=== PATIENT | male | born 1955 | race Caucasian/White ===

== ENCOUNTER → 2021-09-20 11:12 | Outpatient (BNVA) | payer OTHER, SELFPAY | PROVIDERS: PCP Nurse Practitioner; Visit Provider Physical Therapy Assistant | DX: L89.153 Pressure ulcer of sacral region, stage 3 (principal); Z51.89 Encounter for other specified aftercare | CPT/HCPCS: 99205 ==

== ENCOUNTER 2021-09-23 08:29 | Emergency (ER) | payer OTHER, SELFPAY ==
[2021-09-23] VITALS (16 sets, daily range): BP systolic 127–173; BP diastolic 70–99; PULSE 82–107; RESP 15–28; TEMP 36.6–36.8; O2SAT 93–98
--- OUTSIDE RECORDS SUMMARY | 2021-09-23 08:55 | XMS_ITS | Encounter Summary ---
:1955 Author Organization [facility] [place] [address] Care Team Providers Name Role Phone Willard Gastelum MD Primary Care Provider Encounter Details Date Type Department Care Team Description 02/28/2017 Orders Only Hematology and Oncology at [facility] APRN [facility] Danis ramos [place] [address] DEPT. [phone] [place], [place] [address] (Wo rk) Social History Tobacco Use Types Packs/Day Years Used Date Never Assessed Sex Assigned at Date Recorded Not on file documented as of this encounter Plan of Treatment Not on filedocumented as of this encounter Visit Diagnoses Not on filedocumented in this encounter Care Teams Offset Assistant Press Operator Relationship Specialty Start Date End Date Willard Gastelum MD PCP - General 02/02/10 [address] [place] [address] documented as of this encounter
--- OUTSIDE RECORDS SUMMARY | 2021-09-23 08:55 | XMS_ITS | Clinical Summary ---
:1955 Author Organization [facility] [place] [address] Care Team Providers Name Role Phone Willard Gastelum MD Primary Care Provider Allergies No known active allergies Medications Medication Sig Dispensed Refills Start Date End Date Status CIS Free Text Med - 0 12/27/2007 Active Multiple Vitamin CIS Free Text Med - 0 12/27/2007 Active Twinrix lisinopril 20MG, PO, Once 0 12/27/2007 Act daxa (PRINIVIL;ZESTRIL) 20 mg daily tablet rrjkdzv-sbgyudtazugyh-qt 0 12/27/2007 Active ffeine (EXCEDRIN EXTRA STRENGTH) 250-250-65 mg per tablet Peginterferon jerald-2b 150 MCG/0.5 ML 0 12/27/2007 Active (PEGINTRON) 150 mcg/0.5 SQ QWEEK mL injection loratadine (CLARITIN) 10 0 12/27/2007 Active mg tablet ribavirin (REBETOL) 200 1400 MG = 7 0 12/27/2007 Active mg capsule Capsule(s) PO 4 in AM; 3 in PM daily Immunizations Name Administration Dates Next Due Hep A/Hep B 12/01/2006, 10/31/2006 Influenza Vaccine, Whole 02/24/2006 Td, adult 03/13/1998 Social History Tobacco Use Types Packs/Day Years Used Date Never Assessed Sex Assigned at Date Recorded Not on file Plan of Treatment Health Maintenance Due Date Last Done Comments Covid-19 Vaccine (#1) 1958 Hepatitis C Screening 1971 Lipid Screening 1971 Tdap adult 02/13/1972 Colonoscopy 1998 Zoster vaccine (1 of 2) 2003 Advance Directive 02/13/2008 Tetanus vaccine 03/13/2008 03/13/1998 Pneumoccocal Vaccine: 65+ (1 - PCV) 2018 Influenza (Flu) vaccine (1 of 1 - Influenza standard 11/11/2021 02/24/2006 series) Care Teams Institutional Custodian Relationship Specialty Start Date End Date Willard Gastelum MD PCP - General 02/02/[address] [place] [address]
--- OUTSIDE RECORDS SUMMARY | 2021-09-23 08:55 | XMS_ITS | Clinical Summary ---
:[address] [facility] Address [address] [place] [address] Care Team Providers Name Role Phone Willard Gastelum MD Primary Care Provider Unavailable Social History Tobacco Use Types Packs/Day Years Used Date Never Assessed Sex Assigned at Date Recorded Not on file Plan of Treatment Health Maintenance Due Date Last Done Comments Fall Risk Screening 2018 Care Teams Admin Secretary Relationship Specialty Start Date End Date Willard Gastelum MD PCP - General 01/20/15
--- OUTSIDE RECORDS SUMMARY | 2021-09-23 08:55 | XMS_ITS | Encounter Summary ---
:1955 Author Organization [facility] Address [address] [place] [address] Care Team Providers Name Role Phone Unavailable Primary Care Provider Unavailable Encounter Details Date Type Department Care Team Description 03/31/2002 - Hospital Encounter [facility] Chai Alfred MD 04/03/2002 General Surgery Unit [id number] [place] [address] [facility] Level 5 [place] [address] (Wo rk) Social History Tobacco Use Types Packs/Day Years Used Date Never Assessed Sex Assigned at Date Recorded Not on file documented as of this encounter Discharge Disposition Disposition Code Departure Means Destination Home or Self Care documented in this encounter Plan of Treatment Not on filedocumented as of this encounter Procedures Procedure Name Priority Date/Time Associated Comments Diagnosis HEMAGRAM & DIFF Routine 04/03/2002 11:00 Results for this EST procedure are i n the results section. CREATININE Routine 04/02/2002 7:10 Results for this EST procedure are i n the results section. HEMAGRAM & DIFF Routine 04/02/2002 7:10 Results f or this EST procedure are i n the results section. BUN Routine 04/02/2002 7:10 Results for this EST procedure are i n the results section. LIPASE Routine 04/02/2002 7:10 Results for this EST procedure are i n the results section. HEPATIC FUNCTION Routine 04/02/2002 7:10 Results for this PANEL (ALB,ALK EST procedure are in PHOS,ALT,AST,DBIL,TOT the re sults JANI,TOT PROT) section. ELECTROLYTES Routine 04/02/2002 7:10 Results for this EST procedure are i n the results section. AFB CULTURE/SMEAR, Routine 04/01/2002 12:21 Resul ts for this OTHER EST procedure are i n the results section. ANAEROBE Routine 04/01/2002 12:21 Results for this CULTURE/SMEAR(INC. EST procedure are in AEROBES), FLUID the results section. CT GUIDE DRAINAGE Routine 04/01/2002 11:47 Result s for this EST procedure are i n the results section. CREATININE Routine 04/01/2002 7:20 Results for this EST procedure are i n the results section. HEMAGRAM & DIFF Routine 04/01/2002 7:20 Results f or this EST procedure are i n the results section. PTT Routine 04/01/2002 7:20 Results for this EST procedure are i n the results section. PROTIME Routine 04/01/2002 7:20 Results for this EST procedure are i n the results section. BUN Routine 04/01/2002 7:20 Results for this EST procedure are i n the results section. LIPASE Routine 04/01/2002 7:20 Results for this EST procedure are i n the results section. HEPATIC FUNCTION Routine 04/01/2002 7:20 Results for this PANEL (ALB,ALK EST procedure are in PHOS,ALT,AST,DBIL,TOT the re sults JANI,TOT PROT) section. ELECTROLYTES Routine 04/01/2002 7:20 Results for this EST procedure are i n the results section. PTT Routine 04/01/2002 6:40 Results for this EST procedure are i n the results section. PROTIME Routine 04/01/2002 6:40 Results for this EST procedure are i n the results section. URINALYSIS WITH Routine 03/31/2002 23:15 Results for this MICROSCOPIC IF EST procedure are in POSITIVE the results section. UA REFLEX Routine 03/31/2002 23:15 Results for this EST procedure are i n the results section. C. DIFFICILE TOXIN Routine 03/31/2002 23:15 Resul ts for this EST procedure are i n the results section. CT ABDOMEN, PELVIS W Routine 03/31/2002 23:02 Res ults for this CONTRAST EST procedure are i n the results section. CREATININE Routine 03/31/2002 18:51 Results for this EST procedure are i n the results section. HEMAGRAM & DIFF Routine 03/31/2002 18:51 Results for this EST procedure are i n the results section. BUN Routine 03/31/2002 18:51 Results for this EST procedure are i n the results section. HEPATIC FUNCTION Routine 03/31/2002 18:51 Results for this PANEL (ALB,ALK EST procedure are in PHOS,ALT,AST,DBIL,TOT the re sults JANI,TOT PROT) section. LIPID PROFILE Routine 03/31/2002 18:51 Results fo r this (INCLUDES EST procedure are i n CHOLESTEROL, the results TRIGLYCERIDES, HDL, section. LDL) ELECTROLYTES Routine 03/31/2002 18:51 Results for this EST procedure are i n the results section. documented in this encounter Results (ABNORMAL) HEMAGRAM & DIFF (04/03/2002 11:00 EST) WBC 11.00 (H) 4.0 - 10.4 [facility] K/cmm RBC 4.13 (L) 4.36 - 5.78 [facility] M/cmm Hemoglobin 12.0 (L) 13.8 - 17.3 [facility] gm/dl HCT 35.2 (L) 39.5 - 50.2 % [facility] MCV 85 81 - 95 fl [facility] MCH 29.2 27.6 - 33.0 pg [facility] MCHC 34.2 32.8 - 36.4 [facility] gm/dl PLT 806 (H) 141 - 320 [facility] K/cmm RDW-CV 12.4 11.8 - 14.1 % [facility] Neutrophils 77 45.5 - 79.7 % [facility] Lymphocytes 14 (L) 15.0 - 46.8 % [facility] Monocytes 8 1.8 - 12.0 % [facility] Eosinophils 1 0.6 - 6.9 % [facility] ABS Neutrophils 8.47 2.20 - 8.85 [facility] K/cmm ABS Lymphs 1.54 1.09 - 3.30 [facility] K/cmm ABS Monocytes 0.88 (H) 0.1 - 0.8 [facility] K/cmm ABS Eosinophils 0.11 0.03 - 0.61 [facility] K/cmm RBC Morphology 1+ Anisocytosis [facility] 1+ Macrocytes 1+ Polychromasia Type of Diff: Manual [facility] Specimen Performing Organization Address City/[facility]/ZIP Code Phon e Number [facility] [address] [place] [address] SERVICES [facility] [address] [place] [address] ELECTROLYTES (04/02/2002 7:10 EST) Pathologist Sig nature Sodium 136 136 - 145 mEq/L [facility] Potassium 4.5 3.5 - 5.0 mEq/L [facility] Chloride 104 96 - 110 mEq/L [facility] CO2 26 24 - 30 mEq/L [facility] Specimen Performing Organization Address [facility]/ZIP [facility] Phon e Number [facility] [address] [place] [address] SERVICES [facility] [address] [place] [address] (ABNORMAL) LIVER FUNCTION TESTS (04/02/2002 7:10 EST) Albumin 2.4 (L) 3.0 - 5.5 g/dl [facility] Total Protein 5.6 (L) 6.0 - 8.5 g/dl [facility] Total Alkaline 75 38 - 126 U/L [facility] Phosphatase ALT 29 15 - 75 U/L [facility] AST 15 8 - 50 U/L [facility] Unconjugated Bilirubin 0.1 0.1 - 1.1 mg/dl [facility] Conjugated Bilirubin 0.0 0.0 - 0.3 mg/dl [facility] Bilirubin, Total <0.1 (L) 0.2 - 1.3 mg/dl [facility] Specimen Performing Organization Address City/[facility]/ZIP Code Phon e Number [facility] [address] [place] [address] SERVICES [facility] [address] [place] [address] LIPASE (04/02/2002 7:10 EST) Pathologist Sig nature Lipase 73 0 - 210 U/L [facility] Specimen Performing Organization Address City/[facility]/ZIP Code Phon e Number [facility] [address] [place] [address] SERVICES [facility] [address] [place] [address] CREATININE (04/02/2002 7:10 EST) Pathologist Sig nature Creatinine 0.8 0.7 - 1.5 mg/dl [facility] Specimen Performing Organization Address City/[facility]/ZIP Code Phon e Number [facility] [address] [place] [address] SERVICES [facility] [address] [place] [address] (ABNORMAL) HEMAGRAM & DIFF (04/02/2002 7:10 EST) WBC 9.13 4.0 - 10.4 [facility] K/cmm RBC 3.68 (L) 4.36 - 5.78 [facility] M/cmm Hemoglobin 10.7 (L) 13.8 - 17.3 [facility] gm/dl HCT 31.5 (L) 39.5 - 50.2 % [facility] MCV 86 81 - 95 fl [facility] MCH 29.2 27.6 - 33.0 pg [facility] MCHC 34.1 32.8 - 36.4 [facility] gm/dl PLT 642 (H) 141 - 320 K/cmm [facility] RDW-CV 12.2 11.8 - 14.1 % [facility] Neutrophils 73 45.5 - 79.7 % [facility] Lymphocytes 17 15.0 - 46.8 % [facility] Monocytes 8 1.8 - 12.0 % [facility] Eosinophils 1 0.6 - 6.9 % [facility] Basophils 1 0.2 - 1.4 % [facility] ABS Neutrophils 6.67 2.20 - 8.85 [facility] K/cmm ABS Lymphs 1.55 1.09 - 3.30 [facility] K/cmm ABS Monocytes 0.73 0.1 - 0.8 K/cmm [facility] ABS Eosinophils 0.09 0.03 - 0.61 [facility] K/cmm ABS Basophils 0.09 0.01 - 0.11 [facility] K/cmm RBC Morphology 1+ Anisocytosis [facility] 1+ Target cells Type of Diff: Manual [facility] Specimen Performing Organization Address City/State/ZIP Code Phon e Number [facility] [address] [place] [address] SERVICES [facility] [address] [place] [address] (ABNORMAL) BUN (04/02/2002 7:10 EST) Pathologist Sig nature BUN 3 (L) 10 - 26 mg/dl [facility] Specimen Performing Organization Address City/[facility] Code Phon e Number [facility] [address] [place] [address] SERVICES [facility] [address] [place] [address] AFB CULTURE/SMEAR, OTHER (04/01/2002 12:21 EST) Specimen Description Drainage [facility] Abdomen Abscess Acid Fast No acid-fast [facility] bacilli seen Result No acid-fast [facility] bacilli isolated Report Status Final [facility] [id number] Specimen Performing Organization Address [facility] Phon e Number [facility] [address] [place] [address] SERVICES [facility] [address] [place] [address] ANAEROBE CULTURE/SMEAR(INC. AEROBES), FLUID (04/01/2002 12:21 EST) Specimen Description Drainage [facility] Abscess Gram Smear Result Many [facility] Few Gram negative bacilli Rare Yeast Result Few [facility] ESCHERICHIA COLI [facility] Few SUSAN ALBICANS Report Status Final [facility] [id number] [facility] Specimen Organism Antibiotic Method Susceptibility Fewescherichia coli Ampicillin SUSCEPTIBILITY (SANDIP) >=32 Resistant Resistant Fewescherichia coli Cefazolin SUSCEPTIBILITY (SANDIP) <=8 Susceptible Susceptible Fewescherichia coli Gentamicin SUSCEPTIBILITY (SANDIP) <=0.5 Susceptible Susceptible Fewescherichia coli Tobramycin SUSCEPTIBILITY (SANDIP) 1 Susceptible Susceptible Fewescherichia coli Imipenem SUSCEPTIBILITY (SANDIP) <=4 Susceptible Susceptible Fewescherichia coli Cefotetan SUSCEPTIBILITY (SANDIP) <=16 Susceptible Susceptible Fewescherichia coli Piperacillin SUSCEPTIBILITY (SANDIP) 64 Intermediate Intermediate Fewescherichia coli Ceftriaxone SUSCEPTIBILITY (SANDIP) <=8 Susceptible Susceptible Fewescherichia coli Trimethoprim-Sulfameth SUSCEPTIBILITY (SANDIP) <=.5/9.5 oxazole Susceptible Susceptible Fewescherichia coli Ciprofloxacin SUSCEPTIBILITY (SANDIP) <=0.5 Susceptible Susceptible Fewescherichia coli Ceftazidime SUSCEPTIBILITY (SANDIP) <=8 Susceptible Susceptible Performing Organization Address City/State/ZIP Code Phon e Number [facility] [address] [place] [address] SERVICES [facility] [address] [place] [address] CT GUIDE DRAINAGE (04/01/2002 11:47 EST) Anatomical Region Laterality Modality Other Specimen Impressions [facility] - 12/08/2008 3: 47 EDT IMPRESSION: Unsuccessful attempt at placing pigtail drainage catheter into the small collection of fluid adjacent to shawn wel and peritoneum in the left abdomen. Needle aspiration of this colle ction yielded a mere 2 cc of pus-tinged fluid. This was sent to the L aboratory for analysis, cultures and sensitivities. The attending radiologist was present th roughout the entire procedure. /[facility] Narrative [facility] - 12/08/2008 3: 47 EDT TEMP, INCREASED WBC LT SIDE PAIN ??R/O ABSCESS CT-GUIDED DRAINAGE, 04/01/02, 1030 HISTORY: Increased white count, left-sided pain, elevated temperature, rule out abscess for drainage. PROCEDURE: After a thorough explanation of the risk s and benefits of the procedure, informed verbal and written c onsent was obtaind. The patient was placed in a supine posit ion and localizing images were obtained. Conscious sedation was adminis tered and the patient's blood pressure, heart rate, and oxygen saturat ion were monitored throughout the procedure. After localizing the collection in the l eft abdomen, the patient's skin was prepped and draped in normal st erile fashion. Local anesthetic was provided with lidocaine. Using a TLA needle, access to the collec tion was performed. One and one-half cubic centimeters of pus was re moved. This was followed by the advancement of a guide wire under CT guidance. Imaging of the abdomen postguide wire pl acement demonstrated the guide wire to course in a path which appeared adjacent to small bowel. A 10-gauge multipurpose pigtail drainage t ube was then advanced over the wire. The guide wire was removed and asp iration was attempted from the pigtail catheter. Only a small amoun t of fluid was able to be removed with predominantly air being asp irated. Localizing images were then obtained aga in after the tube was injected with a 1% contrast solution. This demons trated opacification of the adjacent small bowel loop. The pigtail catheter was then slowly wit hdrawn incrementally, aspirating continuously). A small amount of pus was able to be aspirated and at this time a guide wire was then placed through the pigtail catheter. The guide wire, howeve r, could not be advanced. The pigtail catheter was removed. A dila ting catheter was placed over the wire to the edge of the collection. The guide wire still could not be adequately advanced into the anders ection. Multiple attempts were made and the guide wire and cathete r were removed. A new location was then attempted three centimeters lateral to the original site. A 19-gauge coaxial needle was advanced into the area of the collection. Aspiration did not, h owever, yield any fluid or pus. This was redirected several times, again no pus or fluid was able to be aspirated. A guide wire was a dvanced slowly with CT fluoroscopic guidance, however, the guid e wire coiled at the tip of the needle. At this point, it was determined that th e collection was not large enough to place a drain into and the nee dles and wires were removed. Bandages were applied to the skin access points and the patient was returned to the Floor in satisfactory co ndition. Procedure Note Nelson Brenner MD / Cj Medina MD - 12/08/2008 TEMP, INCREASED WBC LT SIDE PAIN R/O ABS CESS CT-GUIDED DRAINAGE, 04/01/02, 1030 HISTORY: Increased white count, left-sided pain, elevated temperature, rule out abscess for drainage. PROCEDURE: After a thorough explanation of the risk s and benefits of the procedure, informed verbal and written c onsent was obtaind. The patient was placed in a supine posit ion and localizing images were obtained. Conscious sedation was adminis tered and the patient's blood pressure, heart rate, and oxygen saturat ion were monitored throughout the procedure. After localizing the collection in the l eft abdomen, the patient's skin was prepped and draped in normal st erile fashion. Local anesthetic was provided with lidocaine. Using a TLA needle, access to the collec tion was performed. One and one-half cubic centimeters of pus was re moved. This was followed by the advancement of a guide wire under CT guidance. Imaging of the abdomen postguide wire pl acement demonstrated the guide wire to course in a path which appeared adjacent to small bowel. A 10-gauge multipurpose pigtail drainage t ube was then advanced over the wire. The guide wire was removed and asp iration was attempted from the pigtail catheter. Only a small amoun t of fluid was able to be removed with predominantly air being asp irated. Localizing images were then obtained aga in after the tube was injected with a 1% contrast solution. This demons trated opacification of the adjacent small bowel loop. The pigtail catheter was then slowly wit hdrawn incrementally, aspirating continuously). A small amount of pus was able to be aspirated and at this time a guide wire was then placed through the pigtail catheter. The guide wire, howeve r, could not be advanced. The pigtail catheter was removed. A dila ting catheter was placed over the wire to the edge of the collection. The guide wire still could not be adequately advanced into the anders ection. Multiple attempts were made and the guide wire and cathete r were removed. A new location was then attempted three centimeters lateral to the original site. A 19-gauge coaxial needle was advanced into the area of the collection. Aspiration did not, h owever, yield any fluid or pus. This was redirected several times, again no pus or fluid was able to be aspirated. A guide wire was a dvanced slowly with CT fluoroscopic guidance, however, the guid e wire coiled at the tip of the needle. At this point, it was determined that th e collection was not large enough to place a drain into and the nee dles and wires were removed. Bandages were applied to the skin access points and the patient was returned to the Floor in satisfactory co ndition. IMPRESSION IMPRESSION: Unsuccessful attempt at placing pigtail drainage catheter into the small collection of fluid adjacent to shawn wel and peritoneum in the left abdomen. Needle aspiration of this colle ction yielded a mere 2 cc of pus-tinged fluid. This was sent to the aboratory for analysis, cultures and sensitivities. The attending radiologist was present th roughout the entire procedure. /[facility] Performing Organization Address City/State/ZIP Code Phon e Number [facility] [address] [place], [place] [address] [address] [facility] [address] [place], [place] [address] PTT (04/01/2002 7:20 EST) Pathologist Sig nature PTT 26Comment: Therapeutic 23 - 33 secs [facility] Heparin range: 58-100 seconds Specimen Performing Organization Address City/[facility]/ZIP [facility] Phon e Number [facility] [address] [place] [address] SERVICES [facility] [address] [place] [address] (ABNORMAL) PROTIME (04/01/2002 7:20 EST) Pro Time 13.6 (H) 11.7 - 13.1 [facility] Comment: secs NEW REAGENT IN USE Increase in protime results in seconds e xpected ? due to change to more sensitive reagent. INR values remain unchanged I.N.R. 1.1 0.8 - 1.2 [facility] Comment: Ratio Moderate Intensity Coumadin INR = 2.0-3.0 Adjustments in anticoagulant therapy dose should be based upon the INR and NOT the Pro Time. Specimen Performing Organization Address [facility] Phon e Number [facility] [address] [place] [address] SERVICES [facility] [address] [place] [address] (ABNORMAL) ELECTROLYTES (04/01/2002 7:20 EST) Pathologist Sig nature Sodium 135 (L) 136 - 145 mEq/L [facility] Potassium 4.4 3.5 - 5.0 mEq/L [facility] Chloride 103 96 - 110 mEq/L [facility] CO2 25 24 - 30 mEq/L [facility] Specimen Performing Organization Address City/[facility]/ZIP [facility] Phon e Number [facility] [address] [place] [address] SERVICES [facility] [address] [place] [address] (ABNORMAL) LIVER FUNCTION TESTS (04/01/2002 7:20 EST) Albumin 2.3 (L) 3.0 - 5.5 g/dl [facility] Total Protein 5.4 (L) 6.0 - 8.5 g/dl [facility] Total Alkaline 81 38 - 126 U/L [facility] Phosphatase ALT 27 15 - 75 U/L [facility] AST 15 8 - 50 U/L [facility] Unconjugated Bilirubin 0.1 0.1 - 1.1 mg/dl [facility] Conjugated Bilirubin 0.0 0.0 - 0.3 mg/dl [facility] Bilirubin, Total <0.1 (L) 0.2 - 1.3 mg/dl [facility] Specimen Performing Organization Address City/[facility]/ZIP Code Phon e Number [facility] [address] [place] [address] SERVICES [facility] [address] [place] [address] LIPASE (04/01/2002 7:20 EST) Pathologist Sig nature Lipase 78 0 - 210 U/L [facility] Specimen Performing Organization Address [facility] Phon e Number [facility] [address] [place] [address] SERVICES [facility] [address] [place] [address] CREATININE (04/01/2002 7:20 EST) Pathologist Sig nature Creatinine 0.8 0.7 - 1.5 mg/dl [facility] Specimen Performing Organization Address [facility] Phon e Number [facility] [address] [place] [address] SERVICES [facility] [address] [place] [address] (ABNORMAL) HEMAGRAM & DIFF (04/01/2002 7:20 EST) Pathologist Sig nature WBC 12.96 (H) 4.0 - 10.4 K/cmm [facility] RBC 3.70 (L) 4.36 - 5.78 M/cmm [facility] Hemoglobin 10.7 (L) 13.8 - 17.3 gm/dl [facility] HCT 32.0 (L) 39.5 - 50.2 % [facility] MCV 86 81 - 95 fl [facility] MCH 29.0 27.6 - 33.0 pg [facility] MCHC 33.6 32.8 - 36.4 gm/dl [facility] PLT 628 (H) 141 - 320 K/cmm [facility] RDW-CV 12.5 11.8 - 14.1 % [facility] Neutrophils 76.6 45.5 - 79.7 % [facility] Lymphocytes 10.8 (L) 15.0 - 46.8 % [facility] Monocytes 9.8 1.8 - 12.0 % [facility] Eosinophils 1.8 0.6 - 6.9 % [facility] Basophils 1.0 0.2 - 1.4 % [facility] ABS Neutrophils 9.93 (H) 2.20 - 8.85 K/cmm [facility] ABS Lymphs 1.40 1.09 - 3.30 K/cmm [facility] ABS Monocytes 1.27 (H) 0.1 - 0.8 K/cmm [facility] ABS Eosinophils 0.23 0.03 - 0.61 K/cmm [facility] ABS Basophils 0.13 (H) 0.01 - 0.11 K/cmm [facility] Type of Diff: Automated [facility] Specimen Performing Organization Address City/[facility]/ZIP Code Phon e Number [facility] [address] [place] [address] SERVICES [facility] [address] [place] [address] (ABNORMAL) BUN (04/01/2002 7:20 EST) Pathologist Sig nature BUN 5 (L) 10 - 26 mg/dl [facility] Specimen Performing Organization Address City/[facility]/ZIP [facility] Phon e Number [facility] [address] [place] [address] SERVICES [facility] [address] [place] [address] PTT (04/01/2002 6:40 EST) Pathologist Sig nature PTT 26Comment: Therapeutic 23 - 33 secs [facility] Heparin range: 58-100 seconds Specimen Performing Organization Address [facility]/ZIP [facility] Phon e Number [facility] [address] [place] [address] SERVICES [facility] [address] [place] [address] (ABNORMAL) PROTIME (04/01/2002 6:40 EST) Pro Time 13.5 (H) 11.7 - 13.1 [facility] Comment: secs NEW REAGENT IN USE Increase in protime results in seconds e xpected ? due to change to more sensitive reagent. INR values remain unchanged I.N.R. 1.1 0.8 - 1.2 [facility] Comment: Ratio Moderate Intensity Coumadin INR = 2.0-3.0 Adjustments in anticoagulant therapy dose should be based upon the INR and NOT the Pro Time. Specimen Performing Organization Address City/[facility]/ZIP Code Phon e Number [facility] [address] [place] [address] SERVICES [facility] [address] [place] [address] C. DIFFICILE TOXIN (03/31/2002 23:15 EST) Specimen Description Feces [facility] Result No C.difficile [facility] toxin A or toxin B detected. Report Status Final [facility] [id number] Specimen Performing Organization Address [facility] Phon e Number [facility] [address] [place] [address] SERVICES [facility] [address] [place] [address] UA REFLEX (03/31/2002 23:15 EST) Pathologist Sig nature UA Billing Microscopic not [facility] indicated. Specimen Performing Organization Address [facility] Phon e Number [facility] [address] [place] [address] SERVICES [facility] [address] [place] [id number] (ABNORMAL) URINALYSIS (03/31/2002 23:15 EST) Pathologist Sig nature Color, UA Yellow [facility] Clarity, UA Clear [facility] Glucose, UA Norm NORM [facility] Bilirubin, UA Small (A) NEG [facility] Ketones, UA Trace (A) NEG [facility] Specific [place], 1.015 1.005 - 1.02 [facility] Urine Blood, UA Neg NEG [facility] pH, UA 7.5 5.0 - 9.0 [facility] Protein, UA Trace (A) NEG [facility] Urobilinogen, UA Norm NORM mg/dL [facility] Nitrite, UA Neg NEG [facility] Leuk Esterase Neg NEG [facility] Specimen Performing Organization Address City/State/ZIP Code Phon e Number [facility] [address] [place] [address] SERVICES [facility] [address] [place] [address] CT ABDOMEN, PELVIS W CONTRAST (03/31/2002 23:02 EST) Anatomical Region Laterality Modality Other Specimen Impressions [facility] - 12/08/2008 3: 47 EDT IMPRESSION: 1. S/p colectomy with ileoanal anastomos is. 2. Left midabdomen abscess with adjacent peritoneal wall thickening and bowel wall thickening in loops of sm all bowel adjacent to this fluid collection, and other signs of per itonitis with fat stranding throughout the mesenteric fat. 3. Ventral midline wound dehiscence with infiltrative fat changes to the subcutaneous tissues, consistent wit h infection. 4. Dilated loops of small bowel without focal transition point. 5. Spondylolysis at L5. No evidence of s pondylolisthesis. 6. Left nephrolithiasis. 7. 1.5 x 1.6cm right adrenal mass, which , on the unenhanced images done at the time of the abscess drainage later in the day on 04/01, demonstrates -14 Hounsfield units, consi stent with a benign adenoma. /[facility] - 12/08/2008 3: 47 EDT H/O OBESITY AND BOWEL ANASTAMOSIS, POD #10 FOR SBO, NOW W/ FEVER AND L LQ PAINR/O INTRA-ABDOMINAL ABSCESS CT OF THE ABDOMEN & PELVIS: 03/31/02, HISTORY: colectomy and ileoanal anas tomosis, post-op day 10 for SBO, adhesion, resection, now with fever and left lower quadrant pain. Rule out intra-abdominal abscess. Abdomen and pelvis without rectal contra st TECHNIQUE ABDOMEN: Prior to the examination, the patient wa s given oral contrast. During the intravenous administration of 150 cc of 300 mg% nonionic contrast at a rate of 2 cc/second, helical images were obtained from the domes of the diaphragms to the iliac crests. TECHNIQUE PELVIS: Immediately after the above preparation, axial images were obtained from the iliac crests to the ischial tub erosities. FINDINGS: There is bibasilar atelectasis, right mo re than left. The inferior heart and pericardium are unremarkable. Evaluation of the abdomen demonstrates s tones in the gallbladder. A hypodense, right adrenal lesion is darío ntified, measuring -17 Hounsfield units on unenhanced image, co nsistent with an adenoma. The liver, spleen, and pancreas are unre markable. There are a few hypodense cysts within b oth the right and left kidneys. There is a tiny, 2mm calculus i n the mid, left kidney, and a 3mm calculus within the lower pole of th e left kidney. The patient is s/p colectomy with ileoan al anastomosis. There is distension of multiple loops of small bowel, without identified of a focal transition point t o normal caliber bowel. Note is made of a small bowel diverticulum pr oximally, which is either off of the duodenum or an adjacent loop of j ejunum. There is a small fluid collection along the left midabdomen, with adjacent peritoneal thickening and small bowel wall thickening of adjacent bowel loops, adjacent to the co llection. The midline ventral incision demonstrate s skin dehiscence at several locations. There is fat stranding of the subcutaneous tissues along the wound. There is fat stranding scatte red throughout the mesentery. No other fluid collections are identifie d. Note is made of a pars defect, bilateral ly, at L5, without spondylolisthesis. Procedure Note Nelson Brenner MD / Hailey Joseph MD - 12/08/2008 H/O OBESITY AND BOWEL ANASTAMOSIS, POD # 10 FOR SBO, NOW W/ FEVER AND L LQ PAINR/O INTRA-ABDOMINAL ABSCESS CT OF THE ABDOMEN & PELVIS: 03/31/02, HISTORY: colectomy and ileoanal anas tomosis, post-op day 10 for SBO, adhesion, resection, now with fever and left lower quadrant pain. Rule out intra-abdominal abscess. Abdomen and pelvis without rectal contra st TECHNIQUE ABDOMEN: Prior to the examination, the patient wa s given oral contrast. During the intravenous administration of 150 cc of 300 mg% nonionic contrast at a rate of 2 cc/second, helical images were obtained from the domes of the diaphragms to the iliac crests. TECHNIQUE PELVIS: Immediately after the above preparation, axial images were obtained from the iliac crests to the ischial tub erosities. FINDINGS: There is bibasilar atelectasis, right mo re than left. The inferior heart and pericardium are unremarkable. Evaluation of the abdomen demonstrates s tones in the gallbladder. A hypodense, right adrenal lesion is darío ntified, measuring -17 Hounsfield units on unenhanced image, co nsistent with an adenoma. The liver, spleen, and pancreas are unre markable. There are a few hypodense cysts within b oth the right and left kidneys. There is a tiny, 2mm calculus i n the mid, left kidney, and a 3mm calculus within the lower pole of th e left kidney. The patient is s/p colectomy with ileoan al anastomosis. There is distension of multiple loops of small bowel, without identified of a focal transition point t o normal caliber bowel. Note is made of a small bowel diverticulum pr oximally, which is either off of the duodenum or an adjacent loop of j ejunum. There is a small fluid collection along the left midabdomen, with adjacent peritoneal thickening and small bowel wall thickening of adjacent bowel loops, adjacent to the co llection. The midline ventral incision demonstrate s skin dehiscence at several locations. There is fat stranding of the subcutaneous tissues along the wound. There is fat stranding scatte red throughout the mesentery. No other fluid collections are identifie d. Note is made of a pars defect, bilateral ly, at L5, without spondylolisthesis. IMPRESSION IMPRESSION: 1. S/p colectomy with ileoanal anastomos is. 2. Left midabdomen abscess with adjacent peritoneal wall thickening and bowel wall thickening in loops of sm all bowel adjacent to this fluid collection, and other signs of per itonitis with fat stranding throughout the mesenteric fat. 3. Ventral midline wound dehiscence with infiltrative fat changes to the subcutaneous tissues, consistent wit h infection. 4. Dilated loops of small bowel without focal transition point. 5. Spondylolysis at L5. No evidence of s pondylolisthesis. 6. Left nephrolithiasis. 7. 1.5 x 1.6cm right adrenal mass, which , on the unenhanced images done at the time of the abscess drainage later in the day on 04/01, demonstrates -14 Hounsfield units, consi stent with a benign adenoma. /derrick Performing Organization Address [facility] Code Phon e Number [facility] [address] [facility] [address] [facility] [address] [place], [place] [address] (ABNORMAL) ELECTROLYTES (03/31/2002 18:51 EST) Pathologist Sig nature Sodium 133 (L)Comment: 136 - 145 mEq/L [facility] Slight hemolysis Potassium 4.6 3.5 - 5.0 mEq/L [facility] Comment: Hemolysis may elevate potassium result. Slight hemolysis Chloride 101Comment: Slight 96 - 110 mEq/L [facility] hemolysis CO2 26Comment: Slight 24 - 30 mEq/L [facility] hemolysis Specimen Performing Organization Address [facility] Phon e Number [facility] [address] [place] [address] SERVICES [facility] [address] [place] [address] LIPID PROFILE (INCLUDES CHOLESTEROL, TRIGLYCERIDES, HDL, LDL) (03/31/2002 18:51 EST) Cholesterol 100 mg/dl [facility] Comment: Desirable:<200 Borderline:200-239 High Risk:>dm=[id number] Slight hemolysis Triglycerides 68Comment: Slight 35 - 160 mg/dl [facility] hemolysis HDL 25 mg/dl [facility] Comment: Highly Desirable:>60 Desirable:35-60 High Risk:<35 LDL, Calculated 61 mg/dl [facility] Comment: Desirable:<130 Borderline:130-159 High Risk:>zf=726 Chol/HDL Ratio 4.0 [facility] Specimen Performing Organization Address [facility]/ZIP [facility] Phon e Number [facility] [address] [place] [address] SERVICES [facility] [address] [place] [address] (ABNORMAL) LIVER FUNCTION TESTS (03/31/2002 18:51 EST) Albumin 2.4 (L)Comment: 3.0 - 5.5 [facility] hemolysis g/dl LAB Total Protein 5.8 (L)Comment: 6.0 - 8.5 [facility] Slight hemolysis g/dl LAB Total Alkaline 86Comment: Slight 38 - 126 U/L [facility] Phosphatase hemolysis LAB ALT 30Comment: Slight 15 - 75 U/L [facility] LAB AST 19Comment: Slight 8 - 50 U/L [facility] hemolysis LAB Unconjugated 0.3Comment: 0.1 - 1.1 [facility] Bilirubin Slight hemolysis mg/dl LAB Conjugated Bilirubin 0.0Comment: 0.0 - 0.3 [facility] Slight hemolysis mg/dl LAB Bilirubin, Total 0.3Comment: 0.2 - 1.3 [facility] Slight hemolysis mg/dl LAB Specimen Performing Organization Address City/[facility]/ZIP [facility] Phon e Number [facility] [address] [place] [address] SERVICES [facility] [address] [place] [phone] CREATININE (03/31/2002 18:51 EST) Pathologist Sig nature Creatinine 0.7Comment: Slight 0.7 - 1.5 mg/dl [facility] hemolysis Specimen Performing Organization Address City/[facility] Code Phon e Number [facility] [address] [place] [address] SERVICES [facility] [address] [place] [address] (ABNORMAL) HEMAGRAM & DIFF (03/31/2002 18:51 EST) WBC 18.16 (H) 4.0 - 10.4 [facility] K/cmm RBC 3.70 (L) 4.36 - 5.78 [facility] M/cmm Hemoglobin 10.8 (L) 13.8 - 17.3 [facility] gm/dl HCT 31.9 (L) 39.5 - 50.2 % [facility] MCV 86 81 - 95 fl [facility] MCH 29.2 27.6 - 33.0 pg [facility] MCHC 33.8 32.8 - 36.4 [facility] gm/dl PLT 685 (H) 141 - 320 [facility] K/cmm RDW-CV 12.4 11.8 - 14.1 % [facility] Neutrophils 92 (H) 45.5 - 79.7 % [facility] Lymphocytes 4 (L) 15.0 - 46.8 % [facility] Monocytes 3 1.8 - 12.0 % [facility] Eosinophils 1 0.6 - 6.9 % [facility] ABS Neutrophils 16.71 (H) 2.20 - 8.85 [facility] K/cmm ABS Lymphs 0.73 (L) 1.09 - 3.30 [facility] K/cmm ABS Monocytes 0.54 0.1 - 0.8 [facility] K/cmm ABS Eosinophils 0.18 0.03 - 0.61 [facility] K/cmm RBC Morphology 1+ Polychromasia [facility] Type of Diff: Manual [facility] Specimen Performing Organization Address City/State/ZIP Code Phon e Number [facility] [address] [place] [address] SERVICES [facility] [address] [place] [address] (ABNORMAL) BUN (03/31/2002 18:51 EST) Pathologist Sig nature BUN 7 (L)Comment: Slight 10 - 26 mg/dl [facility] hemolysis Specimen Performing Organization Address City/State/ZIP Code Phon e Number [facility] [address] [place] [address] SERVICES [facility] [address] [place] [address] documented in this encounter Visit Diagnoses Not on filedocumented in this encounter
--- OUTSIDE RECORDS SUMMARY | 2021-09-23 08:55 | XMS_ITS | Encounter Summary ---
:1955 Author Organization [facility] [place] [address] Care Team Providers Name Role Phone Willard Gastelum MD Primary Care Provider Encounter Details Date Type Department Care Team Description 06/09/2017 Orders Only Hematology and Oncology at [facility] Morris APRN [facility] Danis ramos [place] [address] DEPT. [phone] [place], [place] [address] (Wo rk) Social History Tobacco Use Types Packs/Day Years Used Date Never Assessed Sex Assigned at Date Recorded Not on file documented as of this encounter Plan of Treatment Not on filedocumented as of this encounter Visit Diagnoses Not on filedocumented in this encounter Care Teams Lifter/Driver Relationship Specialty Start Date End Date Willard Gastelum MD PCP - General 02/02/10 [address] [place] [address] documented as of this encounter
--- NOTE | 2021-09-23 09:00 | RT.EKG_ITS ---
APPROVED REPORT Exam: Resting ECG Reason for Exam: weakness Patient Location: E HR:82 bpm ECG Measurements Heart Rate 82 AXIS ID 144 P 40 QRSd 87 QRS 57 QT 379 T 43 QTc 444 Conclusion Sinus rhythm...normal P axis, V-rate 60- 99. Sinus. Normal axis. No STEMI. I have reviewed and interpreted ECG and agree with software generated interpretation.
--- NOTE | 2021-09-23 09:00 | DI.CT_ITS ---
Exam(s) CT HEAD CERVICAL SPINE WO EXAM: CT HEAD CERVICAL SPINE WO CLINICAL HISTORY: fall, [place], dementia, neck pain. TECHNIQUE: Imaging Protocol: Axial computed tomography images with coronal and sagittal reformatted images were created and reviewed COMPARISON: No exams were available for comparison FINDINGS: CT Head: Ventricles and Extra axial spaces: Normal in size and morphology for the patient's age. Hemorrhage: None. Cerebral parenchyma: Normal. Midline shift: None. Brainstem/Cerebellum: Normal. Calvarium: Normal. Visualized Paranasal sinuses/Mastoids: Clear. Soft Tissues: Unremarkable. CT Cervical Spine: Bones: No acute fracture or subluxation. There are degenerative changes seen in the cervical spine. Soft Tissues: Unremarkable. Lung Apices: Clear. IMPRESSION: 1. No acute intracranial process. 2. No acute fracture or subluxation in the cervical spine. 3. Results of this exam have been verbally communicated with provider. RADIATION DOSE DELIVERED: 1,134.56mGy.cm Total DLP DATA REPOSITORY: All CT scans at this facility are submitted to the National Radiology Data Registry (NRDR) Dose Index Registry (DIR) with the [employer] (ACR). RADIATION OPTIMIZATION: All CT scans at this facility use at least one of these dose optimization te chniques: automated exposure control; mA and/or kV adjustment per patient size (includes targeted exa ms where dose is matched to clinical indication); or iterative reconstruction.
--- NOTE | 2021-09-23 09:05 | DI.RAD_ITS ---
Exam(s) XR CHEST 1V IN DI DEPT EXAM: XR CHEST 1V IN DI DEPT CLINICAL HISTORY: frequent falls, weakness TECHNIQUE: 2D digital imaging was performed of the chest. One image was obtained. An AP view was ob tained. COMPARISON: No exams were available for comparison FINDINGS: MEDIASTINUM: Normal. HEART: Normal. PULMONARY VASCULATURE: Normal. LUNGS: Clear. PLEURAL SPACE: No pleural effusion or pneumothorax. BONE:Within normal limits for the patient's age. OTHER FINDINGS:Normal. IMPRESSION: No acute pulmonary findings. DATA REPOSITORY: RADIATION DOSE DELIVERED:
[2021-09-23 09:35] LABS: Abs Immature Grans 0.03 10^3/uL (0.0-0.06); Absolute Basophil Count 0.01 10^3/uL (0.0-0.2); Absolute Eosinophil Count 0.14 10^3/uL (0.0-0.7); Absolute Lymphocyte Count 0.69 10^3/uL (1.2-3.4); Absolute Monocyte Count 0.94 10^3/uL (0.1-0.8); Basophils % 0.1; Eosinophils % 1.6; HCT 31.4 % (40.0-50.0); HGB 9.8 g/dL (13.5-17.5); Immature Grans % 0.3; Lymphocytes % 7.7; MCH 26.4 pg (27.0-33.0); MCHC 31.2 % (32.0-36.0); MCV 85 fL (80-95); Monocytes % 10.4; Neutrophils % 79.9; Platelet Count 334 10^3/uL (130-400); RBC 3.71 10^6/uL (4.36-5.78); RDW 14.6 % (11.8-14.1); RDW-SD 44.8 fL; WBC 9.01 10^3/uL (4.4-10.8)
--- NOTE | 2021-09-23 09:45 | DI.CT_ITS ---
Exam(s) CT ABDOMEN PELVIS W EXAM: CT ABDOMEN PELVIS W CLINICAL HISTORY: right hip pain, pelvic pain post fall TECHNIQUE: Imaging Protocol: Axial computed tomography images with coronal and sagittal reformatted images were created and reviewed CONTRAST MATERIAL: Intravenous: Omnipaque 350 Contrast volume:100 mL Oral: No COMPARISON: No exams were available for comparison FINDINGS: The examination is limited due to patient motion artifact. ABDOMEN: Lung Bases: Normal where visualized. Liver: Normal density. No measurable mass. Portal, Superior Mesenteric, and Splenic Veins: Unremarkable. Gallbladder and Biliary Tract: Cholelithiasis. No biliary ductal dilatation. Pancreas: Normal density, no abnormal calcifications or inflammatory process. Spleen: Normal. Adrenals: There is a 1.6 cm hypodense right adrenal nodule. The left adrenal gland is unremarkable. Kidneys: Normal size, contour and axis. Nonobstructing left upper pole renal calculi are present. Th ere is a simple cyst in the upper pole of the right kidney. Abdominal Aorta: Abdominal portion non-dilated. Atherosclerosis is present. Bowel: No bowel wall thickening is seen. No evidence of appendicitis. Postsurgical changes are seen in the bowel in the pelvis. There is an anastomosis seen in the right abdomen (series 5, image 585) . The anastomosis appears mildly narrowed. There is dilatation proximally and distally to the anast omosis. Peritoneal Cavity: No ascites, collection or mesenteric inflammatory response. No free air. Lymph Nodes: Within normal limits. Bones: Within normal limits for the patient's age. There is a compression deformity of the L4 verteb ral body. There is also however a lucency through the anterior and right aspect of the L4 vertebral body consistent with an acute fracture. No definite acute fracture or subluxation is identified. Soft Tissues: Unremarkable. PELVIS: Bladder: Symmetric distention, no gross wall thickening. Reproductive Organs: Unremarkable as visualized. Lymph Nodes: Within normal limits. Bones: Within normal limits for the patient's age. There is L5 spondylolysis and grade 1 spondylolis thesis of L5 on S1. IMPRESSION: 1. Acute fracture of the anterior and right aspect of the L5-L4 vertebral body. 2. History of colonic resection with narrowing at the anastomotic site. There is mild dilatation of the colon proximally and distally at the anastomosis. Stricture cannot be excluded. There is also n arrowing at the rectum. 3. Small fluid collection seen in the base of the midline anterior abdominal wall scar. Abscess, hem atoma or postoperative seroma be exclude should be considered. 4. Cholelithiasis. No biliary ductal dilatation. 5. Left nephrolithiasis. No hydronephrosis. 6. No displaced right hip fracture. If there is continued concern, MRI or nuclear medicine examinati on may be obtained. 7. Results of this exam have been verbally communicated with provider. RADIATION DOSE DELIVERED: 1,006.93mGy.cm Total DLP DATA REPOSITORY: All CT scans at this facility are submitted to the National Radiology Data Registry (NRDR) Dose Index Registry (DIR) with the [employer] (ACR). RADIATION OPTIMIZATION: All CT scans at this facility use at least one of these dose optimization te chniques: automated exposure control; mA and/or kV adjustment per patient size (includes targeted exa ms where dose is matched to clinical indication); or iterative reconstruction.
[2021-09-23 09:52] LABS: ALT 24 U/L (16-63); AST 21 U/L (15-37); Albumin 2.7 g/dL (3.4-5.0); Alkaline Phosphatase 78 U/L (46-116); Anion Gap 10.5 mmol/L (3-11); BUN 19 mg/dL (7-18); Bilirubin, Total 0.8 mg/dL (0.2-1.0); CO2 23.5 mmol/L (21.0-32.0); Calcium 8.9 mg/dL (8.5-10.1); Chloride 106 mmol/L (98-107); Glucose 87 mg/dL (74-106); Lipase 65 U/L (73-393); Magnesium 1.6 mg/dL (1.8-2.4); Potassium 4.1 mmol/L (3.5-5.1); Sodium 140 mmol/L (136-145); Total Protein 6.3 g/dL (6.4-8.2)
[2021-09-23 10:11] LABS: Bilirubin Negative (Negative); Blood Trace-intact (Negative); Clarity Clear (Clear); Glucose Negative (Negative); Ketones Trace mg/dL (Negative); Leukocyte Esterase Negative (Negative); Nitrite Negative (Negative); Specific Gravity 1.025 (1.005-1.025); Urobilinogen 0.2 EU/dL (Up TO 0.2); pH 5.5 (5-8)
[2021-09-23 10:17] LABS: Bacteria Negative HPF (Negative); C & S Indicated? No; Casts Negative LPF (Negative); Crystals Negative HPF (Negative); Epithelial Cells Rare HPF (Negative); Mucus Negative (Negative); RBC 0-2 HPF (0-2); WBC Negative HPF (0-5)
[2021-09-23] MEDS: Omnipaque 350 MG/ML 100 ML BTL IV (11:09)
--- NOTE | 2021-09-23 12:06 | NUR.NOTE ---
pt eating lunch then will attempt ambulation with walker Nursing Note:
[2021-09-23] MEDS: Acetaminophen 325 MG TAB 650 MG PO (12:10)
--- NOTE | 2021-09-23 13:07 | ED.GENADUL_ITS ---
Discharge Plan Disposition Patient Disposition: HOME Condition: Stable Discharge Details Clinical Impression: L4 vertebral fracture, Abdominal wound dehiscence, Frequent falls Primary Care Provider: Emilia Ocampo ED Provider: Jessica Castillo Home Meds and New Rx's Prescriptions: Continued metoprolol tartrate 25 mg tablet 25 mg PO BID Qty: 1 0RF pantoprazole 40 mg tablet,delayed release (DR/EC) 40 mg PO DAILY Qty: 1 0RF vancomycin [Vancocin] 125 mg capsule See Rx Instructions PO DIRECTED Qty: 7 0RF Rx Instructions: one tab every other day triamcinolone acetonide 0.1 % cream 1 applic topical BID povidone-iodine 10 % ointment 1 applic topical BID-QID PRN Santyl 250 unit/gram ointment 1 applic topical DAILY trazodone 50 mg tablet See Rx Instructions PO DAILY Qty: 30 5RF Rx Instructions: 1/2 to one tab qhs orally daily; Discharge Instructions Additional Instructions: Please follow-up with primary care doctor tomorrow Tylenol 650 mg every 4-6 hours as needed for discomfort Walker with ambulation at all times Return earlier with new or worsening complaints Referrals: Emilia Ocampo, LOG YARD DERRICK OPERATOR [Primary Care Provider] - Discharge Data Discharge Date/Time-TO BE ENTERED AT DEPARTURE: 09/23/21 13:47 Medical Decision Making Fracture was high patient with L4 to vertebral fracture on CT scan, discussed the case with Dr. Lechuga who states that patient does not need emergent intervention, patient is ambulatory with slow steady gait with walker Sister feels comfortable with patient being discharged home Secondary to lack of resources at home, care management was called and patient will need home health assessment and physical therapy Sister who is patient's DPOA declined any opiate analgesia secondary to the issues at home They will give Tylenol regularly Patient is at her cognitive baseline per his sister CT scan does not show evidence of additional acute abnormality No evidence of hip fracture per radiology interpretation my review All radiological interpretations by Dr. Rider were reviewed and discussed with the radiologist Patient discharged home in stable condition with stable vital with walker health care administrator involved for outpatient follow-up with OT/PT services secondary to L4 fracture and need for assistance at home Medical Records Medical records reviewed: Yes I reviewed the patient's medical records. Lab Data Lab results reviewed: Yes I reviewed the patient's lab results. HPI General Date/Time Provider Initiated Documentation: 09/23/21 08:37 . Limitations to Documentation: altered mental status . Information obtained by: patient and family . HPI Narrative: This 66-year-old male with history of TBI and recent exploratory lap with chronically unsteady gait presents with report of fall today. Slipped on linoleum witnessed fall without loss of conscious. Complains of some right hip and back pain. Denies any headache or neck pain. At his cognitive baseline per sister. Denies any history of anticoagulation. Denies any nausea or vomiting. Pain exacerbated with movement. Denies radiation. Related Data Home Medications Medication Instructions Recorded Confirmed metoprolol tartrate 25 mg tablet 25 mg PO BID #1 tab 09/17/21 09/23/21 pantoprazole 40 mg tablet,delayed 40 mg PO DAILY #1 tab 09/17/21 09/23/21 release vancomycin 125 mg capsule See Rx Instructions PO DIRECTED 09/17/21 09/23/21 (Vancocin) #7 caps collagenase clostridium histo. 250 1 applic topical DAILY 09/20/21 09/21/21 unit/gram topical ointment (Santyl) povidone-iodine 10 % topical 1 applic topical BID-QID PRN 09/20/21 09/21/21 ointment triamcinolone acetonide 0.1 % 1 applic topical BID 09/20/21 09/21/21 topical cream trazodone 50 mg tablet See Rx Instructions PO DAILY #30 09/21/21 tabs Previous Rx's Medication Instructions Recorded metoprolol tartrate 25 mg tablet 25 mg PO BID #1 tab 09/17/21 pantoprazole 40 mg tablet,delayed 40 mg PO DAILY #1 tab 09/17/21 release vancomycin 125 mg capsule See Rx Instructions PO DIRECTED 09/17/21 (Vancocin) #7 caps trazodone 50 mg tablet See Rx Instructions PO DAILY #30 09/21/21 tabs Allergies Allergy/AdvReac Type Severity Reaction Status Date / Time No Known Allergies Allergy Verified 09/23/21 08:41 General Stated Complaint: Orthopedic DELL: 3 Review of Systems Narrative: Limited secondary to baseline mentation/dementia history PFSH All Active Problems (Updated 09/23/21 @ 13:35 by JOSE Nash) L4 vertebral fracture (Acute) Frequent falls (Acute) Foreign body (FB) in soft tissue (Acute) Essential hypertension (Acute) Abdominal wound dehiscence (Acute) 09/2021-status post surgery-laparotomy at hospital and [place] Sacral decubitus ulcer, stage III (Acute) 09/2021-sacral ulcer above the gluteal cleft extends into subcutaneous tissue likely associate with immobility following traumatic brain injury and immobility and prolonged hospitalization pencil Clostridium difficile colitis (Acute) 09/2021 occurred during hospitalization on long vancomycin taper as of 09/2021 with improving symptoms Cognitive and behavioral changes (Acute) Probable underlying dementia emerging and more overtly obvious after TBI TBI (traumatic brain injury) (Acute) 08/2021-modest trauma but significant residual symptoms. Followed at and treated at hospital in [place] August-early September 2021-prolonged hospitalization Social History Smoking/Tobacco Use Status: Unknown Smoking risk assessment performed?: Yes Substance use type: unknown Do you feel safe at home: Yes Do you feel safe in your relationship?: Yes Exam Const General: cooperative, comfortable and no acute distress HENMT Head: normal to inspection Face and sinus: normal facial exam Mouth: oral mucosae normal Eyes Pupils: PERRL Neck Other: no midline tenderness Resp Effort & Inspection: normal respiratory effort Auscultation: clear to auscultation bilaterally Cardio Rate: regular rate Rhythm: regular rhythm GI Inspection: normal to inspection Other: No visible sign of trauma, no abdominal or flank tenderness or bruising Back/Spine/Pelvis Back: no CVA tenderness Skin General skin exam: no rashes or lesions noted Full body images: 1. dehisced wound with packing noted no evidence of secondary infection 2. tenderness with palpation Neuro General: patient alert Other: GCS 15 oriented x2 Extrem Upper/lower leg/hip images: 1. tenderness with palpation Other: distal pulses intact no knee tenderness bilaterally Course Vital Signs Vital signs: Vital Signs Temperature 36.8 C 09/23/21 08:37 Pulse 82 09/23/21 08:37 Respiratory Rate 16 09/23/21 08:37 Blood Pressure 136/70 09/23/21 08:37 Pulse Oximetry 98 09/23/21 08:37 Temperature 36.6 C 09/23/21 09:33 Pulse 93 H 09/23/21 09:33 Respiratory Rate 15 09/23/21 09:33 Respiratory Effort 09/23/21 08:43 Blood Pressure 137/75 09/23/21 09:33 Pulse Oximetry 98 07/14/22 09:33 Oxygen Delivery Method Room Air 07/14/22 09:33 Oxygen Flow Rate 0 09/23/21 09:33 Pain Level 9 09/23/21 12:10 Comment 09/23/21 09:33 Lab/Test Results Lab/Test Results: Laboratory Tests Range/Units 09/23/21 09/23/21 09/23/21 09:25 09:25 09:25 WBC (4.4-10.8) 10^3/uL 9.01 RBC (4.36-5.78) 10^6/uL 3.71 L Hgb (13.5-17.5) g/dL 9.8 L Hct (40.0-50.0) % 31.4 L MCV (80-95) fL 85 MCH (27.0-33.0) pg 26.4 L MCHC (32.0-36.0) % 31.2 L RDW (11.8-14.1) % 14.6 H Plt Count (130-400) 10^3/uL 334 MPV (8.0-11.0) fL 9.0 Immature Gran % 0.3 Neutrophils % 79.9 Lymphocytes % 7.7 Monocytes % 10.4 Eosinophils % 1.6 Basophils % 0.1 Nucleated RBC % (0.0-0.3) % 0.0 Absolute Neutrophils (1.2-6.7) 10^3/uL 7.20 H Absolute Lymphocytes (1.2-3.4) 10^3/uL 0.69 L Absolute Monocytes (0.1-0.8) 10^3/uL 0.94 H Absolute Eosinophils (0.0-0.7) 10^3/uL 0.14 Absolute Basophils (0.0-0.2) 10^3/uL 0.01 Sodium (136-145) mmol/L 140 Potassium (3.5-5.1) mmol/L 4.1 Chloride (98-107) mmol/L 106 Carbon Dioxide (21.0-32.0) mmol/L 23.5 Anion Gap (3-11) mmol/L 10.5 BUN (7-18) mg/dL 19 H Creatinine (0.70-1.30) mg/dL 1.0 Estimated GFR/1.73 m2 (mL/min/1.73m2) >= 60.00 Glucose (74-106) mg/dL 87 Calcium (8.5-10.1) mg/dL 8.9 Magnesium (1.8-2.4) mg/dL 1.6 L Cancelled Total Bilirubin (0.2-1.0) mg/dL 0.8 AST (15-37) U/L 21 ALT (16-63) U/L 24 Alkaline Phosphatase (46-116) U/L 78 Total Protein (6.4-8.2) g/dL 6.3 L Albumin (3.4-5.0) g/dL 2.7 L Lipase (73-393) U/L 65 Urine Color (Yellow) Urine Clarity (Clear) Urine pH (5-8) Ur Specific [place] (1.005-1.025) Urine Protein (Negative) mg/dL Urine Ketones (Negative) mg/dL Urine Blood (Negative) Urine Nitrite (Negative) Urine Bilirubin (Negative) Urine Urobilinogen (Up TO 0.2) EU/dL Ur Leukocyte Esterase (Negative) Urine RBC (0-2) HPF Urine WBC (0-5) HPF Ur Epithelial Cells (Negative) HPF Urine Crystals (Negative) HPF Urine Bacteria (Negative) HPF Urine Casts (Negative) LPF Urine Mucus (Negative) Ur Culture Indicated? Urine Glucose (Negative) mg/dL Range/Units 09/23/21 09:55 WBC (4.4-10.8) 10^3/uL RBC (4.36-5.78) 10^6/uL Hgb (13.5-17.5) g/dL Hct (40.0-50.0) % MCV (80-95) fL MCH (27.0-33.0) pg MCHC (32.0-36.0) % RDW (11.8-14.1) % Plt Count (130-400) 10^3/uL MPV (8.0-11.0) fL Immature Gran % Neutrophils % Lymphocytes % Monocytes % Eosinophils % Basophils % Nucleated RBC % (0.0-0.3) % Absolute Neutrophils (1.2-6.7) 10^3/uL Absolute Lymphocytes (1.2-3.4) 10^3/uL Absolute Monocytes (0.1-0.8) 10^3/uL Absolute Eosinophils (0.0-0.7) 10^3/uL Absolute Basophils (0.0-0.2) 10^3/uL Sodium (136-145) mmol/L Potassium (3.5-5.1) mmol/L Chloride (98-107) mmol/L Carbon Dioxide (21.0-32.0) mmol/L Anion Gap (3-11) mmol/L BUN (7-18) mg/dL Creatinine (0.70-1.30) mg/dL Estimated GFR/1.73 m2 (mL/min/1.73m2) Glucose (74-106) mg/dL Calcium (8.5-10.1) mg/dL Magnesium (1.8-2.4) mg/dL Total Bilirubin (0.2-1.0) mg/dL AST (15-37) U/L ALT (16-63) U/L Alkaline Phosphatase (46-116) U/L Total Protein (6.4-8.2) g/dL Albumin (3.4-5.0) g/dL Lipase (73-393) U/L Urine Color (Yellow) Yellow Urine Clarity (Clear) Clear Urine pH (5-8) 5.5 Ur Specific [place] (1.005-1.025) 1.025 Urine Protein (Negative) mg/dL Negative Urine Ketones (Negative) mg/dL Trace H Urine Blood (Negative) Trace-intact H Urine Nitrite (Negative) Negative Urine Bilirubin (Negative) Negative Urine Urobilinogen (Up TO 0.2) EU/dL 0.2 Ur Leukocyte Esterase (Negative) Negative Urine RBC (0-2) HPF 0-2 Urine WBC (0-5) HPF Negative Ur Epithelial Cells (Negative) HPF Rare Urine Crystals (Negative) HPF Negative Urine Bacteria (Negative) HPF Negative Urine Casts (Negative) LPF Negative Urine Mucus (Negative) Negative Ur Culture Indicated? No Urine Glucose (Negative) mg/dL Negative
--- NOTE | 2021-09-23 13:18 | NUR.NOTE ---
pt ambulatd with 2 nurse assist and walker well. need some assistance getting up and back down, doesnt follow commands well due to dementia. LUIS
--- NOTE | 2021-09-23 13:41 | PT.INNT ---
PT Notes Visit Reasons: Jeyson Order was placed for ER PT evaluation to determine safety for return home. I presented to ER for assessment, staff communicated safety evaluation was done by other means to avoid patient waiting for available PT.
--- NOTE | 2021-09-28 08:57 | CMACTNOTE_ITS ---
- If Service Date Differs Date of service: 09/23/21 Time of Service: 14:00 Care Management Activity Note Marcial presents in the ED for an L4 vertebral fracute, abdominal wound dehiscence, and frequent falls. At the request of ED provider, CM coordinates a referral to Home Health for PT and THERMIT WELDING MACHINE OPERATOR services.
== END 2021-09-23 13:47 | disposition home or self-care (01) ==
PROVIDERS: Emergency Provider Physician Assistant; PCP Nurse Practitioner
DX: S32.049A Unspecified fracture of fourth lumbar vertebra, initial encounter for closed fracture (principal); T81.30XA Disruption of wound, unspecified, initial encounter; R29.6 Repeated falls; W01.0XXA Fall on same level from slipping, tripping and stumbling without subsequent striking against object, initial encounter
CPT/HCPCS: 80053; 83690; 93005; 99285; 70450; 71045; 72125; 74177; 81003; 81015; 83735; 85025; 93010; 99284; J3490

== ENCOUNTER → 2021-09-27 09:55 | Outpatient (BNVA) | payer OTHER, SELFPAY | PROVIDERS: PCP Nurse Practitioner; Referring Provider Nurse Practitioner; Visit Provider Physical Therapy Assistant | DX: R29.6 Repeated falls (principal); Z51.89 Encounter for other specified aftercare; T81.30XA Disruption of wound, unspecified, initial encounter; L89.153 Pressure ulcer of sacral region, stage 3 | CPT/HCPCS: 99214 ==

== ENCOUNTER 2021-09-30 19:27 | Emergency (ER) | payer OTHER, SELFPAY ==
[2021-09-30 19:31] VITALS: BP 122/69; PULSE 81; RESP 18; TEMP 37.1; O2SAT 98
[2021-09-30 20:19] VITALS: RESP 18
--- NOTE | 2021-09-30 20:20 | ED.GENADUL_ITS ---
Discharge Plan Disposition Patient Disposition: HOME Condition: Stable Discharge Details Clinical Impression: Wound drainage, Abdominal wound dehiscence Primary Care Provider: Gurpreet Day ED Provider: Jessica Castillo Home Meds and New Rx's Prescriptions: Continued metoprolol tartrate 25 mg tablet 25 mg PO BID Qty: 1 0RF pantoprazole 40 mg tablet,delayed release (DR/EC) 40 mg PO DAILY Qty: 1 0RF vancomycin [Vancocin] 125 mg capsule See Rx Instructions PO DIRECTED Qty: 7 0RF Rx Instructions: one tab every other day triamcinolone acetonide 0.1 % cream 1 applic topical BID povidone-iodine 10 % ointment 1 applic topical BID-QID PRN Santyl 250 unit/gram ointment 1 applic topical DAILY trazodone 50 mg tablet See Rx Instructions PO DAILY Qty: 30 5RF Rx Instructions: 1/2 to one tab qhs orally daily; Discharge Instructions Additional Instructions: You have a draining wound on your abdomen, I did consider placing you on antibiotics, however you currently have an infection in your stool and this places you at increased risk for developing early infection I recommend going to your appointment tomorrow with your primary care physician having this reassessed I also recommend keeping your surgical consultation on Monday Should you develop fever, worsening pain, or with any new or changing symptoms, you must return to the emergency room Referrals: Gurpreet Day MD [Primary Care Provider] - 1 day Medical Decision Making Patient appears at his baseline He does have a moderate amount of drainage coming from his surgical site He did order CT scan, wound culture and labs because of this finding Patient reportedly has 2.2 cm collection which is unchanged from prior study which was ordered prior to the drainage approximately a week and a half ago His wound culture looks like it is positive for gram-positive cocci, I am very hesitant to start the patient on antibiotics at this time given his recent C. difficile infection and considering that he has appointment with PCP tomorrow and surgical follow-up on Monday Very given very low threshold to return with new or worsening complaints Patient is discharged home in stable condition with stable vitals Medical Records Medical records reviewed: Yes I reviewed the patient's medical records. Lab Data Lab results reviewed: Yes I reviewed the patient's lab results. HPI General Date/Time Provider Initiated Documentation: 09/30/21 19:29 . Related Data Home Medications Medication Instructions Recorded Confirmed metoprolol tartrate 25 mg tablet 25 mg PO BID #1 tab 09/17/21 09/30/21 pantoprazole 40 mg tablet,delayed 40 mg PO DAILY #1 tab 09/17/21 09/30/21 release vancomycin 125 mg capsule See Rx Instructions PO DIRECTED 09/17/21 09/30/21 (Vancocin) #7 caps collagenase clostridium histo. 250 1 applic topical DAILY 09/20/21 09/30/21 unit/gram topical ointment (Santyl) povidone-iodine 10 % topical 1 applic topical BID-QID PRN 09/20/21 09/30/21 ointment triamcinolone acetonide 0.1 % 1 applic topical BID 09/20/21 09/30/21 topical cream trazodone 50 mg tablet See Rx Instructions PO DAILY #30 09/21/21 09/30/21 tabs Previous Rx's Medication Instructions Recorded metoprolol tartrate 25 mg tablet 25 mg PO BID #1 tab 09/17/21 pantoprazole 40 mg tablet,delayed 40 mg PO DAILY #1 tab 09/17/21 release vancomycin 125 mg capsule See Rx Instructions PO DIRECTED 09/17/21 (Vancocin) #7 caps trazodone 50 mg tablet See Rx Instructions PO DAILY #30 09/21/21 tabs Allergies Allergy/AdvReac Type Severity Reaction Status Date / Time No Known Allergies Allergy Verified 09/30/21 19:41 General Stated Complaint: GenMedical DELL: 4 Review of Systems All systems reviewed & are unremarkable except as noted in HPI and below PFSH All Active Problems (Updated 09/30/21 @ 22:41 by JOSE Nash) Wound drainage (Acute) Abnormal CT of the abdomen (Acute) L4 vertebral fracture (Acute) Frequent falls (Acute) Foreign body (FB) in soft tissue (Acute) Essential hypertension (Acute) Abdominal wound dehiscence (Acute) 09/2021-status post surgery-laparotomy at [facility] in [place] Sacral decubitus ulcer, stage III (Acute) 09/2021-sacral ulcer above the gluteal cleft extends into subcutaneous tissue likely associate with immobility following traumatic brain injury and immobility and prolonged hospitalization pencil Clostridium difficile colitis (Acute) 09/2021 occurred during hospitalization on long vancomycin taper as of 09/2021 with improving symptoms Cognitive and behavioral changes (Acute) Probable underlying dementia emerging and more overtly obvious after TBI TBI (traumatic brain injury) (Acute) 08/2021-modest trauma but significant residual symptoms. Followed at and treated at hospital in [place] August-early September 2021-prolonged hospitalization Surgical History (Updated 09/27/21 @ 13:21 by Asha Bundy) Hx of exploratory laparotomy (~07/2021) [facility]-extensive intra-abdominal adhesions with frozen abdomen, ileus Social History Smoking/Tobacco Use Status: Unknown Smoking risk assessment performed?: Yes Substance use type: unknown Do you feel safe at home: Yes Do you feel safe in your relationship?: Yes Exam Const General: cooperative, comfortable and no acute distress HENMT Head: normal to inspection Eyes Pupils: PERRL Skin Other: see abdominal note Neuro General: patient alert and patient oriented x3 Extrem Other: 1+ edema to bilateral lower extremities Course Vital Signs Vital signs: Vital Signs Temperature 37.1 C 09/30/21 19:31 Pulse 81 09/30/21 19:31 Respiratory Rate 18 09/30/21 19:31 Blood Pressure 122/69 09/30/21 19:31 Pulse Oximetry 98 09/30/21 19:31 Temperature 37.1 C 09/30/21 19:31 Pulse 81 09/30/21 19:31 Respiratory Rate 18 09/30/21 19:31 Blood Pressure 122/69 09/30/21 19:31 Blood Pressure Position Supine 09/30/21 19:31 Pulse Oximetry 98 09/30/21 19:31 Oxygen Delivery Method Room Air 09/30/21 19:31 Oxygen Flow Rate 0 09/30/21 19:31 Lab/Test Results Lab/Test Results: 09/30/21 20:18 Abdomen Wound Culture - Pending 09/30/21 20:18 Abdomen Gram Stain - Pending
--- NOTE | 2021-09-30 20:30 | DI.CT_ITS ---
Exam(s) CT ABDOMEN PELVIS W EXAM: CT ABDOMEN PELVIS W CLINICAL HISTORY: abdominal surgery 2 mo ago, drainage and pain. TECHNIQUE: Imaging Protocol: Axial computed tomography images with coronal and sagittal reformatted images were created and reviewed CONTRAST MATERIAL: Intravenous: Omnipaque 350 Contrast volume:100 ml Oral: / no COMPARISON: CT CT ABDOMEN PELVIS W from 09/23/2021 FINDINGS: ABDOMEN: Lung Bases: Normal where visualized. Liver: Normal density. No measurable mass. Gallbladder and biliary tract: Cholelithiasis. Pancreas: Normal density, no abnormal calcifications or inflammatory process. Spleen: Normal. Kidneys: Normal size, contour and axis. Stone upper pole left kidney 1.5 cm.. Cyst upper pole right kidney. No masses seen. Adrenal glands: No masses seen. Abdominal Aorta: Abdominal portion non-dilated. Mild atherosclerotic changes. Soft tissues: Prior abdominal surgery with midline incision with a small fluid collection versus absc ess which appears open to the skin. PELVIS: Bladder: No gross wall thickening. No calculi.No focal mass. Bowel: Prior colonic resection. Large quantity of stool in the ileal pouch. Some gaseous distension of the upstream small bowel. Distension is less evident on the previous. No fluid levels. No obst ruction or bowel wall thickening. Peritoneal cavity: No ascites, collection or mesenteric inflammatory response. Bones: No change L4 compression fracture. Minimal compression fracture of L5, unchanged. L5 spondyl olysis and slight L5-S1 spondylolisthesis, stable. Bulging of the L3-4 through L5-S1 discs are noted . Reproductive organs: Prostate calcifications. Lymph nodes: Unremarkable. Impression: Postsurgical midline incision containing fluid versus abscess. Large quantity of stool in the ileal pouch. No evidence of obstruction. RADIATION DOSE DELIVERED: 864.2mGy.cm Total DLP DATA REPOSITORY: All CT scans at this facility are submitted to the National Radiology Data Registry (NRDR) Dose Index Registry (DIR) with the [employer] (ACR). RADIATION OPTIMIZATION: All CT scans at this facility use at least one of these dose optimization te chniques: automated exposure control; mA and/or kV adjustment per patient size (includes targeted exa ms where dose is matched to clinical indication); or iterative reconstruction.
[2021-09-30 21:01] LABS: Abs Immature Grans 0.04 10^3/uL (0.0-0.06); Absolute Basophil Count 0.03 10^3/uL (0.0-0.2); Absolute Eosinophil Count 0.36 10^3/uL (0.0-0.7); Absolute Lymphocyte Count 1.33 10^3/uL (1.2-3.4); Absolute Monocyte Count 0.89 10^3/uL (0.1-0.8); Absolute Neutrophil Count 5.47 10^3/uL (1.2-6.7); Basophils % 0.4; Eosinophils % 4.4; HCT 33.2 % (40.0-50.0); HGB 10.4 g/dL (13.5-17.5); Immature Grans % 0.5; Lymphocytes % 16.4; MCH 26.8 pg (27.0-33.0); MCHC 31.3 % (32.0-36.0); MCV 86 fL (80-95); Neutrophils % 67.3; Platelet Count 338 10^3/uL (130-400); RBC 3.88 10^6/uL (4.36-5.78); RDW 14.9 % (11.8-14.1); RDW-SD 46.9 fL; WBC 8.12 10^3/uL (4.4-10.8)
[2021-09-30] MEDS: Omnipaque 350 MG/ML 100 ML BTL IJ (21:11)
[2021-09-30 21:15] LABS: ALT 19 U/L (16-63); AST 26 U/L (15-37); Albumin 3.2 g/dL (3.4-5.0); Alkaline Phosphatase 107 U/L (46-116); Anion Gap 5.8 mmol/L (3-11); BUN 19 mg/dL (7-18); Bilirubin, Total 0.3 mg/dL (0.2-1.0); CO2 28.2 mmol/L (21.0-32.0); CREATININE 1.1 mg/dL (0.70-1.30); Calcium 9.4 mg/dL (8.5-10.1); Chloride 106 mmol/L (98-107); Glucose 96 mg/dL (74-106); Sodium 140 mmol/L (136-145); Total Protein 7.3 g/dL (6.4-8.2)
[2021-09-30] MEDS: Normal Saline Flush 10 ML SYR IVP (21:15)
[2021-09-30 22:12] VITALS: BP 124/80; PULSE 81; TEMP 37.1; O2SAT 97
[2021-09-30] MEDS: LORazepam 20 MG/10 ML VIAL IVP (22:13)
--- NOTE | 2021-09-30 22:16 | DI.VRAD_ITS ---
Addendum created by Cesar Alfonso MD on 09/30/2021 10:52:21 PM EDT: Stable 1.7 cm right adrenal adenoma. Initial report created on 09/30/2021 10:15:58 PM EDT: PROCEDURE INFORMATION: Exam: CT Abdomen And Pelvis With Contrast Exam date and time: 09/30/2021 9:08 PM Age: 66 years old Clinical indication: Abdominal pain; Other: Abdominal surgery 2 mo ago, drainage and pain; Prior surgery; Surgery date: 1-6 months TECHNIQUE: Imaging protocol: Computed tomography of the abdomen and pelvis with contrast. Contrast material: OMNIPAQUE 350; Contrast volume: 100 ml; Contrast route: INTRAVENOUS (IV); COMPARISON: CT ABDOMEN PELVIS W 09/23/2021 10:58 AM FINDINGS: Lungs: The visualized portions of the lung bases are normal. Liver: Normal. No mass. Gallbladder and bile ducts: Numerous calcified gallstones. Otherwise the gallbladder is unremarkable. Pancreas: Normal. No ductal dilation. Spleen: Normal. No splenomegaly. Adrenal glands: Normal. No mass. Kidneys and ureters: Cortical renal cyst measuring 3.2 cm within the upper pole of the right kidney. Staghorn calculus measuring 1.5 cm within the upper pole of the left kidney. No hydronephrosis. Stomach and bowel: Status post total colectomy. Ileal pouch is distended with moderate to large amount of fecal material. Impression: Appendix: No evidence of appendicitis. Intraperitoneal space: Unremarkable. No free air. No significant fluid collection. Vasculature: Unremarkable. No abdominal aortic aneurysm. Lymph nodes: Unremarkable. No enlarged lymph nodes. Urinary bladder: Unremarkable as visualized. Reproductive: Unremarkable as visualized. Bones/joints: Stable moderate compression fracture of L4, most likely acute/subacute. Age-indeterminate mild compression fracture of L5, unchanged. Stable grade 1 anterolisthesis of L5 over S1 secondary to degenerative disc disease. Soft tissues: Small fluid collection measuring 2.2 cm within the deep aspect of anterior abdominal wall, unchanged compared to prior exams. IMPRESSION: 1. No evidence of acute abdominal or pelvic process. 2. Numerous calcified gallstones. 3. Small fluid collection measuring 2.2 cm within the deep aspect of anterior abdominal wall, unchanged. 3. Stable moderate compression fracture of L4, most likely acute/subacute. Age-indeterminate mild compression fracture of L5, unchanged. Dictated and Authenticated by: Cesar Alfonso MD. Ordering:SEMAJ Lopez MD
--- NOTE | 2021-10-02 09:56 | W.ED.FU ---
Follow Up Plan: Patient made aware regarding positive MRSA wound culture I did contact patient's Zaynab MELTON secondary to patient's history of dementia and she actually states that the wound appears improved She states that the drainage has decreased and patient is not having fever or chills without any surrounding erythema back pain complaints We will therefore hold on treating with antibiotics considering patient is actively being treated for C. difficile infection and I think the risk of adding an antibiotic to this regimen outweighs the benefit of treatment Patient does have an appointment with surgery on Monday and patient's guardian and LINH Worthy feel comfortable with waiting until his appointment for reassessment
== END 2021-09-30 22:53 | disposition home or self-care (01) ==
PROVIDERS: Emergency Provider Physician Assistant; PCP Family Medicine
DX: T81.31XA Disruption of external operation (surgical) wound, not elsewhere classified, initial encounter (principal); R60.0 Localized edema; Y83.8 Other surgical procedures as the cause of abnormal reaction of the patient, or of later complication, without mention of misadventure at the time of the procedure
CPT/HCPCS: 36415; 80053; 87077; 96374; 96376; 99285; 74177; 85025; 87070; 87186; 87205; 99284; J3490

== ENCOUNTER → 2021-10-04 14:08 | Outpatient (BNVA) | payer OTHER, SELFPAY | PROVIDERS: PCP Nurse Practitioner; Referring Provider Nurse Practitioner; Visit Provider Physical Therapy Assistant | DX: L89.153 Pressure ulcer of sacral region, stage 3 (principal); Z51.89 Encounter for other specified aftercare | CPT/HCPCS: 99213 ==

== ENCOUNTER → 2021-10-11 09:52 | Outpatient (BNVA) | payer MEDICARE, MEDICAID, SELFPAY | PROVIDERS: PCP Nurse Practitioner; Referring Provider Nurse Practitioner; Visit Provider Physical Therapy Assistant | DX: Z87.820 Personal history of traumatic brain injury (principal); Z51.89 Encounter for other specified aftercare; R29.6 Repeated falls; R41.89 Other symptoms and signs involving cognitive functions and awareness; R46.89 Other symptoms and signs involving appearance and behavior | CPT/HCPCS: 99213 ==

== ENCOUNTER → 2021-10-12 12:30 | Outpatient (BNVA) | payer MEDICARE, MEDICAID, SELFPAY | PROVIDERS: PCP Nurse Practitioner; Referring Provider Family Medicine; Visit Provider Nurse Practitioner Adult Health | DX: R41.89 Other symptoms and signs involving cognitive functions and awareness (principal); R46.89 Other symptoms and signs involving appearance and behavior; R25.9 Unspecified abnormal involuntary movements; I10 Essential (primary) hypertension; R29.6 Repeated falls | CPT/HCPCS: 99204; 99214 ==

== ENCOUNTER 2021-10-21 19:06 | Outpatient (REF) | payer MEDICARE, SELFPAY ==
[2021-10-21 20:43] LABS: C Diff PCR Negative (Negative)
== END 2021-10-21 19:07 | disposition home or self-care (01) ==
LOC: LBN 19:06
PROVIDERS: PCP Nurse Practitioner; Visit Provider Nurse Practitioner
DX: A04.72 Enterocolitis due to Clostridium difficile, not specified as recurrent (principal)
CPT/HCPCS: 87493

== ENCOUNTER → 2021-10-25 10:01 | Outpatient (BNVA) | payer MEDICARE, MEDICAID, SELFPAY | PROVIDERS: PCP Nurse Practitioner; Referring Provider Nurse Practitioner; Visit Provider Surgery | DX: Z48.89 Encounter for other specified surgical aftercare (principal) | CPT/HCPCS: 99213 ==

== ENCOUNTER → 2021-10-26 12:57 | Outpatient (BNVA) | payer MEDICARE, MEDICAID, SELFPAY | PROVIDERS: PCP Nurse Practitioner; Referring Provider Nurse Practitioner; Visit Provider Nurse Practitioner Adult Health | DX: F03.90 Unspecified dementia, unspecified severity, without behavioral disturbance, psychotic disturbance, mood disturbance, and anxiety (principal); R25.9 Unspecified abnormal involuntary movements | CPT/HCPCS: 99213 ==

== ENCOUNTER → 2021-11-02 10:14 | Outpatient (BNVA) | payer MEDICARE, MEDICAID, SELFPAY | PROVIDERS: PCP Nurse Practitioner; Referring Provider Nurse Practitioner; Visit Provider Psychiatry & Neurology Neurology | DX: F03.90 Unspecified dementia, unspecified severity, without behavioral disturbance, psychotic disturbance, mood disturbance, and anxiety (principal); G20 Parkinson's disease; R35.1 Nocturia; R32 Unspecified urinary incontinence; I10 Essential (primary) hypertension | CPT/HCPCS: 99215 ==

== ENCOUNTER → 2021-11-05 12:37 | Outpatient (CLI) | payer MEDICARE, MEDICAID, SELFPAY ==
--- NOTE | 2021-11-05 09:15 | DI.RAD_ITS ---
Exam(s) XR SHOULDER RT COMPLETE 2+V EXAM: XR SHOULDER RT COMPLETE 2+V CLINICAL HISTORY: Fall, prev injury, fall M25.521 PAIN RT ELBOW D37.6. TECHNIQUE: 2D digital imaging was performed. COMPARISON: No exams were available for comparison FINDINGS: Five views No evidence of fracture or dislocation nor diminution of the subacromial space. There is a corticate d calcific density measuring 6 x 5 millimeters located just lateral the chromium. This is above the level of the subacromial arch. Mild degenerative changes glenohumeral joint. Some degenerative change also noted in the acromioclav icular joint, including an intra-articular calcification measuring 5 x 4 millimeters in the superior aspect of the joint, subcapsular in location. No ominous osseous lesions and bone density is age-daphne ropriate. IMPRESSION: DATA REPOSITORY: RADIATION DOSE DELIVERED:
--- NOTE | 2021-11-05 09:15 | DI.RAD_ITS ---
Exam(s) XR ELBOW RT COMPLETE EXAM: XR ELBOW RT COMPLETE CLINICAL HISTORY: Fall M25.511 PAIN RT SHOULDER G89.11 PAIN DUE TO TRAUMA. TECHNIQUE: 2D digital imaging was performed. COMPARISON: No exams were available for comparison FINDINGS: 3 views There is subcutaneous swelling over the medial aspect of the elbow. No radiopaque foreign body noted . No fractures. No joint effusion no swelling of the olecranon bursa. Radial head and neck appear unremarkable as does the capitellum. Bony excrescence off the lateral epicondyle is consistent with probable epicondylitis. Smaller bony excrescence seen off the medial epicondyle. IMPRESSION: No fractures. Other findings as above. DATA REPOSITORY: RADIATION DOSE DELIVERED:
== END ==
PROVIDERS: PCP Nurse Practitioner; Visit Provider Nurse Practitioner Family
DX: M25.521 Pain in right elbow (principal); M25.511 Pain in right shoulder; G89.11 Acute pain due to trauma; M19.011 Primary osteoarthritis, right shoulder; M79.89 Other specified soft tissue disorders; M77.11 Lateral epicondylitis, right elbow
CPT/HCPCS: 73030; 73080

== ENCOUNTER → 2021-11-22 09:32 | Outpatient (BNVA) | payer MEDICARE, MEDICAID, SELFPAY | PROVIDERS: PCP Nurse Practitioner Family; Referring Provider Nurse Practitioner; Visit Provider Surgery | DX: M79.89 Other specified soft tissue disorders (principal); Z51.89 Encounter for other specified aftercare | CPT/HCPCS: 99213 ==

== ENCOUNTER 2021-12-06 09:05 | Outpatient (CLI) | payer MEDICARE, MEDICAID, SELFPAY ==
[2021-12-06 08:55] LABS: Abs Immature Grans 0.01 10^3/uL (0.0-0.06); Absolute Basophil Count 0.02 10^3/uL (0.0-0.2); Absolute Eosinophil Count 0.14 10^3/uL (0.0-0.7); Absolute Lymphocyte Count 0.83 10^3/uL (1.2-3.4); Absolute Monocyte Count 0.72 10^3/uL (0.1-0.8); Absolute Neutrophil Count 4.64 10^3/uL (1.2-6.7); Basophils % 0.3; Eosinophils % 2.2; HCT 37.5 % (40.0-50.0); HGB 11.6 g/dL (13.5-17.5); Immature Grans % 0.2; Lymphocytes % 13.1; MCH 26.5 pg (27.0-33.0); MCHC 30.9 % (32.0-36.0); MCV 86 fL (80-95); MPV 8.9 fL (8.0-11.0); Monocytes % 11.3; Neutrophils % 72.9; Platelet Count 315 10^3/uL (130-400); RBC 4.37 10^6/uL (4.36-5.78); RDW 13.4 % (11.8-14.1); RDW-SD 42.4 fL; WBC 6.36 10^3/uL (4.4-10.8)
[2021-12-06 09:06] LABS: Hemoglobin A1C 5.8 % (<5.7)
[2021-12-06 09:54] LABS: ALT 17 U/L (16-63); AST 13 U/L (15-37); Albumin 3.3 g/dL (3.4-5.0); Alkaline Phosphatase 85 U/L (46-116); Anion Gap 7.6 mmol/L (3-11); BUN 22 mg/dL (7-18); Bilirubin, Total 0.3 mg/dL (0.2-1.0); CO2 29.4 mmol/L (21.0-32.0); Calcium 9.6 mg/dL (8.5-10.1); Calculated LDL 105 mg/dL (<100); Chloride 108 mmol/L (98-107); Cholesterol 187 mg/dL (<200); Estimated GFR 81.98 (mL/min/1.73m2); Glucose 108 mg/dL (74-106); HDL Cholesterol 69 mg/dL (40-60); Potassium 3.8 mmol/L (3.5-5.1); Sodium 145 mmol/L (136-145); TSH (W/Ref FT4) 2.86 uIU/mL (0.36-3.74); Total Protein 7.3 g/dL (6.4-8.2); Triglyceride 67 mg/dL (<150)
[2021-12-06 10:12] LABS: Vitamin B12 371 pg/mL (193-986)
[2021-12-06 18:29] LABS: PSA, Screening 0.7 ng/mL (<=4.5)
== END 2021-12-06 09:06 | disposition home or self-care (01) ==
LOC: LBO 09:07
PROVIDERS: Nurse Practitioner Adult Health; PCP Nurse Practitioner Family; Visit Provider Nurse Practitioner Family
DX: R73.01 Impaired fasting glucose (principal); R41.89 Other symptoms and signs involving cognitive functions and awareness; E66.09 Other obesity due to excess calories; Z12.5 Encounter for screening for malignant neoplasm of prostate; R93.5 Abnormal findings on diagnostic imaging of other abdominal regions, including retroperitoneum; R79.89 Other specified abnormal findings of blood chemistry; F03.90 Unspecified dementia, unspecified severity, without behavioral disturbance, psychotic disturbance, mood disturbance, and anxiety
CPT/HCPCS: 36415; 80053; 80061; 84153; 99213; 82607; 83036; 84443; 85025

== ENCOUNTER → 2021-12-07 09:12 | Outpatient (BNVA) | payer MEDICARE, MEDICAID, SELFPAY | PROVIDERS: PCP Nurse Practitioner Family; Referring Provider Nurse Practitioner Family; Visit Provider Student in an Organized Health Care Education/Training Program | DX: M24.511 Contracture, right shoulder (principal); M75.101 Unspecified rotator cuff tear or rupture of right shoulder, not specified as traumatic | CPT/HCPCS: 99204; 99214 ==

== ENCOUNTER → 2021-12-13 02:58 | Outpatient (CLI) | payer MEDICARE, MEDICAID, SELFPAY ==
--- NOTE | 2021-12-13 08:00 | DI.MRI_ITS ---
Exam(s) MR UPPER JOINT RT WO EXAM: MR UPPER JOINT RT WO CLINICAL HISTORY: rt rotator cuff tear,CONTRACTURE,M75.101,M24.511. TECHNIQUE: Multiplanar multisequence MRI was performed. COMPARISON: Plain films 05 November 2021 FINDINGS: Exam is limited by patient motion. The exam is also limited by multiple small metallic artifacts, on or within the skin. BONES: There is no fracture or contusion pattern. JOINTS:The acromioclavicular joint is normal. The glenohumeral joint is normal. TENDONS: Supraspinatus: Full-thickness tear with retraction. Infraspinatus: Full-thickness tear. Subscapularis: Unremarkable. Teres Minor: Unremarkable. Biceps and [place]: Unremarkable. MUSCLES: Severe supraspinatus muscle atrophy. Moderate infraspinatus muscle atrophy. GLENOID LABRUM: No gross defect. Limited evaluation due to motion. IMPRESSION: Limited exam due to motion. Full-thickness tear with retraction of the supraspinatus and infraspinat us tendons. DATA REPOSITORY:
== END ==
PROVIDERS: PCP Nurse Practitioner Family; Visit Provider Nurse Practitioner Family
DX: M25.511 Pain in right shoulder (principal); M24.511 Contracture, right shoulder; M62.521 Muscle wasting and atrophy, not elsewhere classified, right upper arm; M75.101 Unspecified rotator cuff tear or rupture of right shoulder, not specified as traumatic
CPT/HCPCS: 73221

== ENCOUNTER → 2021-12-21 10:47 | Outpatient (BNVA) | payer MEDICARE, MEDICAID, SELFPAY | PROVIDERS: PCP Nurse Practitioner Family; Referring Provider Nurse Practitioner Family; Visit Provider Student in an Organized Health Care Education/Training Program | DX: M75.101 Unspecified rotator cuff tear or rupture of right shoulder, not specified as traumatic (principal); M24.511 Contracture, right shoulder | CPT/HCPCS: 20610; 99213; J1030 ==

== ENCOUNTER → 2021-12-23 08:52 | Outpatient (BNVA) | payer MEDICARE, MEDICAID, SELFPAY | PROVIDERS: PCP Nurse Practitioner Family; Referring Provider Nurse Practitioner Family; Visit Provider Urology | DX: R35.1 Nocturia (principal); N20.0 Calculus of kidney; R32 Unspecified urinary incontinence | CPT/HCPCS: 51798; 81003; 99215 ==

== ENCOUNTER → 2022-01-05 11:24 | Outpatient (BNVA) | payer MEDICARE, MEDICAID, SELFPAY | PROVIDERS: PCP Nurse Practitioner Family; Referring Provider Nurse Practitioner Family; Visit Provider Surgery | DX: T81.30XA Disruption of wound, unspecified, initial encounter (principal) | CPT/HCPCS: 99214 ==

== ENCOUNTER → 2022-01-21 13:49 | Outpatient (BNVA) | payer MEDICARE, MEDICAID, SELFPAY | PROVIDERS: PCP Nurse Practitioner Family; Referring Provider Nurse Practitioner Family; Visit Provider Urology | DX: R32 Unspecified urinary incontinence (principal) | CPT/HCPCS: 51798; 99213 ==

== ENCOUNTER 2022-01-24 14:24 | Inpatient (IN) | payer MEDICARE, MEDICAID, SELFPAY ==
--- NOTE | 2022-01-24 14:15 | DI.RAD_ITS ---
Exam(s) XR HIP LT COMPLETE AP PELVIS EXAM: XR HIP LT COMPLETE AP PELVIS INDICATION: fall from standing height onto left hip. COMPARISON: CT CT ABDOMEN PELVIS W from 09/30/2021 TECHNIQUE: 2D digital imaging was performed. Three views. FINDINGS: Acute sub collapsed L fracture left femur with some superior displacement. No additional acute fract ures. Old L4 compression fracture. Suture material and pelvis. IMPRESSION: Subcapital fracture left femur. DATA REPOSITORY: RADIATION DOSE DELIVERED:
[2022-01-24 14:18] VITALS: BP 138/93; PULSE 84; RESP 18; TEMP 36.9; O2SAT 99
--- NOTE | 2022-01-24 14:25 | ED.GENADUL_ITS ---
Discharge Plan Disposition Patient Disposition: [facility] INPATIENT Condition: Stable Discharge Details Chief Complaint: Orthopedic Clinical Impression: Closed fracture of left hip Admit Date/Time: 01/24/22 17:06 Admit Provider: Lakeisha Peguero Attending Provider: Lakeisha Peguero Primary Care Provider: [facility] ED Provider: Juliana Loja Discharge Data Discharge Date/Time-TO BE ENTERED AT DEPARTURE: 01/24/22 18:04 Medical Decision Making Patient is a pleasantly confused 66-year-old gentleman, brought in via EMS, with known history of dementia, with chief complaint of left hip pain. Patient had a witnessed fall at which time he landed on his left hip in front of the family. Has not been able to bear weight on the left hip since then. EMS reports that he is preferring to keep the hip/knee in semiflexed position. EMS report that he was being supported by family in upright position when they showed up. Event described as a mechanical fall after trip, was feeling well prior to this. PMH signficant for atrial fibrillation although not anticoagulated. Hx of dementia, moved in with sister who is DPOA over the summer. Sister describes chronic abdominal wound after complication from SBO with exploratory laparotomy in [place] over the summer. On exam, patient appears uncomfortable. He has left hip and knee in flexed position, appears slightly shortned. Intact distal pulses. Sensation intact, able to move toes. No saddle paresthesias. No pain with palpation over chest, pelvis stable, no midline pain. He has a healing midline incision over lower abdomen with no surrounding erythema, warmth or pain. Concerned with mechanism and exam for likely left hip fx and will obtain xr. Family is at bedside. They ahve requested that he not have narcotics as this can often make him more confused. Will consult with MANAGER OF SOFTWARE to see if they are able to complete a block. FINDINGS: Acute sub collapsed L fracture left femur with some superior displacement.? No additional acute fractures.? Old L4 compression fracture.? Suture material and pelvis. IMPRESSION: Subcapital fracture left femur. Will obtain labs and COVID test as well as CXR in preparation for surgical intervention. Discussed fx and need for intervention with patient and family, they agree with this plan. Report that they have seen Dr. Junior historically. Anesthesia was able to preform femoral block. Sister advised the Benadryl is the best thing for him to sleep and prevents the other SE such as increased confusion. This has also allowed him to sleep as it has been difficult in the past. Will try to avoid narcotics. Consulted with Dr. Junior who agrees to surgical intervention but will admit to hospitalist. Consultted with Dr. Peguero who agrees to admission with plan for repair of his left hip fracture. Prior to admission, castro placed by nursing staff. Negative COVID, no acute abnormality on labs. HPI General Date/Time Provider Initiated Documentation: 01/24/22 15:11 . Limitations to Documentation: altered mental status (patient has hx of dementia) . Information obtained by: patient, family, EMS, RN notes reviewed and old records reviewed . History of Present Illness 66 year old M presents to the emergency department with the chief complaint of left hip pain, described as moderate, with intensity rated at 6. Quality is described as aching, and is localized to the left and lower extremity. Patient reports no radiation. Patient started experiencing this minute(s) and it has been constant. Immobilization improves symptom(s), and Medication improves symptom(s), Movement worsens symptoms . Patient notes no other symptoms.. Patient did receive the following treatments prior to arrival, other (Fentanyl) Related Data Home Medications Medication Instructions Recorded Confirmed pantoprazole 40 mg tablet,delayed 40 mg PO DAILY #90 tabs 10/05/21 01/24/22 release mecobalamin (vitamin B12) 1,000 1,000 mcg sublingual DAILY 12/21/21 01/24/22 mcg disintegrating tablet,sublingual metoprolol succinate 25 mg 12.5 mg PO DAILY 01/24/22 01/24/22 tablet,extended release 24 hr Previous Rx's Medication Instructions Recorded pantoprazole 40 mg tablet,delayed 40 mg PO DAILY #90 tabs 10/05/21 release Allergies Allergy/AdvReac Type Severity Reaction Status Date / Time No Known Allergies Allergy Verified 01/24/22 14:42 General Stated Complaint: Orthopedic DELL: 3 Review of Systems Narrative: Patient poor historian, hx of dementia, unable to provide good ROS at this time [facility] All Active Problems (Updated 01/24/22 @ 20:44 by JOSE Baker) Closed fracture of left hip (Acute) Subcapital fracture of neck of left femur (Acute) Contracture of right shoulder (Acute) Rotator cuff tear, right (Acute) 40 mg Depo-Medrol injection: 12/21/2021 Abdominal wound dehiscence (Chronic ~09/2021) Ex-laparotomy July 2021 Dementia (Chronic) Parkinsonism (Chronic) Essential hypertension (Chronic) Urinary incontinence (Chronic) Prediabetes (Chronic) Nocturia (Chronic) GERD (gastroesophageal reflux disease) (Chronic) Calculus of left kidney (Chronic) Medical History Alcohol abuse 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 Followed at and treated at hospital in [place] August-early September 2021-prolonged hospitalization Ulcerative colitis S/p Subtotal colectomy with ileocolonic anastomosis Surgical History History of cataract surgery Hx of exploratory laparotomy (08/08/21) Extensive intra-abdominal adhesions with frozen abdomen, ileus S/P total colectomy (1979) Subtotal colectomy with ileocolonic anastomosis Family History Mother , 71 No problems noted. Father , 81 No problems noted. Sister , 70 No problems noted. Social History Smoking/Tobacco Use Status: Former Tobacco Use tobacco type: cigarettes Quit Date: 03/13/91 Second Hand Exposure: Yes Smoking risk assessment performed?: Yes Alcohol Intake: current Alcohol type: beer Drug use: Never Substance use type: does not use Caregiver/Support person: Yes Household members: other Details: Sister and brother in law Housing: house Communication Needs: None Do you need help understanding health information?: Always Pets and animals: No Sexually active: No Do you think of yourself as: straight/heterosexual Current gender identity: male What is your relationship status?: How often do you talk on the phone with friends or family?: decline to answer How often do you get together with friends or relatives?: decline to answer How often do you attend rastafarian or mu-ism services?: decline to answer Do you belong to any clubs or organized social groups?: decline to answer Panel score (0-1 are the most socially isolated patients): 1 What type of physical activity do you participate in: none Frequency: does not exercise Philly/Jain: No preference Special philly needs: No Seatbelt use: always Helmet use: Yes Drive 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 Do you feel safe at home: Yes Do you feel safe in your relationship?: Yes Exam Const General: cooperative, no acute distress, well developed and well groomed Nutritional Appearance: average body habitus and well nourished Orientation: alert, awake and confused [facility] Head: normal to inspection, no palpable skull fracture, normocephalic and atraumatic Mouth: oral mucosae normal and lip normal Eyes General: appearance normal, both eyes and all related structures Neck Neck: normal visual inspection and full ROM Chest Chest: normal inspection of the chest, normal palpation of entire chest wall, no crepitus and no localized rib tenderness Resp Effort & Inspection: normal respiratory effort, able to speak in complete sentences and no respiratory distress Auscultation: clear to auscultation bilaterally, no rales, no rhonchi and no wheezes Cardio Rate: regular rate Rhythm: regular rhythm Heart Sounds: S1 normal and S2 normal GI Inspection: abnormal to inspection (chronic healing wound along midline, no erythema, warmth or pain) and no abdominal wall ecchymosis Palpation: soft, no guarding, no pulsatile masses, not rigid and nontender Back/Spine/Pelvis Cervical Spine: normal cervical lordosis and cervical ROM normal Pelvis: no pain with anterior-posterior compression and no pain with lateral compression Skin Wounds: wounds noted (midline abdominal incision healing through secondary intention) Neuro General: patient alert, patient awake, tone normal and moves all extremities Cognition: normal cognition Speech: speech normal Motor: muscle tone normal throughout Sensory Exam: no sensory deficits noted (no saddle paresthesias) Extrem General: capillary refill normal, no pedal edema and no calf tenderness Course Vital Signs Vital signs: Vital Signs Temperature 36.9 C 01/24/22 14:18 Temperature 36.9 C 01/24/22 14:18 Temperature Source Skin 01/24/22 14:18
--- NOTE | 2022-01-24 16:30 | DI.RAD_ITS ---
Exam(s) XR PORTABLE CHEST AP EXAM: XR PORTABLE CHEST AP CLINICAL HISTORY: hip fracture. TECHNIQUE: 2D digital imaging was performed. COMPARISON: No exams were available for comparison FINDINGS: Single AP portable view. Heart size is upper normal. The mediastinum is not widened. Lungs are clear. No infiltrates nor obvious pleural effusions. IMPRESSION: No acute pulmonary findings on this single AP portable view of the chest. DATA REPOSITORY: RADIATION DOSE DELIVERED:
--- NOTE | 2022-01-24 16:57 | W.PM.HP.N ---
Date of service: 01/24/22 Time of Service: 16:57 Assessment and Plan Assessment and plan (1) Subcapital fracture of neck of left femur: Status: Acute Assessment and plan: orthopedics consulted and plan to repair here tomorrow. routine preoperative orders anesthesia in for nerve block npo after midnight (2) Atrial fibrillation with RVR: Status: Suspected Assessment and plan: in NSR. will continue beta monica not anticoagulated, suspect d/t demented state with increased fall risk. (3) Dementia: Status: Chronic Assessment and plan: anticipate acute delirium while hospitalized safety precautions. takes benadryl at home prn for restlessness and sleep. symptoms worse at night (4) Abdominal wound dehiscence: Status: Chronic Assessment and plan: followed by surgical services healing by secondary intention continue outpatient wound care instructions (5) GERD (gastroesophageal reflux disease): Status: Chronic Assessment and plan: stable, continue PPI. discussed with DR Peguero History of Present Illness History of Present Illness Chief Complaint: left hip pain Narrative: 66 year old with dementia, afib not anticoagulated who is in sinus rhythm, abdominal wound dehiscense followed by surgical services who suffered a witnessed, mechanical fall today with c/o left hip pain. no head injury LOC or other injury reported. He was unable to bear weight after his fall. work up in the ED shows left femur neck fracture. orthopedic consult with plan for surgical repair here. anesthesia performed block in ED for comfort. plan to admit and repair tomorrow. hospitalist services contacted for admission. Review of Systems All systems reviewed & are unremarkable except as noted in HPI and below and Unobtainable due to (severe advanced dementia, ) PFSH All Active Problems (Updated 01/24/22 @ 17:03 by Malathi Jon NP) Subcapital fracture of neck of left femur (Acute) Contracture of right shoulder (Acute) Rotator cuff tear, right (Acute) 40 mg Depo-Medrol injection: 12/21/2021 Abdominal wound dehiscence (Chronic ~09/2021) Ex-laparotomy July 2021 Dementia (Chronic) Parkinsonism (Chronic) Essential hypertension (Chronic) Urinary incontinence (Chronic) Prediabetes (Chronic) Nocturia (Chronic) GERD (gastroesophageal reflux disease) (Chronic) Calculus of left kidney (Chronic) Medical History Alcohol abuse 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 Followed at and treated at hospital in [place] August-early September 2021-prolonged hospitalization Ulcerative colitis S/p Subtotal colectomy with ileocolonic anastomosis Surgical History History of cataract surgery Hx of exploratory laparotomy (08/08/21) Extensive intra-abdominal adhesions with frozen abdomen, ileus S/P total colectomy (1979) Subtotal colectomy with ileocolonic anastomosis Family History Mother , 71 No problems noted. Father , 81 No problems noted. Sister , 70 No problems noted. Social History Smoking/Tobacco Use Status: Former Tobacco Use tobacco type: cigarettes Quit Date: 03/13/91 Second Hand Exposure: Yes Smoking risk assessment performed?: Yes Alcohol Intake: current Alcohol type: beer Drug use: Never Substance use type: does not use Caregiver/Support person: Yes Household members: other Details: Sister and brother in law Housing: house Communication Needs: None Do you need help understanding health information?: Always Pets and animals: No Sexually active: No Do you think of yourself as: straight/heterosexual Current gender identity: male What is your relationship status?: How often do you talk on the phone with friends or family?: decline to answer How often do you get together with friends or relatives?: decline to answer How often do you attend faith or presybeterian services?: decline to answer Do you belong to any clubs or organized social groups?: decline to answer Panel score (0-1 are the most socially isolated patients): 1 What type of physical activity do you participate in: none Frequency: does not exercise Philly/Caodaism: No preference Special philly needs: No Seatbelt use: always Helmet use: Yes 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 Do you feel safe at home: Yes Do you feel safe in your relationship?: Yes Meds Allergies and Home Medications Allergies Allergy/AdvReac Type Severity Reaction Status Date / Time No Known Allergies Allergy Verified 01/24/22 14:42 Home Medications Medication Instructions Recorded Confirmed Type pantoprazole 40 mg tablet,delayed 40 mg PO DAILY #90 tabs 10/05/21 01/24/22 Rx release mecobalamin (vitamin B12) 1,000 1,000 mcg sublingual DAILY 12/21/21 01/24/22 History mcg disintegrating tablet,sublingual metoprolol succinate 25 mg 12.5 mg PO DAILY 01/24/22 01/24/22 History tablet,extended release 24 hr Exam Const General: cooperative, comfortable and no acute distress Nutritional Appearance: average body habitus Orientation: alert, awake, oriented to person and confused (poor historian d/t baseline dementia, recalls falling, unable to provide hi) Limitations: other limitations (dementia) [facility] Head: normal to inspection, normocephalic and atraumatic Mouth: oral mucosae normal Chest Chest: normal inspection of the chest Resp Effort & Inspection: normal respiratory effort Auscultation: clear to auscultation bilaterally Cardio Rate: regular rate Rhythm: regular rhythm Heart Sounds: no murmurs GI Inspection: incision (open wound midline abd, wound bed with good granulation tissue, scant sloug) Palpation: soft Auscultation: normal bowel sounds Skin Lesions: lesion noted (midline abdomen, old surgical wound dehiscence, healing by secondary intent) Rashes: no rashes (no surrounding erythema or sign of infection noted. ) Extrem General: no pedal edema Other: sitting with knees bent up in position of comfort, no obvious deformity or sign of trauma. c/o left hip pain. Results Labs Result diagrams: 01/24/22 17:10 01/24/22 17:10 Last Vital Signs Temp 36.9 C 01/24/22 14:18 Pulse 84 01/24/22 14:18 Resp 18 01/24/22 14:18 BP 138/93 H 01/24/22 14:18 Pulse Ox 99 01/24/22 14:18
--- NOTE | 2022-01-24 17:03 | W.ANESNERVE ---
Nerve Block Single Injection Procedure Date and Time Date Performed: 01/24/22 Procedure Start: 16:42 Location Where Procedure Performed Procedure Location: Emergency Department Reason Performed: Acute Pain Management Pain Diagnosis: Hip Pain Requesting Provider: Juliana Loja Timeout Performed Timeout Performed: Yes Monitoring Used ECG, Blood Pressure, SpO2 and See EMR for corresponding vital signs Sterility Sterility: Hand Hygiene, Surgical Cap, Surgical Mask, Sterile Gloves, Eye Protection and Chlorhexidine Sedation Given During Procedure Sedation Given (Indicate Dose Given): No Sedation given Patient Mental Status Patient Mental Status: Awake Nerve Block 1st Nerve Block: Laterality: Left Block Type: Femoral Needle / Catheter Used: 100mm SonoPlex II Local Anesthetic Bolus (Indicate Dose Given): Lidocaine used for local infiltration of skin, Injected in 3-5ml increments after negative blood aspiration and Bupivacaine 0.5% Dose:: 20mL Additives (Indicate Dose Given): None Ultrasound: Sterile probe cover and gel used Ultrasound Image Saved?: Yes Nerve Stimulator: Not Used Paresthesia: None Procedure Tolerated: No Complications Procedure Outcome: Successful Procedure Comment: Femoral nerve block administered at the request of ER for hip fracture. Due to difficult patient positioning and pain, planned for isolated femoral. Performed By: Kemi Delgado
[2022-01-24] MEDS: Lactated Ringers 1,000 ML 125 ML IV (17:24)
[2022-01-24] MEDS: Bupivacaine 0.5% Pres-Free 30 ML VIAL (17:24)
[2022-01-24 17:29] LABS: Source Nasal/Nares
[2022-01-24 17:38] LABS: Abs Immature Grans 0.05 10^3/uL (0.0-0.06); Absolute Basophil Count 0.01 10^3/uL (0.0-0.2); Absolute Eosinophil Count 0.09 10^3/uL (0.0-0.7); Absolute Lymphocyte Count 1.21 10^3/uL (1.2-3.4); Absolute Monocyte Count 1.05 10^3/uL (0.1-0.8); Absolute Neutrophil Count 6.86 10^3/uL (1.2-6.7); Basophils % 0.1; HCT 36.1 % (40.0-50.0); HGB 11.4 g/dL (13.5-17.5); Immature Grans % 0.5; Lymphocytes % 13.1; MCHC 31.6 % (32.0-36.0); MCV 82 fL (80-95); MPV 9.3 fL (8.0-11.0); Monocytes % 11.3; Platelet Count 342 10^3/uL (130-400); RBC 4.38 10^6/uL (4.36-5.78); RDW 13.3 % (11.8-14.1); WBC 9.27 10^3/uL (4.4-10.8)
[2022-01-24 17:50] VITALS: BP 138/93; PULSE 84; RESP 18; TEMP 36.9; O2SAT 99
--- NOTE | 2022-01-24 17:50 | DI.VRAD_ITS ---
PROCEDURE INFORMATION: Exam: Portable XR Chest Exam date and time: 01/24/2022 5:06 PM Age: 66 years old Clinical indication: Injury or trauma; Fall; Other: Hip fracture; Injury date: 01/24/2022 TECHNIQUE: Imaging protocol: Portable radiologic exam of the chest. Views: 1 view. COMPARISON: 1. CR XR CHEST 1V IN DI DEPT 09/23/2021 11:19 AM 2. MR UPPER JOINT RT WO 12/13/2021 2:40 PM 3. CR XR SHOULDER RT COMPLETE 2+V 11/05/2021 10:[address] ABDOMEN PELVIS W 09/30/2021 9:08 PM FINDINGS: Lungs: Unremarkable. No consolidation. Pleural spaces: Unremarkable. No pleural effusion. No pneumothorax. Heart/Mediastinum: Unremarkable. No cardiomegaly. Bones/joints: Unremarkable. IMPRESSION: No acute findings. Dictated and Authenticated by: Saurabh Kovacs MD. Ordering:DELFINA Andrews MD
[2022-01-24 18:00] LABS: ALT 19 U/L (16-63); AST 16 U/L (15-37); Albumin 3.3 g/dL (3.4-5.0); Alkaline Phosphatase 88 U/L (46-116); Anion Gap 9.2 mmol/L (3-11); BUN 21 mg/dL (7-18); Bilirubin, Total 0.5 mg/dL (0.2-1.0); CO2 27.8 mmol/L (21.0-32.0); Calcium 9.1 mg/dL (8.5-10.1); Chloride 105 mmol/L (98-107); Estimated GFR 81.98 (mL/min/1.73m2); Glucose 100 mg/dL (74-106); Sodium 142 mmol/L (136-145); Total Protein 7.3 g/dL (6.4-8.2)
[2022-01-24 18:01] LABS: COVID-19 PCR Negative (Negative)
[2022-01-24 18:15] VITALS: BP 149/82; PULSE 105; RESP 22; TEMP 37.8; O2SAT 96
[2022-01-24] MEDS: ACETAMINOPHEN 1,000 MG/100 ML BTL 400 MG IVPB (18:39)
[2022-01-24] MEDS: diphenhydrAMINE 25 MG CAP PO (19:43)
[2022-01-24] MEDS: Normal Saline Flush 10 ML SYR IVP (20:42)
[2022-01-24] MEDS: HYDROmorphone 2 MG/ML SYR 0.5 MG IVP (20:42)
--- NOTE | 2022-01-24 22:26 | SCONE_ITS ---
Date of service: 01/25/22 Time of Service: 08:30 Assessment and Plan Assessment and plan (1) Subcapital fracture of neck of left femur: Status: Acute Assessment and plan: Surgery later today per Ortho (2) Atrial fibrillation with RVR: Status: Suspected (3) Abdominal wound dehiscence: Status: Chronic Assessment and plan: Cleanse with Anasept Wound gel and Mepilex Will follow peripherally (4) Dementia: Status: Chronic (5) Parkinsonism: Status: Chronic (6) Essential hypertension: Status: Chronic (7) Urinary incontinence: Status: Chronic (8) GERD (gastroesophageal reflux disease): Status: Chronic (9) TBI (traumatic brain injury): History of Present Illness Narrative: Pt is well known to sx service. He has exposed mesh in the wound. He had a laparotomy and colon resection in [place] in July. He has TBI secondary to fall. He is falling at home. Family has recently moved from [place] to [facility]. They have been doing wet-to-dry daily on the wound. He was seen at [facility] wound care. I did review the notes.. Patient is very cantankerous this morning and is not allowing the nurses to examine or do basic cares. Patient has a TBI and cannot give any history He is refusing to take all his medications or participate in any cares Consults Consult date: 01/25/22 Review of Systems Unobtainable due to mental condition PFSH All Active Problems Subcapital fracture of neck of left femur (Acute) Contracture of right shoulder (Acute) Rotator cuff tear, right (Acute) 40 mg Depo-Medrol injection: 12/21/2021 Abdominal wound dehiscence (Chronic ~09/2021) Ex-laparotomy July 2021 Dementia (Chronic) Parkinsonism (Chronic) Essential hypertension (Chronic) Urinary incontinence (Chronic) Prediabetes (Chronic) Nocturia (Chronic) GERD (gastroesophageal reflux disease) (Chronic) Calculus of left kidney (Chronic) Medical History Alcohol abuse 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 Followed at and treated at hospital in [place] August-early September 2021-prolonged hospitalization Ulcerative colitis S/p Subtotal colectomy with ileocolonic anastomosis Surgical History History of cataract surgery Hx of exploratory laparotomy (08/08/21) Extensive intra-abdominal adhesions with frozen abdomen, ileus S/P total colectomy (1979) Subtotal colectomy with ileocolonic anastomosis Family History Mother , 71 No problems noted. Father , 81 No problems noted. Sister , 70 No problems noted. Social History Smoking/Tobacco Use Status: Former Tobacco Use tobacco type: cigarettes Quit Date: 03/13/91 Second Hand Exposure: Yes Smoking risk assessment performed?: Yes Alcohol Intake: current Alcohol type: beer Drug use: Never Substance use type: does not use Caregiver/Support person: Yes Household members: other Details: Sister and brother in law Housing: house Communication Needs: None Do you need help understanding health information?: Always Pets and animals: No Sexually active: No Do you think of yourself as: straight/heterosexual Current gender identity: male What is your relationship status?: How often do you talk on the phone with friends or family?: decline to answer How often do you get together with friends or relatives?: decline to answer How often do you attend jain or yazidi services?: decline to answer Do you belong to any clubs or organized social groups?: decline to answer Panel score (0-1 are the most socially isolated patients): 1 What type of physical activity do you participate in: none Frequency: does not exercise Philly/Adventism: No preference Special philly needs: No Seatbelt use: always Helmet use: Yes Drive intox or ride w/intox driver examiner: No Do you feel safe at home: Yes Do you feel safe in your relationship?: Yes Exam Narrative Exam Narrative: Patient is not cooperating with physical exam this morning. His abdomen is soft and nontender. The wound is healing nicely. It is good granulation tissue and the mesh is not visible today. It is being trimmed back. The wound is approximately 5 cm long and 2 cm wide and 1.3 cm deep with beefy red granulation tissue the surrounding tissue is intact. Lungs are clear Results Last Vital Signs Temp 37.8 C H 01/24/22 18:15 Pulse 105 H 01/24/22 18:15 Resp 22 01/24/22 18:15 BP 149/82 H 01/24/22 18:15 Pulse Ox 96 01/24/22 18:15 Labs Result diagrams: 01/24/22 17:10 01/24/22 17:10 Labs: Laboratory Results - last 24 hr 01/24/22 01/24/22 01/24/22 17:10 17:10 17:15 WBC 9.27 RBC 4.38 Hgb 11.4 L Hct 36.1 L MCV 82 MCH 26.0 L MCHC 31.6 L RDW 13.3 Plt Count 342 MPV 9.3 Immature Gran % 0.5 Neutrophils % 74.0 Lymphocytes % 13.1 Monocytes % 11.3 Eosinophils % 1.0 Basophils % 0.1 Nucleated RBC % 0.0 Absolute Neutrophils 6.86 H Absolute Lymphocytes 1.21 Absolute Monocytes 1.05 H Absolute Eosinophils 0.09 Absolute Basophils 0.01 Sodium 142 Potassium 4.0 Chloride 105 Carbon Dioxide 27.8 Anion Gap 9.2 BUN 21 H Creatinine 1.0 Est GFR (CKD-EPI 2020) 81.98 Glucose 100 Calcium 9.1 Total Bilirubin 0.5 AST 16 ALT 19 Alkaline Phosphatase 88 Total Protein 7.3 Albumin 3.3 L COVID-19 Source Nasal/Nares SARS-CoV-2 (PCR) Negative
[2022-01-25] VITALS (7 sets, daily range): BP systolic 148–177; BP diastolic 78–94; PULSE 91–99; RESP 16–20; TEMP 36.8–38.2; O2SAT 95–96; BMI 26.6
[2022-01-25] MEDS: diphenhydrAMINE 50 MG/ML VIAL 25 MG IVP ×3 (02:05→18:29)
[2022-01-25] MEDS: Lactated Ringers 1,000 ML 75 ML IV ×2 (03:28→16:38)
[2022-01-25] MEDS: Normal Saline Flush 10 ML SYR IVP ×4 (03:30→22:33)
[2022-01-25] MEDS: HYDROmorphone 2 MG/ML SYR 0.5 MG IVP ×2 (06:05→12:29)
--- NOTE | 2022-01-25 07:55 | OCONE_ITS ---
Date of service: 01/25/22 Time of Service: 07:00 History of Present Illness History of Present Illness Chief Complaint: Left Hip Pain s/p Fall Narrative: is a 66-year-old who has some underlying dementia and amatory disabilities as well as some cognitive delays who was witnessed by family to have a mechanical fall onto his left side. He had immediate pain was unable to ambulate afterwards. EMS was called he was taken to the emergency department. He was diagnosed with a displaced femoral neck fracture on the left side. He had notable pain. A block was performed which did improve his pain. History is difficult to obtain from him. Per the other notes is able to review from his primary care provider as well as neurology and general surgery, he has declining ambulatory function. He requires assistance for most ADLs although he is able to ambulate some without assistance. He does have notable stiffness and had just started physical therapy 1 session. His sister, Zaynab, is his primary power of employment attorney and help, with whom he is living. Consults Consult date: 01/25/22 Consult Reason Left Hip Fracture Assessment and Plan Assessment and plan (1) Subcapital fracture of neck of left femur: Status: Acute Assessment and plan: is a 66-year-old who suffered a mechanical fall onto his left hip. He has a displaced femoral neck fracture on the left side. Unfortunately, there is no nonoperative treatment for this. I recommend operative stabilization. Given the displaced nature of the fracture replacement would be the best option. Given his young age and excellent bone quality, despite his mental status, I think a total hip replacement would be the best treatment in this case. I would use a dual mobility construct to minimize risk of dislocation or instability. However, this would likely provide the best long-term treatment options. He does have ongoing issues with his belly with a nonhealing wound with exposed mesh. However, he has no active infection. Either way, he would need some form of replacement. I reviewed this with briefly but his comprehension was limited. I did discuss with his sister and power of employment attorney, Zaynab, who agreed to proceed. I reviewed the risk of the procedure with Zaynab to include bleeding, infection, pain, stiffness, damage nerves and vessels, damage to muscle and tendons, instability, dislocation, fracture, blood clot, leg length inequality, need for repeat procedures. Despite these risk, she elects to proceed. is to be NPO. We will perform this later this afternoon. Review of Systems All systems reviewed & are unremarkable except as noted in HPI and below PFSH All Active Problems Subcapital fracture of neck of left femur (Acute) Contracture of right shoulder (Acute) Rotator cuff tear, right (Acute) 40 mg Depo-Medrol injection: 12/21/2021 Abdominal wound dehiscence (Chronic ~09/2021) Ex-laparotomy July 2021 Dementia (Chronic) Parkinsonism (Chronic) Essential hypertension (Chronic) Urinary incontinence (Chronic) Prediabetes (Chronic) Nocturia (Chronic) GERD (gastroesophageal reflux disease) (Chronic) Calculus of left kidney (Chronic) Medical History Alcohol abuse 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 Followed at and treated at [facility] in [place] August-early September 2021-prolonged hospitalization Ulcerative colitis S/p Subtotal colectomy with ileocolonic anastomosis Surgical History History of cataract surgery Hx of exploratory laparotomy (08/08/21) Extensive intra-abdominal adhesions with frozen abdomen, ileus S/P total colectomy (1979) Subtotal colectomy with ileocolonic anastomosis Family History Mother , 71 No problems noted. Father , 81 No problems noted. Sister , 70 No problems noted. Social History Smoking/Tobacco Use Status: Former Tobacco Use tobacco type: cigarettes Quit Date: 03/13/91 Second Hand Exposure: Yes Smoking risk assessment performed?: Yes Alcohol Intake: current Alcohol type: beer Drug use: Never Substance use type: does not use Caregiver/Support person: Yes Household members: other Details: Sister and brother in law Housing: house Communication Needs: None Do you need help understanding health information?: Always Pets and animals: No Sexually active: No Do you think of yourself as: straight/heterosexual Current gender identity: male What is your relationship status?: How often do you talk on the phone with friends or family?: decline to answer How often do you get together with friends or relatives?: decline to answer How often do you attend druze or protestant services?: decline to answer Do you belong to any clubs or organized social groups?: decline to answer Panel score (0-1 are the most socially isolated patients): 1 What type of physical activity do you participate in: none Frequency: does not exercise Philly/Pentecostalism: No preference Special philly needs: No Seatbelt use: always Helmet use: Yes Drive intox or ride w/intox [employer] delivery driver: No Do you feel safe at home: Yes Do you feel safe in your relationship?: Yes Exam Narrative Exam Narrative: Resting in the hospital bed. Quite sleepy. He is arousable and alert. He is able to answer some questions with simple answers and head gestures. The left leg is shortened and externallyy rotated and flexed. Evaluation of the left hip does not show any skin changes. He endorses full sensation over the superficial and deep peroneal nerve as well as the tibial nerve. Palpable DP pulse. He is able to actively dorsiflex and plantarflex the foot as well as extend and flex great toe. Results Last Vital Signs Temp 36.8 C 01/25/22 03:40 Pulse 105 H 01/24/22 18:15 Resp 16 01/25/22 03:40 BP 149/82 H 01/24/22 18:15 Pulse Ox 96 01/24/22 18:15 Labs Result diagrams: 01/24/22 17:10 01/24/22 17:10 Labs: Laboratory Results - last 24 hr 01/24/22 01/24/22 01/24/22 17:10 17:10 17:15 WBC 9.27 RBC 4.38 Hgb 11.4 L Hct 36.1 L MCV 82 MCH 26.0 L MCHC 31.6 L RDW 13.3 Plt Count 342 MPV 9.3 Immature Gran % 0.5 Neutrophils % 74.0 Lymphocytes % 13.1 Monocytes % 11.3 Eosinophils % 1.0 Basophils % 0.1 Nucleated RBC % 0.0 Absolute Neutrophils 6.86 H Absolute Lymphocytes 1.21 Absolute Monocytes 1.05 H Absolute Eosinophils 0.09 Absolute Basophils 0.01 Sodium 142 Potassium 4.0 Chloride 105 Carbon Dioxide 27.8 Anion Gap 9.2 BUN 21 H Creatinine 1.0 Est GFR (CKD-EPI 2020) 81.98 Glucose 100 Calcium 9.1 Total Bilirubin 0.5 AST 16 ALT 19 Alkaline Phosphatase 88 Total Protein 7.3 Albumin 3.3 L COVID-19 Source Nasal/Nares SARS-CoV-2 (PCR) Negative Imaging Imaging Studies: X-ray of the left hip and pelvis demonstrates a displaced femoral neck fracture. Appears to be a mid cervical femoral neck fracture with notable displacement.
[2022-01-25] MEDS: ACETAMINOPHEN 1,000 MG/100 ML BTL 400 MG IVPB ×2 (08:41→16:35)
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
[2022-01-25] MEDS: Metoprolol CR 25 MG TABCR 12.5 MG PO (10:41)
--- NOTE | 2022-01-25 11:32 | ANES.PREOP_ITS ---
General Info Date of Service Date Performed: 01/25/22 Height: 5 ft 8 in Weight: 79.3 kg Body Mass Index (BMI): 26.6 Surgical Procedure: Operation Date: 01/25/22 17:05 Proposed Procedure Side Surgeon p Hip Total Hip Anterior Left Maurice Junior MD Meds Allergies and Home Medications Allergies Allergy/AdvReac Type Severity Reaction Status Date / Time No Known Allergies Allergy Verified 01/24/22 14:42 Home Medication Medication Instructions Recorded pantoprazole 40 mg tablet,delayed 40 mg PO DAILY #90 tabs 10/05/21 release mecobalamin (vitamin B12) 1,000 1,000 mcg sublingual DAILY 12/21/21 mcg disintegrating tablet,sublingual metoprolol succinate 25 mg 12.5 mg PO DAILY 01/24/22 tablet,extended release 24 hr Current Visit Medications: Current Medications Generic Name Dose Route Start Last Admin Trade Name Freq PRN Reason Stop Dose Admin Dimethicone/Zinc Oxide 0 gm 01/24/22 17:06 Joe Protect Cream 142 Gm Tube TP PRN PRN Diphenhydramine HCl 25 mg 01/25/22 00:01 01/25/22 02:05 Diphenhydramine 50 Mg/Ml Vial IVP 25 mg Q4H PRN Administration Hydromorphone HCl 0.5 mg 01/24/22 18:55 01/25/22 06:05 Hydromorphone 2 Mg/Ml Syr IVP 0.5 mg Q6H PRN PRN Administration Acetaminophen 1,000 mg in 100 mls @ 400 mls/hr 01/24/22 18:07 01/25/22 08:41 Ofirmev IVPB 400 mls/hr Q8H PRN PRN Administration Ringer's Solution 1,000 mls @ 75 mls/hr 01/25/22 03:00 01/25/22 03:28 IV 75 mls/hr INFUSION ANEL Administration IV Miscellaneous Supplies 1 each 01/24/22 16:45 Iv Access IV DIRECTED ANEL Melatonin 3 mg 01/24/22 22:00 01/24/22 22:19 Melatonin 3 Mg Tab PO Not Given HS ANEL Metoprolol Succinate 12.5 mg 01/25/22 08:30 01/25/22 10:41 Metoprolol Cr 25 Mg Tabcr PO 12.5 mg DAILY ANEL Administration Multi-Ingredient Supplement 1 ounce 01/26/22 08:00 Protein Nutritional Supplement 16 Gm 1 Ounce Packet PO TID ANEL Pantoprazole Sodium 40 mg 01/25/22 08:30 01/25/22 08:43 Pantoprazole 40 Mg Tabcr PO Not Given DAILY ANEL Sodium Chloride 0 ml 01/24/22 16:34 01/25/22 03:30 Normal Saline Flush 10 Ml Syr IVP 10 ml PRN PRN Administration PFSH Active Problems Active Problems: Problem Status Onset Code Subcapital fracture of neck of left femur S72.012A Contracture of right shoulder M24.511 Rotator cuff tear, right M75.101 Abdominal wound dehiscence ~09/2021 T81.30XA Dementia F03.90 Parkinsonism G20 Essential hypertension I10 Urinary incontinence R32 Prediabetes R73.03 Nocturia R35.1 GERD (gastroesophageal reflux disease) K21.9 Calculus of left kidney N20.0 Medical History Medical History Alcohol abuse 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 Followed at and treated at hospital in [place] August-early September 2021-prolonged hospitalization Ulcerative colitis S/p Subtotal colectomy with ileocolonic anastomosis Surgical History Surgical History History of cataract surgery Hx of exploratory laparotomy (08/08/21) Extensive intra-abdominal adhesions with frozen abdomen, ileus S/P total colectomy (1979) Subtotal colectomy with ileocolonic anastomosis Tobacco Smoking/Tobacco Use Status: Former Tobacco Use Passive smoking exposure: Yes Second hand exposure: Yes Alcohol Alcohol Intake: current Alcohol type: beer Substance Use Substance use: Never Substance use type: does not use Vital Signs and Lab Results Vital Signs Most Recent Vital Signs in EMR: Most Recent Vital Signs Temp Pulse Resp BP Pulse Ox 36.8 C 91 H 18 149/79 H 96 01/25/22 10:55 01/25/22 10:55 01/25/22 10:55 01/25/22 10:55 01/25/22 10:55 Lab Results Result Diagrams: 01/24/22 17:10 01/24/22 17:10 Blood Type / Crossmatch: No Data to Display Complete Blood Count: White Blood Count 9.27 10^3/uL (4.4-10.8) 01/24/22 17:10 Red Blood Count 4.38 10^6/uL (4.36-5.78) 01/24/22 17:10 Hemoglobin 11.4 g/dL (13.5-17.5) L 01/24/22 17:10 Hematocrit 36.1 % (40.0-50.0) L 01/24/22 17:10 Platelet Count 342 10^3/uL (130-400) 01/24/22 17:10 Complete Metabolic Panel: Sodium 142 mmol/L (136-145) 01/24/22 17:10 Potassium 4.0 mmol/L (3.5-5.1) 01/24/22 17:10 Chloride 105 mmol/L (98-107) 01/24/22 17:10 Carbon Dioxide 27.8 mmol/L (21.0-32.0) 01/24/22 17:10 BUN 21 mg/dL (7-18) H 01/24/22 17:10 Creatinine 1.0 mg/dL (0.70-1.30) 01/24/22 17:10 Est GFR (CKD-EPI 2020) 81.98 (mL/min/1.73m2) 01/24/22 17:10 Calcium 9.1 mg/dL (8.5-10.1) 01/24/22 17:10 Albumin 3.3 g/dL (3.4-5.0) L 01/24/22 17:10 Glucose 100 mg/dL (74-106) 01/24/22 17:10 Liver Function Panel: Alanine Aminotransferase (ALT/SGPT) 19 U/L (16-63) 01/24/22 17: 10 Aspartate Amino Transf (AST/SGOT) 16 U/L (15-37) 01/24/22 17:10 Coagulation Panel: No Data to Display Cardiac Panel: No Data to Display Arterial Blood Gas: No Data to Display Venous Blood Gas: No Data to Display Pancreas Panel: No Data to Display Thyroid Panel: No Data to Display Infectious Disease: Coronavirus (COVID-19)(PCR) Negative (Negative) 01/24/22 17:15 Coronavirus 2019 Source Nasal/Nares 01/24/22 17:15 Blood Cultures: No Data to Display Toxicology Panel: No Data to Display Imaging and Studies Imaging and Studies Study information below may be from another EMR and interpreted by another provider. Please see original notes in EMR for more complete details. EKG Summary: 10/01: sinus. Anesthesia Assessment and Plan Anesthesia History Personal History: No History of Anesthesia Complications Family History: No Family History of Anesthesia Complications Exercise Tolerance Exercise Tolerance: Metabolic Equivalents>4 Cardiac & Pulmonary Exam Cardiac Exam: Normal S1/S2 Heart Sounds Pulmonary Exam: Clear Bilateral Breath Sounds Implantable Cardiac Device Does patient have a Pacemaker or an ICD?: No Airway Exam Known Difficult Airway: No Mallampati Class: 2 Mouth Opening: Normal (> 3cm) Thyromental Distance: Greater than 3 cm Neck Range of Motion: Full ROM Neck Circumference: Normal Teeth Condition: Normal Dentition ASA Classification ASA Score: ASA 3 Emergency Case?: No NPO Status NPO Status: NPO Clears >2 hours, Solids >8 hours Anesthesia Plan Resuscitation Status: Full Code Anesthesia Technique: Spinal Anesthesia Airway Planned: Natural Airway Monitors Used: Standard Monitors Preoperative Comments:: 66 yo male who sustained a fail fractureing his hip, here or repair. Sig PMHx: dementia, parkinsonism, HTN, GERD, afib, preDM, frozen abdomen, TBI, former smoker. Medical history and consent performed over the phone with Zaynab. Discussed risk, benifits, and alternitives of spinal vs general. Zaynab would like spinal as the primary option. We discussed that this can be the primary plan with a GA back up if the spinal placement was difficult/unsafe, or too painful for [place].
--- NOTE | 2022-01-25 17:14 | W.PM.PROGNOT ---
Date of Service Date of service: 01/25/22 Time of Service: 17:14 Assessment and Plan Assessment and plan (1) Subcapital fracture of neck of left femur: Status: Acute Assessment and plan: Repair planned for 01/26/2022 routine preoperative orders nerve block 01/24/22 npo after midnight (2) Atrial fibrillation with RVR: Status: Suspected Assessment and plan: in NSR. will continue beta monica - did not want oral beta monica this am, but did take it a few hours after. not anticoagulated, suspect d/t demented state with increased fall risk. (3) Dementia: Status: Chronic Assessment and plan: anticipate acute delirium while hospitalized safety precautions. takes benadryl at home prn for restlessness and sleep. symptoms worse at night (4) Abdominal wound dehiscence: Status: Chronic Assessment and plan: followed by surgical services healing by secondary intention continue outpatient wound care instructions (5) GERD (gastroesophageal reflux disease): Status: Chronic Assessment and plan: stable, continue PPI. discussed with Dr. Peguero Subjective Subjective Patient reports: no new complaints, pain is less, tolerating a regular diet, voiding w/o difficulty, bowel movement and fever; denies diarrhea, nausea or vomiting Exam Const General: cooperative, comfortable and no acute distress Nutritional Appearance: average body habitus Orientation: alert, awake, oriented to person and confused (poor historian d/t baseline dementia, recalls falling, unable to provide hi) Limitations: other limitations (dementia) [facility] Head: normal to inspection, normocephalic and atraumatic Mouth: oral mucosae normal Chest Chest: normal inspection of the chest Resp Effort & Inspection: normal respiratory effort Auscultation: clear to auscultation bilaterally Cardio Rate: regular rate Rhythm: regular rhythm Heart Sounds: no murmurs GI Inspection: incision (open wound midline abd, wound bed with good granulation tissue, scant sloug) Palpation: soft Auscultation: normal bowel sounds Skin General skin exam: no rashes or lesions noted Lesions: lesion noted (midline abdomen, old surgical wound dehiscence, healing by secondary intent) Rashes: no rashes (no surrounding erythema or sign of infection noted. ) Extrem General: no pedal edema Other: sitting with knees bent up in position of comfort, no obvious deformity or sign of trauma. c/o left hip pain. Objective Last Vital Signs Temp 38.2 C H 01/25/22 15:41 Pulse 99 H 01/25/22 15:41 Resp 18 01/25/22 15:41 BP 177/92 H 01/25/22 15:41 Pulse Ox 95 01/25/22 15:41 Laboratory Results - last 24 hr 01/24/22 01/24/22 01/24/22 17:10 17:10 17:15 WBC 9.27 RBC 4.38 Hgb 11.4 L Hct 36.1 L MCV 82 MCH 26.0 L MCHC 31.6 L RDW 13.3 Plt Count 342 MPV 9.3 Immature Gran % 0.5 Neutrophils % 74.0 Lymphocytes % 13.1 Monocytes % 11.3 Eosinophils % 1.0 Basophils % 0.1 Nucleated RBC % 0.0 Absolute Neutrophils 6.86 H Absolute Lymphocytes 1.21 Absolute Monocytes 1.05 H Absolute Eosinophils 0.09 Absolute Basophils 0.01 Sodium 142 Potassium 4.0 Chloride 105 Carbon Dioxide 27.8 Anion Gap 9.2 BUN 21 H Creatinine 1.0 Est GFR (CKD-EPI 2020) 81.98 Glucose 100 Calcium 9.1 Total Bilirubin 0.5 AST 16 ALT 19 Alkaline Phosphatase 88 Total Protein 7.3 Albumin 3.3 L COVID-19 Source Nasal/Nares SARS-CoV-2 (PCR) Negative
--- NOTE | 2022-01-25 18:06 | DI.RAD_ITS ---
Exam(s) XR PORTABLE CHEST AP EXAM: XR PORTABLE CHEST AP CLINICAL HISTORY: Fever s/p fx hip TECHNIQUE: 2D digital imaging was performed. COMPARISON: CR,XR XR PORTABLE CHEST AP from 01/24/2022 FINDINGS: The lungs are poorly inflated. The heart size is within normal limits. There is calcification at th e aortic arch. No gross infiltrate or effusion is seen. IMPRESSION: No acute findings. DATA REPOSITORY: RADIATION DOSE DELIVERED:
[2022-01-25] MEDS: HYDROmorphone 2 MG/ML SYR IVP ×2 (18:11→21:55)
[2022-01-25] MEDS: Normal Saline 50 ML 200 ML IV (18:12)
--- NOTE | 2022-01-25 18:14 | DI.VRAD_ITS ---
PROCEDURE INFORMATION: Exam: XR Chest Exam date and time: 01/25/2022 5:40 PM Age: 66 years old Clinical indication: Patient HX: Fever, S/P hip FX. TECHNIQUE: Imaging protocol: Radiologic exam of the chest. Views: 1 view. COMPARISON: XR PORTABLE CHEST AP 01/24/2022 5:06 PM FINDINGS: Lungs: Chronic interstitial prominence. No consolidation. Pleural spaces: No pleural effusion. No pneumothorax. Heart/Mediastinum: Grossly stable. Bones/joints: Unremarkable. IMPRESSION: No acute findings. Dictated and Authenticated by: Cj Kelly MD. Ordering:SAROJ Mack MD
[2022-01-25 19:27] LABS: COVID-19 PCR Negative (Negative); Influenza A PCR Negative (Negative); Influenza B PCR Negative (Negative); RSV PCR Negative (Negative)
[2022-01-25 19:29] LABS: Source Nasopharynx
[2022-01-25] MEDS: Melatonin 3 MG TAB PO (21:14)
[2022-01-25 22:06] LABS: Bilirubin Negative (Negative); Blood Moderate (Negative); Clarity Sl Cloudy (Clear); Glucose Negative (Negative); Ketones Negative (Negative); Leukocyte Esterase Negative (Negative); Nitrite Negative (Negative); Specific Gravity >= 1.030 (1.005-1.025); Urobilinogen 0.2 EU/dL (Up TO 0.2)
[2022-01-25 22:16] LABS: Bacteria Negative HPF (Negative); Crystals Negative HPF (Negative); Epithelial Cells Rare HPF (Negative); WBC 0-2 HPF (0-5)
[2022-01-25 22:17] LABS: C & S Indicated? No; Casts Negative LPF (Negative); Mucus Trace (Negative)
[2022-01-25] MEDS: Ketorolac 30 MG/ML VIAL IVP (22:30)
[2022-01-25] MEDS: cefTRIAXone 2 GM/50 ML BAG IVPB (22:33)
[2022-01-26] VITALS (14 sets, daily range): BP systolic 77–161; BP diastolic 48–90; PULSE 78–91; RESP 13–18; TEMP 36.5–38.1; O2SAT 93–98
[2022-01-26] MEDS: HYDROmorphone 2 MG/ML SYR IVP ×3 (02:58→23:27)
[2022-01-26] MEDS: Normal Saline Flush 10 ML SYR IVP ×3 (02:59→21:05)
[2022-01-26] MEDS: ACETAMINOPHEN 1,000 MG/100 ML BTL 400 MG IVPB (03:14)
[2022-01-26] MEDS: Ketorolac 15 MG/ML VIAL IVP ×2 (06:40→21:02)
[2022-01-26 08:01] LABS: Lab Add On Test COMPLETED
[2022-01-26 08:02] LABS: Abs Immature Grans 0.03 10^3/uL (0.0-0.06); Absolute Basophil Count 0.01 10^3/uL (0.0-0.2); Absolute Eosinophil Count 0.06 10^3/uL (0.0-0.7); Absolute Lymphocyte Count 0.93 10^3/uL (1.2-3.4); Absolute Monocyte Count 1.65 10^3/uL (0.1-0.8); Absolute Neutrophil Count 5.71 10^3/uL (1.2-6.7); Basophils % 0.1; Eosinophils % 0.7; HCT 34.6 % (40.0-50.0); HGB 11.1 g/dL (13.5-17.5); Immature Grans % 0.4; Lymphocytes % 11.1; MCH 25.9 pg (27.0-33.0); MCHC 32.1 % (32.0-36.0); MCV 81 fL (80-95); MPV 9.7 fL (8.0-11.0); Monocytes % 19.7; Platelet Count 297 10^3/uL (130-400); RBC 4.28 10^6/uL (4.36-5.78); RDW 13.3 % (11.8-14.1); RDW-SD 39.2 fL; WBC 8.39 10^3/uL (4.4-10.8)
[2022-01-26 08:17] LABS: Anion Gap 10.9 mmol/L (3-11); BUN 21 mg/dL (7-18); CO2 26.1 mmol/L (21.0-32.0); CREATININE 1.1 mg/dL (0.70-1.30); Calcium 8.9 mg/dL (8.5-10.1); Chloride 104 mmol/L (98-107); Estimated GFR 73.12 (mL/min/1.73m2); Glucose 103 mg/dL (74-106); Magnesium 1.7 mg/dL (1.8-2.4); Potassium 3.8 mmol/L (3.5-5.1); Sodium 141 mmol/L (136-145)
[2022-01-26 08:19] LABS: Diff Comment Diff Reviewed; RBC Morphology Normal
[2022-01-26 08:41] LABS: Procalcitonin 0.1 ng/mL
[2022-01-26] MEDS: Lactated Ringers 1,000 ML 75 ML IV ×2 (08:51→16:55)
[2022-01-26] MEDS: Metoprolol CR 25 MG TABCR 12.5 MG PO (09:15)
--- NOTE | 2022-01-26 09:25 | PDOC.CMPRO ---
- If Service Date Differs Date of service: 01/26/22 Time of Service: 09:25 Care Management Progress Note S/O: went to the OR today to repair his fractured hip. His sister visited before surgery and met with CM. She again expressed concerns about the type of dressing that is being used on his open abdominal wound. The clinical coordinator Susanna, who is also a certified wound care nurse, explained the rationale behind the wound care orders written by Dr. Lopez yesterday. She ordered wound gel with a mepilex bandage over it. Zaynab repeatedly stated that she has been caring for the wound at home for months and that it has never gotten infected and she hoped that would continue to be the case. Part of the concern is that the wound was uncovered for a short time yesterday because removed the bandage. In his confused state,, he has also removed IVs and tugged on his castro catheter. Since 's abdominal dressing was changed yesterday, it has remained clean, dry and intact and he has not been disturbing it. A: is a 66 year old man admitted on 01/24/22 with a fractures femur P: will most likely need short term rehab in a SNF prior to returning home or to another facility. He will follow up with the facility providers and plan of care. Transportation will be determined by disposition. CM will continue to support and his family and assess for ongoing discharge concerns.
--- NOTE | 2022-01-26 11:45 | DI.RAD_ITS ---
Exam(s) XR HIP LT IN OR EXAM: XR HIP LT IN OR CLINICAL HISTORY: fractured left hip. TECHNIQUE: 2D and realtime digital imaging was performed. COMPARISON: No exams were available for comparison FINDINGS: Fluoroscopy was provided in the OR. A hard copy image shows placement of a left hip prosthesis. The alignment appears satisfactory. Please see procedure note for details. Fluoro time: 41.9seconds RADIATION DOSE DELIVERED: sampson Malone=4.61 mGy
--- NOTE | 2022-01-26 12:07 | W.PM.PROGNOT ---
Date of Service Date of service: 01/26/22 Time of Service: 12:08 Assessment and Plan Assessment and plan (1) Subcapital fracture of neck of left femur: Status: Acute Assessment and plan: Repair planned for today (01/26/2022) in the afternoon. routine preoperative orders nerve block 01/24/22 npo after midnight (2) Atrial fibrillation with RVR: Status: Suspected Assessment and plan: in NSR. Beta monica continued. not anticoagulated, suspect d/t demented state with increased fall risk. (3) Hypomagnesemia: Status: Acute Assessment and plan: 1.7 - repleted (4) Dementia: Status: Chronic Assessment and plan: anticipate acute delirium while hospitalized safety precautions. takes benadryl at home prn for restlessness and sleep. symptoms worse at night (5) Abdominal wound dehiscence: Status: Chronic Assessment and plan: followed by surgical services - wound care orders per surgery healing by secondary intention (6) GERD (gastroesophageal reflux disease): Status: Chronic Assessment and plan: stable, continue PPI. discussed with Dr. Peguero Subjective Subjective Patient reports: no new complaints, still having pain, voiding w/o difficulty and fever; denies diarrhea, nausea or shortness of breath Interval history since last seen: Pain is controlled, he is NPO for surgery this afternoon Exam Narrative Exam Narrative: Supine in bed, alert to voice, no facial grimacing or complaints of pain Const General: cooperative, comfortable and no acute distress Nutritional Appearance: average body habitus Orientation: alert, awake, oriented to person and confused (poor historian d/t baseline dementia, recalls falling, unable to provide hi) Limitations: other limitations (dementia) [facility] Head: normal to inspection, normocephalic and atraumatic Mouth: oral mucosae normal Chest Chest: normal inspection of the chest Resp Effort & Inspection: normal respiratory effort Auscultation: clear to auscultation bilaterally Cardio Rate: regular rate Rhythm: regular rhythm Heart Sounds: no murmurs GI Inspection: incision (open wound midline abd, wound bed with good granulation tissue, scant sloug) Palpation: soft Auscultation: normal bowel sounds Skin General skin exam: no rashes or lesions noted Lesions: lesion noted (midline abdomen, old surgical wound dehiscence, healing by secondary intent) Rashes: no rashes (no surrounding erythema or sign of infection noted. ) Extrem General: no pedal edema Objective Last Vital Signs Temp 37.4 C 01/26/22 09:10 Pulse 91 H 01/26/22 09:10 Resp 16 01/26/22 09:10 BP 156/90 H 01/26/22 09:10 Pulse Ox 93 01/26/22 09:10 Laboratory Results - last 24 hr 01/25/22 01/25/22 01/26/22 18:35 21:44 07:35 WBC RBC Hgb Hct MCV MCH MCHC RDW Plt Count MPV Immature Gran % Neutrophils % Lymphocytes % Monocytes % Eosinophils % Basophils % Nucleated RBC % Absolute Neutrophils Absolute Lymphocytes Absolute Monocytes Absolute Eosinophils Absolute Basophils RBC Morphology Sodium 141 Potassium 3.8 Chloride 104 Carbon Dioxide 26.1 Anion Gap 10.9 BUN 21 H Creatinine 1.1 Est GFR (CKD-EPI 2020) 73.12 Glucose 103 Calcium 8.9 Magnesium 1.7 L Procalcitonin Urine Color Yellow Urine Clarity Sl Cloudy Urine pH 7.0 Ur Specific [place] >= 1.030 H Urine Protein 100 H Urine Ketones Negative Urine Blood Moderate H Urine Nitrite Negative Urine Bilirubin Negative Urine Urobilinogen 0.2 Ur Leukocyte Esterase Negative Urine RBC 10-20 H Urine WBC 0-2 Ur Epithelial Cells Rare Urine Crystals Negative Urine Bacteria Negative Urine Casts Negative Urine Mucus Trace Ur Culture Indicated? No Urine Glucose Negative COVID-19 Source Nasopharynx SARS-CoV-2 (PCR) Negative Influenza Type A (PCR) Negative Influenza Type B (PCR) Negative RSV (PCR) Negative Add-On Test Request 01/26/22 01/26/22 01/26/22 07:35 07:35 07:59 WBC 8.39 RBC 4.28 L Hgb 11.1 L Hct 34.6 L MCV 81 MCH 25.9 L MCHC 32.1 RDW 13.3 Plt Count 297 MPV 9.7 Immature Gran % 0.4 Neutrophils % 68.0 Lymphocytes % 11.1 Monocytes % 19.7 Eosinophils % 0.7 Basophils % 0.1 Nucleated RBC % 0.0 Absolute Neutrophils 5.71 Absolute Lymphocytes 0.93 L Absolute Monocytes 1.65 H Absolute Eosinophils 0.06 Absolute Basophils 0.01 RBC Morphology Normal Sodium Potassium Chloride Carbon Dioxide Anion Gap BUN Creatinine Est GFR (CKD-EPI 2020) Glucose Calcium Magnesium Procalcitonin 0.1 Urine Color Urine Clarity Urine pH Ur Specific Huntington Urine Protein Urine Ketones Urine Blood Urine Nitrite Urine Bilirubin Urine Urobilinogen Ur Leukocyte Esterase Urine RBC Urine WBC Ur Epithelial Cells Urine Crystals Urine Bacteria Urine Casts Urine Mucus Ur Culture Indicated? Urine Glucose COVID-19 Source SARS-CoV-2 (PCR) Influenza Type A (PCR) Influenza Type B (PCR) RSV (PCR) Add-On Test Request COMPLETED
[2022-01-26] MEDS: MAGNESIUM SULFATE 2 GM/50 ML BAG IVPB (12:09)
[2022-01-26] MEDS: Tranexamic Acid 1,000 MG/10 ML VIAL 1000 MG (13:55)
--- NOTE | 2022-01-26 15:07 | W.PM.OP ---
Date of service: 01/26/22 Time of Service: 15:07 Operative Note Operative Note DATE OF PROCEDURE: 01/26/22 PRE-OP DIAGNOSIS: Left Displaced Femoral Neck Fracture POST-OP DIAGNOSIS: same PROCEDURE: Left Anterior Total Hip Arthroplasty with Intraoperative Navigation SURGEON: Maurice Junior BOILER TUBE BLOWER: Miguelangel Bojorquez ANESTHESIA TYPE: Spinal Refer to Anesthesia Record ESTIMATED BLOOD LOSS: 600 PATHOLOGY: none sent TOURNIQUET TIME: 0 COMPLICATIONS: None Patient was transported to: PACU Patient's condition: stable Implants: 1. Depuy Bimentum Dual Mobility Acetabular Component, 57mm 2. Depuy Bimentum Dual Mobility Liner, [id number] 3. Depuy Corail Standard Collared Femoral Stem, Size 13 4. Depuy Altrx Ceramic Femoral Head, Size 28+1.5mm Indications: I have seen in the hospital for a left femoral neck fracture. He has severe dementia and was unable to participate in the decision making process but I discussed it with his DPOA, Zaynab Shafer. I recommended fixation of the fracture with a total hip replacement being the most likely to provide intermediate solution. I discussed the technical details of a hip replacement. I explained the risks of the procedure to include, but not limited to, bleeding, infection, pain, stiffness, fracture, damage to nerves and vessels, damage to muscles and tendons, loosening, instability, leg length inequality, need for repeat procedure, blood clot and cardiopulmonary demise. Despite these risks, she elected to proceed with the hip replacement for . Findings: There was a displaced transcervical femoral neck fracture. Procedure Description: was greeted in the preoperative holding area where the correct side was identified and marked. The consent was reviewed with his sister and DPOA, Zyanab Shafer, and signed previously. was taken back to the operating room. A spinal anesthestic was then administered. The feet were wrapped with cast padding and Coban and then placed into the boot liners and then into the boots. Care was taken to protect the skin and make sure the heels were fully down and the boots were stable. The patient was then positioned onto the HANA table. Both legs were held in a neutral position. SCDs were applied. The patient was then slid down onto a peroneal post. Prophylactic antibiotics in the form of Cefazolin were administered. 1g of Tranxemic Acid was given intravenously within 30 minutes of incision. The left leg was then prepped with Chloraprep and draped in a standard fashion. A second prep with Chloraprep was performed prior to placement of a shower-curtain type drape with Iodine impregnated skin protection. A timeout to confirm correct identity, side and site, procedure, allergies, anesthesia, and medical concerns was performed. An obliquely oriented incision was made starting lateral to the ASIS and running distal over the Tensor Fascia Lynn (TFL) muscle belly toward the fibular head, approximately 10cm. The skin and soft tissue was dissected sharply, through Bryan?s fascia, and to the fascia of the TFL. With the fascia and superior border of the IT band identified, the fascia was incised with a new knife just above any perforators from the IT band. The TFL muscle belly was bluntly dissected away from the fascia and moved laterally. The fat between TFL and rectus was identified to ensure the dissection was not within the TFL. Blunt dissection created space between abductors and the capsule and retractor was placed over the lateral femoral neck. The fibers of the rectus femoris tendon were identified and these were freed from the anterior capsule. A second cobra retractor was placed around the medial femoral neck. The TFL was further retracted laterally to show the deep fascia. Careful dissection through this layer identified three main crossing vessels of the lateral femoral circumflex. These were cauterized in multiple locations and then cut without any noticeable bleeding. The TFL was further released bluntly from the deep fascia to expose anterior hip capsule and fat The Saurabh orthopaedic retractor was then placed beneath the TFL and against sartorius and medial soft tissues to protect and retract the soft tissues. A T-capsulotomy was then performed starting at the superior lateral acetabulum and moving distally to the intertrochanteric ridge. These capsular flaps were tagged with a No. 1 Ethibond and elevated from within. The capsular flaps were released to the shoulder of the lateral neck and to the lesser trochanter to give excellent visualization of the proximal femur. A neck osteotomy was performed using an oscillating saw based on preoperative templates, at the level of the fracture but to level this area. This cut started in the shoulder and of the lateral neck and exited medially. The saw was at all times directed medially to avoid injury to the greater trochanter. Gross traction was applied to the leg and the osteotomy opened. The wafer was removed and then the femoral head was removed with a corkscrew and rongeur, making sure to protect the TFL on its exit. Traction was released after head removal. This was measured on the back table to determine the starting reamer size. Portions of the rectus obscuring visualization were minimally elevated off the superior acetabulum. An anterior retractor was placed over the anterior wall between capsule and labrum and attached to the Gripper retraction system. The femur was rotated to 90 degrees and medial capsule was fully released until the lesser trochanter was palpable and visible; the femur was returned to 30 degrees. A posterior retractor was placed similarly between capsule and labrum. This provided excellent visualization. The contents of the cotyloid fossa were removed with electrocautery and the labrum was removed with a knife. There was some mild chondromalacia of the acetabulum. Acetabular reaming began with a 51mm reamer from the [employer] system. This first reaming was directed anterior to posterior and medial to get down to the true floor. This was inspected and reamed until the true floor was reached. The anterior retractor was then released and entry and exit was provided by traction on the capsular flaps. I then reamed sequentially up to a 57mm reamer where good fit was obtained. The larger reamers were oriented based on anatomical reference of the anterior and lateral carbajal to ensure proper abduction and anteversion. Positioning and size was confirmed with the fluoroscopy. A 57mm Depuy BUMP [employer] Dual Mobility acetabular component was selected. The deep tissues were irrigated. The acetabular component was then impacted in a position of about 40-45 degrees of abduction and 15-20 degrees of anteversion, using the patient?s anatomy as the ultimate landmark. Fluoroscopy was used to confirm this. There was excellent finish patcher of the acetabular component and the inserting handle was removed. A portion of the jeremias-articular cocktail was then injected around the acetabulum into the capsule and periosteum. This cocktail consisted of 123mg of Ropivacaine, 0.25mg of Epinephrine, 0.04mg of Clonidine, and 15mg of Ketorolac, diluted to 50cc. The leg was rotated to 120 degrees. Any remaining medial capsule was released until the lesser trochanter was easily palpable. A retractor was placed medially. The lateral capsule was further released into the shoulder to allow access to the greater trochanter. A Mckeon retractor was placed over the greater trochanter which allowed the trochanter to flip in front of the capsule for excellent exposure. The leg was brought down into maximal extension and 20 degrees of adduction while ensuring there was no impingement on the acetabulum. Any remnant capsule within the trochanter was released. There was excellent access to the proximal femur. The lateral neck remnant was removed with a rongeur. A blunt canal probe was used to identify the canal and trajectory for later broaching. A box osteotome initiated the broach course. A small curved curette were used to work laterally. Broaching then began with a size 8 Corail broach. This was inserted manually around the trochanter and into the canal before mallet blows. The broach was seated to the neck cut level based on the neck cut and the preoperative template. Sequential broaching was continued with the Egodeus pneumatic broaching device until a tight fit was obtained with good rotational control of the femur. A trial standard neck was inserted along with a +1.5 trial head with a 57/28 Bimentum trial liner. Reduction was difficult. He was notably tight. During the reduction maneuver there is significant pressure against the acetabulum is noted the acetabular component seem to have shifted. Therefore, I removed the trial head and neck and reattach the taste tester to the acetabular component. This was reoriented and impacted in position. Is tested in multiple positions and seem to be well fixed. I think continue with the trial of the femoral head after relaxation was administered by anesthesia. This allowed a more controlled reduction. The leg was brought out of extension and adduction and then reduced with traction and internal rotation. The leg was stable anteriorly in a position of 30 degrees of extension and 90 degrees of external rotation. Fluoroscopy was used to ensure there was no fracture and the stem was seated well. Leg lengths were checked with an AP pelvis and pelvic reference points. Referly navigation system was used to confirm appropriate positioning and leg length and offset. Once content with the desired offset and leg lengths, the leg was brought back into extension, external rotation and adduction. The periosteum and surrounding tissue was injected with remaining portion of the jeremias-articular cocktail. The proximal femur was irrigated as well as the deep tissues. The [employer] Corail standard collared stem, size 13, was then manually inserted into the proximal femur making sure to control rotation. It was then malleted into position with light blows, giving breaks to allow bone expansion and decrease risk of fracture. The selected Depuy Altrx Ceramic Head, size 28+1.5mm, was then placed into the 57/28 Bimentum liner. This was then placed onto the clean and dry trunnion and secured with impaction onto the tapered fit. The leg was brought back out of extension and adduction and reduced with traction and internal rotation. Stability was confirmed with no shuck at 90 degrees of external rotation and 30 degrees of extension. No impingement through range of motion arc. Final x-ray images were obtained with fluoroscopy to confirm adequate positioning and no intraoperative fracture. The deep tissues were thoroughly irrigated with Irrisept chlorhexadine solution. This was allowed to sit in the wound for 3 minutes before being thoroughly irrigated out with normal saline. The capsule was then reapproximated with the previously placed Ethibond sutures. The TFL fascia was finally closed with a No. 2 Stratafix, barbed suture. Deep tissues were then reapproximated with 0 Vicryl and a running 2-0 Vicryl. The skin was closed with a running 4-0 Monocryl in a subcuticular fashion. This was reinforced with skin glue. A Mepilex silver dressing was applied. This dressing was covered with a large Tegaderm dressing. The adominal dressing was also changed as well. At the end of the case, all counts were correct. was transferred to the hospital bed without difficulty and suffering no apparent complication. has a gaurded prognosis due to his dementia and cognitive decline with frequent falls. Physical therapy will start today and without restrictions, weight-bearing as tolerated. DVT prophylaxis may begin this evening.
--- NOTE | 2022-01-26 16:39 | W.ANESPOSTOP ---
Postoperative Evaluation Date, Time and Location Date Performed: 01/26/22 Time Performed: 16:39 Patient Location: PACU Vital Signs Most Recent Imported Vital Signs: Most Recent Vital Signs Temp Pulse Resp BP Pulse Ox 37.0 C 83 15 92/51 L 95 01/26/22 16:30 01/26/22 16:30 01/26/22 16:30 01/26/22 16:30 01/26/22 16:30 Pain Score Most Recent Pain Score: Most Recent Pain Score Pain Level [Left Hip] 6 01/25/22 08:40 Pain Level [Left Hip] 9 01/24/22 14:45 Pain Level 0 01/26/22 16:30 Assessment Mental Status: Other (To baseline.) Airway and Respiratory Function: Patent airway with normal (patient baseline) respiratory exam Cardiovascular Function: Hemodynamically Stable Hydration Status: Adequately Hydrated Nausea & Vomiting: No Nausea or Vomiting Pain: Other (Patient resting comfortably.) Peripheral Nerve Block: Patient did not receive a nerve block
[2022-01-26] MEDS: ceFAZolin 1 GM/50 ML BAG IVPB (21:18)
[2022-01-26] MEDS: Normal Saline 500 ML 30 ML IV (21:19)
[2022-01-27] MEDS: diphenhydrAMINE 50 MG/ML VIAL 25 MG IVP ×3 (01:37→20:47)
[2022-01-27] MEDS: ceFAZolin 1 GM/50 ML BAG IVPB ×2 (05:56→13:26)
[2022-01-27 06:26] LABS: Abs Immature Grans 0.02 10^3/uL (0.0-0.06); Absolute Basophil Count 0.01 10^3/uL (0.0-0.2); Absolute Eosinophil Count 0.01 10^3/uL (0.0-0.7); Absolute Lymphocyte Count 0.67 10^3/uL (1.2-3.4); Absolute Monocyte Count 1.52 10^3/uL (0.1-0.8); Absolute Neutrophil Count 7.32 10^3/uL (1.2-6.7); Basophils % 0.1; Eosinophils % 0.1; HCT 30.8 % (40.0-50.0); HGB 9.8 g/dL (13.5-17.5); Immature Grans % 0.2; MCH 26.6 pg (27.0-33.0); MCHC 31.8 % (32.0-36.0); MCV 84 fL (80-95); MPV 9.2 fL (8.0-11.0); Monocytes % 15.9; Neutrophils % 76.7; Platelet Count 267 10^3/uL (130-400); RBC 3.69 10^6/uL (4.36-5.78); RDW 13.2 % (11.8-14.1); WBC 9.55 10^3/uL (4.4-10.8)
[2022-01-27 06:52] LABS: Anion Gap 9.4 mmol/L (3-11); BUN 29 mg/dL (7-18); CO2 27.6 mmol/L (21.0-32.0); CREATININE 1.3 mg/dL (0.70-1.30); Calcium 9.2 mg/dL (8.5-10.1); Chloride 106 mmol/L (98-107); Estimated GFR 59.84 (mL/min/1.73m2); Glucose 125 mg/dL (74-106); Potassium 4.3 mmol/L (3.5-5.1); Sodium 143 mmol/L (136-145)
[2022-01-27 07:10] LABS: Diff Comment Agrees w/ Instrument; RBC Morphology Normal
[2022-01-27 07:40] VITALS: BP 153/77; PULSE 96; RESP 19; TEMP 37.7; O2SAT 94
[2022-01-27] MEDS: Metoprolol CR 25 MG TABCR 12.5 MG PO (08:09)
[2022-01-27] MEDS: Pantoprazole 40 MG TABCR PO (08:10)
[2022-01-27] MEDS: Protein Nutritional Supplement 16 GM 1 OUNCE PACKET PO ×2 (08:11→20:19)
--- NOTE | 2022-01-27 08:53 | PDOC.CMPRO ---
- If Service Date Differs Date of service: 01/27/22 Time of Service: 08:53 Care Management Progress Note S/O: went to the OR yesterday for repair of his fractured femu. This morning he was sitting up in a chair when CM met with him. He was awake and alert and pleasant but remains confused. He did state that he was feeling pretty good . was evaluated by PT this morning and was able to transfer from bed to chair with moderate assist of 2. Per his sister Zaynab who was present, he did well with PT and does not appear to be in pain when moving. Zaynab provided CM with a list of SNFs that she would consider acceptable for . Included in the list are: [facility], [facility], [facility] and [facility]. Referrals have been sent by CM and follow up calls will be made tomorrow. A: is a 66 year old man admitted on 01/24/22 with a fractures femur P: will most need short term rehab in a SNF prior to returning home or to another facility. He will follow up with the facility providers and plan of care. Transportation will be determined by disposition. CM will continue to support and his family and assess for ongoing discharge concerns.
--- NOTE | 2022-01-27 09:45 | IN_ITS ---
Date of service: 01/27/22 Time of Service: 09:45 PT Notes Visit Reasons: Left Hip Fracture Physical Therapy Inpatient Initial Evaluation Date: 01/27/2022 Referring Doctor: Maurice Junior MD PT Orders: PT CONSULT: S/P Ortho surgery. S/p L hip replacement Precautions: Fall. Standard. WBAT on left LE with AD. Patient Profile/Admitting Diagnosis: Marcial is a 66-year-old male with diagnosis of superiorly displaced femoral neck fracture on the left and is status post left anterior total hip arthroplasty on postoperative day 1. He comes in with diagnoses of atrial fibrillation with rapid ventricular response, hypomagnesemia, dementia, abdominal wound dehiscence, and GERD. PMHX: All Active Problems?(Updated 01/24/22 @ 17:03 by Malathi Jon NP) Subcapital fracture of neck of left femur (Acute) Contracture of right shoulder (Acute) Rotator cuff tear, right (Acute) 40 mg Depo-Medrol injection: 12/21/2021 Abdominal wound dehiscence (Chronic ~09/2021) Ex-laparotomy July2Dementia (Chronic) Parkinsonism (Chronic) Essential hypertension (Chronic) Urinary incontinence (Chronic) Prediabetes (Chronic) Nocturia (Chronic) GERD (gastroesophageal reflux disease) (Chronic) Calculus of left kidney (Chronic) Medical History? 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 Followed at and treated at hospital in [place] August-early September 2021-prolonged hospitalization Ulcerative colitis S/p Subtotal colectomy with ileocolonic anastomosis Surgical History? History of cataract surgery Hx of exploratory laparotomy (08/08/21) Extensive intra-abdominal adhesions with frozen abdomen, ileus S/P total colectomy (1979) Subtotal colectomy with ileocolonic anastomosis Social History/Home Situation: Lives with in a praivte home with 2-3 steps to enter. Equipment Owned/DME: None Subjective: Complains of increased pain in L hip with movement. Highly guarding left LE. Denies dizziness, headache, and chest pain. Objective: General Observation: In mild distress due to increased resting pain. Nurse Monique gave patient IV Ketorolac to help ease pain prior to mobility assessment by PT. Mental Status: Alert and oriented as to person. Able to follow single-step commands. Pain: Moderate to severe pain in L hip with movement Vital Signs: WNL as closely monitored by nursing staff ROM: Right Lower Extremity: Hip flexion . Hip abduction WFL. Knee flexion WFL. Ankle dorsiflexion WFL. Ankle plantarflexion WFL. Left Lower Extremity: Highly guarding L hip but with assistance PT was able to slide L LE about 10 degrees at a time to minimize pain in L hip from supine to sit. Knee and ankle joints WFL. Strength: Right Lower Extremity: Hip flexors 4-/5. Hip abductors 4-/5. Knee flexors 4-/5. Knee extensors 4-/5. Ankle dorsiflexors 4-/5. Ankle plantarflexors 4-/5. Left Lower Extremity: Hip flexors 2-/5. Hip abductors 2-/5. Knee flexors 2-/5. Knee extensors 2-/5. Ankle dorsiflexors 3+/5. Ankle plantarflexors 3+/5. Bed Mobility/Transfers: Supine to sit with moderate assist, HOB 45 degrees Sit to stand with minimal assist of 2 Stand to sit with minimal assist of 2 Bed to reclining chair with minimal assist of 2 Gait: Instructed patient with level surface ambulation of 8 small steps requiring minimal assist of 2 with moderate verbal cueing needed for safe/corerct techniq ue. Kiara decreased. Step height decreased. Step length decreased. Gait antalgic. No expression of increased pain with weight bearing. MInimal shortness of breath noted. Balance: Static Sitting: Good Dynamic Sitting: Fair Static Standing: Fair Dynamic Standing: Poor Special Tests: Mobility Limitations Standardized Measure [facility] AM-PAC 6 clicks Basic Mobility Inpatient Short Form: Raw Score: 11 CMS Score: 73% deficit Informed Consent/Education: Patient was instructed in purpose of PT consult and plan of care. Agreeable to proceed with established PT POC to achieve personal goals. Assessment: Complicated response to pain, delayed initiation of movement, and impaired movement transitioning due to pre-existing dementia, residual deficist from TBI, and Parkinsonism. Will require pre-medication for pain. Needs moderate verbal cueing. Patient presents with clinical signs and symptoms consistent with current/admitting diagnoses that have resulted to mobility limitations, gait instability, generalized weakness, and overall ADL decline as demonstrated by the following impairment level findings: 1. Decreased strength to L LE major muscle groups 2. Impaired sitting/standing balance 3. Impaired activity tolerance 4. Limitation of joint range of motion in L hip and knee 5. Preexisting dementia- impaired safety awareness 6. Pain in L hip and knee due to post-op status Impairments are contributing to the following functional limitations: 1. Decline in bed mobility skills 2. Decline in transfer skills 3. Difficulty with ambulation without assistive device and physical assistance 4. Increased completion time for mobility ADL performance 5. Increased risk for falls 6. Difficulty with managing steps alone safely Patient is assessed as a 02956 high complexity based on the following: History: 66-year-old male with past medical history as indicated above Examination: Demonstrable impairment in strength, balance, and mobility level with underlying impairments and functional limitations as exhibited above as well as deficit score of 73% utilizing the [facility] Mobility Inpatient Short Form Presentation: Evolving Decision Makin high complexity Goals: Goals X1 week 1. Supine-Sit independent 2. Sit-Supine independent 3. Sit-Stand contact guard assist 4. Stand-Sit contact guard assist 5. Bed-Chair contact guard assist 6. Chair-Bed contact guard assist 7. Contact guard assist for gait on level surface with use of FWW for at least 300 feet without report of pain nor dyspnea 8. Contact guard assist for stair negotiation while holding onto B rails for at least 5 steps without report of pain nor dyspnea Plan of Care/Treatment Plan: 1-2x/day, 7 days/week x 1 week. Plan of care has been reviewed with the PERMASTONE APPLICATOR providing the service under Physical Therapy direction. Initiate Physical Therapy intervention for pain management as needed, strengthening, bed mobility, transfers, gait, stairs, balance training, and use of assistive device. DISCHARGE RECOMMENDATIONS: [] Home with no services [] [] Home with services [specify] [] Home with outpatient PT [] [X] SNF for continued rehabilitation. Patient will benefit from [facility] facility placement for continued skilled physical therapy services in order to progress mobility level, strength, and balance in preparation for a safe discharge to home. [] Claims Examiner Care [] [] SNF versus LTC based on ability to participate and progress [] TREATMENT CODE/TIME: 01789 x 30 minutes, 62559 x 10 minutes beginning at 9:45 AM. Thank you for the opportunity to participate in the care of this patient. Elmira Castano PT, DPT, CLT [facility] [place], [place]
[2022-01-27] MEDS: Normal Saline Flush 10 ML SYR IVP ×2 (10:06→20:43)
[2022-01-27] MEDS: Ketorolac 15 MG/ML VIAL IVP ×2 (10:06→20:44)
[2022-01-27] MEDS: Enoxaparin 40 MG/0.4 ML SYR SC (11:05)
[2022-01-27] MEDS: Lactated Ringers 500 ML IV (11:29)
--- NOTE | 2022-01-27 14:06 | PT.INTREAT ---
Date of service: 01/27/22 Time of Service: 12:45 PT Notes Visit Reasons: Left Hip Fracture Inpatient Physical Therapy Treatment Note [facility] Date: 01/27/2022 PRECAUTIONS: Fall, activity as tolerated, dementia, WBAT L SUBJECTIVE: Gabino states that he would like to lay down and rest. He denies any significant pain in L LE. OBJECTIVE: PAIN: Patient c/o pain in L hip with passive positioning in bed BED MOBILITY/TRANSFERS Sit-supine: Max A x2 with HOB flat Sit-stand: Max A x2 Stand-sit: Min A + CGA Chair-bed: Max A x3 GAIT Assistive Device: FWW Weight bearing: WBAT x3 Assist: Max A x3 Distance: 5' Deviation: Rigidity, confusion, tactile cueing and assist for movement initiation and FWW management THEREX: Patient was instructed in supine ankle pumps, which he requires tactile cueing to perform on R. Unable on L. Patient unable to follow direction for further exercise completion. ASSESSMENT: Patient appears limited by confusion, although does not c/o increased pain in L hip with gait training. Patient may benefit from continued gait training without use of FWW and instead with EMERGENCY DISPATCH OPERATOR x2. PLAN: Continue with global strengthening and gait training for improved mobility. TREATMENT CODE/TIME: 30 minutes; 34886 x2 (13:32)
--- NOTE | 2022-01-27 17:54 | W.PM.PROGNOT ---
Date of Service Date of service: 01/27/22 Time of Service: 11:00 Assessment and Plan Assessment and plan (1) Subcapital fracture of neck of left femur: Status: Acute Assessment and plan: Post op left hip repari routine postop nerve block 01/24/22 pain controlled (2) Atrial fibrillation with RVR: Status: Suspected Assessment and plan: in NSR. Beta monica continued. not anticoagulated, suspect d/t demented state with increased fall risk. (3) Hypomagnesemia: Status: Acute Assessment and plan: 2.0 - normal today (4) Dementia: Status: Chronic Assessment and plan: he has had no acute delirium safety precautions. Pleasant and cooperative (5) Abdominal wound dehiscence: Status: Chronic Assessment and plan: followed by surgical services - wound care orders per surgery healing by secondary intention (6) GERD (gastroesophageal reflux disease): Status: Chronic Assessment and plan: stable, continue PPI. discussed with Dr. Peguero Subjective Subjective Patient reports: no new complaints, pain is less, tolerating a regular diet, bowel movement and fever; denies diarrhea, nausea or vomiting Interval history since last seen: Continues to have fevers ; changed to oral pain medication; decreased urine output therefore left castro catheter in place and gave a fluid bolus. Exam Narrative Exam Narrative: Supine in bed, alert to voice, no facial grimacing or complaints of pain Const General: cooperative, comfortable and no acute distress Nutritional Appearance: average body habitus Orientation: alert, awake, oriented to person and confused (poor historian d/t baseline dementia, recalls falling, unable to provide hi) Limitations: other limitations (dementia) [facility] Head: normal to inspection, normocephalic and atraumatic Mouth: oral mucosae normal Chest Chest: normal inspection of the chest Resp Effort & Inspection: normal respiratory effort Auscultation: clear to auscultation bilaterally Cardio Rate: regular rate Rhythm: regular rhythm Heart Sounds: no murmurs GI Inspection: incision (open wound midline abd, wound bed with good granulation tissue, scant sloug) Palpation: soft Auscultation: normal bowel sounds Skin General skin exam: no rashes or lesions noted Lesions: lesion noted (midline abdomen, old surgical wound dehiscence, healing by secondary intent) Rashes: no rashes (no surrounding erythema or sign of infection noted. ) Extrem General: no pedal edema Objective Last Vital Signs Temp 37.7 C H 01/27/22 07:40 Pulse 96 H 01/27/22 07:40 Resp 19 01/27/22 07:40 BP 153/77 H 01/27/22 07:40 Pulse Ox 94 01/27/22 07:40 Laboratory Results - last 24 hr 01/27/22 01/27/22 06:19 06:19 WBC 9.55 RBC 3.69 L Hgb 9.8 L Hct 30.8 L MCV 84 MCH 26.6 L MCHC 31.8 L RDW 13.2 Plt Count 267 MPV 9.2 Immature Gran % 0.2 Neutrophils % 76.7 Lymphocytes % 7.0 Monocytes % 15.9 Eosinophils % 0.1 Basophils % 0.1 Nucleated RBC % 0.0 Absolute Neutrophils 7.32 H Absolute Lymphocytes 0.67 L Absolute Monocytes 1.52 H Absolute Eosinophils 0.01 Absolute Basophils 0.01 RBC Morphology Normal Sodium 143 Potassium 4.3 Chloride 106 Carbon Dioxide 27.6 Anion Gap 9.4 BUN 29 H Creatinine 1.3 Est GFR (CKD-EPI 2020) 59.84 Glucose 125 H Calcium 9.2 Magnesium 2.0
[2022-01-27] MEDS: Lactated Ringers 1,000 ML 75 ML IV (18:13)
[2022-01-27] MEDS: Ondansetron 4 MG/2 ML VIAL IVP (18:14)
[2022-01-27] MEDS: Melatonin 3 MG TAB PO (20:19)
[2022-01-27] MEDS: HYDROmorphone 2 MG/ML SYR IVP (20:42)
--- NOTE | 2022-01-27 22:10 | W.PM.PROGNOT ---
Date of Service Date of service: 01/27/22 Time of Service: 12:55 Assessment and Plan Assessment and plan (1) Subcapital fracture of neck of left femur: Status: Acute Assessment and plan: is a 66-year-old postop day #1 from a hip replacement on the left side for a displaced subcapital femoral neck fracture. Is doing well. His exam is difficult as he does have significant cognitive disabilities as well as some underlying muscle rigidity with a questionable diagnosis of a parkinsonian type syndrome. Intraoperatively he was extremely tight requiring relaxation from anesthesia just for basic assessment of the left hip. However, when I get him to participate the best I can and I do not see any defects with his motor exam. He tolerates significant motion about the left hip, some that he was definitely unable to do yesterday. Therefore, I think the pain is justified. It should be treated appropriately. We will continue with physical therapy. If it seems that he is unable to get out of the bed or unable to move or there is a new change in position of his leg, we should check with x-rays without hesitation. It is okay to proceed with anticoagulation. He did have a drop of his hemoglobin which is appropriate for acute postoperative blood loss anemia. However, he seems stable. Subjective Subjective Interval history since last seen: was able to get out of the bed today with PT. He reports pain about the left leg but has been able to position in the bed with much less discomfort. Exam Narrative Exam Narrative: Sitting in the hospital bed. He is alert and appropriate. He responds to basic questions. He does seem to hold his left leg slightly externally rotated and in a plantarflexed position. He is very rigid on testing and passively resist any attempted dorsiflexion. However, once I have his ankle dorsiflexed he does hold in this position although he is unable to participate in the motor exam by demonstrating active ankle dorsiflexion and great toe extension. He does endorse sensation about the foot although it is questionable its reliability. Palpable DP pulse. Gentle internal and external rotation as well as flexion of the left hip does not cause any pain. There is some mild swelling about the left thigh. The dressing is clean dry and intact. Objective Last Vital Signs Temp 37.7 C H 01/27/22 07:40 Pulse 96 H 01/27/22 07:40 Resp 19 01/27/22 07:40 BP 153/77 H 11/17/22 07:40 Pulse Ox 94 01/27/22 07:40 Laboratory Results - last 24 hr 01/27/22 01/27/22 06:19 06:19 WBC 9.55 RBC 3.69 L Hgb 9.8 L Hct 30.8 L MCV 84 MCH 26.6 L MCHC 31.8 L RDW 13.2 Plt Count 267 MPV 9.2 Immature Gran % 0.2 Neutrophils % 76.7 Lymphocytes % 7.0 Monocytes % 15.9 Eosinophils % 0.1 Basophils % 0.1 Nucleated RBC % 0.0 Absolute Neutrophils 7.32 H Absolute Lymphocytes 0.67 L Absolute Monocytes 1.52 H Absolute Eosinophils 0.01 Absolute Basophils 0.01 RBC Morphology Normal Sodium 143 Potassium 4.3 Chloride 106 Carbon Dioxide 27.6 Anion Gap 9.4 BUN 29 H Creatinine 1.3 Est GFR (CKD-EPI 2020) 59.84 Glucose 125 H Calcium 9.2 Magnesium 2.0
[2022-01-27 23:33] VITALS: BP 126/73; PULSE 92; RESP 20; TEMP 36.6; O2SAT 91
--- NOTE | 2022-01-28 | DI.RAD_ITS ---
Exam(s) XR HIP LT COMPLETE AP PELVIS EXAM: XR HIP LT COMPLETE AP PELVIS CLINICAL HISTORY: f/u L NIURKA. TECHNIQUE: 2D digital imaging was performed. COMPARISON: CR XR HIP LT COMPLETE AP PELVIS from 01/24/2022 FINDINGS: Two views: There is satisfactory position alignment of the components of the recently placed left hip prosthesis . No fracture or loosening evident. IMPRESSION: Satisfactory appearance. DATA REPOSITORY: RADIATION DOSE DELIVERED:
[2022-01-28] MEDS: HYDROmorphone 2 MG/ML SYR IVP (04:33)
[2022-01-28] MEDS: Normal Saline Flush 10 ML SYR IVP ×2 (04:34→20:17)
[2022-01-28] MEDS: Ketorolac 15 MG/ML VIAL IVP (04:36)
[2022-01-28 06:42] LABS: Abs Immature Grans 0.03 10^3/uL (0.0-0.06); HGB 9.3 g/dL (13.5-17.5); MCH 26.1 pg (27.0-33.0); MCHC 32.1 % (32.0-36.0); MCV 81 fL (80-95); MPV 9.2 fL (8.0-11.0); Platelet Count 294 10^3/uL (130-400); RBC 3.57 10^6/uL (4.36-5.78); RDW 13.2 % (11.8-14.1); RDW-SD 39.5 fL; WBC 5.14 10^3/uL (4.4-10.8)
[2022-01-28 06:54] LABS: Anion Gap 6.5 mmol/L (3-11); BUN 37 mg/dL (7-18); CO2 28.5 mmol/L (21.0-32.0); CREATININE 1.2 mg/dL (0.70-1.30); Chloride 103 mmol/L (98-107); Estimated GFR 65.87 (mL/min/1.73m2); Glucose 125 mg/dL (74-106); Sodium 138 mmol/L (136-145)
[2022-01-28 07:35] VITALS: BP 132/81; PULSE 90; RESP 16; TEMP 37.3; O2SAT 96
[2022-01-28 07:42] LABS: Absolute Lymphocyte Count 1.03 10^3/uL (1.2-3.4); Absolute Monocyte Count 0.31 10^3/uL (0.1-0.8); Atypical Lymphocytes % 6; Bands % 9; Diff Comment Manual Differential; Polychromasia Present
[2022-01-28] MEDS: Enoxaparin 40 MG/0.4 ML SYR SC (07:55)
[2022-01-28] MEDS: Metoprolol CR 25 MG TABCR 12.5 MG PO (07:56)
[2022-01-28] MEDS: Pantoprazole 40 MG TABCR PO (07:56)
--- NOTE | 2022-01-28 08:10 | CMPROGNOTE_ITS ---
- If Service Date Differs Date of service: 01/28/22 Time of Service: 08:10 Care Management Progress Note S/O: was lying in bed when CM met with him. He was awake and alert and was able to answer questions about how he is feeling and his pain level. He indicated that he is not having much pain at this time. This was confirmed when Dr. Junior examined him and moved his leg and hip without eliciting a painful response. All 4 SNFs to which referrals were sent have indicated that they have no bed availability. MIGUEL ANGEL discussed this with Zaynab, his sister, and she provided the names of 2 additional facilities that she will consider, [facility] and [facility].Referrals will be sent to those facilities as well. A: is a 66 year old man admitted on 01/24/22 with a fractures femur P: will most likely need short term rehab in a SNF prior to returning home or going to another facility. referrals have been sent. He will follow up with the facility providers and plan of care. Transportation will be determined by disposition. CM will continue to support and his family and assess for ongoing discharge concerns.
[2022-01-28] MEDS: ACETAMINOPHEN 1,000 MG/100 ML BTL 400 MG IVPB (09:35)
--- NOTE | 2022-01-28 10:18 | PT.INTREAT ---
Date of service: 01/28/22 Time of Service: 07:50 PT Notes Visit Reasons: Left Hip Fracture Inpatient Physical Therapy Treatment Note [facility] Date: 01/28/2022 PRECAUTIONS: Fall, activity as tolerated, dementia, WBAT L SUBJECTIVE: Gabino denies any significant pain in L LE. OBJECTIVE: PAIN: No c/o L hip pain BED MOBILITY/TRANSFERS Sit-supine: Max A x2 with HOB flat Sit-stand: Max A x2 Stand-sit: Min A + CGA Bed-chair: Min A x2 GAIT Assistive Device: REGISTERED ASSOCIATE x2 Weight bearing: WBAT L Assist: Min A x2 Distance: 5' Deviation: Rigidity, short shuffling steps THEREX: Patient unable to follow directions for ther ex participation at this time TOILETING: Patient was incontinent of stool, requiring Max A ASSESSMENT: Patient appears limited by confusion, although does not c/o increased pain in L hip with gait training nor transfers today. Patient tolerated gait training with REGISTERED ASSOCIATE x2 versus FWW better and with decreased confusion. PLAN: Continue with global strengthening and gait training for improved mobility. TREATMENT CODE/TIME: 15 minutes; 81214 (07:50)
[2022-01-28] MEDS: Lactated Ringers 1,000 ML 75 ML IV ×2 (10:46→20:09)
[2022-01-28] MEDS: Lactated Ringers 500 ML IV (13:17)
--- NOTE | 2022-01-28 15:10 | PT.INTREAT ---
PT Notes Visit Reasons: Left Hip Fracture Date: 01/28/2022 PRECAUTIONS: Fall, activity as tolerated, dementia, WBAT L SUBJECTIVE: Pt pleasant and alert this afternoon, Pt reports little to no pain on left hip. Pt agreeable to treatment. OBJECTIVE: ? PAIN: little to no pain L hip pain ? BED MOBILITY/TRANSFERS: PT providing assistance as second person ? Sit-supine: Min A x2 with HOB flat Sit-stand: Min A x2? Stand-sit: Min A + CGA Bed-chair: Min A x2 ? GAIT: PT providing assistance as second person? Assistive Device: FACILITY SERVICE ASSOCIATE x2 ? Weight bearing: WBAT L Assist: Min A x2? Distance: 50', 10', 10'. Deviation: step midway TOILETING: Patient was incontinent of stool, Min A+1 CGA+1 ASSESSMENT:? Patient able to follow verbal and manual cue for transfers and gait training. required assistance with toileting before returning to bed post session. PLAN: Continue with global strengthening and gait training for improved mobility. TREATMENT CODE/TIME: 30 minutes; 23639 (2:50pm)
[2022-01-28 15:35] VITALS: BP 145/83; PULSE 90; RESP 16; TEMP 37.6; O2SAT 95
--- NOTE | 2022-01-28 18:40 | W.PM.PROGNOT ---
Date of Service Date of service: 01/28/22 Time of Service: 12:20 Assessment and Plan Assessment and plan (1) Subcapital fracture of neck of left femur: Status: Acute Assessment and plan: is a 66 year old who is POD#2 s/p left hip replacement for a displaced femoral neck fracture. He seems much better today. He is less agitated and more cooperative. He doesn't have much pain on exam and is observed repositioning himself in the bed and moving the left leg. He does have continued rigidity and and plantarflexed posture about the left leg but this is likely a baseline resting position and doesn't represent any complication that I'm aware of. I would encourage continued physicla therapy with likely discharge to rehab. WBAT with assistive devices. No positioning restrictions. Continue DVT prophylaxis. Anemia stable. Discharge instructions updated. Subjective Subjective Interval history since last seen: reports to be doing well. He is not complaining of pain today like yesterday. He has been able to reposition himself in bed. Exam Narrative Exam Narrative: Resting in the bed. Legs in a normal position without significant rotation. Dressing c/d/i. Thigh is swollen but soft. No significant ecchymosis. No signs of infection. He tolerates passive IR/ER without issue or pain. He still holds the left foot in a slightly plantarflexed and inverted position althogh is able to demonstrate active eversion and ankle dorsiflexion. SITL DP/PT/Tib. +DP/PT Objective Laboratory Results - last 24 hr 01/28/22 01/28/22 06:20 06:20 WBC 5.14 RBC 3.57 L Hgb 9.3 L Hct 29.0 L MCV 81 MCH 26.1 L MCHC 32.1 RDW 13.2 Plt Count 294 MPV 9.2 Immature Gran % 0.0 Neutrophils % 65.0 Band Neutrophils % 9 Lymphocytes % 14.0 Atypical Lymphs % 6 Monocytes % 6.0 Eosinophils % 0.0 Basophils % 0.0 Nucleated RBC % 0.0 Absolute Neutrophils 3.80 Absolute Lymphocytes 1.03 L Absolute Monocytes 0.31 Absolute Eosinophils 0.00 Absolute Basophils 0.00 RBC Morphology See Below Polychromasia Present Sodium 138 Potassium 4.0 Chloride 103 Carbon Dioxide 28.5 Anion Gap 6.5 BUN 37 H Creatinine 1.2 Est GFR (CKD-EPI 2020) 65.87 Glucose 125 H Calcium 9.0 Magnesium 2.0
[2022-01-28 19:36] VITALS: BP 164/91; PULSE 96; RESP 20; TEMP 37.3; O2SAT 96
[2022-01-28] MEDS: Ondansetron 4 MG/2 ML VIAL IVP (20:17)
--- NOTE | 2022-01-28 20:36 | PGE_ITS ---
Date of Service Date of service: 01/28/22 Time of Service: 11:00 Assessment and Plan Assessment and plan (1) Subcapital fracture of neck of left femur: Status: Acute Assessment and plan: Post op day 2 left hip repair routine postop nerve block 01/24/22 pain controlled (2) Atrial fibrillation with RVR: Status: Suspected Assessment and plan: in NSR. Beta monica continued. not anticoagulated, suspect d/t demented state with increased fall risk. (3) Hypomagnesemia: Status: Acute Assessment and plan: 2.0 - normal today (4) Dementia: Status: Chronic Assessment and plan: he has had no acute delirium safety precautions. Pleasant and cooperative He did pull out his urinary catheter today - some blood at meatus. Monitor for obstruction/bladder scan prn (5) Abdominal wound dehiscence: Status: Chronic Assessment and plan: followed by surgical services - wound care orders per surgery healing by secondary intention (6) GERD (gastroesophageal reflux disease): Status: Chronic Assessment and plan: stable, continue PPI. discussed with Dr. Flynn Subjective Subjective Patient reports: no new complaints, pain is less, tolerating a regular diet, bowel movement and fever; denies diarrhea, vomiting or shortness of breath Interval history since last seen: Gabino pulled out his indwelling urinary catheter today, he had just a little blood at the meatus. We will leave it out and monitor hismurine output. Exam Narrative Exam Narrative: Supine in bed, alert to voice, no facial grimacing or complaints of pain Const General: cooperative, comfortable and no acute distress Nutritional Appearance: average body habitus Orientation: alert, awake, oriented to person and confused (poor historian d/t baseline dementia, recalls falling, unable to provide hi) Limitations: other limitations (dementia) [facility] Head: normal to inspection, normocephalic and atraumatic Mouth: oral mucosae normal Chest Chest: normal inspection of the chest Resp Effort & Inspection: normal respiratory effort Auscultation: clear to auscultation bilaterally Cardio Rate: regular rate Rhythm: regular rhythm Heart Sounds: no murmurs GI Inspection: incision (open wound midline abd, wound bed with good granulation tissue, scant sloug) Palpation: soft Auscultation: normal bowel sounds Skin General skin exam: no rashes or lesions noted Lesions: lesion noted (midline abdomen, old surgical wound dehiscence, healing by secondary intent) Rashes: no rashes (no surrounding erythema or sign of infection noted. ) Extrem General: no pedal edema Objective Last Vital Signs Temp 37.3 C 01/28/22 19:36 Pulse 96 H 01/28/22 19:36 Resp 20 01/28/22 19:36 BP 164/91 H 01/28/22 19:36 Pulse Ox 96 01/28/22 19:36 Laboratory Results - last 24 hr 01/28/22 01/28/22 06:20 06:20 WBC 5.14 RBC 3.57 L Hgb 9.3 L Hct 29.0 L MCV 81 MCH 26.1 L MCHC 32.1 RDW 13.2 Plt Count 294 MPV 9.2 Immature Gran % 0.0 Neutrophils % 65.0 Band Neutrophils % 9 Lymphocytes % 14.0 Atypical Lymphs % 6 Monocytes % 6.0 Eosinophils % 0.0 Basophils % 0.0 Nucleated RBC % 0.0 Absolute Neutrophils 3.80 Absolute Lymphocytes 1.03 L Absolute Monocytes 0.31 Absolute Eosinophils 0.00 Absolute Basophils 0.00 RBC Morphology See Below Polychromasia Present Sodium 138 Potassium 4.0 Chloride 103 Carbon Dioxide 28.5 Anion Gap 6.5 BUN 37 H Creatinine 1.2 Est GFR (CKD-EPI 2020) 65.87 Glucose 125 H Calcium 9.0 Magnesium 2.0
[2022-01-28] MEDS: Melatonin 3 MG TAB PO (21:34)
[2022-01-28] MEDS: diphenhydrAMINE 50 MG/ML VIAL 25 MG IVP (21:34)
[2022-01-28 23:04] VITALS: BP 170/92; PULSE 95; RESP 20; TEMP 36.7; O2SAT 95
[2022-01-29] MEDS: oxyCODONE 5 mg/Acetaminophen 325 mg TAB 1 TAB PO (00:18)
[2022-01-29 06:00] LABS: Abs Immature Grans 0.03 10^3/uL (0.0-0.06); Absolute Basophil Count 0.03 10^3/uL (0.0-0.2); Absolute Eosinophil Count 0.02 10^3/uL (0.0-0.7); Absolute Lymphocyte Count 0.56 10^3/uL (1.2-3.4); Absolute Monocyte Count 0.91 10^3/uL (0.1-0.8); Absolute Neutrophil Count 5.37 10^3/uL (1.2-6.7); Basophils % 0.4; Eosinophils % 0.3; HCT 28.7 % (40.0-50.0); HGB 9.3 g/dL (13.5-17.5); Immature Grans % 0.4; Lymphocytes % 8.1; MCH 26.1 pg (27.0-33.0); MCHC 32.4 % (32.0-36.0); MCV 81 fL (80-95); MPV 9.8 fL (8.0-11.0); Monocytes % 13.2; Neutrophils % 77.6; Platelet Count 349 10^3/uL (130-400); RBC 3.56 10^6/uL (4.36-5.78); RDW 13.3 % (11.8-14.1); RDW-SD 39.6 fL; WBC 6.92 10^3/uL (4.4-10.8)
[2022-01-29 06:14] LABS: Anion Gap 6.9 mmol/L (3-11); BUN 32 mg/dL (7-18); CO2 30.1 mmol/L (21.0-32.0); Chloride 104 mmol/L (98-107); Estimated GFR 81.98 (mL/min/1.73m2); Glucose 112 mg/dL (74-106); Potassium 3.6 mmol/L (3.5-5.1); Sodium 141 mmol/L (136-145)
[2022-01-29 07:55] VITALS: BP 165/69; PULSE 95; RESP 18; TEMP 37.1; O2SAT 95
[2022-01-29] MEDS: Metoprolol CR 25 MG TABCR 12.5 MG PO (08:17)
[2022-01-29] MEDS: Protein Nutritional Supplement 16 GM 1 OUNCE PACKET PO ×3 (08:17→19:25)
[2022-01-29] MEDS: Pantoprazole 40 MG TABCR PO (08:17)
[2022-01-29] MEDS: Enoxaparin 40 MG/0.4 ML SYR SC (08:18)
[2022-01-29] MEDS: Lactated Ringers 1,000 ML 75 ML IV (09:38)
--- NOTE | 2022-01-29 10:07 | PT.INTREAT ---
PT Notes Visit Reasons: Left Hip Fracture Date: 01/28/2022 PRECAUTIONS: Fall, activity as tolerated, dementia, WBAT L SUBJECTIVE: Pt in recliner alert and able to follow instructions, pt able torecall this OPERATING ROOM NURSE from previous session, Pt reports slight pain on left hip. Pt agreeable to treatment. OBJECTIVE: ? PAIN: slight L hip pain ? BED MOBILITY/TRANSFERS:? Sit-stand: Min A x2? Stand-sit: Min A x2 ? GAIT: ? Assistive Device: SCREW MACHINE SET UP OPERATOR x2 ? Weight bearing: WBAT L Assist: Min A x2? Distance: 60'. Deviation: step midway ASSESSMENT:? Pt able to tolerate activity well, able to follow manual and verbal cue for transfers and direction to take during gait training. PLAN: Continue with global strengthening and gait training for improved mobility. TREATMENT CODE/TIME: 25 minutes; 54202 (9:50am)
--- NOTE | 2022-01-29 13:03 | PGE_ITS ---
Date of Service Date of service: 01/29/22 Time of Service: 13:03 Assessment and Plan Assessment and plan (1) Subcapital fracture of neck of left femur: Status: Acute Assessment and plan: Post op day 3 left hip repair routine postop pain controlled (2) Atrial fibrillation with RVR: Status: Suspected Assessment and plan: in NSR. Beta monica continued. not anticoagulated, suspect d/t demented state with increased fall risk. (3) Hypomagnesemia: Status: Acute Assessment and plan: repleted (4) Dementia: Status: Chronic Assessment and plan: he has had no acute delirium safety precautions. Pleasant and cooperative He did pull out his urinary catheter today - some blood at meatus. Monitor for obstruction/bladder scan prn (5) Abdominal wound dehiscence: Status: Chronic Assessment and plan: followed by surgical services - wound care orders per surgery healing by secondary intention (6) GERD (gastroesophageal reflux disease): Status: Chronic Assessment and plan: stable, continue PPI. discussed with Dr. Flynn Subjective Subjective Patient reports: no new complaints, tolerating liquids well, tolerating a regular diet and afebrile Exam Const General: cooperative, comfortable and no acute distress Nutritional Appearance: average body habitus Orientation: alert, awake, oriented to person and confused (poor historian d/t baseline dementia, recalls falling, unable to provide hi) Limitations: other limitations (dementia) [facility] Head: normal to inspection and atraumatic Mouth: oral mucosae normal Chest Chest: normal inspection of the chest Resp Effort & Inspection: normal respiratory effort Cardio Rate: regular rate Rhythm: regular rhythm Heart Sounds: no murmurs GI Inspection: incision (open wound midline abd, wound bed with good granulation tissue, scant sloug) Palpation: soft Auscultation: normal bowel sounds Skin General skin exam: no rashes or lesions noted Lesions: lesion noted (midline abdomen, old surgical wound dehiscence, healing by secondary intent) and other (surgical dressing clean and dry, no surrounding erythema) Rashes: no rashes (no surrounding erythema or sign of infection noted. ) Extrem General: no pedal edema Objective Last Vital Signs Temp 37.1 C 01/29/22 07:55 Pulse 95 H 01/29/22 07:55 Resp 18 01/29/22 07:55 BP 165/69 H 01/29/22 07:55 Pulse Ox 95 01/29/22 07:55 Laboratory Results - last 24 hr 01/29/22 01/29/22 05:33 05:33 WBC 6.92 RBC 3.56 L Hgb 9.3 L Hct 28.7 L MCV 81 MCH 26.1 L MCHC 32.4 RDW 13.3 Plt Count 349 MPV 9.8 Immature Gran % 0.4 Neutrophils % 77.6 Lymphocytes % 8.1 Monocytes % 13.2 Eosinophils % 0.3 Basophils % 0.4 Nucleated RBC % 0.0 Absolute Neutrophils 5.37 Absolute Lymphocytes 0.56 L Absolute Monocytes 0.91 H Absolute Eosinophils 0.02 Absolute Basophils 0.03 Sodium 141 Potassium 3.6 Chloride 104 Carbon Dioxide 30.1 Anion Gap 6.9 BUN 32 H Creatinine 1.0 Est GFR (CKD-EPI 2020) 81.98 Glucose 112 H Calcium 9.0 Magnesium 2.0
[2022-01-29 15:08] VITALS: BP 166/86; PULSE 99; RESP 18; TEMP 37; O2SAT 94
[2022-01-29] MEDS: Acetaminophen 325 MG TAB 650 MG PO (15:20)
[2022-01-29] MEDS: diphenhydrAMINE 25 MG CAP PO (19:20)
[2022-01-29 23:01] VITALS: PULSE 96; TEMP 36.7
[2022-01-30] MEDS: diphenhydrAMINE 25 MG CAP PO ×2 (00:46→05:39)
[2022-01-30 09:15] VITALS: BP 138/71; PULSE 75; RESP 18; TEMP 37.4; O2SAT 95
--- NOTE | 2022-01-30 10:14 | PT.INNT ---
PT Notes Visit Reasons: Left Hip Fracture Pt on hold per nursing request due to behavioral changes and lack of sleep.
[2022-01-30 10:48] LABS: C Diff PCR Positive (Negative)
--- NOTE | 2022-01-30 12:02 | W.PM.PROGNOT ---
Date of Service Date of service: 01/30/22 Time of Service: 12:02 Assessment and Plan Assessment and plan (1) Subcapital fracture of neck of left femur: Status: Acute Assessment and plan: Post op day 4 left hip repair - ortho ok to discharge routine postop, only oral meds now. pain controlled (2) C. difficile colitis: Status: Acute Assessment and plan: Start vancomycin orally (3) Atrial fibrillation with RVR: Status: Suspected Assessment and plan: in NSR. Beta monica continued. not anticoagulated, suspect d/t demented state with increased fall risk. (4) Hypomagnesemia: Status: Acute Assessment and plan: 2.0 (5) Dementia: Status: Chronic Assessment and plan: safety precautions. Aggressive today, hitting nurses, trying to bite nurses, trying to climb out of bed, very restless and agitated. He is refusing oral medications, throwing his pills at the nursing staff, decreased oral intake in general. (6) Abdominal wound dehiscence: Status: Chronic Assessment and plan: followed by surgical services - wound care orders per surgery healing by secondary intention (7) GERD (gastroesophageal reflux disease): Status: Chronic Assessment and plan: stable, continue PPI. discussed with Dr. Flynn (8) Discharge planning issues: Status: Acute Assessment and plan: Family refusing to take him home - seeking placement for rehab (9) DVT prophylaxis: Status: Acute Assessment and plan: Enoxaparin Subjective Subjective Patient reports: no new complaints, tolerating liquids well, tolerating a regular diet, voiding w/o difficulty, diarrhea and afebrile; denies blood in stool, nausea, vomiting or shortness of breath Exam Const General: no acute distress, anxious, combative and frail appearing Nutritional Appearance: average body habitus Orientation: alert, awake and confused (poor historian d/t baseline dementia, recalls falling, unable to provide hi) Limitations: other limitations (dementia) [facility] Head: normal to inspection and atraumatic Mouth: oral mucosae normal Eyes General: appearance normal, both eyes and all related structures Neck Neck: normal visual inspection Chest Chest: normal inspection of the chest Resp Effort & Inspection: normal respiratory effort, able to speak in complete sentences, no audible wheezes, no cough, not labored, no nasal flaring, no retractions and no tracheal deviation Auscultation: clear to auscultation bilaterally Cardio Rate: regular rate Rhythm: regular rhythm Heart Sounds: no murmurs GI Inspection: incision (open wound midline abd, wound bed with good granulation tissue, scant sloug) Palpation: soft, no hepatosplenomegaly, no guarding and no pulsatile masses Percussion: dullness to percussion Auscultation: hyperactive bowel sounds Rectal Exam: deferred Skin General skin exam: no rashes or lesions noted Lesions: lesion noted (midline abdomen, old surgical wound dehiscence, healing by secondary intent) and other (surgical dressing clean and dry, no surrounding erythema) Rashes: no rashes (no surrounding erythema or sign of infection noted. ) Neuro General: patient alert Cranial Nerves: CN's II-XI intact bilaterally and PERRL Cognition: abnormal cognition Speech: abnormal speech Extrem General: no pedal edema Psych Speech and Movement: agitated and restless Objective Last Vital Signs Temp 37.4 C 01/30/22 09:15 Pulse 75 01/30/22 09:15 Resp 18 01/30/22 09:15 BP 138/71 01/30/22 09:15 Pulse Ox 95 01/30/22 09:15 Laboratory Results - last 24 hr 01/30/22 09:39 Stl C.difficile Tox PCR Positive A Reviewed Pertinent PMH: Yes
--- NOTE | 2022-01-30 12:45 | NUR.NOTE ---
Nursing Note: Patient has been asleep all day, with frequent repositioning and incontinence changing. Patient during this bed change is more agitated and started pinching and hitting staff. Patient reports I don't care if I break your fingers. Patient attempted to kick and hit this RN and patient states Oh you're kendall. You're kendall I missed you. This patient grabbed this RNs hands, and this RN held his hands. With verbal deescalation this patient eventually let this RNs fingers go. Patient offered his Sweet Tea and he states No I don't trust you. Patient is laying in bed at this time. Charge nurse notified of the situation.
[2022-01-30] MEDS: LORazepam 2 MG/ML VIAL IM (14:25)
[2022-01-30] MEDS: diphenhydrAMINE 50 MG/ML VIAL 25 MG IM (14:26)
[2022-01-30 14:34] VITALS: BP 146/81; PULSE 91; RESP 20; TEMP 37.1; O2SAT 96
--- NOTE | 2022-01-30 16:48 | NUR.NOTE ---
Patient's sister, Zaynab, was standing in door of room with aggressive stance (shoulders up/leaning forward/hands curled) tone of voice angry demanding why that [place] giving medications to her brother without her permission. I explained that patient was displaying behavior that presented safety risk for staff and patient (hitting/kicking/climbing over bed rail) and that safety is a priority. She then asked why he was given antibiotics without her permission- I did explain that prophylaxis with orthopedic surgery is the standard of care. She reports that she had to pull him from a hospital in [place] to get him off all his medications Explained that patient's with dementia and traumatic injury can have worsening of cognition, particularly in light of unfamiliar surroundings. Zaynab states that she is concerned upset that she did not receive any updates and that her phone number is on the board in the room- told that I would pass on that she would like to be informed all changes and we would do our best but that all patient care has to be out priority. Informed Zaynab that she is welcome to be here in with patient for as long as she wished from 7 am until 8 pm and that she may call for update at any time. At the time of this note, there have been no calls about this patient and Zaynab visited for < 1 hour. Nursing Note:
--- NOTE | 2022-01-30 17:08 | DI.RAD_ITS ---
Exam(s) XR FINGER LT INDEX EXAM: XR FINGER LT INDEX CLINICAL HISTORY: Miguelangel on his nail. TECHNIQUE: 2D digital imaging was performed. Three views. COMPARISON: None. FINDINGS: BONES: No acute fracture is present. No bony destructive lesion is seen. Deformity medial base proxi mal phalanx likely related to old fracture. JOINTS: No dislocation present. Moderate degenerative changes of the interphalangeal joints. SOFT TISSUE: Normal. No foreign body. IMPRESSION: No acute abnormality. DATA REPOSITORY: RADIATION DOSE DELIVERED:
--- NOTE | 2022-01-30 17:21 | DI.VRAD_ITS ---
PROCEDURE INFORMATION: Exam: XR Left Finger(s) Exam date and time: 01/30/2022 4:47 PM Age: 66 years old Clinical indication: Pain; Finger(s); Left; Patient HX: Patient has dementia, poor historian. ; Additional info: Held patient for x-ray, best images posible due to patients condition. TECHNIQUE: Imaging protocol: Radiologic exam of the Left fingers. Views: Minimum 2 views. COMPARISON: No relevant prior studies available. FINDINGS: Bones/joints: No fracture or dislocation. Scattered mild arthritic changes of the interphalangeal joints. Moderate arthritis at the 1st carpometacarpal joint. Suggestion of an old fracture at the medial base of the 2nd finger proximal phalanx. Soft tissues: No soft tissue foreign body. No soft tissue gas or shailesh disruption. IMPRESSION: 1. No acute fracture or dislocation. 2. Arthritic changes. 3. No acute soft tissue pathology. Dictated and Authenticated by: Edil Cohen MD. Ordering:SAROJ Mack MD
--- NOTE | 2022-01-30 18:36 | NUR.NOTE ---
After shift report: Throughout this 12hr shift patient has been showing aggressive/ combative behavior. Patient was hitting, kicking, spitting, pinching and threatening staff during every interaction with staff (vital signs and Q2 incontinence care etc..) Nursing was able to provide patient with medication to help stabilize mood. Behaviors although not completely resolved have significantly improved by the end of this shift. Nursing Note:
[2022-01-30 20:59] VITALS: BP 136/71; PULSE 85; RESP 20; TEMP 37.4; O2SAT 96
[2022-01-30] MEDS: Normal Saline 1,000 ML 80 ML IV (21:19)
[2022-01-30] MEDS: Normal Saline Flush 10 ML SYR IVP (21:20)
[2022-01-30] MEDS: ACETAMINOPHEN 1,000 MG/100 ML BTL 400 MG IVPB (22:49)
--- NOTE | 2022-01-30 23:37 | NUR.NOTE ---
Nursing Note: 01/30/22 Medication Administration. I am writing this note to communicate as to why the pt has not received any of his 8pm medications including protein supplement, oral melatonin or 1800 oral vancomycin. Upon my arrival on shift, i understand the patient was agitated during the day shift. so much so they gave the patient a dosage of oral zyprexa. Which I believe at this time is causing this patient to be not arousable to voice or mild stimulation. pt does grimace when we turn him. I spoke with credit underwriter and addressed my concern that the pt had very minimal PO intake of food and fluids. The provider was notified. and IV medication including Tylenol for pain relief IV and NS at 80 ml/hr x1 bag. I will continue to hold his oral medications until the patient is alert enough to swallow, which i would say alert enough, is alert enough to open his eyes and follow commands like gripping hands. as this patient did do so, when i had the opportunity to provide care to him preoperatively to his ORIF of Left femoral Neck Fracture. I will continue to ensure he remains clean of his bowels and appropriately repositioned.
[2022-01-31 06:46] LABS: Abs Immature Grans 0.27 10^3/uL (0.0-0.06); Absolute Basophil Count 0.03 10^3/uL (0.0-0.2); Absolute Eosinophil Count 0.58 10^3/uL (0.0-0.7); Absolute Lymphocyte Count 1.14 10^3/uL (1.2-3.4); Absolute Monocyte Count 1.02 10^3/uL (0.1-0.8); Absolute Neutrophil Count 5.24 10^3/uL (1.2-6.7); Basophils % 0.4; HCT 27.2 % (40.0-50.0); HGB 8.6 g/dL (13.5-17.5); Immature Grans % 3.3; Lymphocytes % 13.8; MCH 26.1 pg (27.0-33.0); MCHC 31.6 % (32.0-36.0); MCV 83 fL (80-95); MPV 8.8 fL (8.0-11.0); Monocytes % 12.3; Neutrophils % 63.2; Platelet Count 363 10^3/uL (130-400); RBC 3.29 10^6/uL (4.36-5.78); RDW 13.8 % (11.8-14.1); RDW-SD 41.7 fL; WBC 8.28 10^3/uL (4.4-10.8)
[2022-01-31 06:58] LABS: Anion Gap 9.2 mmol/L (3-11); BUN 18 mg/dL (7-18); CO2 24.8 mmol/L (21.0-32.0); Calcium 8.4 mg/dL (8.5-10.1); Chloride 109 mmol/L (98-107); Estimated GFR 81.98 (mL/min/1.73m2); Glucose 84 mg/dL (74-106); Potassium 3.3 mmol/L (3.5-5.1); Sodium 143 mmol/L (136-145)
[2022-01-31 07:40] VITALS: BP 181/85; PULSE 80; RESP 14; TEMP 37.4; O2SAT 96
--- NOTE | 2022-01-31 07:59 | W.PALLCONSUL ---
Date of service: 01/31/22 Time of Service: 08:00 History of Present Illness Narrative: Marcial is a 66-year-old man. He goes by Gabino. He fell. He has agitated dementia. His sister has been resistant to him receiving medications to help with behaviors and anxiety. She has been upset about the use of antibiotics and some antianxiety medications. She visited for about 20 minutes yesterday. She also was upset because she states that KYR H gave Marcial C. difficile, he had had this prior to admission and was in remission. Marcial looked at me but he could not tell me who he was, where he was. He mostly repeated the questions I asked without giving any answers. Consults Consult date: 01/31/22 Requesting physician: Lakeisha Peguero Assessment and Plan Assessment and plan (1) C. difficile colitis: Status: Acute (2) Subcapital fracture of neck of left femur: Status: Acute (3) Dementia: Status: Chronic (4) Palliative care status: Status: Acute Assessment and plan: is not oriented today. He will need his sister there for a family meeting. I did call soon care management and stated that I could be there today at 330. If that does not meet with the sister schedule then perhaps tomorrow he could meet with Dr. Eaton. Discharge is going to be the big problem as he may not be able to be handled at home. All of this will get figured out with his sister. Please note at this time he is full code. Review of Systems Narrative: He could not give me any review of systems [facility] All Active Problems (Updated 01/31/22 @ 09:04 by Cookie Sarabia MD, [place]) Palliative care status (Acute) C. 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 Followed at and treated at hospital in [place] August-early September 2021-prolonged hospitalization Ulcerative colitis S/p Subtotal colectomy with ileocolonic anastomosis Surgical History History of cataract surgery Hx of exploratory laparotomy (08/08/21) Extensive intra-abdominal adhesions with frozen abdomen, ileus S/P total colectomy (1979) Subtotal colectomy with ileocolonic anastomosis Family History Mother , 71 No problems noted. Father , 81 No problems noted. Sister , 70 No problems noted. Social History Smoking/Tobacco Use Status: Former Tobacco Use tobacco type: cigarettes Quit Date: 03/13/91 Second Hand Exposure: Yes Smoking risk assessment performed?: Yes Alcohol Intake: current Alcohol type: beer Drug use: Never Substance use type: does not use Caregiver/Support person: Yes Household members: other Details: Sister and brother in law Housing: house Communication Needs: None Do you need help understanding health information?: Always Pets and animals: No Sexually active: No Do you think of yourself as: straight/heterosexual Current gender identity: male What is your relationship status?: How often do you talk on the phone with friends or family?: decline to answer How often do you get together with friends or relatives?: decline to answer How often do you attend roman catholic or mandaeism services?: decline to answer Do you belong to any clubs or organized social groups?: decline to answer Panel score (0-1 are the most socially isolated patients): 1 What type of physical activity do you participate in: none Frequency: does not exercise Philly/Jehovah'S Witness: No preference Special philly needs: No Seatbelt use: always Helmet use: Yes Drive intox or ride w/intox warehouse delivery driver: No Do you feel safe at home: Yes Do you feel safe in your relationship?: Yes Exam Narrative Exam Narrative: He was somewhat agitated and continually picked at his blankets and his penis. He did let me listen to his heart which was regular. Results Last Vital Signs Temp 99.3 F 01/31/22 07:40 Pulse 80 01/31/22 07:40 Resp 14 01/31/22 07:40 BP 181/85 H 01/31/22 07:40 Pulse Ox 96 01/31/22 07:40 Labs Result diagrams: 01/31/22 06:30 01/31/22 06:30 Labs: Laboratory Results - last 24 hr 01/30/22 01/31/22 01/31/22 09:39 06:30 06:30 WBC 8.28 RBC 3.29 L Hgb 8.6 L Hct 27.2 L MCV 83 MCH 26.1 L MCHC 31.6 L RDW 13.8 Plt Count 363 MPV 8.8 Immature Gran % 3.3 Neutrophils % 63.2 Lymphocytes % 13.8 Monocytes % 12.3 Eosinophils % 7.0 Basophils % 0.4 Nucleated RBC % 0.0 Absolute Neutrophils 5.24 Absolute Lymphocytes 1.14 L Absolute Monocytes 1.02 H Absolute Eosinophils 0.58 Absolute Basophils 0.03 Sodium 143 Potassium 3.3 L Chloride 109 H Carbon Dioxide 24.8 Anion Gap 9.2 BUN 18 Creatinine 1.0 Est GFR (CKD-EPI 2020) 81.98 Glucose 84 Calcium 8.4 L Magnesium 2.0 Stl C.difficile Tox PCR Positive A
--- NOTE | 2022-01-31 08:40 | PT.INTREAT ---
Date of service: 01/31/22 Time of Service: 08:40 PT Notes Visit Reasons: Left Hip Fracture Physical Therapy Treatment Note PRECAUTIONS: Fall. Activity as tolerated. Dementia. WBAT L with AD. SUBJECTIVE: JANIA Nickerson requested assistance with transfers to ensure safety. Patient reports pain and discomfort in the left hip and refused to walk outside of room. Did agree to move from bed to bedside chair. OBJECTIVE: ? PAIN: Moderate hip pain in left hip ? BED MOBILITY/TRANSFERS:? Supine to EOB: moderate assist? Sit-stand: minimal assist of 2 ? Stand-sit: minimal assist of 2 ? Bed-chair: minimal assist of 2 ? ASSESSMENT:? Patient remains in need of moderate to verbal cues for safety technique. Stiffness, anxiety, and pain all limit mobility performance. Will continue to benefit from premedication for pain. Calm, slow approach continues to be effective. PLAN: Progress mobility level as tolerated. Work with nurse for pre-medication. TREATMENT CODE/TIME: 10298 x 15 minutes beginning at 8:40 AM.
[2022-01-31] MEDS: Protein Nutritional Supplement 16 GM 1 OUNCE PACKET PO ×3 (08:55→20:11)
[2022-01-31] MEDS: Enoxaparin 40 MG/0.4 ML SYR SC (08:55)
--- NOTE | 2022-01-31 09:01 | CMPROGNOTE_ITS ---
- If Service Date Differs Date of service: 01/31/22 Time of Service: 09:01 Care Management Progress Note S/O: was lying in bed when CM met with him. He remains confuse but will attempt to answer some questions. CM met with his sister Zaynab this morning and provided an update. There have been no bed offers received and when CM contacted the original 4 facilities ([facility], [facility], [facility] and [facility]) no facility could offer a bed now or in the foreseeable future. Staffing remains a major challenge for many of the SNFs in the area. This afternooon a palliative Care consult is scheduled with Dr. Sarabia and Zaynab at 3:30pm.CM has been asked to participate. A: is a 66 year old man admitted on 01/24/22 with a fractures femur P: will most likely need short term rehab in a SNF prior to returning home or going to another facility. Referrals have been sent. He will follow up with the facility providers and plan of care. Transportation will be determined by disposition. CM will continue to support and his family and assess for ongoing discharge concerns.
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
[2022-01-31] MEDS: POTASSIUM CHLORIDE 20 MEQ/100 ML BAG 25 MEQ IVPB (11:31)
--- NOTE | 2022-01-31 11:46 | NUR.NOTE ---
Nursing Note: At approximately 0855, this nurse attempted to give pt his morning medications. Pt was hesitant to taking the pills, so this nurse offered crushing them and putting them in applesauce. Pt was willing to try this. At this time, this nurse crushed tablets and put them in applesauce. Pt was agreeable in the beginning, but once he got the applesauce in his mouth, he refused to swallow. At that time, pt spit out the applesauce and medications. Pt was agreeable to receive his enoxaparin injection. This nurse informed the pt that the medication is used to prevent blood clots. This nurse asked, may I give you the injection to prevent blood clots?. Pt then stated, yes, that is fine. Pt also agreed to drink the ProHeal liquid.
[2022-01-31] MEDS: Vancomycin 125 MG CAP PO ×2 (12:10→17:48)
--- NOTE | 2022-01-31 12:20 | NUR.NOTE ---
Nursing Note: At this time, pt successfully took vancomycin PO. This nurse informed pt that this pill helps treat his infection. Pt stated, what infection?. This nurse then said, c-diff.. At this time, this nurse placed the capsule on his plate near his chips. The pt independently picked up the pill and swallowed it with his drink. Pt did not want help from this nurse. Pt refused Tylenol.
[2022-01-31] MEDS: POTASSIUM CHLORIDE 20 MEQ/100 ML BAG 50 MEQ IVPB (14:36)
--- NOTE | 2022-01-31 15:43 | PTTR_ITS ---
PT Notes Visit Reasons: Left Hip Fracture Date: 01/31/2022 PRECAUTIONS: Fall, activity as tolerated, dementia, WBAT L SUBJECTIVE: Pt in bed when approached for therapy this afternoon, nurse in- charge of pt reports that they just got pt back in bed a few minutes ago, nurse reported that pt sat at the recliner for a few hours and was able to participate with toilet transfer max A+2. Pt awake and agreed to participating with therapy. OBJECTIVE: ? PAIN: slight L hip pain ? BED MOBILITY/TRANSFERS:? Supine to EOB: mod A +1 ? Sit-stand: Mod A +1 ? Stand-sit: Mod A +1 EOB to supine mod A +1 ? Therapeutic Procedure [id number]: Pt able to participate with side to side movement requiring mod A, luu[pine to EOB mod A sitting on the EOB doing weight shifting L/R, front and back Seated AROM hip flexion 10x 1set, Knee flexion/extension [id number], ankle pumping [id number] Sit to stand mod A Standing marching [id number] L/R Side stepping with mod A Forward stepping and backward stepping ASSESSMENT:? Pt tolerated activity well, ptable to follow verbal instructions and was providing appropriate verbal and physical response. Pt returned to supine due to MD request to allow pt to participate for his pallative care planning/meeting. PLAN: Continue with global strengthening and gait training for improved mobility. TREATMENT CODE/TIME: 23 minutes; [id number] (3:15pm)
[2022-01-31 17:02] VITALS: BP 165/92; PULSE 100; RESP 20; TEMP 37; O2SAT 95
--- NOTE | 2022-01-31 17:26 | PGE_ITS ---
Date of Service Date of service: 01/31/22 Time of Service: 17:26 Assessment and Plan Assessment and plan (1) C. difficile colitis: Status: Acute Assessment and plan: continue vancomycin PO to 250 mg Q6hrs and probiotics (2) Subcapital fracture of neck of left femur: Status: Acute Assessment and plan: Post left hip repair. Pain is controlled. Continue PT. (3) Atrial fibrillation with RVR: Status: Suspected Assessment and plan: Paroxysmal. No longer on cardiac monitoring. Clinically, in NSR. Continue beta blockers. No full anticoagulation due to increased fall risk. (4) Hypomagnesemia: Status: Resolved Assessment and plan: repleted (5) Dementia: Status: Chronic Assessment and plan: safety precautions. Behaviors have been well controlled with some agitation occasionally (6) Abdominal wound dehiscence: Status: Chronic Assessment and plan: followed by surgical services as outpatient and here. Continue would care per surgical recommendations. 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 (9) Discharge planning issues: Status: Acute Assessment and plan: Awaiting SNF placement DNR/DNI Palliative care consulted - seen on 01/31/[address] Flynn Subjective Subjective Patient reports: no new complaints, tolerating a regular diet, bowel movement and afebrile; denies diarrhea, nausea, vomiting or shortness of breath Exam Const General: no acute distress, anxious, combative and frail appearing Nutritional Appearance: average body habitus Orientation: alert, awake and confused (poor historian d/t baseline dementia, recalls falling, unable to provide hi) Limitations: other limitations (dementia) [facility] Head: normal to inspection and atraumatic Mouth: oral mucosae normal Eyes General: appearance normal, both eyes and all related structures Neck Neck: normal visual inspection Chest Chest: normal inspection of the chest Resp Effort & Inspection: normal respiratory effort, able to speak in complete sentences, no audible wheezes, no cough, not labored, no nasal flaring, no retractions and no tracheal deviation Auscultation: clear to auscultation bilaterally Cardio Rate: regular rate Rhythm: regular rhythm Heart Sounds: no murmurs GI Palpation: soft, no hepatosplenomegaly, no guarding and no pulsatile masses Percussion: dullness to percussion Auscultation: hyperactive bowel sounds Rectal Exam: deferred Skin General skin exam: no rashes or lesions noted Lesions: lesion noted (midline abdomen, old surgical wound dehiscence, healing by secondary intent) and other (surgical dressing clean and dry, no surrounding erythema) Rashes: no rashes (no surrounding erythema or sign of infection noted. ) Neuro General: patient alert Cranial Nerves: CN's II-XI intact bilaterally and PERRL Cognition: abnormal cognition Speech: abnormal speech Extrem General: no pedal edema Psych Speech and Movement: agitated and restless Objective Last Vital Signs Temp 37 C 01/31/22 17:02 Pulse 100 H 01/31/22 17:02 Resp 20 01/31/22 17:02 BP 165/92 H 01/31/22 17:02 Pulse Ox 95 01/31/22 17:02 Laboratory Results - last 24 hr 01/31/22 01/31/22 06:30 06:30 WBC 8.28 RBC 3.29 L Hgb 8.6 L Hct 27.2 L MCV 83 MCH 26.1 L MCHC 31.6 L RDW 13.8 Plt Count 363 MPV 8.8 Immature Gran % 3.3 Neutrophils % 63.2 Lymphocytes % 13.8 Monocytes % 12.3 Eosinophils % 7.0 Basophils % 0.4 Nucleated RBC % 0.0 Absolute Neutrophils 5.24 Absolute Lymphocytes 1.14 L Absolute Monocytes 1.02 H Absolute Eosinophils 0.58 Absolute Basophils 0.03 Sodium 143 Potassium 3.3 L Chloride 109 H Carbon Dioxide 24.8 Anion Gap 9.2 BUN 18 Creatinine 1.0 Est GFR (CKD-EPI 2020) 81.98 Glucose 84 Calcium 8.4 L Magnesium 2.0
--- NOTE | 2022-01-31 18:01 | NUR.NOTE ---
Nursing Note: At approximately 1750, this nurse administered vanco PO to this pt and was able to do wound care on abdomen. The pt was compliant with taking this medication by being allowed to pick the capsule up out of this nurse's hand. To add, this pt was very polite, appropriate, and cooperative during the wound care. This nurse was able to perform needed care independently with pt.
[2022-01-31] MEDS: oxyCODONE 5 MG TAB PO (18:34)
[2022-01-31] MEDS: Acetaminophen 325 MG TAB 650 MG PO (20:13)
[2022-01-31] MEDS: Ibuprofen 600 MG TAB PO (20:13)
[2022-01-31] MEDS: Mirtazapine 15 MG TAB 7.5 MG PO (22:21)
[2022-01-31] MEDS: Melatonin 3 MG TAB PO (22:21)
[2022-01-31 22:36] VITALS: BP 137/76; PULSE 90; RESP 14; TEMP 37.4; O2SAT 97
[2022-02-01] MEDS: oxyCODONE 5 MG TAB PO (00:59)
[2022-02-01] MEDS: Vancomycin 125 MG CAP PO ×4 (00:59→18:52)
[2022-02-01 07:18] LABS: Abs Immature Grans 0.28 10^3/uL (0.0-0.06); Absolute Basophil Count 0.03 10^3/uL (0.0-0.2); Absolute Eosinophil Count 0.39 10^3/uL (0.0-0.7); Absolute Lymphocyte Count 1.23 10^3/uL (1.2-3.4); Absolute Monocyte Count 0.97 10^3/uL (0.1-0.8); Absolute Neutrophil Count 4.94 10^3/uL (1.2-6.7); Basophils % 0.4; HCT 26.8 % (40.0-50.0); HGB 8.5 g/dL (13.5-17.5); Immature Grans % 3.6; Lymphocytes % 15.7; MCH 25.8 pg (27.0-33.0); MCHC 31.7 % (32.0-36.0); MCV 82 fL (80-95); MPV 8.8 fL (8.0-11.0); Monocytes % 12.4; Neutrophils % 62.9; Platelet Count 408 10^3/uL (130-400); RBC 3.29 10^6/uL (4.36-5.78); RDW-SD 41.3 fL; WBC 7.84 10^3/uL (4.4-10.8)
[2022-02-01 07:31] LABS: Anion Gap 7.1 mmol/L (3-11); BUN 17 mg/dL (7-18); CO2 25.9 mmol/L (21.0-32.0); Calcium 8.3 mg/dL (8.5-10.1); Chloride 109 mmol/L (98-107); Estimated GFR 81.98 (mL/min/1.73m2); Glucose 102 mg/dL (74-106); Magnesium 1.9 mg/dL (1.8-2.4); Potassium 3.4 mmol/L (3.5-5.1); Sodium 142 mmol/L (136-145)
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
[2022-02-01 08:00] VITALS: BP 158/78; PULSE 84; RESP 18; TEMP 37; O2SAT 96
[2022-02-01] MEDS: Enoxaparin 40 MG/0.4 ML SYR SC (08:03)
[2022-02-01] MEDS: Pantoprazole 40 MG TABCR PO (08:04)
[2022-02-01] MEDS: Acetaminophen 325 MG TAB 650 MG PO ×4 (08:04→19:56)
[2022-02-01] MEDS: Protein Nutritional Supplement 16 GM 1 OUNCE PACKET PO ×3 (08:04→20:16)
[2022-02-01] MEDS: Metoprolol CR 25 MG TABCR 12.5 MG PO (08:04)
--- NOTE | 2022-02-01 08:53 | CMPROGNOTE_ITS ---
- If Service Date Differs Date of service: 02/01/22 Time of Service: 08:54 Care Management Progress Note S/O: was lying in bed when CM met with him. He remains confused but has been more cooperative with care and medication administration. he has been out of bed in a chair and he has ambulated with PT and nursing. CM followed up on referrals that were sent to [facility] and [facility]. [facility] has no availability and [facility] has not responded. Per provider, still needs to be seen daily but will likely be able to transition to -1 soon. A: is a 66 year old man admitted on 01/24/22 with a fractures femur P: will most likely need short term rehab in a SNF prior to returning home or going to another facility. Referrals have been sent. He will follow up with the facility providers and plan of care. Transportation will be determined by disposition. CM will continue to support and his family and assess for ongoing discharge concerns.
--- NOTE | 2022-02-01 10:04 | W.NUTCONSULT ---
Date of service: 02/01/22 Time of Service: 10:04 Nutritional Consult ASSESSMENT: Marcial was admitted last week and has had very poor intake most days with frequent meal refusals. Admitted with c. diff, s/p hip fracture repair with hx of dementia/aggitation. No updated weight since admit, nursing has attempted to, but Gabino has been uncooperative. Nsg will try to weigh today again. Following regular meal plan with lip plate and sippy cup to assist in feeding. Pallative care met with pt and his sister yesterday. No decision made re: artificial feeding. NUTRITIONAL DIAGNOSIS: Inadequate macronutrient and fluid intake for > 5 days- at high nutritional risk INTERVENTION: Continue regular meal plan, supplement with ensure plus BID weight daily as able consider appetite stimulant MONITORING AND EVALUATION: po intake, labs and weight. May need nocturnal tube feeding to supplement po intake Time Spent in Nutritional Counseling and Treatment: 0
[2022-02-01] MEDS: POTASSIUM CHLORIDE 20 MEQ/100 ML BAG 50 MEQ IVPB (11:08)
--- NOTE | 2022-02-01 12:36 | W.PM.PROGNOT ---
Date of Service Date of service: 02/01/22 Time of Service: 12:36 Assessment and Plan Assessment and plan (1) C. difficile colitis: Status: Acute Assessment and plan: continue vancomycin PO to 250 mg Q6hrs and probiotics. (2) Subcapital fracture of neck of left femur: Status: Acute Assessment and plan: post left hip repair. Pain is controlled. Continue PT. (3) Atrial fibrillation with RVR: Status: Suspected Assessment and plan: Paroxysmal. No longer on cardiac monitoring. Clinically, in NSR. Continue beta blockers. No full anticoagulation due to increased fall risk. (4) Hypomagnesemia: Status: Resolved Assessment and plan: repleted (5) Dementia: Status: Chronic Assessment and plan: safety precautions. Behaviors have been well controlled. (6) Abdominal wound dehiscence: Status: Chronic Assessment and plan: followed by surgical services as outpatient and here. Continue would care per surgical recommendations. Nursing concern for wound infection - does not appear to be infected, afebrile, majority is slough - will cx (7) GERD (gastroesophageal reflux disease): Status: Chronic Assessment and plan: Continue PPI (8) DVT prophylaxis: Status: Acute Assessment and plan: Enoxaparin TEDS/SCDS d/'jerica. (9) Discharge planning issues: Status: Acute Assessment and plan: Awaiting SNF placement DNR/DNI Palliative care consulted discussed with Dr. Flynn Subjective Subjective Patient reports: no new complaints Exam Const General: no acute distress, anxious, combative and frail appearing Nutritional Appearance: average body habitus Orientation: alert and awake Limitations: other limitations (dementia) [facility] Head: normal to inspection and atraumatic Mouth: oral mucosae normal Eyes General: appearance normal, both eyes and all related structures Neck Neck: normal visual inspection Chest Chest: normal inspection of the chest Resp Effort & Inspection: normal respiratory effort and no cough Auscultation: clear to auscultation bilaterally Cardio Rate: regular rate Rhythm: regular rhythm Heart Sounds: no murmurs GI Inspection: incision (open wound midline abd, wound bed with good granulation tissue, scant sloug) Palpation: soft and no guarding Skin General skin exam: no rashes or lesions noted Lesions: lesion noted (midline abdomen, old surgical wound dehiscence, healing by secondary intent) and other (surgical dressing clean and dry, no surrounding erythema) Rashes: no rashes (no surrounding erythema or sign of infection noted. ) Neuro General: patient alert Cognition: abnormal cognition Speech: abnormal speech Extrem General: no pedal edema Psych Speech and Movement: agitated and restless Objective Last Vital Signs Temp 37 C 02/01/22 08:00 Pulse 84 02/01/22 08:00 Resp 18 02/01/22 08:00 BP 158/78 H 02/01/22 08:00 Pulse Ox 96 02/01/22 08:00 Laboratory Results - last 24 hr 02/01/22 02/01/22 07:05 07:05 WBC 7.84 RBC 3.29 L Hgb 8.5 L Hct 26.8 L MCV 82 MCH 25.8 L MCHC 31.7 L RDW 14.0 Plt Count 408 H MPV 8.8 Immature Gran % 3.6 Neutrophils % 62.9 Lymphocytes % 15.7 Monocytes % 12.4 Eosinophils % 5.0 Basophils % 0.4 Nucleated RBC % 0.0 Absolute Neutrophils 4.94 Absolute Lymphocytes 1.23 Absolute Monocytes 0.97 H Absolute Eosinophils 0.39 Absolute Basophils 0.03 Sodium 142 Potassium 3.4 L Chloride 109 H Carbon Dioxide 25.9 Anion Gap 7.1 BUN 17 Creatinine 1.0 Est GFR (CKD-EPI 2020) 81.98 Glucose 102 Calcium 8.3 L Magnesium 1.9
[2022-02-01 14:08] VITALS: BP 153/78; PULSE 97; RESP 18; TEMP 37.1; O2SAT 97
--- NOTE | 2022-02-01 14:18 | PT.INTREAT ---
Date of service: 02/01/22 Time of Service: 09:35 PT Notes Visit Reasons: Left Hip Fracture Inpatient Physical Therapy Treatment Note [facility] Date: 02/01/2022 PRECAUTIONS: Fall, activity as tolerated, dementia, WBAT L SUBJECTIVE: Gabino denies any significant pain in L LE. He is agreeable to taking a walk. OBJECTIVE: PAIN: Patient c/o some L hip pain in a.m. with gait training BED MOBILITY/TRANSFERS Sit-supine: Max A x2 with HOB flat due to inability to follow directions Sit-stand: Min A + CGA Stand-sit: Min A + CGA GAIT Assistive Device: CLAIM SERVICE REPRESENTATIVE x2 Weight bearing: WBAT L Assist: CGA x2 Distance: 5' + 15' + 50' in a.m.; 200' in p.m. Deviation: Short shuffling steps improving with limited distraction and clear pathway THEREX: Patient was instructed in a LE strengthening program completed in a seated position, to include: LAQ and hip flexion. Patient requires visual, tactile and verbal cueing for proper exercise performance. He also requires extra time to initiate exercise and usually goes to fatigue. TOILETING: Patient toileted with assist ASSESSMENT: Patient appears limited by confusion, although c/o of minimally increased pain in L hip with gait training today. Patient tolerated a progression in gait distance with CLAIM SERVICE REPRESENTATIVE x2 and CGA x2. His gait mechanics improve with distance and with limited distractions. PLAN: Continue with global strengthening and gait training for improved mobility. TREATMENT CODE/TIME: Session 1: 40 minutes; [id number] x2, [id number] (09:35) Session 2: 35 minutes; [id number] x2 (13:24)
[2022-02-01] MEDS: diphenhydrAMINE 25 MG CAP PO (19:55)
[2022-02-01] MEDS: Potassium Chloride 20 MEQ TABCR 40 MEQ PO (19:56)
[2022-02-01] MEDS: Melatonin 3 MG TAB PO (19:56)
[2022-02-01] MEDS: Mirtazapine 15 MG TAB 7.5 MG PO (20:12)
[2022-02-01 23:20] VITALS: BP 160/70; PULSE 80; RESP 16; TEMP 36.8; O2SAT 94
[2022-02-02] MEDS: Vancomycin 125 MG CAP PO ×4 (00:38→17:14)
[2022-02-02] MEDS: diphenhydrAMINE 25 MG CAP PO (02:23)
[2022-02-02 07:48] VITALS: BP 172/88; PULSE 102; RESP 17; TEMP 38.3; O2SAT 95
[2022-02-02 08:04] VITALS: TEMP 38.3
[2022-02-02] MEDS: Acetaminophen 325 MG TAB 650 MG PO ×4 (08:04→19:41)
[2022-02-02] MEDS: Potassium Chloride 20 MEQ TABCR PO ×2 (08:05→19:41)
[2022-02-02] MEDS: Metoprolol CR 25 MG TABCR 12.5 MG PO (08:05)
[2022-02-02] MEDS: Pantoprazole 40 MG TABCR PO (08:07)
[2022-02-02] MEDS: Enoxaparin 40 MG/0.4 ML SYR SC (08:07)
[2022-02-02] MEDS: Protein Nutritional Supplement 16 GM 1 OUNCE PACKET PO ×3 (08:08→19:41)
--- NOTE | 2022-02-02 09:00 | PDOC.CMPRO ---
- If Service Date Differs Date of service: 02/02/22 Time of Service: 09:00 Care Management Progress Note S/O: was sitting up in a chair when CM met with him. He was pleasant in interaction but remains confused. When asked if he had a good night he answered No, I couldn't find my car keys. CM provided with a stack of wash cloths to fold and a deck of cards to use to help distract him from his tendency to fidget with clothing, dressings, IV tubing etc. Referrals have been sent to 6 shelter facilities (SNFs)for short or property adjuster placement but no bed offers have been received. Many facilities are closed to admissions due to staffing and others have no group home beds. is ready to transition to SB status and a request for a prior authorization was submitted to his insurance company, [employer]. A: is a 66 year old man admitted on 01/24/22 with a fractures femur P: will most likely need short term rehab in a SNF prior to returning home or going to another facility. Referrals have been sent but no bed offers received. will need to transition to SB status and a request was submitted to his insurance company ([employer]) for a prior authorization. He will follow up with the facility providers and plan of care. Transportation will be determined by disposition. CM will continue to support and his family and assess for ongoing discharge concerns.
[2022-02-02 09:21] LABS: Anion Gap 8.1 mmol/L (3-11); BUN 15 mg/dL (7-18); CO2 24.9 mmol/L (21.0-32.0); Calcium 8.8 mg/dL (8.5-10.1); Chloride 106 mmol/L (98-107); Estimated GFR 81.98 (mL/min/1.73m2); Glucose 129 mg/dL (74-106); Potassium 3.4 mmol/L (3.5-5.1); Sodium 139 mmol/L (136-145)
--- NOTE | 2022-02-02 10:35 | PT.INPN ---
Date of service: 02/02/22 Time of Service: 10:35 PT Notes Visit Reasons: Left Hip Fracture Physical Therapy Inpatient Progress Note Date: 02/02/2022 Dates of Service: 01/27/2022 through 02/02/2022 Referring Doctor: Maurice Junior MD PT Orders: PT CONSULT: S/P Ortho surgery.? S/p L hip replacement Precautions: Fall. Standard.? WBAT on left LE with AD. Patient Profile/Admitting Diagnosis:? Marcial is a 66-year-old male with diagnosis of superiorly displaced femoral neck fracture on the left and is status post left anterior total hip arthroplasty on postoperative day 6.? He comes in with diagnoses of atrial fibrillation with rapid ventricular response, hypomagnesemia, dementia, abdominal wound dehiscence, and GERD. PMHX: All Active Problems?(Updated 01/24/22 @ 17:03 by Malathi Jon NP) Subcapital fracture of neck of left femur (Acute) Contracture of right shoulder (Acute) Rotator cuff tear, right (Acute) 40 mg Depo-Medrol injection: 12/21/2021 Abdominal wound dehiscence (Chronic ~09/2021) Ex-laparotomy July2Dementia (Chronic) Parkinsonism (Chronic) Essential hypertension (Chronic) Urinary incontinence (Chronic) Prediabetes (Chronic) Nocturia (Chronic) GERD (gastroesophageal reflux disease) (Chronic) Calculus of left kidney (Chronic) Medical History? 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 Followed at and treated at [facility] August-early September 2021-prolonged hospitalization Ulcerative colitis S/p Subtotal colectomy with ileocolonic anastomosis Surgical History? History of cataract surgery Hx of exploratory laparotomy (08/08/21) Extensive intra-abdominal adhesions with frozen abdomen, ileus S/P total colectomy (1979) Subtotal colectomy with ileocolonic anastomosis Social History/Home Situation: Lives with in a private home with 2-3 steps to enter. Equipment Owned/DME: None Subjective: No report of pain throughout session. Did want to rest 2x through the long walk due to fatigue. Objective: Seated on bedside chair fiddling on his sensory mat. Mental Status: Alert and oriented as to person.? Able to follow single-step commands. Pain: Denies Vital Signs: WNL as closely monitored by nursing staff ROM: Right Lower Extremity: Hip flexion . Hip abduction WFL. Knee flexion WFL. Ankle dorsiflexion WFL. Ankle plantarflexion WFL. Left Lower Extremity: Hip flexion lacks the last 50% of AROM. Hip abduction lacks the last 50% of AROM. Knee flexion WFL. Ankle dorsiflexion WFL. Ankle plantarflexion WFL. Strength: Right Lower Extremity: Hip flexors 4-/5. Hip abductors 4-/5. Knee flexors 4-/5. Knee extensors 4-/5. Ankle dorsiflexors 4-/5. Ankle plantarflexors 4-/5. Left Lower Extremity: Hip flexors 2-/5. Hip abductors 2-/5. Knee flexors 3-/5. Knee extensors 3-/5. Ankle dorsiflexors 3+/5. Ankle plantarflexors 3+/5. Bed Mobility/Transfers: Sit to stand with hand-held assist of 2 Stand to sit with hand-held assist of 2 Bed to reclining chair with hand-held assist of 2 Gait: Instructed patient with level surface ambulation of up to 350 feet requiring minimal assist of 2 with moderate verbal cueing needed for safe/correct technique. Kiara increasing. Step height increasing. Step length increasing.? R foot occasionally scissors onto the L which can be a fall risk. THERA EX: Worked on side stepping for about 30 feet to R and then to L to increase base width and minimize fall risk. Balance: Static Sitting: Good Dynamic Sitting: Fair Static Standing: Fair Dynamic Standing: Poor Special Tests: Mobility Limitations Standardized Measure [facility] 6 clicks Basic Mobility Inpatient Short Form: Raw Score: 18? CMS Score: 47% deficit? ? ? Informed Consent/Education:? Patient was instructed in purpose of PT consult and plan of care. Agreeable to proceed with established PT POC to achieve personal goals. Assessment: Overall, patient appears to be increasingly consistent with functional mobility improvements as he is getting more familiar with this new environment and caregivers. Much improved pain tolerance. R foot tends to scissor onto the L which can increase fall risk. Delayed initiation of movement and impaired movement transitioning continue to be limited due to pre-existing dementia, residual deficits from TBI, and Parkinsonism.? Will continue to require pre-medication for pain.? Needs moderate verbal cueing.? Patient presents with clinical signs and symptoms consistent with current/admitting diagnoses that have resulted to mobility limitations, gait instability, generalized weakness, and overall ADL decline as demonstrated by the following impairment level findings: 1.? Decreased strength to L LE major muscle groups 2.? Impaired sitting/standing balance 3.? Impaired activity tolerance 4.? Limitation of joint range of motion in L hip and knee 5.? Preexisting dementia- impaired safety awareness 6.? Pain in L hip and knee due to post-op status (now decreasing) Impairments are contributing to the following functional limitations: 1.? Decline in bed mobility skills 2.? Decline in transfer skills 3.? Difficulty with ambulation without assistive device and physical assistance 4.? Increased completion time for mobility ADL performance 5.? Increased risk for falls 6.? Difficulty with managing steps alone safely Patient is assessed as a 94912 high complexity based on the following: History: 66-year-old male with past medical history as indicated above Examination: Demonstrable impairment in strength, balance, and mobility level with underlying impairments and functional limitations as exhibited above as well as deficit score of 73% utilizing the [facility] Mobility Inpatient Short Form Presentation: Evolving Decision Makin high complexity Goals: Goals X1 week 1. Supine-Sit independent NOT MET, CONTINUE 2. Sit-Supine independent NOT MET, CONTINUE 3. Sit-Stand contact guard assist NOT MET, CONTINUE 4. Stand-Sit contact guard assist NOT MET, CONTINUE 5. Bed-Chair contact guard assist NOT MET, CONTINUE 6. Chair-Bed contact guard assist NOT MET, CONTINUE 7. Contact guard assist for gait on level surface with use of FWW for at least 300 feet without report of pain nor dyspnea NOT MET, CONTINUE 8. Contact guard assist for stair negotiation while holding onto B rails for at least 5 steps without report of pain nor dyspnea NOT MET, CONTINUE 9. NEW GOAL: Patient will increase base width to at least 4 inches to reduce fall risk Plan of Care/Treatment Plan: 1-2x/day, 7 days/week x 1 week. Plan of care has been reviewed with the DAIRY EQUIPMENT MECHANIC providing the service under Physical Therapy direction. Continue with Physical Therapy intervention for pain management as needed, strengthening, bed mobility, transfers, gait, stairs, balance training, and use of assistive device. Emphasize activities that will increase B hip abduction strength to increase step width for a much more gait pattern. DISCHARGE RECOMMENDATIONS: [] ? Home with no services [] [] ? Home with services [specify] [] ? Home with outpatient PT [] [X] ? SNF for continued rehabilitation.? Patient will benefit from custodial facility placement for continued skilled physical therapy services in order to progress mobility level, strength, and balance in preparation for a safe discharge to home. [] ? [facility] [] [] ? SNF versus LTC based on ability to participate and progress [] TREATMENT CODE/TIME: 89961 x 28 minutes beginning at 10:35 AM. Thank you for the opportunity to participate in the care of this patient. Elmira Castano PT, DPT, CLT [facility] [place], [place]
[2022-02-02 15:31] VITALS: BP 137/90; PULSE 99; RESP 18; TEMP 38.7; O2SAT 99
--- NOTE | 2022-02-02 16:01 | PTTR_ITS ---
Date of service: 02/02/22 Time of Service: 16:01 PT Notes Visit Reasons: Left Hip Fracture Physical Therapy Inpatient Treatment Note Date: 02/02/2022 Subjective: No report of pain throughout session.? Objective: Seated on bedside chair fiddling on acapella instrument which he thinks is a piece of metal that needed to be welded to another metal. Mental Status: Alert and oriented as to person.? Able to follow single-step commands. Pain: Denies Vital Signs: WNL as closely monitored by nursing staff Bed Mobility/Transfers: Sit to stand with hand-held assist Stand to sit with hand-held assist Bed to reclining chair with hand-held assist Gait: Instructed patient with level surface ambulation of up to 200 feet requiring hand-held assist of PT and stand by assist of another with moderate verbal cueing needed for safe/correct technique. Kiara increasing.? Step height increasing. Step length increasing.? Base width improved compared to this morning. THERA EX: 1. Worked on side stepping for about 30 feet to R and then to L to increase base width and minimize fall risk 2. Bilateral heel raises x 10 while holding onto patient's B hands 3. Partial knee bends x 10 while holding onto patient's B hands Balance: Static Sitting: Good Dynamic Sitting: Fair Static Standing: Fair Dynamic Standing: Poor Assessment: Overall,? patient appears to be increasingly consistent with functional mobility improvements as he is getting more familiar with this new environment and caregivers.? Much improved pain tolerance.? R foot tends to scissor onto the L which can increase fall risk.? Delayed initiation of movement and impaired movement transitioning continue to be limited due to pre-existing dementia, residual deficits from TBI, and Parkinsonism.? Will continue to require pre- medication for pain.? Needs moderate verbal cueing.? Goals: Goals X1 week 1. Supine-Sit independent NOT MET, CONTINUE 2. Sit-Supine independent NOT MET, CONTINUE 3. Sit-Stand contact guard assist NOT MET, CONTINUE 4. Stand-Sit contact guard assist NOT MET, CONTINUE 5. Bed-Chair contact guard assist NOT MET, CONTINUE 6. Chair-Bed contact guard assist NOT MET, CONTINUE 7. Contact guard assist for gait on level surface with use of FWW for at least 300 feet without report of pain nor dyspnea NOT MET, CONTINUE 8. Contact guard assist for stair negotiation while holding onto B rails for at least 5 steps without report of pain nor dyspnea NOT MET, CONTINUE 9.??NEW GOAL:? Patient will increase base width to at least 4 inches to reduce fall risk Plan of Care/Treatment Plan: 1-2x/day, 7 days/week x 1 week. Plan of care has been reviewed with the SERVICE STATION MANAGER providing the service under Physical Therapy direction. Continue with Physical Therapy intervention for pain management as needed, strengthening, bed mobility, transfers, gait, stairs, balance training, and use of assistive device. Emphasize activities that will increase B hip abduction strength to increase step width for a much more gait pattern. DISCHARGE RECOMMENDATIONS: [] ? Home with no services [] [] ? Home with services [specify] [] ? Home with outpatient PT [] [X] ? SNF for continued rehabilitation.? Patient will benefit from group home facility placement for continued skilled physical therapy services in order to progress mobility level, strength, and balance in preparation for a safe discharge to home. [] ? Director Nursing Service Care [] [] ? SNF versus LTC based on ability to participate and progress [] TREATMENT CODE/TIME: 81807 x 29 minutes beginning at 16:01 PM.
--- NOTE | 2022-02-02 17:08 | PGE_ITS ---
Date of Service Date of service: 02/02/22 Time of Service: 17:08 Assessment and Plan Assessment and plan (1) Subcapital fracture of neck of left femur: Status: Acute Assessment and plan: Post op day 7 left hip repair - ortho ok to discharge routine postop, only oral meds now. pain controlled (2) C. difficile colitis: Status: Acute Assessment and plan: vancomycin orally for 7 days (3) Atrial fibrillation with RVR: Status: Suspected Assessment and plan: in NSR. Beta monica continued. not anticoagulated, suspect d/t demented state with increased fall risk. (4) Hypomagnesemia: Status: Resolved Assessment and plan: 2.0 (5) Dementia: Status: Chronic Assessment and plan: safety precautions. (6) Abdominal wound dehiscence: Status: Chronic Assessment and plan: followed by surgical services - wound care orders per surgery healing by secondary intention surface culture obtained and growing MRSA, this is likely not true infection in setting of no fever, elevated white count etc. patient has history of mrsa and likely colonized and contaminant. will not start antibiotics at this time as patient with c diff colitis. will defer to surgery (7) GERD (gastroesophageal reflux disease): Status: Chronic Assessment and plan: stable, continue PPI. (8) DVT prophylaxis: Status: Acute Assessment and plan: Enoxaparin (9) Discharge planning issues: Status: Acute Assessment and plan: Family refusing to take him home - seeking placement for rehab discussed with Dr. Flynn Subjective Subjective Patient reports: no new complaints, tolerating liquids well, tolerating a regular diet and afebrile Interval history since last seen: re-ambulated and sitting up in chair without difficulty Exam Const General: no acute distress, anxious, combative and frail appearing Nutritional Appearance: average body habitus Orientation: alert and awake Limitations: other limitations (dementia) [facility] Head: normal to inspection and atraumatic Mouth: oral mucosae normal Eyes General: appearance normal, both eyes and all related structures Neck Neck: normal visual inspection Chest Chest: normal inspection of the chest Resp Effort & Inspection: normal respiratory effort, able to speak in complete sentences, no audible wheezes, no cough, not labored, no nasal flaring, no retractions and no tracheal deviation Auscultation: clear to auscultation bilaterally Cardio Rate: regular rate Rhythm: regular rhythm Heart Sounds: no murmurs GI Inspection: incision (open wound midline abd, wound bed with good granulation tissue, scant sloug) Palpation: soft, no hepatosplenomegaly, no guarding and no pulsatile masses Percussion: dullness to percussion Auscultation: hyperactive bowel sounds Rectal Exam: deferred Skin General skin exam: no rashes or lesions noted Lesions: lesion noted (midline abdomen, old surgical wound dehiscence, healing by secondary intent) and other (surgical dressing clean and dry, no surrounding erythema) Rashes: no rashes (no surrounding erythema or sign of infection noted. ) Neuro General: patient alert Cranial Nerves: CN's II-XI intact bilaterally and PERRL Cognition: abnormal cognition Speech: abnormal speech Extrem General: no pedal edema Psych Speech and Movement: agitated and restless Objective Last Vital Signs Temp 38.7 C H 02/02/22 15:31 Pulse 99 H 02/02/22 15:31 Resp 18 02/02/22 15:31 BP 137/90 02/02/22 15:31 Pulse Ox 99 02/02/22 15:31 Laboratory Results - last 24 hr 02/02/22 09:00 Sodium 139 Potassium 3.4 L Chloride 106 Carbon Dioxide 24.9 Anion Gap 8.1 BUN 15 Creatinine 1.0 Est GFR (CKD-EPI 2020) 81.98 Glucose 129 H Calcium 8.8
[2022-02-02 18:33] VITALS: TEMP 37.1
[2022-02-02] MEDS: Melatonin 3 MG TAB PO (21:58)
[2022-02-02] MEDS: Mirtazapine 15 MG TAB 7.5 MG PO (21:58)
[2022-02-02] MEDS: LORazepam 0.5 MG TAB PO (21:59)
[2022-02-02 23:06] VITALS: BP 152/84; PULSE 80; RESP 16; TEMP 37; O2SAT 96
[2022-02-03] MEDS: Vancomycin 125 MG CAP PO ×2 (00:32→05:56)
[2022-02-03] MEDS: oxyCODONE 5 MG TAB PO (02:31)
[2022-02-03] MEDS: diphenhydrAMINE 25 MG CAP PO (02:32)
[2022-02-03 07:03] LABS: Abs Immature Grans 0.25 10^3/uL (0.0-0.06); Absolute Basophil Count 0.02 10^3/uL (0.0-0.2); Absolute Eosinophil Count 0.37 10^3/uL (0.0-0.7); Absolute Lymphocyte Count 1.25 10^3/uL (1.2-3.4); Absolute Monocyte Count 0.94 10^3/uL (0.1-0.8); Absolute Neutrophil Count 5.65 10^3/uL (1.2-6.7); Basophils % 0.2; Eosinophils % 4.4; HCT 27.3 % (40.0-50.0); HGB 8.8 g/dL (13.5-17.5); Immature Grans % 2.9; Lymphocytes % 14.7; MCH 26.4 pg (27.0-33.0); MCHC 32.2 % (32.0-36.0); MCV 82 fL (80-95); MPV 9.1 fL (8.0-11.0); Monocytes % 11.1; Neutrophils % 66.7; Platelet Count 465 10^3/uL (130-400); RBC 3.33 10^6/uL (4.36-5.78); RDW 14.8 % (11.8-14.1); RDW-SD 42.4 fL; WBC 8.48 10^3/uL (4.4-10.8)
[2022-02-03 07:13] LABS: Anion Gap 6.4 mmol/L (3-11); BUN 15 mg/dL (7-18); CO2 26.6 mmol/L (21.0-32.0); CREATININE 0.9 mg/dL (0.70-1.30); Calcium 8.5 mg/dL (8.5-10.1); Chloride 105 mmol/L (98-107); Estimated GFR 93.03 (mL/min/1.73m2); Glucose 100 mg/dL (74-106); Potassium 3.9 mmol/L (3.5-5.1); Sodium 138 mmol/L (136-145)
[2022-02-03 08:30] VITALS: BP 139/81; PULSE 83; RESP 16; TEMP 37; O2SAT 99
[2022-02-03] MEDS: Metoprolol CR 25 MG TABCR 12.5 MG PO (10:21)
[2022-02-03] MEDS: Protein Nutritional Supplement 16 GM 1 OUNCE PACKET PO ×3 (10:21→20:18)
[2022-02-03] MEDS: Pantoprazole 40 MG TABCR PO (10:21)
[2022-02-03] MEDS: Acetaminophen 325 MG TAB 650 MG PO ×4 (10:21→20:18)
[2022-02-03] MEDS: Enoxaparin 40 MG/0.4 ML SYR SC (10:22)
[2022-02-03] MEDS: Potassium Chloride 20 MEQ TABCR PO ×2 (10:22→20:18)
--- NOTE | 2022-02-03 11:35 | PHA.REVIEW2 ---
Pharmacy Admission Review - Admission Clinical Review (Last Reviewed 01/25/22 @ 13:03 by Maurice Junior MD) Palliative care status (Acute) C. difficile colitis (Acute) DVT prophylaxis (Acute) Discharge planning issues (Acute) Subcapital fracture of neck of left femur (Acute) No Known Allergies Allergy (Verified 01/24/22 14:42) Resuscitation Status DNR/DNI Height 5 ft 8 in Weight 79.3 kg - Renal Dosing Renal Dosing: BUN 15 mg/dL (7-18) 02/03/22 06:40 Creatinine 0.9 mg/dL (0.70-1.30) 02/03/22 06:40 Medications needing adjustments: Reviewed (crcl = 79, no adjustments needed) - Anticoagulation Anticoagulation: Hgb 8.8 g/dL (13.5-17.5) L 02/03/22 06:40 Hct 27.3 % (40.0-50.0) L 02/03/22 06:40 Plt Count 465 10^3/uL (130-400) H 02/03/22 06:40 Creatinine 0.9 mg/dL (0.70-1.30) 02/03/22 06:40 DVT Prophylaxis: Reviewed Medications: Enoxaparin (enoxaparin 40 mg daily) Therapeutic Anticoagulation: N/A (pt does have Afib but is not anticoagulated d/t fall risk) - Opiate Usage Evaluate Pain Scale/Pains Meds: Reviewed (oxycodone 5 mg q6h prn, using sparingly - 3 doses received over the past 3 days) Scheduled Bowel Reg ordered if on Opiates?: No (pt has diarrhea (cdif)) - Relevant Labs Sodium 138 mmol/L (136-145) 02/03/22 06:40 Potassium 3.9 mmol/L (3.5-5.1) 02/03/22 06:40 Chloride 105 mmol/L (98-107) 02/03/22 06:40 Magnesium 1.9 mg/dL (1.8-2.4) 02/01/22 07:05 Electrolytes, C-Reactive P, ESR: Reviewed - DM Control DM Control: Glucose 100 mg/dL (74-106) 02/03/22 06:40 DM Control: N/A - Cardiac Review BP, HR, EF%: Reviewed (BP & HR WNL. on toprol XL 12.5 mg daily) - Qtc Review QTc: Reviewed (last EKG from 09/23/21 (QTc = 444)) - IV to PO Switch IV Medications: Reviewed (IV tylenol dc'd, no other IV's ordered) - Home Meds Home Med List reviewed: Reviewed (relevant home meds are ordered - metoprolol,pantoprazole (vit B12 not ordered)) - Current meds Current Medication Order Review: Reviewed Comments: Dr. Peguero aware of interaction between vancomycin & questran, will schedule questran to be given @1400 daily, between vanco dosing. Probiotic also added today to help w/diarrhea Antibiotic Activity - Pharmacy Antibiotic Review Pharmacy Antibiotic Activity: 48 hour review - Antibiotic Information Antibiotic Review Info: c.dif +: oral vancomycin ordered q6h (increased from 125 to 250 mg today). Swab of abdominal wound did result MRSA + however pt has a history and is likely colonized - white count normal, no fevers
[2022-02-03] MEDS: Vancomycin 125 MG CAP 250 MG PO ×3 (12:46→23:44)
[2022-02-03] MEDS: Cholestyramine/Aspartame PKT 1 EACH PO (14:14)
--- NOTE | 2022-02-03 15:11 | W.PM.PROGNOT ---
Date of Service Date of service: 02/03/22 Time of Service: 15:12 Assessment and Plan Assessment and plan (1) C. difficile colitis: Status: Acute Assessment and plan: Increase vancomycin PO to 250 mg Q6hrs. Add probiotics. (2) Subcapital fracture of neck of left femur: Status: Acute Assessment and plan: POD 8 left hip repair. Pain is controlled. Continue PT. (3) Atrial fibrillation with RVR: Status: Suspected Assessment and plan: Paroxysmal. No longer on cardiac monitoring. Clinically, in NSR. Continue beta blockers. No full anticoagulation due to increased fall risk. (4) Hypomagnesemia: Status: Resolved Assessment and plan: Recheck in am (5) Dementia: Status: Chronic Assessment and plan: safety precautions. Behaviors have been well controlled. (6) Abdominal wound dehiscence: Status: Chronic Assessment and plan: followed by surgical services as outpatient and here. Continue would care per surgical recommendations. 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 (9) Discharge planning issues: Status: Acute Assessment and plan: Awaiting SNF placement DNR/DNI Palliative care consulted Subjective Subjective Interval history since last seen: Marcial states that he is doing well. He states his L hip hurts when it is stretched, but it does not hurt when he is sitting in a chair. He denies Dizziness, chest discomfort, shortness of breath, nausea. Per nursing, no BMs today. T max 38.7 yesterday at 3:30 pm. Afebrile since. Behaviors are well controlled. Exam Narrative Exam Narrative: General: Pleasant male who is sitting up in a chair, A&Ox1, appears comfortable, cooperative, answering most, but not all questions HEENT: EOMI, MMM Heart: RRR, no m/r/g Lungs: dressing L hip c/d/i Abdomen: soft, nontender, nondistended Extremities: no edema BLEs, trace pedal pulses Objective Last Vital Signs Temp 37.0 C 02/03/22 08:30 Pulse 83 02/03/22 08:30 Resp 16 02/03/22 08:30 BP 139/81 02/03/22 08:30 Pulse Ox 99 02/03/22 08:30 Laboratory Results - last 24 hr 02/03/22 02/03/22 06:40 06:40 WBC 8.48 RBC 3.33 L Hgb 8.8 L Hct 27.3 L MCV 82 MCH 26.4 L MCHC 32.2 RDW 14.8 H Plt Count 465 H MPV 9.1 Immature Gran % 2.9 Neutrophils % 66.7 Lymphocytes % 14.7 Monocytes % 11.1 Eosinophils % 4.4 Basophils % 0.2 Nucleated RBC % 0.0 Absolute Neutrophils 5.65 Absolute Lymphocytes 1.25 Absolute Monocytes 0.94 H Absolute Eosinophils 0.37 Absolute Basophils 0.02 Sodium 138 Potassium 3.9 Chloride 105 Carbon Dioxide 26.6 Anion Gap 6.4 BUN 15 Creatinine 0.9 Est GFR (CKD-EPI 2020) 93.03 Glucose 100 Calcium 8.5
[2022-02-03 15:37] VITALS: BP 145/79; PULSE 93; RESP 18; TEMP 37.2; O2SAT 99
[2022-02-03 17:58] LABS: Bilirubin Negative (Negative); Blood Trace-intact (Negative); Clarity Clear (Clear); Glucose Negative (Negative); Ketones Negative (Negative); Leukocyte Esterase Negative (Negative); Nitrite Negative (Negative); Specific Gravity >= 1.030 (1.005-1.025); Urobilinogen 0.2 EU/dL (Up TO 0.2)
[2022-02-03 18:12] LABS: WBC 0-2 HPF (0-5)
[2022-02-03 18:13] LABS: Bacteria Negative HPF (Negative); C & S Indicated? No; Casts Negative LPF (Negative); Crystals Mod Calcium Oxalate HPF (Negative); Epithelial Cells Rare HPF (Negative); Mucus Trace (Negative)
[2022-02-03] MEDS: Mirtazapine 15 MG TAB 7.5 MG PO (21:10)
[2022-02-03] MEDS: Normal Saline Flush 10 ML SYR IVP (21:10)
[2022-02-03] MEDS: Melatonin 3 MG TAB PO (21:10)
[2022-02-04] MEDS: Vancomycin 125 MG CAP 250 MG PO ×3 (05:33→17:21)
[2022-02-04 07:34] LABS: Abs Immature Grans 0.21 10^3/uL (0.0-0.06); Absolute Basophil Count 0.03 10^3/uL (0.0-0.2); Absolute Lymphocyte Count 1.29 10^3/uL (1.2-3.4); Absolute Monocyte Count 0.74 10^3/uL (0.1-0.8); Absolute Neutrophil Count 5.16 10^3/uL (1.2-6.7); Basophils % 0.4; Eosinophils % 3.9; HCT 29.5 % (40.0-50.0); HGB 9.4 g/dL (13.5-17.5); Immature Grans % 2.7; Lymphocytes % 16.7; MCH 26.3 pg (27.0-33.0); MCHC 31.9 % (32.0-36.0); MCV 83 fL (80-95); MPV 9.2 fL (8.0-11.0); Monocytes % 9.6; Neutrophils % 66.7; Platelet Count 516 10^3/uL (130-400); RBC 3.57 10^6/uL (4.36-5.78); RDW 14.9 % (11.8-14.1); RDW-SD 44.1 fL; WBC 7.73 10^3/uL (4.4-10.8)
[2022-02-04] MEDS: Enoxaparin 40 MG/0.4 ML SYR SC (07:54)
[2022-02-04] MEDS: Protein Nutritional Supplement 16 GM 1 OUNCE PACKET PO ×3 (07:54→20:40)
[2022-02-04] MEDS: Normal Saline Flush 10 ML SYR IVP ×2 (07:54→20:40)
[2022-02-04] MEDS: Acetaminophen 325 MG TAB 650 MG PO ×4 (07:55→20:39)
[2022-02-04] MEDS: Potassium Chloride 20 MEQ TABCR PO ×2 (07:55→20:40)
[2022-02-04] MEDS: Pantoprazole 40 MG TABCR PO (07:55)
[2022-02-04] MEDS: Metoprolol CR 25 MG TABCR 12.5 MG PO (07:55)
[2022-02-04] MEDS: Multivitamin w/Minerals TAB 1 TAB PO (07:58)
[2022-02-04 08:01] LABS: Anion Gap 6.2 mmol/L (3-11); BUN 16 mg/dL (7-18); CO2 26.8 mmol/L (21.0-32.0); Calcium 8.7 mg/dL (8.5-10.1); Chloride 105 mmol/L (98-107); Estimated GFR 81.98 (mL/min/1.73m2); Glucose 97 mg/dL (74-106); Magnesium 1.8 mg/dL (1.8-2.4); Potassium 4.4 mmol/L (3.5-5.1); Sodium 138 mmol/L (136-145)
[2022-02-04 08:07] VITALS: BP 130/68; PULSE 87; RESP 18; TEMP 36.3; O2SAT 96
[2022-02-04 08:33] LABS: Lab Add On Test DONE
[2022-02-04 09:00] LABS: Iron 20 ug/dL (65-175); Total Iron Binding Capacity 258 ug/dL (250-450)
[2022-02-04 09:15] LABS: Ferritin 82 ng/mL (26-388); Folate 17.4 ng/mL (8.6-20.0); Vitamin B12 770 pg/mL (193-986)
--- NOTE | 2022-02-04 09:16 | PDOC.CMPRO ---
- If Service Date Differs Date of service: 02/04/22 Time of Service: 09:16 Care Management Progress Note S/O: was sitting up in a chair when CM met with him. He was pleasant in interaction but remains confused. He stated he was feeling OK. When asked how his diarrhea was he said OK, do you want some? He ambulated in the hallway with PT and a nurse this afternoon. He appeared to require quite a bit of support. His gait was unsteady and his foot placement seemed awkward. continues to wait for placement and/or for his senior care Medicaid to be approved. MIGUEL ANGEL contacted his insurance company on Monday seeking prior authorization for a swingbed stay as he no longer requires acute care. The form was submitted but no reply was received and a follow up phone call revealed that they will be closed until Monday. A: is a 66 year old man admitted on 01/24/22 with a fractures femur P: will most likely need short term rehab in a SNF prior to returning home or going to another facility. Referrals have been sent but no bed offers received. will need to transition to SB status and a request was submitted to his insurance company ([facility]) for a prior authorization. He will follow up with the facility providers and plan of care. Transportation will be determined by disposition. CM will continue to support and his family and assess for ongoing discharge concerns.
[2022-02-04] MEDS: Cholestyramine/Aspartame PKT 1 EACH PO (13:49)
[2022-02-04 14:13] VITALS: BP 145/83; PULSE 89; RESP 20; TEMP 37.2; O2SAT 100
--- NOTE | 2022-02-04 14:25 | PTTR_ITS ---
Date of service: 02/04/22 Time of Service: 14:25 PT Notes Visit Reasons: Left Hip Fracture Physical Therapy Inpatient Treatment Note Date: 02/03/2022 Subjective: Verbalized minimal pain in L LE with weight bearing. Objective: Seated on bedside chair. Mental Status: Alert and oriented as to person.? Able to follow single-step commands. Pain: Denies Vital Signs: WNL as closely monitored by nursing staff Bed Mobility/Transfers: Sit to stand with hand-held assist Stand to sit with hand-held assist Bed to reclining chair with hand-held assist Gait: Instructed patient with level surface ambulation of up to 50 feet in the AM and 200 feet in the PM requiring hand-held assist of PT in the AM and hand held assist of PT and Nurse Cheyanne in the PM moderate verbal cueing needed for safe/correct technique.? Kiara increasing.? Step height increasing. Step length increasing.? Base width improved. THERA EX: 1.? Continued to work on side stepping for about 30 feet to R and then to L to increase base width and minimize fall risk 2.? Bilateral heel raises x 10 while holding onto patient's B hands 3.? Partial knee bends x 10 while holding onto patient's B hands Balance: Static Sitting: Good Dynamic Sitting: Fair Static Standing: Fair Dynamic Standing: Poor Assessment: Step width improving with less instance of R foot scissorring with the L. Did report pain in L hip with weight bearing which Nurse Cheyanne is aware of. Needs moderate verbal cueing for correct technique and safety. Overall,? patient appears to be increasingly consistent with functional mobility improvements as he is getting more familiar with this new environment and caregivers.? R foot tends to scissor onto the L which can increase fall risk.? 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 Will continue to require pre-medication for pain.? DISCHARGE RECOMMENDATIONS: [] ? Home with no services [] [] ? Home with services [specify] [] ? Home with outpatient PT [] [X] ? SNF for continued rehabilitation.? Patient will benefit from [facility] facility placement for continued skilled physical therapy services in order to progress mobility level, strength, and balance in preparation for a safe discharge to home. [] ? [facility] [] [] ? SNF versus LTC based on ability to participate and progress [] TREATMENT CODE/TIME: Session 1--62679 x 35 minutes beginning at 10:40 AM. Session 2--9753 0 x 15 minutes, 9711 0 x 10 minutes beginning at 14:25 PM.
--- NOTE | 2022-02-04 16:49 | W.PM.PROGNOT ---
Date of Service Date of service: 02/04/22 Time of Service: 16:50 Assessment and Plan Assessment and plan (1) C. difficile colitis: Status: Acute Assessment and plan: continue vancomycin PO to 250 mg Q6hrs. Add probiotics. (2) Subcapital fracture of neck of left femur: Status: Acute Assessment and plan: POD 9 left hip repair. Pain is controlled. Continue PT. (3) Atrial fibrillation with RVR: Status: Suspected Assessment and plan: Paroxysmal. No longer on cardiac monitoring. Clinically, in NSR. Continue beta blockers. No full anticoagulation due to increased fall risk. (4) Hypomagnesemia: Status: Resolved Assessment and plan: repleted (5) Dementia: Status: Chronic Assessment and plan: safety precautions. Behaviors have been well controlled. (6) Abdominal wound dehiscence: Status: Chronic Assessment and plan: followed by surgical services as outpatient and here. Continue would care per surgical recommendations. 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 (9) Discharge planning issues: Status: Acute Assessment and plan: Awaiting SNF placement DNR/DNI Palliative care consulted discussed with DR Jones Subjective Subjective Patient reports: tolerating liquids well, tolerating a regular diet, diarrhea and afebrile Interval history since last seen: remains pleasantly demented, no behavioral issues overnight. Exam Const General: no acute distress, anxious, combative and frail appearing Nutritional Appearance: average body habitus Orientation: alert and awake Limitations: other limitations (dementia) [facility] Head: normal to inspection and atraumatic Mouth: oral mucosae normal Eyes General: appearance normal, both eyes and all related structures Neck Neck: normal visual inspection Chest Chest: normal inspection of the chest Resp Effort & Inspection: normal respiratory effort and no cough Auscultation: clear to auscultation bilaterally Cardio Rate: regular rate Rhythm: regular rhythm Heart Sounds: no murmurs GI Inspection: incision (open wound midline abd, wound bed with good granulation tissue, scant sloug) Palpation: soft and no guarding Skin General skin exam: no rashes or lesions noted Lesions: lesion noted (midline abdomen, old surgical wound dehiscence, healing by secondary intent) and other (surgical dressing clean and dry, no surrounding erythema) Rashes: no rashes (no surrounding erythema or sign of infection noted. ) Neuro General: patient alert Cognition: abnormal cognition Speech: abnormal speech Extrem General: no pedal edema Psych Speech and Movement: agitated and restless Objective Last Vital Signs Temp 37.2 C 02/04/22 14:13 Pulse 89 02/04/22 14:13 Resp 20 02/04/22 14:13 BP 145/83 H 02/04/22 14:13 Pulse Ox 100 02/04/22 14:13 Laboratory Results - last 24 hr 02/03/22 02/04/22 02/04/22 17:45 06:45 06:45 WBC 7.73 RBC 3.57 L Hgb 9.4 L Hct 29.5 L MCV 83 MCH 26.3 L MCHC 31.9 L RDW 14.9 H Plt Count 516 H MPV 9.2 Immature Gran % 2.7 Neutrophils % 66.7 Lymphocytes % 16.7 Monocytes % 9.6 Eosinophils % 3.9 Basophils % 0.4 Nucleated RBC % 0.0 Absolute Neutrophils 5.16 Absolute Lymphocytes 1.29 Absolute Monocytes 0.74 Absolute Eosinophils 0.30 Absolute Basophils 0.03 Sodium 138 Potassium 4.4 Chloride 105 Carbon Dioxide 26.8 Anion Gap 6.2 BUN 16 Creatinine 1.0 Est GFR (CKD-EPI 2020) 81.98 Glucose 97 Calcium 8.7 Magnesium 1.8 Iron TIBC Ferritin Vitamin B12 Folate Urine Color Yellow Urine Clarity Clear Urine pH 6.0 Ur Specific [place] >= 1.030 H Urine Protein Trace H Urine Ketones Negative Urine Blood Trace-intact H Urine Nitrite Negative Urine Bilirubin Negative Urine Urobilinogen 0.2 Ur Leukocyte Esterase Negative Urine RBC 3-5 H Urine WBC 0-2 Ur Epithelial Cells Rare Urine Crystals Mod Calcium Oxalate Urine Bacteria Negative Urine Casts Negative Urine Mucus Trace Ur Culture Indicated? No Urine Glucose Negative Add-On Test Request 02/04/22 02/04/22 02/04/22 06:45 06:45 06:45 WBC RBC Hgb Hct MCV MCH MCHC RDW Plt Count MPV Immature Gran % Neutrophils % Lymphocytes % Monocytes % Eosinophils % Basophils % Nucleated RBC % Absolute Neutrophils Absolute Lymphocytes Absolute Monocytes Absolute Eosinophils Absolute Basophils Sodium Potassium Chloride Carbon Dioxide Anion Gap BUN Creatinine Est GFR (CKD-EPI 2020) Glucose Calcium Magnesium Iron 20 L TIBC 258 Ferritin 82 Vitamin B12 770 Folate 17.4 Urine Color Urine Clarity Urine pH Ur Specific [place] Urine Protein Urine Ketones Urine Blood Urine Nitrite Urine Bilirubin Urine Urobilinogen Ur Leukocyte Esterase Urine RBC Urine WBC Ur Epithelial Cells Urine Crystals Urine Bacteria Urine Casts Urine Mucus Ur Culture Indicated? Urine Glucose Add-On Test Request DONE
[2022-02-04] MEDS: diphenhydrAMINE 25 MG CAP PO (21:52)
[2022-02-04] MEDS: Melatonin 3 MG TAB PO (21:53)
[2022-02-04] MEDS: Mirtazapine 15 MG TAB 7.5 MG PO (21:53)
[2022-02-04 23:30] VITALS: BP 137/72; PULSE 89; RESP 20; TEMP 37.1; O2SAT 98
[2022-02-05] MEDS: Vancomycin 125 MG CAP 250 MG PO ×3 (01:20→17:16)
[2022-02-05] MEDS: Normal Saline Flush 10 ML SYR IVP (09:05)
[2022-02-05] MEDS: Protein Nutritional Supplement 16 GM 1 OUNCE PACKET PO ×3 (09:06→19:48)
[2022-02-05] MEDS: Potassium Chloride 20 MEQ TABCR PO ×2 (09:06→19:48)
[2022-02-05] MEDS: Multivitamin w/Minerals TAB 1 TAB PO (09:06)
[2022-02-05] MEDS: Enoxaparin 40 MG/0.4 ML SYR SC (09:06)
[2022-02-05] MEDS: Metoprolol CR 25 MG TABCR 12.5 MG PO (09:06)
[2022-02-05] MEDS: Acetaminophen 325 MG TAB 650 MG PO ×4 (09:07→19:48)
[2022-02-05] MEDS: Pantoprazole 40 MG TABCR PO (09:07)
[2022-02-05 09:23] VITALS: BP 135/82; PULSE 51; RESP 18; TEMP 36.7; O2SAT 94
--- NOTE | 2022-02-05 11:34 | PT.INTREAT ---
PT Notes Visit Reasons: Left Hip Fracture Inpatient Physical Therapy Treatment Note [facility] Date: 02/05/22 SUBJECTIVE: pt very concerned about metal scraping. He had his sock off and trying to wrap cord of call granados in it. Very confused this am. He was alert to person only. OBJECTIVE: [] BED MOBILITY/TRANSFERS Sit-stand:CGA Stand-sit: CGA GAIT Assistive Device: INVESTMENT SALES ASSISTANT of 1. Weight bearing: AT Assist:CGA Distance: approx 120' Deviation: pt kept reaching for any object in his path. shortened stride length and decreased jalen. Occasionally scissored gait. THEREX: attempted a basic chair ex for LE however he was unable to follow directions. ASSESSMENT: tolerated ambulation fair. He would do better with another person to hold his hand to keep it occupied vs reaching for objects in [place]. PLAN:will continue to progress his strength and functional mobility to tolerance following PT POC. TREATMENT CODE/TIME: 20 min. [id number]
--- NOTE | 2022-02-05 11:39 | PGE_ITS ---
Date of Service Date of service: 02/05/22 Time of Service: 11:39 Assessment and Plan Assessment and plan (1) C. difficile colitis: Status: Acute Assessment and plan: continue vancomycin PO to 250 mg Q6hrs. Add probiotics. (2) Subcapital fracture of neck of left femur: Status: Acute Assessment and plan: POD 9 left hip repair. Pain is controlled. Continue PT. (3) Atrial fibrillation with RVR: Status: Suspected Assessment and plan: Paroxysmal. No longer on cardiac monitoring. Clinically, in NSR. Continue beta blockers. No full anticoagulation due to increased fall risk. (4) Hypomagnesemia: Status: Resolved Assessment and plan: repleted (5) Dementia: Status: Chronic Assessment and plan: safety precautions. Behaviors have been well controlled. (6) Abdominal wound dehiscence: Status: Chronic Assessment and plan: followed by surgical services as outpatient and here. Continue would care per surgical recommendations. 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 (9) Discharge planning issues: Status: Acute Assessment and plan: Awaiting SNF placement DNR/DNI Palliative care consulted discussed with DR Jones Exam Const General: no acute distress, anxious, combative and frail appearing Nutritional Appearance: average body habitus Orientation: alert and awake Limitations: other limitations (dementia) [facility] Head: normal to inspection and atraumatic Mouth: oral mucosae normal Eyes General: appearance normal, both eyes and all related structures Neck Neck: normal visual inspection Chest Chest: normal inspection of the chest Resp Effort & Inspection: normal respiratory effort and no cough Auscultation: clear to auscultation bilaterally Cardio Rate: regular rate Rhythm: regular rhythm Heart Sounds: no murmurs GI Inspection: incision (open wound midline abd, wound bed with good granulation tissue, scant sloug) Palpation: soft and no guarding Skin General skin exam: no rashes or lesions noted Lesions: lesion noted (midline abdomen, old surgical wound dehiscence, healing by secondary intent) and other (surgical dressing clean and dry, no surrounding erythema) Rashes: no rashes (no surrounding erythema or sign of infection noted. ) Neuro General: patient alert Cognition: abnormal cognition Speech: abnormal speech Extrem General: no pedal edema Psych Speech and Movement: agitated and restless Objective Last Vital Signs Temp 36.7 C 02/05/22 09:23 Pulse 51 L 02/05/22 09:23 Resp 18 02/05/22 09:23 BP 135/82 02/05/22 09:23 Pulse Ox 94 02/05/22 09:23
[2022-02-05] MEDS: Cholestyramine/Aspartame PKT 1 EACH PO (13:47)
[2022-02-05 13:49] VITALS: BP 106/71; PULSE 98; RESP 18; TEMP 37.1; O2SAT 98
[2022-02-05 23:20] VITALS: BP 132/77; PULSE 85; RESP 19; TEMP 36.9; O2SAT 98
[2022-02-06 06:50] VITALS: BP 122/76; PULSE 91; RESP 24; TEMP 36.7; O2SAT 98
[2022-02-06] MEDS: Enoxaparin 40 MG/0.4 ML SYR SC (08:20)
[2022-02-06] MEDS: Protein Nutritional Supplement 16 GM 1 OUNCE PACKET PO ×3 (08:21→21:03)
[2022-02-06] MEDS: Potassium Chloride 20 MEQ TABCR PO ×2 (08:22→21:04)
[2022-02-06] MEDS: Acetaminophen 325 MG TAB 650 MG PO ×4 (08:22→21:04)
[2022-02-06] MEDS: Pantoprazole 40 MG TABCR PO (08:22)
[2022-02-06] MEDS: Metoprolol CR 25 MG TABCR 12.5 MG PO (08:23)
[2022-02-06] MEDS: Multivitamin w/Minerals TAB 1 TAB PO (08:23)
--- NOTE | 2022-02-06 09:50 | PGE_ITS ---
Date of Service Date of service: 02/06/22 Time of Service: 09:50 Assessment and Plan Assessment and plan (1) C. difficile colitis: Status: Acute Assessment and plan: continue vancomycin PO to 250 mg Q6hrs for 10 days - this is day 7 - should end after Monday's last dose 02/08/2022 , consider 14 days for delayed response for treatment and probiotics (2) Subcapital fracture of neck of left femur: Status: Acute Assessment and plan: POD 10 lefft hip repair. Pain is controlled. Continue PT. (3) Atrial fibrillation with RVR: Status: Suspected Assessment and plan: Paroxysmal. No longer on cardiac monitoring. Clinically, in NSR. Continue beta blockers. No full anticoagulation due to increased fall risk. (4) Hypomagnesemia: Status: Resolved Assessment and plan: normal (5) Dementia: Status: Chronic Assessment and plan: safety precautions. Behaviors have been well controlled. (6) Abdominal wound dehiscence: Status: Chronic Assessment and plan: followed by surgical services as outpatient and here. Continue would care per surgical recommendations. 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 (9) Discharge planning issues: Status: Acute Assessment and plan: Awaiting SNF placement DNR/DNI Palliative care did see him 01/31/[address] Jones Subjective Subjective Patient reports: no new complaints, pain is less, tolerating a regular diet, bowel movement and afebrile; denies flatus, diarrhea, blood in stool, vomiting or shortness of breath Exam Const General: no acute distress, anxious, combative and frail appearing Nutritional Appearance: average body habitus Orientation: alert and awake Limitations: other limitations (dementia) [facility] Head: normal to inspection and atraumatic Mouth: oral mucosae normal Eyes General: appearance normal, both eyes and all related structures Neck Neck: normal visual inspection Chest Chest: normal inspection of the chest Resp Effort & Inspection: normal respiratory effort and no cough Auscultation: clear to auscultation bilaterally Cardio Rate: regular rate Rhythm: regular rhythm Heart Sounds: no murmurs GI Inspection: incision (open wound midline abd, wound bed with good granulation tissue, scant sloug) Palpation: soft and no guarding Skin General skin exam: no rashes or lesions noted Lesions: lesion noted (midline abdomen, old surgical wound dehiscence, healing by secondary intent) and other (surgical dressing clean and dry, no surrounding erythema) Rashes: no rashes (no surrounding erythema or sign of infection noted. ) Neuro General: patient alert Cognition: abnormal cognition Speech: abnormal speech Extrem General: no pedal edema Psych Speech and Movement: agitated and restless Objective Last Vital Signs Temp 36.7 C 02/06/22 06:50 Pulse 91 H 02/06/22 06:50 Resp 24 02/06/22 06:50 BP 122/76 02/06/22 06:50 Pulse Ox 98 02/06/22 06:50
[2022-02-06 11:45] VITALS: BP 111/60; PULSE 97; RESP 18; TEMP 36.9; O2SAT 99
[2022-02-06] MEDS: Vancomycin 125 MG CAP 250 MG PO ×2 (11:58→17:56)
--- NOTE | 2022-02-06 12:06 | PTTR_ITS ---
PT Notes Visit Reasons: Left Hip Fracture Inpatient Physical Therapy Treatment Note [facility] Date: 02/06/22 SUBJECTIVE: Marcial is agreeable to a walk this am, but is very upset with his boss. He can't make me doing anything. im going to concetta him. Very argumentative this am. OBJECTIVE: [] BED MOBILITY/TRANSFERS Sit-stand: CGA x2 Stand-sit:CGAx2 GAIT Assistive Device: CREDIT SUPPORT SPECIALIST x2 Weight bearing: AT left Assist: CGA Distance: approx 150' Deviation: short stride length and decreased jalen. TOILETED: with A x2. ASSESSMENT: required many cues and encouragement to keep him engaged and going. He really just wanted to argue with everything this am. Agitated. PLAN: will continue to work on his strength and functional mobility following PT POC. TREATMENT CODE/TIME: 25 min [id number]
[2022-02-06] MEDS: Cholestyramine/Aspartame PKT 1 EACH PO (14:13)
[2022-02-06 15:20] VITALS: BP 133/70; PULSE 92; RESP 18; TEMP 37.1; O2SAT 98
[2022-02-06] MEDS: Mirtazapine 15 MG TAB 7.5 MG PO (21:03)
[2022-02-06] MEDS: Melatonin 3 MG TAB PO (21:04)
[2022-02-06] MEDS: LORazepam 0.5 MG TAB PO (23:47)
[2022-02-07] MEDS: diphenhydrAMINE 25 MG CAP PO (00:09)
[2022-02-07] MEDS: Vancomycin 125 MG CAP 250 MG PO ×4 (00:10→23:05)
--- NOTE | 2022-02-07 08:05 | W.PALPGNOTE ---
Date of service: 02/07/22 Time of Service: 08:06 Assessment and Plan Assessment and plan (1) C. difficile colitis: Status: Acute (2) Discharge planning issues: Status: Acute (3) Subcapital fracture of neck of left femur: Status: Acute (4) Palliative care status: Status: Acute Assessment and plan: I did speak with nursing about his pain. This I think is the source of his discomfort. They are going to give him some morphine 2 mg subcu. I did speak with Dr. Ware about this. He was not taking oral medication this morning. He does not have an IV and I do not see a reason to put an IV in him I spoke to his sister Zaynab who does feel that he is a little bored and still is agitated. She is hopeful that he will be able to be moved to a jail situation so that he can settle in and have more activity. Care management was going to look into more activity. Perhaps even just having him sit in a chair near the nurses station would be good. Per staff mirtazapine is working well. Subjective Subjective Interval history since last seen: Gabino is lying in his bed. He looks to be in distress with wrinkle forehead. I did ask him if he was in pain and he said he was. He said his hip hurt. Staff related that he was not as comfortable as he had been. He had some agitation overnight. They do feel that he is doing much better on the mirtazapine. It is now mostly a placement issue. Exam Narrative Exam Narrative: He definitely looks uncomfortable with the furloughed brow. He does allow me to move his hip and he states that it hurts. His heart is regular. Lungs not a lot of cooperation with the exam but did not hear any rales. He looks slightly agitated today Objective Last Vital Signs Temp 98.8 F 02/06/22 15:20 Pulse 92 H 02/06/22 15:20 Resp 18 02/06/22 15:20 BP 133/70 02/06/22 15:20 Pulse Ox 98 02/06/22 15:20
[2022-02-07] MEDS: MORPHine 2 MG/ML SYR SC (08:09)
[2022-02-07 08:22] VITALS: BP 125/78; PULSE 102; RESP 17; TEMP 37.1; O2SAT 96
--- NOTE | 2022-02-07 08:48 | CMPROGNOTE_ITS ---
- If Service Date Differs Date of service: 02/07/22 Time of Service: 08:48 Care Management Progress Note S/O: required PRN Morphine this morning for left hip pain. He is working with PT and may qualify for SWB1. SWB prior auth was sent last week, with no response and was resent today (02/07/22). 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 A: is a 66 year old man admitted on 01/24/22 with a fractures femur. P: will most likely need short term rehab in a SNF prior to returning home or going to another facility. Referrals have been sent but no bed offers received. will need to transition to SB status and a request was submitted to his insurance company ([employer]) for a prior authorization. He will follow up with the facility providers and plan of care. Transportation will be determined by disposition. CM will continue to support and his family and assess for ongoing discharge concerns.
[2022-02-07] MEDS: Acetaminophen 325 MG TAB 650 MG PO ×4 (09:22→22:07)
[2022-02-07] MEDS: Metoprolol CR 25 MG TABCR 12.5 MG PO (09:22)
[2022-02-07] MEDS: Multivitamin w/Minerals TAB 1 TAB PO (09:23)
[2022-02-07] MEDS: Pantoprazole 40 MG TABCR PO (09:23)
[2022-02-07] MEDS: Potassium Chloride 20 MEQ TABCR PO (09:23)
[2022-02-07] MEDS: Enoxaparin 40 MG/0.4 ML SYR SC (09:24)
[2022-02-07] MEDS: Protein Nutritional Supplement 16 GM 1 OUNCE PACKET PO ×3 (09:24→22:08)
[2022-02-07 09:43] LABS: Abs Immature Grans 0.07 10^3/uL (0.0-0.06); Absolute Basophil Count 0.02 10^3/uL (0.0-0.2); Absolute Eosinophil Count 0.13 10^3/uL (0.0-0.7); Absolute Monocyte Count 0.78 10^3/uL (0.1-0.8); Absolute Neutrophil Count 8.09 10^3/uL (1.2-6.7); Basophils % 0.2; Eosinophils % 1.3; HCT 33.3 % (40.0-50.0); HGB 10.2 g/dL (13.5-17.5); Immature Grans % 0.7; Lymphocytes % 8.1; MCHC 30.6 % (32.0-36.0); MCV 85 fL (80-95); MPV 9.2 fL (8.0-11.0); Monocytes % 7.9; Neutrophils % 81.8; Platelet Count 524 10^3/uL (130-400); RBC 3.93 10^6/uL (4.36-5.78); RDW 15.2 % (11.8-14.1); RDW-SD 46.4 fL; WBC 9.89 10^3/uL (4.4-10.8)
[2022-02-07 09:57] LABS: Anion Gap 8.1 mmol/L (3-11); BUN 20 mg/dL (7-18); CO2 26.9 mmol/L (21.0-32.0); CREATININE 0.9 mg/dL (0.70-1.30); Calcium 9.5 mg/dL (8.5-10.1); Chloride 103 mmol/L (98-107); Estimated GFR 93.03 (mL/min/1.73m2); Glucose 105 mg/dL (74-106); Magnesium 1.9 mg/dL (1.8-2.4); Potassium 4.2 mmol/L (3.5-5.1); Sodium 138 mmol/L (136-145)
--- NOTE | 2022-02-07 10:03 | W.NUTRFU ---
Date of service: 02/07/22 Time of Service: 10:03 Nutrition Note NOTE: PO intake has improved over last week- averaging 50-75% of meal completion. No updated weight, not cooperative per nsg to get weighed. Will continue to provide ensure plus BID and monitor po intake closely. Time Spent in Nutritional Counseling and Treatment: 0
--- NOTE | 2022-02-07 14:29 | PTTR_ITS ---
Date of service: 02/07/22 Time of Service: 13:25 PT Notes Visit Reasons: Left Hip Fracture Inpatient Physical Therapy Treatment Note [facility] Date: 02/07/2022 PRECAUTIONS: Fall, activity as tolerated, dementia, WBAT L SUBJECTIVE: Gabino reports that his L hip is sore today. He is pleasant and agreeable to taking a walk. OBJECTIVE: PAIN: Patient c/o some L hip pain with gait training BED MOBILITY/TRANSFERS Sit-supine: Max A x2 with HOB flat due to inability to follow directions Sit-stand: Min A + CGA Stand-sit: CGA x2 GAIT Assistive Device: CONFLICT RESOLUTION PROFESSIONAL x2 Weight bearing: WBAT L Assist: SBA x2 Distance: 200' + 15' Deviation: Short shuffling steps improving with limited distraction and clear pathway, c/o L hip pain TOILETING: Patient toileted with assist ASSESSMENT: Patient appears limited by confusion, although c/o of minimally increased pain in L hip with gait training today. Patient tolerated a progression in gait distance with CONFLICT RESOLUTION PROFESSIONAL x2, and requiring SBA x2 only. His gait mechanics improve with distance and with limited distractions. PLAN: Continue with global strengthening and gait training for improved mobility. TREATMENT CODE/TIME: Session 1: Not available to participate in a.m. session Session 2: 32 minutes; [id number] x2 (13:48)
[2022-02-07] MEDS: oxyCODONE 5 MG TAB PO (14:30)
[2022-02-07] MEDS: Cholestyramine/Aspartame PKT 1 EACH PO (14:31)
--- NOTE | 2022-02-07 18:21 | W.PM.PROGNOT ---
Date of Service Date of service: 02/07/22 Time of Service: 12:00 Assessment and Plan Assessment and plan (1) C. difficile colitis: Status: Acute Assessment and plan: continue vancomycin PO to 250 mg Q6hrs for 10 days - this is day 9 - should end after Monday's last dose 02/08/2022 , consider 14 days for delayed response for treatment and probiotics (2) Subcapital fracture of neck of left femur: Status: Acute Assessment and plan: POD 12 left hip repair. Pain is controlled. Continue PT. (3) Atrial fibrillation with RVR: Status: Suspected Assessment and plan: Paroxysmal. No longer on cardiac monitoring. Clinically, in NSR. Continue beta blockers. No full anticoagulation due to increased fall risk. (4) Hypomagnesemia: Status: Resolved Assessment and plan: normal (5) Dementia: Status: Chronic Assessment and plan: safety precautions. Behaviors have been well controlled. (6) Abdominal wound dehiscence: Status: Chronic Assessment and plan: followed by surgical services as outpatient and here. Continue would care per surgical recommendations. 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 (9) Discharge planning issues: Status: Acute Assessment and plan: Awaiting SNF placement DNR/DNI Palliative care did see him 01/31/[address] Jones Subjective Subjective Patient reports: no new complaints, tolerating a regular diet, bowel movement and afebrile; denies diarrhea, blood in stool, vomiting or shortness of breath Interval history since last seen: Continues to be confused, does allow staff to perform ADLs, had a shower today Objective Last Vital Signs Temp 37.1 C 02/07/22 08:22 Pulse 102 H 02/07/22 08:22 Resp 17 02/07/22 08:22 BP 125/78 02/07/22 08:22 Pulse Ox 96 02/07/22 08:22 Laboratory Results - last 24 hr 02/07/22 02/07/22 09:25 09:25 WBC 9.89 RBC 3.93 L Hgb 10.2 L Hct 33.3 L MCV 85 MCH 26.0 L MCHC 30.6 L RDW 15.2 H Plt Count 524 H MPV 9.2 Immature Gran % 0.7 Neutrophils % 81.8 Lymphocytes % 8.1 Monocytes % 7.9 Eosinophils % 1.3 Basophils % 0.2 Nucleated RBC % 0.0 Absolute Neutrophils 8.09 H Absolute Lymphocytes 0.80 L Absolute Monocytes 0.78 Absolute Eosinophils 0.13 Absolute Basophils 0.02 Sodium 138 Potassium 4.2 Chloride 103 Carbon Dioxide 26.9 Anion Gap 8.1 BUN 20 H Creatinine 0.9 Est GFR (CKD-EPI 2020) 93.03 Glucose 105 Calcium 9.5 Magnesium 1.9
[2022-02-07] MEDS: Mirtazapine 15 MG TAB 7.5 MG PO (22:07)
[2022-02-07] MEDS: Melatonin 3 MG TAB PO (22:07)
[2022-02-07 23:20] VITALS: BP 115/74; PULSE 94; RESP 18; TEMP 36.7; O2SAT 94
[2022-02-08] MEDS: Vancomycin 125 MG CAP 250 MG PO (05:22)
[2022-02-08 07:05] LABS: Abs Immature Grans 0.05 10^3/uL (0.0-0.06); Absolute Basophil Count 0.02 10^3/uL (0.0-0.2); Absolute Lymphocyte Count 1.07 10^3/uL (1.2-3.4); Absolute Monocyte Count 1.11 10^3/uL (0.1-0.8); Absolute Neutrophil Count 7.48 10^3/uL (1.2-6.7); Basophils % 0.2; HCT 30.3 % (40.0-50.0); HGB 9.6 g/dL (13.5-17.5); Immature Grans % 0.5; Lymphocytes % 10.8; MCH 26.4 pg (27.0-33.0); MCHC 31.7 % (32.0-36.0); MCV 83 fL (80-95); MPV 8.8 fL (8.0-11.0); Monocytes % 11.2; Neutrophils % 75.3; Platelet Count 549 10^3/uL (130-400); RBC 3.64 10^6/uL (4.36-5.78); RDW 15.2 % (11.8-14.1); RDW-SD 45.5 fL; WBC 9.93 10^3/uL (4.4-10.8)
[2022-02-08 07:08] LABS: Anion Gap 8.1 mmol/L (3-11); BUN 20 mg/dL (7-18); CO2 25.9 mmol/L (21.0-32.0); Calcium 9.2 mg/dL (8.5-10.1); Chloride 104 mmol/L (98-107); Estimated GFR 81.98 (mL/min/1.73m2); Glucose 99 mg/dL (74-106); Magnesium 1.8 mg/dL (1.8-2.4); Potassium 3.9 mmol/L (3.5-5.1); Sodium 138 mmol/L (136-145)
[2022-02-08 07:52] VITALS: BP 124/66; PULSE 86; RESP 20; TEMP 37.1; O2SAT 96
[2022-02-08] MEDS: Enoxaparin 40 MG/0.4 ML SYR SC (07:56)
[2022-02-08] MEDS: Protein Nutritional Supplement 16 GM 1 OUNCE PACKET PO (07:56)
[2022-02-08] MEDS: Metoprolol CR 25 MG TABCR 12.5 MG PO (07:58)
[2022-02-08] MEDS: Pantoprazole 40 MG TABCR PO (07:58)
[2022-02-08] MEDS: Multivitamin w/Minerals TAB 1 TAB PO (07:58)
[2022-02-08] MEDS: Acetaminophen 325 MG TAB 650 MG PO (07:58)
[2022-02-08] MEDS: Potassium Chloride 20 MEQ TABCR PO (07:59)
[2022-02-08] MEDS: Ascorbic Acid 500 MG TAB PO (07:59)
[2022-02-08] MEDS: Ferrous Sulfate 325 MG TAB PO (07:59)
--- NOTE | 2022-02-08 08:58 | CMPROGNOTE_ITS ---
- If Service Date Differs Date of service: 02/08/22 Time of Service: 08:59 Care Management Progress Note S/O: will be transitioned to SB-2 today. He is not able to progress with PT due to his inability to follow direction and has no other skilled need for hospitalization. A: is a 66 year old man admitted on 01/24/22 with a fractures femur. P: transitioned to SB-2 today. His sister Zaynab is still pursuing skilled nursing Medicaid and skilled nursing placement for him. To date no bed offers have been received.from the many facilities to which referrals were sent. Transportation will be determined by disposition. CM will continue to support and his family and assess for ongoing discharge concerns.
--- NOTE | 2022-02-08 10:45 | W.PM.DS.N ---
Date of service: 02/08/22 Time of Service: 10:45 DS: Diagnosis Discharge Diagnosis (1) C. difficile colitis: Status: Acute (2) Subcapital fracture of neck of left femur: Status: Acute (3) Palliative care status: Status: Acute Discharge Plan Disposition Patient Disposition: Shelter/Supportive Care(SB2) Condition: Stable Discharge Details Reason For Visit: Left Hip Fracture Admit Date/Time: 01/24/22 17:06 Admit Provider: Lakeisha Peguero Attending Provider: Lakeisha Peguero Primary Care Provider: [facility] Hospital Course Hospital Course: This is a 66 year old male with advanced dementia, afib not anticoagulated who is in sinus rhythm, abdominal wound dehiscense followed by surgical services who suffered a witnessed, mechanical fall and transported to the ED for left hip pain.? No head injury LOC or other injury reported.? He was unable to bear weight after his fall.? Work up in the ED showed a left femur neck fracture.? Orthopedics consulted and patient had surgical repair here on 01/26/2022. Post operative course complicated with delirium and behavioral disturbance in addition to cdiff colitis. He is being treated on oral vancomycin. His family has refused to take him back home and he will need placement. case management has been working on discharge planning but has been unable to secure placement. He is medically stable and will be discharged to swing bed 2 status here at [facility] until placement can be found. discussed with DR Jones. Home Meds and New Rx's Prescriptions: No Action mecobalamin (vitamin B12) 1,000 mcg tablet,disintegrating 1,000 mcg sublingual DAILY Rx Instructions: place tablet under tongue and allow to dissolve for at least30 secs before swallowing pantoprazole 40 mg tablet,delayed release (DR/EC) 40 mg PO DAILY Qty: 90 4RF metoprolol succinate 25 mg tablet extended release 24 hr 12.5 mg PO DAILY Rx Instructions: Take 1 tablet daily Discharge Instructions Instructions: Hip Fracture (ED) Additional Instructions: Total Hip Discharge Instructions Activity: The most important activity is to walk. You should try to take short walks a few times a day, at least a few steps. You have no restrictions on movement or positioning, but do not try to force what you do. You will find some stiffness and weakness with hip flexion (lifting your knee) including some pain down the thigh to the knee. Do not try to strengthen this too early, continue to practice walking and stairs and this will come. Dressing: Keep the surgical dressing in place for at least one week although it may stay for 2 weeks. After the first week it may be removed and replace with light gauze and tape or nothing. It may get wet after 3 days but avoid soaking the dressing. If it gets wet, just lightly pat dry. After 2 weeks there is no need for a dressing and the wound may be left uncovered. All sutures are buried in the skin and reinforced with skin glue. Follow-up: 4 weeks If you have any acute concerns or questions, please do not hesitate to contact the office at [phone]. You may contact Dr. Junior with any questions after hours through the hospital at [phone] or on his cell phone at [phone]. Activity:: Activity as Tolerated Equipment/Supplies:: No Equipment Needed Diet:: As Tolerated Discharge Orders Discharge Orders: Discharge Order (Routine); Ordered 02/08/22 Ordered By: Malathi Jon Discharge Data Discharge Date/Time-TO BE ENTERED AT DEPARTURE: 02/08/22 12:46 DS: Summary Time Spent with Patient providing and/or coordinating discharge services: Greater than 30 minutes Status at Discharge Functional status at discharge: independent ambulation Overall status at discharge: patient is back to baseline Mental Status: other (severe advanced dementia) Speech and Movement: restless Mood: other (severe advanced dementia) Affect: blunted Exam Const General: no acute distress and frail appearing Nutritional Appearance: average body habitus Orientation: alert and awake Limitations: other limitations (dementia) [facility] Head: normal to inspection and atraumatic Mouth: oral mucosae normal Eyes General: appearance normal, both eyes and all related structures Neck Neck: normal visual inspection Chest Chest: normal inspection of the chest Resp Effort & Inspection: normal respiratory effort and no cough Auscultation: clear to auscultation bilaterally Cardio Rate: regular rate Rhythm: regular rhythm Heart Sounds: no murmurs GI Inspection: incision (open wound midline abd, wound bed with good granulation tissue, scant sloug) Palpation: soft and no guarding Skin General skin exam: no rashes or lesions noted Lesions: lesion noted (midline abdomen, old surgical wound dehiscence, healing by secondary intent) Rashes: no rashes (no surrounding erythema or sign of infection noted. ) Neuro General: patient alert Cognition: abnormal cognition Speech: abnormal speech Extrem General: no pedal edema Psych Mental Status: other (severe advanced dementia) Speech and Movement: restless Mood: other (severe advanced dementia) Affect: blunted DS: Data Vitals/I&O Vitals and I&O: Vital Signs Temperature 37.1 C 02/08/22 07:52 Temperature Source Tympanic 02/08/22 07:52 Pulse 86 02/08/22 07:52 Pulse Rhythm Regular 02/08/22 04:00 Respiratory Rate 20 02/08/22 07:52 Respiratory Effort Non-Labored 02/08/22 04:00 Respiratory Depth Normal 02/08/22 04:00 Respiratory Pattern Normal 02/08/22 04:00 Blood Pressure 124/66 02/08/22 07:52 Pulse Oximetry 96 02/08/22 07:52 Respiratory End-tidal CO2 28 01/26/22 16:30 Oxygen Delivery Method Room Air 02/08/22 07:52 Oxygen Flow Rate 0 02/08/22 07:52 Pain Level 0 02/08/22 07:52 Comment 02/07/22 16:31 Intake & Output 02/07/22 02/07/22 02/08/22 11:59 23:59 11:59 Other: Urine Color Yellow Yellow Yellow Urine Appearance Clear Clear Clear Comment dry at this time toileted by TALENT PROGRAM MANAGER pt was completely soaked Stool Size Large Moderate Stool Characteristics Soft Soft Liquid Brown Mucoid Brown Voiding Methods Diaper Bedside Commode Toilet Incontinent Diaper Incontinent Data Completed and Pending Labs on day of discharge: Labs from last 24 hours 02/08/22 02/08/22 06:40 06:40 WBC 9.93 RBC 3.64 L Hgb 9.6 L Hct 30.3 L MCV 83 MCH 26.4 L MCHC 31.7 L RDW 15.2 H Plt Count 549 H MPV 8.8 Immature Gran % 0.5 Neutrophils % 75.3 Lymphocytes % 10.8 Monocytes % 11.2 Eosinophils % 2.0 Basophils % 0.2 Nucleated RBC % 0.0 Absolute Neutrophils 7.48 H Absolute Lymphocytes 1.07 L Absolute Monocytes 1.11 H Absolute Eosinophils 0.20 Absolute Basophils 0.02 Sodium 138 Potassium 3.9 Chloride 104 Carbon Dioxide 25.9 Anion Gap 8.1 BUN 20 H Creatinine 1.0 Est GFR (CKD-EPI 2020) 81.98 Glucose 99 Calcium 9.2 Magnesium 1.8 PFSH All Active Problems (Updated 02/02/22 @ 17:11 by Malathi Jon NP) Palliative care status (Acute) C. 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 Followed at and treated at hospital in [place] August-early September 2021-prolonged hospitalization Ulcerative colitis S/p Subtotal colectomy with ileocolonic anastomosis Surgical History History of cataract surgery Hx of exploratory laparotomy (08/08/21) Extensive intra-abdominal adhesions with frozen abdomen, ileus S/P total colectomy (1979) Subtotal colectomy with ileocolonic anastomosis Family History Mother , 71 No problems noted. Father , 81 No problems noted. Sister , 70 No problems noted. Social History Smoking/Tobacco Use Status: Former Tobacco Use tobacco type: cigarettes Quit Date: 03/13/91 Second Hand Exposure: Yes Smoking risk assessment performed?: Yes Alcohol Intake: current Alcohol type: beer Drug use: Never Substance use type: does not use Caregiver/Support person: Yes Household members: other Details: Sister and brother in law Housing: house Communication Needs: None Do you need help understanding health information?: Always Pets and animals: No Sexually active: No Do you think of yourself as: straight/heterosexual Current gender identity: male What is your relationship status?: How often do you talk on the phone with friends or family?: decline to answer How often do you get together with friends or relatives?: decline to answer How often do you attend mandaeism or gnosticist services?: decline to answer Do you belong to any clubs or organized social groups?: decline to answer Panel score (0-1 are the most socially isolated patients): 1 What type of physical activity do you participate in: none Frequency: does not exercise Philly/Church: No preference Special philly needs: No Seatbelt use: always Helmet use: Yes Drive intox or ride w/intox driver material handler: No Do you feel safe at home: Yes Do you feel safe in your relationship?: Yes
--- NOTE | 2022-02-08 14:55 | PT.INTREAT ---
Date of service: 02/08/22 Time of Service: 08:50 PT Notes Visit Reasons: Left Hip Fracture Inpatient Physical Therapy Treatment Note [facility] Date: 02/08/2022 PRECAUTIONS: Fall, activity as tolerated, dementia, WBAT L SUBJECTIVE: Gabino reports that his L hip does not bother him today. He is pleasant and agreeable to taking a walk. OBJECTIVE: PAIN: No c/o pain BED MOBILITY/TRANSFERS Sit-stand: CGA x2 Stand-sit: CGA x2 GAIT Assistive Device: CHRISTMAS TREE CONTRACTOR x2 Weight bearing: WBAT L Assist: SBA x2 Distance: 300' + 15' Deviation: Minimal short shuffling steps, improved gait mechanics with limited distraction and clear pathway THEREX: Patient unable to follow instructions for ther ex completion TOILETING: Patient toileted with assist ASSESSMENT: Patient appears limited by confusion, although without c/o pain in L hip with gait training today. Patient tolerated a progression in gait distance with CHRISTMAS TREE CONTRACTOR x2, and requiring SBA x2 only. His gait mechanics improve with distance and with limited distractions. PLAN: Patient to discharge to 2 today, per provider. TREATMENT CODE/TIME: 30 minutes; 81176 x2 (08:50)
== END 2022-02-08 12:46 | disposition intermediate care facility (04) | DRG 522 ==
LOC: ER 17:33 → MS 17:58
PROVIDERS: Family Medicine; Internal Medicine; Nurse Practitioner Acute Care; Nurse Practitioner Family; Student in an Organized Health Care Education/Training Program; Admitting Provider Internal Medicine; Emergency Provider Physician Assistant; PCP Nurse Practitioner Family; Visit Provider Internal Medicine
PROC: 0SRB04A Replacement of Left Hip Joint with Ceramic on Polyethylene Synthetic Substitute, Uncemented, Open Approach (ICD-10-PCS; CPT 27130; principal; 2022-01-26 13:45)
DX: S72.012A Unspecified intracapsular fracture of left femur, initial encounter for closed fracture (principal); A04.72 Enterocolitis due to Clostridium difficile, not specified as recurrent; F02.811 Dementia in other diseases classified elsewhere, unspecified severity, with agitation; W19.XXXA Unspecified fall, initial encounter; G20 Parkinson's disease; R32 Unspecified urinary incontinence; I10 Essential (primary) hypertension; R73.03 Prediabetes; R35.1 Nocturia; K21.9 Gastro-esophageal reflux disease without esophagitis; N20.0 Calculus of kidney; Z87.820 Personal history of traumatic brain injury; Z98.0 Intestinal bypass and anastomosis status; Z90.49 Acquired absence of other specified parts of digestive tract; T81.31XD Disruption of external operation (surgical) wound, not elsewhere classified, subsequent encounter; M24.511 Contracture, right shoulder; E83.42 Hypomagnesemia; R50.9 Fever, unspecified; Z22.322 Carrier or suspected carrier of Methicillin resistant Staphylococcus aureus; Z66 Do not resuscitate; I48.0 Paroxysmal atrial fibrillation
CPT/HCPCS: 27130; 20985; 36415; 51702; 76942; 80048; 80053; 84145; 87040; 87077; 87493; 87635; 87637; 96360; 97110; 97163; 97530; 99221; 99223; 99285; J1650; 71045; 73140; 73501; 73502; 81003; 81015; 82607; 82728; 82746; 83540; 83550; 83735; 85025; 87070; 87086; 87186; 87205; 94640; 99232; 99233; 99239; J0131; J0690; J1100; J1170; J1200; J1885; J2060; J2270; J2405; J2704; J3010; J3480

== ENCOUNTER 2022-02-08 11:47 | Inpatient (IN) | payer MEDICARE, MEDICAID, SELFPAY ==
--- NOTE | 2022-02-08 11:44 | HPE_ITS ---
Date of service: 02/08/22 Time of Service: 11:45 Assessment and Plan Assessment and plan (1) C. difficile colitis: Status: Acute Assessment and plan: continue vancomycin PO to 250 mg Q6hrs for 14 days- (2) Subcapital fracture of neck of left femur: Status: Acute Assessment and plan: s/p left hip repair. Pain is controlled. Continue PT. (3) Atrial fibrillation with RVR: Status: Suspected Assessment and plan: Paroxysmal. No longer on cardiac monitoring. Clinically, in NSR. Continue beta blockers. No full anticoagulation due to increased fall risk. (4) Hypomagnesemia: Status: Resolved Assessment and plan: normal (5) Dementia: Status: Chronic Assessment and plan: safety precautions. Behaviors have been well controlled. (6) Abdominal wound dehiscence: Status: Chronic Assessment and plan: followed by surgical services as outpatient and here. Continue would care per surgical recommendations. 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 (9) Discharge planning issues: Status: Acute Assessment and plan: Awaiting SNF placement DNR/DNI Palliative care did see him 01/31/[address] Jones History of Present Illness History of Present Illness Chief Complaint: fractured hip Narrative: This is a 66 year old male with advanced dementia, afib not anticoagulated who is in sinus rhythm, abdominal wound dehiscense followed by surgical services who suffered a witnessed, mechanical fall and transported to the ED for left hip pain.? No head injury LOC or other injury reported.? He was unable to bear weight after his fall.? Work up in the ED showed a left femur neck fracture.? Or thopedics consulted and patient had surgical repair here on 01/26/2022. Post operative course complicated with delirium and behavioral disturbance in addition to cdiff colitis. He is being treated on oral vancomycin. His family has refused to take him back home and he will need placement. case management has been working on discharge planning but has been unable to secure placement. He is medically stable and will be discharged to swing bed 2 status here at [facility] until placement can be found. discussed with DR Jones. Review of Systems All systems reviewed & are unremarkable except as noted in HPI and below (unable to obtain d/t dementia) PFSH All Active Problems (Updated 02/02/22 @ 17:11 by Malathi Jon NP) Palliative care status (Acute) C. 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 Followed at and treated at [facility] August-early September 2021-prolonged hospit alization Ulcerative colitis S/p Subtotal colectomy with ileocolonic anastomosis Surgical History History of cataract surgery Hx of exploratory laparotomy (08/08/21) Extensive intra-abdominal adhesions with frozen abdomen, ileus S/P total colectomy (1979) Subtotal colectomy with ileocolonic anastomosis Family History Mother , 71 No problems noted. Father , 81 No problems noted. Sister , 70 No problems noted. Social History Smoking/Tobacco Use Status: Former Tobacco Use tobacco type: cigarettes Quit Date: 03/13/91 Second Hand Exposure: Yes Smoking risk assessment performed?: Yes Alcohol Intake: current Alcohol type: beer Drug use: Never Substance use type: does not use Caregiver/Support person: Yes Household members: other Details: Sister and brother in law Housing: house Communication Needs: None Do you need help understanding health information?: Always Pets and animals: No Sexually active: No Do you think of yourself as: straight/heterosexual Current gender identity: male What is your relationship status?: How often do you talk on the phone with friends or family?: decline to answer How often do you get together with friends or relatives?: decline to answer How often do you attend scientology or temple services?: decline to answer Do you belong to any clubs or organized social groups?: decline to answer Panel score (0-1 are the most socially isolated patients): 1 What type of physical activity do you participate in: none Frequency: does not exercise Philly/Caodaism: No preference Special philly needs: No Seatbelt use: always Helmet use: Yes Drive intox or ride w/intox hazmat tanker driver: No Do you feel safe at home: Yes Do you feel safe in your relationship?: Yes Meds Allergies and Home Medications Allergies Allergy/AdvReac Type Severity Reaction Status Date / Time No Known Allergies Allergy Verified 01/24/22 14:42 Home Medications Medication Instructions Recorded Confirmed Type pantoprazole 40 mg tablet,delayed 40 mg PO DAILY #90 tabs 10/05/21 02/08/22 Rx release mecobalamin (vitamin B12) 1,000 1,000 mcg sublingual DAILY 12/21/21 02/08/22 History mcg disintegrating tablet,sublingual metoprolol succinate 25 mg 12.5 mg PO DAILY 01/24/22 02/08/22 History tablet,extended release 24 hr Exam Const General: no acute distress and frail appearing Nutritional Appearance: average body habitus Orientation: alert and awake Limitations: other limitations (dementia) [facility] Head: normal to inspection and atraumatic Mouth: oral mucosae normal Eyes General: appearance normal, both eyes and all related structures Neck Neck: normal visual inspection Chest Chest: normal inspection of the chest Resp Effort & Inspection: normal respiratory effort and no cough Auscultation: clear to auscultation bilaterally Cardio Rate: regular rate Rhythm: regular rhythm Heart Sounds: no murmurs GI Inspection: incision (open wound midline abd, wound bed with good granulation tissue, scant sloug) Palpation: soft and no guarding Skin General skin exam: no rashes or lesions noted Lesions: lesion noted (midline abdomen, old surgical wound dehiscence, healing by secondary intent) Rashes: no rashes (no surrounding erythema or sign of infection noted. ) Neuro General: patient alert Cognition: abnormal cognition Speech: abnormal speech Extrem General: no pedal edema Psych Speech and Movement: restless
[2022-02-08 14:58] VITALS: BP 128/77; PULSE 100; RESP 18; TEMP 36.8; O2SAT 98
[2022-02-08] MEDS: Protein Nutritional Supplement 16 GM 1 OUNCE PACKET PO ×2 (15:32→21:42)
[2022-02-08] MEDS: Cholestyramine/Aspartame PKT 1 EACH PO (15:32)
--- NOTE | 2022-02-08 15:49 | CMSA_ITS ---
- If Service Date Differs Date of service: 02/08/22 Time of Service: 15:49 SB Psychosocial/Act.Assessment - Hospital Admission Admission Date: 01/24/22 Admission From:: ED - Swing Bed Admission Swing Bed Level of Care: Level 2/ICF - Social Supports PREVIOUS FUNCTIONAL STATUS/SOCIAL/FAMILY SUPPORTS:: lives in [place] with his sister and [id number] Zaynab and Kaden Shafer. He recently relocated to [place] from [place]. is but his remained in [place]. and is in a SNF. They have no children. is independent with ADLs but due to his memory issues, needs cueing frequently and requires 24/7 monitoring. He has a hospice case manager through [facility] - Francoise Gonzalez. - Prior to Admission Living Arrangements/Environment Prior to Admission:: Recently relocated from [place]. Living with sister Zaynab and her in [place]. 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 He built his own log cabin and a garage. He also built mechanical things such as a go cart for his nephew. loves cars and was frequently found working on cars or his motorcycle. Table Games:: enjoys cards Sports:: not much interest Music:: soft rock and roll TV/Movies:: Star Wars, Star Trek, Mash. particularly likes Peanuts and Lucio Brown Outdoor Activities:: snow shoeing, riding snowmobiles, walking for long distances Gardening:: some - Present Functional Status Physical Abilities:: impaired by weakness and recent hip fracture Cognitive:: dementia and a TBI Communication:: limited due to dementia Sensory Systems: wears glasses but does not have them at [facility] Behavior:: can get agitated and confused and sometimes is uncooperative - Medical History PAST MEDICAL HISTORY/PAST SURGICAL HISTORY:: All Active Problems (Updated 01/24/22 @ 17:03 by Malathi Jon NP). Subcapital fracture of neck of left femur (Acute). Contracture of right shoulder (Acute). Rotator cuff tear, right (Acute). 40 mg Depo-Medrol injection: 12/21/2021. Abdominal wound dehiscence (Chronic ~09/2021). Ex-laparotomy July 2021. Dementia (Chronic). Parkinsonism (Chronic). Essential hypertension (Chronic). Urinary incontinence (Chronic). Prediabetes (Chronic). Nocturia (Chronic). GERD (gastroesophageal reflux disease) (Chronic). Calculus of left kidney (Chronic). Medical History . Alcohol abuse. Intra-abdominal adhesions (~07/2021). With frozen abdomen and ileus. TBI (traumatic brain injury) (~08/2021). 08/2021-modest trauma but significant residual symptoms. Followed at and treated at hospital in [place] August-early September 2021- prolonged hospitalization. Ulcerative colitis. S/p Subtotal colectomy with ileocolonic anastomosis. Surgical History . History of cataract surgery. Hx of exploratory laparotomy (08/08/21). Extensive intra-abdominal adhesions with frozen abdomen, ileus. S /P total colectomy (1979). Subtotal colectomy with ileocolonic anastomosis General Health:: fair - Admission Data Reason for Swing Bed [facility]:: [facility] Discharge Plan:: awaiting prison care placement Assessment: is a 66 year old man admitted on 01/24/22 with a hip fracture. He also has dementia and a TBI from a fall a few months ago. has been living with his sister Zaynab and her since September when they brought him to [place] from his home in [place]. They have moved recently and are no longer able to care for him so ferry terminal agent care placement is being pursued. has recently been approved for LTM so a payer source is no longer a barrier. He is in SB-2 status awaiting placement. Duco Polisher: Julisa Juarez Date Assessment was completed:: 02/09/22
--- NOTE | 2022-02-08 15:52 | CM.SWINGPC ---
- If Service Date Differs Date of service: 02/08/22 Time of Service: 15:53 Swingbed Plan of Care Plan of care: SWING BED PROGRAM ACTIVITIES/DISCHARGE PLAN OF CARE ACTIVITIES PLAN Date:02/08/22 Identified Need:Individualized activity plan Intervention/Plan: enjoys walking and would benefit from several walks each day with staff. He watches some TV but, due to his dementia, is not really able to participate in many other activities. does enjoy music and animals and would enjoy music and pet therapy if available. Initials [facility] DISCHARGE PLAN Date:02/08/22 Identified Need:Safe Discharge Plan Intervention/Plan: is seeking extermination inspector placement. Referrals have been sent to 20 SNFs with no bed offers to date. He was declined for short term rehab at all of the facilities that received referrals. CM will follow up with all of the 20 facilities again next week. Additional options such as placement at the SNF in [place] where his resides, is being pursued by Zaynab. Initials [facility]
[2022-02-08] MEDS: Vancomycin 125 MG CAP 250 MG PO ×2 (17:06→23:50)
--- NOTE | 2022-02-08 18:00 | PT.INDS ---
PT Notes Visit Reasons: Hip fracture Physical Therapy Discharge Summary Date: 02/08/2022 Dates of Service:? 01/27/2022 through 02/08/2022 This is a clinical summary of care provided for the duration of dates listed above. No charge was made in the completion of this documentation. Referring Doctor: Maurice Junior MD PT Orders: PT CONSULT: S/P Ortho surgery.? S/p L hip replacement Precautions: Fall. Standard.? WBAT on left LE with AD. Patient Profile/Admitting Diagnosis:? Marcial is a 66-year-old male with diagnosis of superiorly displaced femoral neck fracture on the left and is status post left anterior total hip arthroplasty on postoperative day 6.? He comes in with diagnoses of atrial fibrillation with rapid ventricular response, hypomagnesemia, dementia, abdominal wound dehiscence, and GERD. PMHX: All Active Problems?(Updated 01/24/22 @ 17:03 by Malathi Jon NP) Subcapital fracture of neck of left femur (Acute) Contracture of right shoulder (Acute) Rotator cuff tear, right (Acute) 40 mg Depo-Medrol injection: 12/21/2021 Abdominal wound dehiscence (Chronic ~09/2021) Ex-laparotomy July2Dementia (Chronic) Parkinsonism (Chronic) Essential hypertension (Chronic) Urinary incontinence (Chronic) Prediabetes (Chronic) Nocturia (Chronic) GERD (gastroesophageal reflux disease) (Chronic) Calculus of left kidney (Chronic) Medical History? 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 Followed at and treated at [facility] in [place] August-early September 2021-prolonged hospitalization Ulcerative colitis S/p Subtotal colectomy with ileocolonic anastomosis Surgical History? History of cataract surgery Hx of exploratory laparotomy (08/08/21) Extensive intra-abdominal adhesions with frozen abdomen, ileus S/P total colectomy (1979) Subtotal colectomy with ileocolonic anastomosis Social History/Home Situation: Lives with in a private home with 2-3 steps to enter. Equipment Owned/DME: None Subjective: No report of pain throughout session.? Did want to rest 2x through the long walk due to fatigue.? Objective: Seated on bedside chair fiddling on his sensory mat.? Mental Status: Alert and oriented as to person.? Able to follow single-step commands. Pain: Denies Vital Signs: WNL as closely monitored by nursing staff ROM: Right Lower Extremity: Hip flexion . Hip abduction WFL. Knee flexion WFL. Ankle dorsiflexion WFL. Ankle plantarflexion WFL. Left Lower Extremity: Hip flexion lacks the last 50% of AROM. Hip abduction lacks the last 50% of AROM. Knee flexion WFL. Ankle dorsiflexion WFL. Ankle plantarflexion WFL. Strength: Right Lower Extremity: Hip flexors 4-/5. Hip abductors 4-/5. Knee flexors 4-/5. Knee extensors 4-/5. Ankle dorsiflexors 4-/5. Ankle plantarflexors 4-/5. Left Lower Extremity: Hip flexors 2-/5. Hip abductors 2-/5. Knee flexors 3-/5. Knee extensors 3-/5. Ankle dorsiflexors 3+/5. Ankle plantarflexors 3+/5. Bed Mobility/Transfers: Sit to stand with hand-held assist of 2 Stand to sit with hand-held assist of 2 Bed to reclining chair with hand-held assist of 2 Gait: Instructed patient with level surface ambulation of up to 350 feet requiring minimal assist of 2 with moderate verbal cueing needed for safe/correct technique. Kiara increasing.? Step height increasing. Step length increasing.? R foot occasionally scissors onto the L which can be a fall risk. THERA EX: Worked on side stepping for about 30 feet to R and then to L to increase base width and minimize fall risk. Balance: Static Sitting: Good Dynamic Sitting: Fair Static Standing: Fair Dynamic Standing: Poor Special Tests: Mobility Limitations Standardized Measure [facility] 6 clicks Basic Mobility Inpatient Short Form: Raw Score: 18? CMS Score: 47% deficit? ? ? Informed Consent/Education:? Patient was instructed in purpose of PT consult and plan of care. Agreeable to proceed with established PT POC to achieve personal goals. Assessment: Overall,? patient appears to be increasingly consistent with functional mobility improvements as he is getting more familiar with this new environment and caregivers.? Much improved pain tolerance.? Now safe to be walked by nursing staff in the hallway with hand-held assist of 2. Delayed initiation of movement and impaired movement transitioning continue to be limited due to pre-existing dementia, residual deficits from TBI, and Parkinsonism.? Will continue to require pre-medication for pain.? Needs moderate verbal cueing.? Patient presents with clinical signs and symptoms consistent with current/admitting diagnoses that have resulted to mobility limitations, gait instability, generalized weakness, and overall ADL decline as demonstrated by the following impairment level findings: 1.? Decreased strength to L LE major muscle groups 2.? Impaired sitting/standing balance 3.? Impaired activity tolerance 4.? Limitation of joint range of motion in L hip and knee 5.? Preexisting dementia- impaired safety awareness 6.? Pain in L hip and knee due to post-op status (now decreasing) Impairments are contributing to the following functional limitations: 1.? Decline in bed mobility skills 2.? Decline in transfer skills 3.? Difficulty with ambulation without assistive device and physical assistance 4.? Increased completion time for mobility ADL performance 5.? Increased risk for falls 6.? Difficulty with managing steps alone safely Patient is assessed as a [id number] high complexity based on the following: History: 66-year-old male with past medical history as indicated above Examination: Demonstrable impairment in strength, balance, and mobility level with underlying impairments and functional limitations as exhibited above as well as deficit score of 73% utilizing the [facility] Mobility Inpatient Short Form Presentation: Evolving Decision Makin high complexity Goals: Goals X1 week 1. Supine-Sit independent NOT MET 2. Sit-Supine independent NOT MET 3. Sit-Stand contact guard assist NOT MET 4. Stand-Sit contact guard assist NOT MET 5. Bed-Chair contact guard assist NOT MET 6. Chair-Bed contact guard assist NOT MET 7. Contact guard assist for gait on level surface with use of FWW for at least 300 feet without report of pain nor dyspnea NOT MET 8. Contact guard assist for stair negotiation while holding onto B rails for at least 5 steps without report of pain nor dyspnea NOT MET 9.??NEW GOAL:? Patient will increase base width to at least 4 inches to reduce fall risk NOT MET DISCHARGE RECOMMENDATIONS: [] ? Home with no services [] [] ? Home with services [specify] [] ? Home with outpatient PT [] [] ? SNF for continued rehabilitation [] [X] ? Detention Care. Will require LTC placement for constant supervision with all ADL tasks for safety. [] ? SNF versus LTC based on ability to participate and progress [] TREATMENT CODE/TIME: NC Thank you for the opportunity to participate in the care of this patient. Elmira Castano PT, DPT, CLT [facility] [place], [place]
[2022-02-08] MEDS: Melatonin 3 MG TAB PO (21:42)
[2022-02-08] MEDS: Acetaminophen 325 MG TAB 650 MG PO (21:42)
[2022-02-08] MEDS: Ferrous Sulfate 325 MG TAB PO (21:43)
[2022-02-08] MEDS: Mirtazapine 15 MG TAB 7.5 MG PO (21:43)
[2022-02-09 05:19] VITALS: BP 124/75; PULSE 82; RESP 16; TEMP 37; O2SAT 96
[2022-02-09] MEDS: Vancomycin 125 MG CAP 250 MG PO ×3 (06:02→17:34)
[2022-02-09] MEDS: Metoprolol CR 25 MG TABCR 12.5 MG PO (10:24)
[2022-02-09] MEDS: Acetaminophen 325 MG TAB 650 MG PO ×3 (10:27→20:13)
[2022-02-09] MEDS: Pantoprazole 40 MG TABCR PO (10:27)
[2022-02-09] MEDS: Potassium Chloride 20 MEQ TABCR PO (10:27)
[2022-02-09] MEDS: Multivitamin w/Minerals TAB 1 TAB PO (10:33)
[2022-02-09] MEDS: Ferrous Sulfate 325 MG TAB PO ×2 (10:34→20:13)
[2022-02-09] MEDS: Ascorbic Acid 500 MG TAB PO ×2 (10:34→20:13)
[2022-02-09] MEDS: Protein Nutritional Supplement 16 GM 1 OUNCE PACKET PO ×2 (10:35→20:14)
[2022-02-09] MEDS: Enoxaparin 40 MG/0.4 ML SYR SC (10:37)
[2022-02-09] MEDS: diphenhydrAMINE 25 MG CAP PO (20:54)
[2022-02-09] MEDS: Mirtazapine 15 MG TAB 7.5 MG PO (20:55)
[2022-02-09] MEDS: Melatonin 3 MG TAB PO (20:55)
[2022-02-10] MEDS: LORazepam 0.5 MG TAB PO (00:24)
[2022-02-10] MEDS: Vancomycin 125 MG CAP 250 MG PO ×3 (00:25→15:30)
[2022-02-10] MEDS: diphenhydrAMINE 25 MG CAP PO (04:00)
[2022-02-10 08:31] VITALS: BP 142/73; PULSE 83; RESP 18; TEMP 36.2; O2SAT 92
[2022-02-10] MEDS: Protein Nutritional Supplement 16 GM 1 OUNCE PACKET PO ×3 (08:49→20:45)
[2022-02-10] MEDS: Acetaminophen 325 MG TAB 650 MG PO ×4 (08:50→20:42)
[2022-02-10] MEDS: Pantoprazole 40 MG TABCR PO (08:50)
[2022-02-10] MEDS: Ascorbic Acid 500 MG TAB PO ×2 (08:50→20:44)
[2022-02-10] MEDS: Metoprolol CR 25 MG TABCR 12.5 MG PO (08:50)
[2022-02-10] MEDS: Potassium Chloride 20 MEQ TABCR PO (08:51)
[2022-02-10] MEDS: Enoxaparin 40 MG/0.4 ML SYR SC (08:51)
[2022-02-10] MEDS: Ferrous Sulfate 325 MG TAB PO ×2 (08:51→20:43)
[2022-02-10] MEDS: Multivitamin w/Minerals TAB 1 TAB PO (08:51)
--- NOTE | 2022-02-10 12:52 | CMPROGNOTE_ITS ---
- If Service Date Differs Date of service: 02/10/22 Time of Service: 12:52 Care Management Progress Note CM received clinical denial from the [facility]. [facility] also denied referral. CM also received insurance denial from [facility]; [employer] Medicaid approved, 804 completed for billing of SWB2.
--- NOTE | 2022-02-10 14:52 | CMPROGNOTE_ITS ---
- If Service Date Differs Date of service: 02/10/22 Time of Service: 14:52 Care Management Progress Note Current Correction Care Placement Referrals Pending: [facility] [place] [facility]22 Declined Deion-02/10/22 Matt
--- NOTE | 2022-02-10 14:52 | PDOC.CMPRO ---
- If Service Date Differs Date of service: 02/10/22 Time of Service: 14:52 Care Management Progress Note Current Skilled Nursing Care Placement Referrals Pending: [facility] [place] [facility] Declined Deion-02/10/22 Matt
--- NOTE | 2022-02-10 15:15 | PHA.REVIEW2 ---
Pharmacy Admission Review - Admission Clinical Review (Last Reviewed 01/25/22 @ 13:03 by Maurice Junior MD) C. difficile colitis (Acute) DVT prophylaxis (Acute) Discharge planning issues (Acute) Subcapital fracture of neck of left femur (Acute) No Known Allergies Allergy (Verified 01/24/22 14:42) Resuscitation Status DNR/DNI Height 5 ft 8 in Weight 79.3 kg - Renal Dosing Medications needing adjustments: Reviewed (eCrCl 79 ml/min, no adjustments needed) - Anticoagulation DVT Prophylaxis: Reviewed Medications: Enoxaparin - Opiate Usage Evaluate Pain Scale/Pains Meds: N/A - Relevant Labs Electrolytes, C-Reactive P, ESR: N/A - DM Control DM Control: N/A - Cardiac Review BP, HR, EF%: Reviewed - Qtc Review QTc: N/A - IV to PO Switch IV Medications: Reviewed - Home Meds Home Med List reviewed: Reviewed - Current meds Current Medication Order Review: Reviewed (Vancomycin to continue through 02/16 for total of 14 days since dose increase on 02/03)
[2022-02-10] MEDS: Cholestyramine/Aspartame PKT 1 EACH PO (15:30)
[2022-02-10] MEDS: Melatonin 3 MG TAB PO (20:43)
[2022-02-10] MEDS: Mirtazapine 15 MG TAB 7.5 MG PO (20:44)
[2022-02-11 02:52] VITALS: BP 129/74; PULSE 74; RESP 16; TEMP 37; O2SAT 95
[2022-02-11 07:37] VITALS: BP 138/77; PULSE 94; RESP 16; TEMP 38.1; O2SAT 98
[2022-02-11] MEDS: Enoxaparin 40 MG/0.4 ML SYR SC (08:23)
[2022-02-11] MEDS: Protein Nutritional Supplement 16 GM 1 OUNCE PACKET PO ×3 (08:23→20:13)
[2022-02-11] MEDS: Metoprolol 12.5 MG TAB PO (08:24)
[2022-02-11] MEDS: Ascorbic Acid 500 MG TAB PO ×2 (08:24→20:14)
[2022-02-11] MEDS: Acetaminophen 325 MG TAB 650 MG PO ×2 (08:24→13:38)
[2022-02-11] MEDS: Pantoprazole 40 MG TABCR PO (08:24)
[2022-02-11] MEDS: Multivitamin w/Minerals TAB 1 TAB PO (08:24)
[2022-02-11] MEDS: Ferrous Sulfate 325 MG TAB PO ×2 (08:24→20:14)
[2022-02-11] MEDS: Potassium Chloride 20 MEQ TABCR PO (08:24)
[2022-02-11] MEDS: Cholestyramine/Aspartame PKT 1 EACH PO (13:39)
[2022-02-11] MEDS: Melatonin 3 MG TAB PO (20:13)
[2022-02-11] MEDS: diphenhydrAMINE 25 MG CAP PO (20:14)
[2022-02-11] MEDS: Ibuprofen 600 MG TAB PO (20:16)
[2022-02-11] MEDS: Mirtazapine 15 MG TAB 7.5 MG PO (20:25)
[2022-02-11 23:40] VITALS: TEMP 38.1
[2022-02-11 23:45] VITALS: TEMP 38.1
--- NOTE | 2022-02-12 | DI.CT_ITS ---
Exam(s) CT ABDOMEN PELVIS WO EXAM: CT ABDOMEN PELVIS WO CLINICAL HISTORY: C diff colitis, ?air under diaphragm TECHNIQUE: COMPARISON: CT CT ABDOMEN PELVIS W from 09/30/2021 FINDINGS: CT examination of the abdomen and pelvis was performed without contrast administration. Images obtained through the lung bases show patchy airspace opacities in both lower lobes suggestive of pneumonitis. The liver appears normal with no evidence of a focal mass. Spleen is unremarkable in appearance.. Note is made of cholelithiasis, bile ducts are unremarkable. Pancreas is unremarkable in appearance. Previously noted right adrenal nodule, unchanged, attenuation measurements are consistent with fat co ntaining adenoma. There is left nephrolithiasis including a large left upper pole stone or stones period no evidence of hydronephrosis period right renal cysts noted, no definite right renal calculi. No ureteral calcifi cation or obstruction on either side.. Unremarkable bladder. There is no evidence of abdominal or pelvic adenopathy. Abdominal aorta is of normal diameter and no abnormality is seen involving major visceral branches.. Appendix is normal. No evidence diverticulitis or bowel obstruction. Prior bowel anastomosis noted. No significant abdominal wall hernia seen. Impression: No evidence of acute intra-abdominal process. No evidence of free intraperitoneal air. Cholelithiasis and nephrolithiasis noted. Probable bibasilar pneumonitis noted. RADIATION DOSE DELIVERED: 776.2mGy.cm Total DLP 776.2mGy.cm Total DLP DATA REPOSITORY: All CT scans at this facility are submitted to the National Radiology Data Registry (NRDR) Dose Index Registry (DIR) with the [employer] (ACR). RADIATION OPTIMIZATION: All CT scans at this facility use at least one of these dose optimization te chniques: automated exposure control; mA and/or kV adjustment per patient size (includes targeted exa ms where dose is matched to clinical indication); or iterative reconstruction.
--- NOTE | 2022-02-12 | DI.RAD_ITS ---
Exam(s) XR PORTABLE CHEST AP EXAM: XR PORTABLE CHEST AP CLINICAL HISTORY: fever TECHNIQUE: COMPARISON: CR,XR XR PORTABLE CHEST AP from 01/25/[address] ABDOMEN PELVIS WO from 02/12/2022 FINDINGS: The heart is not enlarged. Lungs appear generally clear. No pleural effusion on this frontal film. There is probable loop of bowel projected immediately beneath the diaphragm on the right, however pos sibility that this represents free intraperitoneal air is not entirely excluded. Additional evaluati on with CT may be obtained if clinically indicated. IMPRESSION: RADIATION DOSE DELIVERED: Total DLP
[2022-02-12] MEDS: metroNIDAZOLE 500 MG TAB PO ×4 (00:54→23:40)
[2022-02-12 01:03] LABS: Bilirubin Negative (Negative); Blood Negative (Negative); Clarity Clear (Clear); Glucose Negative (Negative); Ketones Negative (Negative); Leukocyte Esterase Negative (Negative); Nitrite Negative (Negative); Specific Gravity >= 1.030 (1.005-1.025); Urobilinogen 0.2 EU/dL (Up TO 0.2)
[2022-02-12 01:07] LABS: RBC 0-2 HPF (0-2)
[2022-02-12 01:08] LABS: Bacteria Few HPF (Negative); C & S Indicated? No; Casts Negative LPF (Negative); Crystals Few Calcium Oxalate HPF (Negative); Epithelial Cells Rare HPF (Negative); Mucus Moderate (Negative)
[2022-02-12 01:46] LABS: COVID-19 PCR Negative (Negative); Source Nasal/Nares
--- NOTE | 2022-02-12 01:56 | DI.VRAD_ITS ---
PROCEDURE INFORMATION: Exam: XR Chest Exam date and time: 02/12/2022 12:42 AM Age: 67 years old Clinical indication: Fever TECHNIQUE: Imaging protocol: Radiologic exam of the chest. Views: 1 view. COMPARISON: XR PORTABLE CHEST AP 01/25/2022 5:40 PM FINDINGS: Lungs: Bilateral atelectatic changes present the lung bases. Pleural spaces: Unremarkable. No pleural effusion. No pneumothorax. Heart/Mediastinum: The heart is mildly enlarged. Vasculature: The aorta is tortuous and calcified. Bones/joints: Unremarkable. Intraperitoneal space: Possible free air under the diaphragm. IMPRESSION: 1. Possible free air under the diaphragm. 2. The aorta is tortuous and calcified. Dictated and Authenticated by: Edil Branham MD. Ordering:JOI Suazo MD
[2022-02-12 04:23] VITALS: TEMP 36.7
[2022-02-12 06:54] LABS: Abs Immature Grans 0.03 10^3/uL (0.0-0.06); Absolute Basophil Count 0.03 10^3/uL (0.0-0.2); Absolute Lymphocyte Count 0.99 10^3/uL (1.2-3.4); Absolute Monocyte Count 1.22 10^3/uL (0.1-0.8); Absolute Neutrophil Count 6.58 10^3/uL (1.2-6.7); Basophils % 0.3; Eosinophils % 2.2; HGB 8.6 g/dL (13.5-17.5); Immature Grans % 0.3; Lymphocytes % 10.9; MCH 26.1 pg (27.0-33.0); MCHC 31.9 % (32.0-36.0); MCV 82 fL (80-95); MPV 8.8 fL (8.0-11.0); Monocytes % 13.5; Neutrophils % 72.8; Platelet Count 543 10^3/uL (130-400); RBC 3.29 10^6/uL (4.36-5.78); RDW 14.9 % (11.8-14.1); RDW-SD 43.7 fL; WBC 9.05 10^3/uL (4.4-10.8)
[2022-02-12 07:03] LABS: Anion Gap 7.3 mmol/L (3-11); BUN 22 mg/dL (7-18); C-Reactive Protein 10.05 mg/dL (0.0-0.3); CO2 26.7 mmol/L (21.0-32.0); Calcium 8.9 mg/dL (8.5-10.1); Chloride 107 mmol/L (98-107); Estimated GFR 81.47 (mL/min/1.73m2); Glucose 103 mg/dL (74-106); Magnesium 1.7 mg/dL (1.8-2.4); Potassium 3.7 mmol/L (3.5-5.1); Sodium 141 mmol/L (136-145)
[2022-02-12 08:15] LABS: Procalcitonin 0.1 ng/mL
[2022-02-12] MEDS: Protein Nutritional Supplement 16 GM 1 OUNCE PACKET PO ×3 (08:28→19:48)
[2022-02-12] MEDS: Potassium Chloride 20 MEQ TABCR PO (08:29)
[2022-02-12] MEDS: Ascorbic Acid 500 MG TAB PO ×2 (08:29→19:50)
[2022-02-12] MEDS: Multivitamin w/Minerals TAB 1 TAB PO (08:29)
[2022-02-12] MEDS: Ferrous Sulfate 325 MG TAB PO ×2 (08:29→19:50)
[2022-02-12] MEDS: Metoprolol 12.5 MG TAB PO (08:29)
[2022-02-12] MEDS: Acetaminophen 325 MG TAB 650 MG PO ×3 (08:29→19:49)
[2022-02-12] MEDS: Pantoprazole 40 MG TABCR PO (08:29)
[2022-02-12 08:35] VITALS: BP 122/74; PULSE 92; RESP 18; TEMP 36.8; O2SAT 95
--- NOTE | 2022-02-12 09:35 | PGE_ITS ---
Date of Service Date of service: 02/12/22 Time of Service: 09:35 Assessment and Plan Assessment and plan (1) Fever: Status: Acute Assessment and plan: Fever unknown origin; sepsis work up neg, ? freeair in the abdomen under the diaphragm - CT ruled that out - possible pneumonitis - considering C diff and extent of recent abx will not treat - fever resolved and he has not had on in 16 hours > (2) C. difficile colitis: Status: Acute Assessment and plan: continue vancomycin PO to 250 mg Q6hrs for 14 days - (3) Subcapital fracture of neck of left femur: Status: Acute Assessment and plan: s/p left hip repair. Pain is controlled. Continue PT. (4) Atrial fibrillation with RVR: Status: Suspected Assessment and plan: Paroxysmal. No longer on cardiac monitoring. Clinically, in NSR. Continue beta blockers. No full anticoagulation due to increased fall risk. (5) Hypomagnesemia: Status: Resolved Assessment and plan: normal (6) Dementia: Status: Chronic Assessment and plan: safety precautions. Behaviors have been well controlled. (7) Abdominal wound dehiscence: Status: Chronic Assessment and plan: followed by surgical services as outpatient and here. Continue would care per surgical recommendations. MRSA colonizer by skin culture - not a true infection (8) GERD (gastroesophageal reflux disease): Status: Chronic Assessment and plan: Continue PPI (9) DVT prophylaxis: Status: Acute Assessment and plan: Enoxaparin TEDS/SCDS d/'jerica. (10) Discharge planning issues: Status: Acute Assessment and plan: Awaiting SNF placement DNR/DNI Palliative care did see him 01/31/[address] Flynn Subjective Subjective Patient reports: no new complaints, feels better, tolerating a regular diet and afebrile; denies diarrhea or vomiting Interval history since last seen: Developed a fever overnight, sepsis work up done and is negative. Question of free air under abdomen ruled out by CT; possible pneumonitis. Exam Const General: no acute distress and frail appearing Nutritional Appearance: average body habitus Orientation: alert and awake Limitations: other limitations (dementia) [facility] Head: normal to inspection and atraumatic Mouth: oral mucosae normal Eyes General: appearance normal, both eyes and all related structures Neck Neck: normal visual inspection Chest Chest: normal inspection of the chest Resp Effort & Inspection: normal respiratory effort and no cough Auscultation: clear to auscultation bilaterally Cardio Rate: regular rate Rhythm: regular rhythm Heart Sounds: no murmurs GI Inspection: incision (open wound midline abd, wound bed with good granulation tissue, scant sloug) Palpation: soft and no guarding Skin General skin exam: no rashes or lesions noted Lesions: lesion noted (midline abdomen, old surgical wound dehiscence, healing by secondary intent) Rashes: no rashes (no surrounding erythema or sign of infection noted. ) Neuro General: patient alert Cognition: abnormal cognition Speech: abnormal speech Extrem General: no pedal edema Psych Mental Status: other (severe advanced dementia) Speech and Movement: restless Mood: other (severe advanced dementia) Affect: blunted Objective Last Vital Signs Temp 36.8 C 02/12/22 08:35 Pulse 92 H 02/12/22 08:35 Resp 18 02/12/22 08:35 BP 122/74 02/12/22 08:35 Pulse Ox 95 02/12/22 08:35 Laboratory Results - last 24 hr 02/11/22 02/11/22 02/12/22 23:35 23:55 00:03 WBC RBC Hgb Hct MCV MCH MCHC RDW Plt Count MPV Immature Gran % Neutrophils % Lymphocytes % Monocytes % Eosinophils % Basophils % Nucleated RBC % Absolute Neutrophils Absolute Lymphocytes Absolute Monocytes Absolute Eosinophils Absolute Basophils Sodium Potassium Chloride Carbon Dioxide Anion Gap BUN Creatinine Est GFR (CKD-EPI 2020) Glucose Calcium Magnesium C-Reactive Protein Procalcitonin Urine Color Yellow Urine Clarity Clear Urine pH 6.0 Ur Specific Jefferson >= 1.030 H Urine Protein Trace H Urine Ketones Negative Urine Blood Negative Urine Nitrite Negative Urine Bilirubin Negative Urine Urobilinogen 0.2 Ur Leukocyte Esterase Negative Urine RBC 0-2 Urine WBC 3-5 Ur Epithelial Cells Rare Urine Crystals Few Calcium Oxalate Urine Bacteria Few Urine Casts Negative Urine Mucus Moderate Ur Culture Indicated? No Urine Glucose Negative COVID-19 Source Nasal/Nares Cancelled SARS-CoV-2 (PCR) Negative Cancelled Influenza Type A (PCR) Cancelled Influenza Type B (PCR) Cancelled RSV (PCR) Cancelled 02/12/22 02/12/22 02/12/22 06:38 06:38 06:38 WBC 9.05 RBC 3.29 L Hgb 8.6 L Hct 27.0 L MCV 82 MCH 26.1 L MCHC 31.9 L RDW 14.9 H Plt Count 543 H MPV 8.8 Immature Gran % 0.3 Neutrophils % 72.8 Lymphocytes % 10.9 Monocytes % 13.5 Eosinophils % 2.2 Basophils % 0.3 Nucleated RBC % 0.0 Absolute Neutrophils 6.58 Absolute Lymphocytes 0.99 L Absolute Monocytes 1.22 H Absolute Eosinophils 0.20 Absolute Basophils 0.03 Sodium 141 Potassium 3.7 Chloride 107 Carbon Dioxide 26.7 Anion Gap 7.3 BUN 22 H Creatinine 1.0 Est GFR (CKD-EPI 2020) 81.47 Glucose 103 Calcium 8.9 Magnesium 1.7 L C-Reactive Protein 10.05 H Procalcitonin 0.1 Urine Color Urine Clarity Urine pH Ur Specific Jefferson Urine Protein Urine Ketones Urine Blood Urine Nitrite Urine Bilirubin Urine Urobilinogen Ur Leukocyte Esterase Urine RBC Urine WBC Ur Epithelial Cells Urine Crystals Urine Bacteria Urine Casts Urine Mucus Ur Culture Indicated? Urine Glucose COVID-19 Source SARS-CoV-2 (PCR) Influenza Type A (PCR) Influenza Type B (PCR) RSV (PCR)
--- NOTE | 2022-02-12 11:28 | DI.VRAD_ITS ---
PROCEDURE INFORMATION: Exam: CT Abdomen And Pelvis Without Contrast Exam date and time: 02/12/2022 10:57 AM Age: 67 years old Clinical indication: Other: C dif coliis, ? air under diaphragm TECHNIQUE: Imaging protocol: Computed tomography of the abdomen and pelvis without contrast. Radiation optimization: All CT scans at this facility use at least one of these dose optimization techniques: automated exposure control; mA and/or kV adjustment per patient size (includes targeted exams where dose is matched to clinical indication); or iterative reconstruction. COMPARISON: CT ABDOMEN PELVIS W 09/30/2021 9:08 PM FINDINGS: Lungs: There are patchy reticulonodular airspace opacities in both lower lobes greater on the left. A large pleural effusion is not seen. Liver: No focal intrahepatic abnormality is identified. Gallbladder and bile ducts: Multiple gallstones are noted. There is no significant biliary ductal dilatation. Pancreas: Pancreas is unremarkable. No pancreatic duct dilatation Spleen: Spleen is unremarkable Adrenal glands: There is a low-density right adrenal nodule likely adenoma, also previously identified. It measures 16 mm on series 2, image 26. There is mild left adrenal thickening without discrete mass. Kidneys and ureters: There is renal cortical thinning. There are nonobstructing renal calculi. There is a large calculus or cluster of calculi at the upper pole of the left kidney measuring approximately 16 mm in diameter on series 3, image 294. No ureteral calculi or hydronephrosis is identified. There is a cyst at the upper pole of the right kidney approximately 3 cm in diameter. Stomach and bowel: Evaluation of the bowel is somewhat limited in the absence of oral, IV contrast. Surgical sutures are seen at the rectosigmoid junction. There is prominent colonic stool but no specific evidence of bowel obstruction. Evaluation of the bowel wall for wall thickening or colitis is somewhat limited in the absence of IV, oral contrast. There is no evidence of pneumatosis. Appendix: There are no findings to suggest acute appendicitis. Intraperitoneal space: No evidence of free intraperitoneal air. No discrete or drainable fluid collection or abscess is identified. Vasculature: Vascular calcification is noted within the aorta which is nonaneurysmal. Lymph nodes: No significant adenopathy Urinary bladder: Bladder is unremarkable Reproductive: Unremarkable as visualized. Bones/joints: Left hip replacement is noted with associated artifact. There is compression deformity of L4 also seen on the patient's prior examination. No other new or acute bony abnormality is identified. The bilateral pars defects are noted at L5. There is grade 1 anterolisthesis of L5 on S1. Soft tissues: There has been interval clearing of incisional fluid collection involving the ventral abdominal wall. No new soft tissue abnormality identified. Other findings: Exam mildly degraded by motion. Evaluation of the visceral organs is limited in the absence of IV contrast. IMPRESSION: 1. No evidence of free intraperitoneal air. No evidence of a discrete or drainable collection, abscess. 2. Evaluation of the bowel wall for wall thickening is limited in the absence of oral, IV contrast. No evidence of bowel obstruction. No evidence of pneumatosis 3. Cholelithiasis. No significant biliary ductal dilatation. 4. Nephrolithiasis. No ureteral calculi or hydronephrosis. 5. Patchy and reticulonodular airspace opacities at the lung bases greater on the left suspicious for pneumonitis. Clinical correlation recommended. 6. Stable low-density right adrenal nodule likely adenoma. 7. Interval left hip replacement. No other new bony abnormality. Dictated and Authenticated by: Cheyanne Parikh MD. Ordering:JOI Suazo MD
[2022-02-12] MEDS: Cholestyramine/Aspartame PKT 1 EACH PO (15:58)
[2022-02-12] MEDS: Mirtazapine 15 MG TAB 7.5 MG PO (19:48)
[2022-02-12] MEDS: Melatonin 3 MG TAB PO (19:49)
[2022-02-12] MEDS: diphenhydrAMINE 25 MG CAP PO (21:29)
[2022-02-13] MEDS: diphenhydrAMINE 25 MG CAP PO (01:13)
[2022-02-13 06:50] LABS: Abs Immature Grans 0.02 10^3/uL (0.0-0.06); Absolute Basophil Count 0.02 10^3/uL (0.0-0.2); Absolute Eosinophil Count 0.24 10^3/uL (0.0-0.7); Absolute Monocyte Count 0.79 10^3/uL (0.1-0.8); Absolute Neutrophil Count 3.93 10^3/uL (1.2-6.7); Basophils % 0.3; HCT 27.5 % (40.0-50.0); HGB 8.7 g/dL (13.5-17.5); Immature Grans % 0.3; Lymphocytes % 16.7; MCH 25.5 pg (27.0-33.0); MCHC 31.6 % (32.0-36.0); MCV 81 fL (80-95); MPV 9.1 fL (8.0-11.0); Monocytes % 13.2; Neutrophils % 65.5; Platelet Count 579 10^3/uL (130-400); RBC 3.41 10^6/uL (4.36-5.78); RDW 14.6 % (11.8-14.1); RDW-SD 42.9 fL
[2022-02-13 07:05] LABS: Anion Gap 8.6 mmol/L (3-11); BUN 16 mg/dL (7-18); CO2 24.4 mmol/L (21.0-32.0); CREATININE 0.9 mg/dL (0.70-1.30); Chloride 105 mmol/L (98-107); Estimated GFR 92.45 (mL/min/1.73m2); Glucose 104 mg/dL (74-106); Magnesium 1.7 mg/dL (1.8-2.4); Potassium 3.5 mmol/L (3.5-5.1); Sodium 138 mmol/L (136-145)
[2022-02-13] MEDS: Ascorbic Acid 500 MG TAB PO ×2 (08:34→20:49)
[2022-02-13] MEDS: Ferrous Sulfate 325 MG TAB PO ×2 (08:34→20:49)
[2022-02-13] MEDS: Protein Nutritional Supplement 16 GM 1 OUNCE PACKET PO ×3 (08:35→20:49)
[2022-02-13] MEDS: metroNIDAZOLE 500 MG TAB PO ×3 (08:35→23:21)
[2022-02-13] MEDS: Potassium Chloride 20 MEQ TABCR PO (08:35)
[2022-02-13] MEDS: Multivitamin w/Minerals TAB 1 TAB PO (08:35)
[2022-02-13] MEDS: Metoprolol 12.5 MG TAB PO (08:35)
[2022-02-13] MEDS: Acetaminophen 325 MG TAB 650 MG PO ×4 (08:35→20:48)
[2022-02-13] MEDS: Pantoprazole 40 MG TABCR PO (08:35)
[2022-02-13 08:51] VITALS: BP 137/75; PULSE 92; RESP 18; TEMP 37.2; O2SAT 96
[2022-02-13] MEDS: Ibuprofen 600 MG TAB PO (10:57)
[2022-02-13] MEDS: Cholestyramine/Aspartame PKT 1 EACH PO (14:09)
[2022-02-13] MEDS: Mirtazapine 15 MG TAB 7.5 MG PO (20:49)
[2022-02-13] MEDS: Melatonin 3 MG TAB PO (20:49)
[2022-02-14] MEDS: diphenhydrAMINE 25 MG CAP PO ×3 (01:46→23:32)
[2022-02-14 07:38] VITALS: BP 130/76; PULSE 97; RESP 16; TEMP 36.6; O2SAT 97
[2022-02-14] MEDS: metroNIDAZOLE 500 MG TAB PO ×3 (08:39→23:32)
[2022-02-14] MEDS: Multivitamin w/Minerals TAB 1 TAB PO (08:39)
[2022-02-14] MEDS: Acetaminophen 325 MG TAB 650 MG PO ×3 (08:39→19:19)
[2022-02-14] MEDS: Metoprolol 12.5 MG TAB PO (08:39)
[2022-02-14] MEDS: Ascorbic Acid 500 MG TAB PO ×2 (08:39→19:18)
[2022-02-14] MEDS: Pantoprazole 40 MG TABCR PO (08:39)
[2022-02-14] MEDS: Potassium Chloride 20 MEQ TABCR PO (08:39)
[2022-02-14] MEDS: Ferrous Sulfate 325 MG TAB PO ×2 (08:39→19:19)
[2022-02-14] MEDS: Protein Nutritional Supplement 16 GM 1 OUNCE PACKET PO ×3 (08:40→19:18)
[2022-02-14] MEDS: Ibuprofen 600 MG TAB PO (13:26)
[2022-02-14] MEDS: Cholestyramine/Aspartame PKT 1 EACH PO (13:26)
--- NOTE | 2022-02-14 14:11 | CMPROGNOTE_ITS ---
- If Service Date Differs Date of service: 02/14/22 Time of Service: 14:11 Care Management Progress Note S/O: was walking in the halls with staff when CM met with him. He was in good spirits, although he was confused. He informed CM that he was looking for the ball bearings for some type of equipment. He has been very pleasant and cooperative for the past 2 weeks and has not had any aggressive behavior. This morning MIGUEL ANGEL sent a referral to [facility] in [place] where his resgisel gaona after talking to the Clinical Research Management Associate Ana Haque. They have limited long filler cigar roller machine bed availability however they agreed to review the referral. Another potential barrier is that has [place] Medicaid and other states are not always able to accept that as a payer source. A: is a 66 year old man admitted on 01/24/22 with a hip fracture. He transitioned to SB-2 on 02/08/22 P: is awaiting placement in a nursing home care facility. Referrals have been re-sent to all facilities that received them last month and added several new ones. MIGUEL ANGEL continues to support and his discharge needs.
[2022-02-14] MEDS: LORazepam 0.5 MG TAB PO (14:22)
[2022-02-14] MEDS: Melatonin 3 MG TAB PO (20:53)
[2022-02-14] MEDS: Mirtazapine 15 MG TAB 7.5 MG PO (20:53)
[2022-02-15 08:00] VITALS: BP 133/80; PULSE 92; RESP 18; TEMP 37; O2SAT 97
[2022-02-15] MEDS: Pantoprazole 40 MG TABCR PO (08:31)
[2022-02-15] MEDS: Metoprolol 12.5 MG TAB PO (08:31)
[2022-02-15] MEDS: Protein Nutritional Supplement 16 GM 1 OUNCE PACKET PO ×3 (08:31→20:18)
[2022-02-15] MEDS: Acetaminophen 325 MG TAB 650 MG PO ×4 (08:31→20:17)
[2022-02-15] MEDS: Multivitamin w/Minerals TAB 1 TAB PO (08:31)
[2022-02-15] MEDS: Ascorbic Acid 500 MG TAB PO ×2 (08:31→20:17)
[2022-02-15] MEDS: Potassium Chloride 20 MEQ TABCR PO (08:31)
[2022-02-15] MEDS: metroNIDAZOLE 500 MG TAB PO ×3 (08:31→23:53)
[2022-02-15] MEDS: Ferrous Sulfate 325 MG TAB PO ×2 (08:31→20:17)
[2022-02-15] MEDS: Ibuprofen 600 MG TAB PO (12:44)
[2022-02-15] MEDS: Cholestyramine/Aspartame PKT 1 EACH PO (15:03)
[2022-02-15] MEDS: Melatonin 3 MG TAB PO (20:17)
[2022-02-15] MEDS: Mirtazapine 15 MG TAB 7.5 MG PO (20:17)
[2022-02-16 07:09] VITALS: BP 120/73; PULSE 101; RESP 16; TEMP 36.4; O2SAT 97
[2022-02-16] MEDS: Protein Nutritional Supplement 16 GM 1 OUNCE PACKET PO ×3 (07:53→20:26)
[2022-02-16] MEDS: Ferrous Sulfate 325 MG TAB PO ×2 (07:54→20:26)
[2022-02-16] MEDS: Potassium Chloride 20 MEQ TABCR PO (07:54)
[2022-02-16] MEDS: Metoprolol 12.5 MG TAB PO (07:54)
[2022-02-16] MEDS: Ascorbic Acid 500 MG TAB PO ×2 (07:54→20:26)
[2022-02-16] MEDS: Pantoprazole 40 MG TABCR PO (07:54)
[2022-02-16] MEDS: Multivitamin w/Minerals TAB 1 TAB PO (07:54)
[2022-02-16] MEDS: metroNIDAZOLE 500 MG TAB PO ×3 (07:54→23:08)
[2022-02-16] MEDS: Acetaminophen 325 MG TAB 650 MG PO ×4 (07:55→20:26)
[2022-02-16] MEDS: Cholestyramine/Aspartame PKT 1 EACH PO (14:21)
[2022-02-16 17:06] LABS: C Diff PCR Negative (Negative)
[2022-02-16] MEDS: Mirtazapine 15 MG TAB 7.5 MG PO (21:35)
[2022-02-16] MEDS: Melatonin 3 MG TAB PO (21:35)
[2022-02-17 07:37] VITALS: BP 126/70; PULSE 99; RESP 18; TEMP 36.6; O2SAT 97
[2022-02-17] MEDS: Potassium Chloride 20 MEQ TABCR PO (08:20)
[2022-02-17] MEDS: Ferrous Sulfate 325 MG TAB PO ×2 (08:20→20:28)
[2022-02-17] MEDS: Ascorbic Acid 500 MG TAB PO ×2 (08:20→20:27)
[2022-02-17] MEDS: metroNIDAZOLE 500 MG TAB PO ×3 (08:20→23:40)
[2022-02-17] MEDS: Metoprolol 12.5 MG TAB PO (08:21)
[2022-02-17] MEDS: Protein Nutritional Supplement 16 GM 1 OUNCE PACKET PO ×3 (08:21→20:28)
[2022-02-17] MEDS: Multivitamin w/Minerals TAB 1 TAB PO (08:21)
[2022-02-17] MEDS: Pantoprazole 40 MG TABCR PO (08:21)
[2022-02-17] MEDS: Acetaminophen 325 MG TAB 650 MG PO ×4 (08:21→20:27)
[2022-02-17] MEDS: diphenhydrAMINE 25 MG CAP PO (11:12)
[2022-02-17] MEDS: Cholestyramine/Aspartame PKT 1 EACH PO (14:34)
--- NOTE | 2022-02-17 16:26 | CMACTNOTE_ITS ---
- If Service Date Differs Date of service: 02/17/22 Time of Service: 16:26 Care Management Activity Note S/O: has been walking in the halls with staff whenever possible and appears to enjoy this. He has been given puzzles to unravel and washcloths to fold. has received director long term care Medicaid recently and [facility] is actively reviewing his chart for admission. remains pleasant and appropriate in interaction. A: is a 66 year old man admitted on 01/24/22 with a hip fracture. He transitioned to -2 on 02/08/22 P: is awaiting placement in a care home care facility. MIGUEL ANGEL received a call from [facility] today requesting additional clinical information.. They indicated that his sister visited the [facility] yesterday and advocated for them to reconsider offering a bed. A visit by staff from [facility] is scheduled for tomorrow. continues to support and his discharge needs.
[2022-02-17] MEDS: Mirtazapine 15 MG TAB 7.5 MG PO (20:27)
[2022-02-17] MEDS: Melatonin 3 MG TAB PO (20:28)
[2022-02-17] MEDS: oxyCODONE 5 MG TAB PO (23:40)
[2022-02-18] MEDS: diphenhydrAMINE 25 MG CAP PO (00:13)
[2022-02-18] MEDS: LORazepam 0.5 MG TAB PO ×2 (00:13→11:24)
[2022-02-18 07:25] VITALS: BP 110/71; PULSE 89; RESP 16; TEMP 36.3; O2SAT 98
[2022-02-18] MEDS: Ferrous Sulfate 325 MG TAB PO ×2 (09:15→20:32)
[2022-02-18] MEDS: Protein Nutritional Supplement 16 GM 1 OUNCE PACKET PO ×2 (09:15→20:32)
[2022-02-18] MEDS: metroNIDAZOLE 500 MG TAB PO ×3 (09:15→23:40)
[2022-02-18] MEDS: Multivitamin w/Minerals TAB 1 TAB PO (09:15)
[2022-02-18] MEDS: Potassium Chloride 20 MEQ TABCR PO (09:15)
[2022-02-18] MEDS: Metoprolol 12.5 MG TAB PO (09:15)
[2022-02-18] MEDS: Acetaminophen 325 MG TAB 650 MG PO ×4 (09:15→20:33)
[2022-02-18] MEDS: Pantoprazole 40 MG TABCR PO (09:15)
[2022-02-18] MEDS: Ascorbic Acid 500 MG TAB PO ×2 (09:16→20:32)
[2022-02-18 10:41] LABS: C Diff PCR Negative (Negative)
[2022-02-18] MEDS: Ibuprofen 600 MG TAB PO (11:15)
[2022-02-18] MEDS: Mirtazapine 15 MG TAB 7.5 MG PO (20:33)
[2022-02-18] MEDS: Melatonin 3 MG TAB PO (20:33)
[2022-02-19 07:34] VITALS: BP 115/74; PULSE 101; RESP 16; TEMP 36.8; O2SAT 97
[2022-02-19] MEDS: Pantoprazole 40 MG TABCR PO (08:11)
[2022-02-19] MEDS: Ascorbic Acid 500 MG TAB PO ×2 (08:11→19:51)
[2022-02-19] MEDS: Protein Nutritional Supplement 16 GM 1 OUNCE PACKET PO ×3 (08:11→19:51)
[2022-02-19] MEDS: Metoprolol 12.5 MG TAB PO (08:11)
[2022-02-19] MEDS: Potassium Chloride 20 MEQ TABCR PO (08:11)
[2022-02-19] MEDS: Acetaminophen 325 MG TAB 650 MG PO ×4 (08:11→19:51)
[2022-02-19] MEDS: metroNIDAZOLE 500 MG TAB PO ×3 (08:11→23:09)
[2022-02-19] MEDS: Ferrous Sulfate 325 MG TAB PO ×2 (08:12→19:52)
[2022-02-19] MEDS: Ibuprofen 600 MG TAB PO (08:12)
[2022-02-19] MEDS: Multivitamin w/Minerals TAB 1 TAB PO (08:12)
[2022-02-19] MEDS: LORazepam 0.5 MG TAB PO ×2 (09:25→23:09)
[2022-02-19] MEDS: oxyCODONE 5 MG TAB PO ×2 (11:02→19:51)
[2022-02-19] MEDS: Cholestyramine/Aspartame PKT 1 EACH PO (13:44)
[2022-02-19] MEDS: Melatonin 3 MG TAB PO (19:50)
[2022-02-19] MEDS: Mirtazapine 15 MG TAB 7.5 MG PO (19:52)
[2022-02-19] MEDS: diphenhydrAMINE 25 MG CAP PO (23:10)
[2022-02-20 07:49] VITALS: BP 129/80; PULSE 90; RESP 18; TEMP 36.5; O2SAT 100
[2022-02-20] MEDS: Ascorbic Acid 500 MG TAB PO ×2 (09:49→20:33)
[2022-02-20] MEDS: Multivitamin w/Minerals TAB 1 TAB PO (09:49)
[2022-02-20] MEDS: Protein Nutritional Supplement 16 GM 1 OUNCE PACKET PO ×2 (09:49→20:33)
[2022-02-20] MEDS: Pantoprazole 40 MG TABCR PO (09:49)
[2022-02-20] MEDS: Metoprolol 12.5 MG TAB PO (09:49)
[2022-02-20] MEDS: Acetaminophen 325 MG TAB 650 MG PO ×4 (09:50→20:33)
[2022-02-20] MEDS: Ferrous Sulfate 325 MG TAB PO ×2 (09:50→20:33)
[2022-02-20] MEDS: metroNIDAZOLE 500 MG TAB PO ×2 (09:50→15:21)
[2022-02-20] MEDS: Potassium Chloride 20 MEQ TABCR PO (09:50)
[2022-02-20] MEDS: Mirtazapine 15 MG TAB 7.5 MG PO (21:40)
[2022-02-20] MEDS: Melatonin 3 MG TAB PO (21:40)
[2022-02-20] MEDS: oxyCODONE 5 MG TAB PO (21:40)
[2022-02-21] MEDS: metroNIDAZOLE 500 MG TAB PO ×4 (01:05→23:40)
[2022-02-21 07:55] VITALS: BP 151/80; PULSE 107; RESP 19; TEMP 37.2; O2SAT 97
--- NOTE | 2022-02-21 07:56 | W.PALPGNOTE ---
Date of service: 02/21/22 Time of Service: 07:56 Assessment and Plan Assessment and plan (1) Subcapital fracture of neck of left femur: Status: Acute (2) Palliative care status: Status: Acute Assessment and plan: Overall juniors condition has greatly improved. He is no longer agitated. He is able to identify when he has pain and also is letting nurses know. I do think that pain was a lot of his earlier agitation. That seems to have resolved. He has been a pleasure to have up on the floor. Will be watching for repeat loose stools. If he is found to have a positive C. difficile (last 2 have been negative) I would recommend that he be treated with fidaxomicin instead of vancomycin At this point Gabino is doing very very well. I am assuming that he will be placed soon. Please reconsult me if you feel that he needs further palliative care services Subjective Subjective Interval history since last seen: Staff states that he is no longer agitated. He is cooperative smiling and able to identify if he does have pain. Overall doing very well and awaiting disposition. There is concern about C. difficile. He has tested negative x2 Exam Narrative Exam Narrative: Gabino is lying in bed. He is resting comfortably. His heart is regular. Lungs diminished breath sounds but no rales. He does not have his compression boots in place. Objective Last Vital Signs Temp 99.0 F 02/21/22 07:55 Pulse 107 H 02/21/22 07:55 Resp 19 02/21/22 07:55 BP 151/80 H 02/21/22 07:55 Pulse Ox 97 02/21/22 07:55
[2022-02-21] MEDS: Ascorbic Acid 500 MG TAB PO ×2 (08:17→19:57)
[2022-02-21] MEDS: Acetaminophen 325 MG TAB 650 MG PO ×4 (08:17→19:56)
[2022-02-21] MEDS: Metoprolol 12.5 MG TAB PO (08:17)
[2022-02-21] MEDS: Pantoprazole 40 MG TABCR PO (08:18)
[2022-02-21] MEDS: Multivitamin w/Minerals TAB 1 TAB PO (08:18)
[2022-02-21] MEDS: Protein Nutritional Supplement 16 GM 1 OUNCE PACKET PO ×3 (08:19→19:57)
[2022-02-21] MEDS: Potassium Chloride 20 MEQ TABCR PO (08:20)
[2022-02-21] MEDS: Ferrous Sulfate 325 MG TAB PO ×2 (08:20→19:56)
[2022-02-21] MEDS: Cholestyramine/Aspartame PKT 1 EACH PO (16:44)
[2022-02-21] MEDS: Mirtazapine 15 MG TAB 7.5 MG PO (20:15)
[2022-02-21] MEDS: Melatonin 3 MG TAB PO (20:15)
[2022-02-21 23:54] LABS: Source Nasal/Nares
--- NOTE | 2022-02-22 | DI.RAD_ITS ---
Exam(s) XR HIP LT AP LAT ONLY EXAM: XR HIP LT AP LAT ONLY CLINICAL HISTORY: f/u [facility] prior to d/c. TECHNIQUE: 2D digital imaging was performed. Two images were obtained. AP and lateral views were ob tained. COMPARISON: CR XR HIP LT COMPLETE AP PELVIS from 01/28/2022 FINDINGS: BONES: There are stable post operative changes present. No fracture or dislocation. JOINTS: The orthopedic hardware is in good position. No evidence of hardware loosening. SOFT TISSUE: Normal. IMPRESSION: Stable postoperative changes. DATA REPOSITORY: RADIATION DOSE DELIVERED:
[2022-02-22 00:25] LABS: COVID-19 PCR Negative (Negative)
[2022-02-22 06:47] VITALS: BP 119/77; PULSE 92; RESP 16; TEMP 36.7; O2SAT 96
[2022-02-22] MEDS: Protein Nutritional Supplement 16 GM 1 OUNCE PACKET PO (07:40)
[2022-02-22] MEDS: Metoprolol 12.5 MG TAB PO (07:41)
[2022-02-22] MEDS: Acetaminophen 325 MG TAB 650 MG PO (07:41)
[2022-02-22] MEDS: metroNIDAZOLE 500 MG TAB PO (07:41)
[2022-02-22] MEDS: Potassium Chloride 20 MEQ TABCR PO (07:41)
[2022-02-22] MEDS: Multivitamin w/Minerals TAB 1 TAB PO (07:41)
[2022-02-22] MEDS: Ferrous Sulfate 325 MG TAB PO (07:41)
[2022-02-22] MEDS: Ascorbic Acid 500 MG TAB PO (07:41)
[2022-02-22] MEDS: Pantoprazole 40 MG TABCR PO (07:41)
--- NOTE | 2022-02-22 09:47 | DSE_ITS ---
Date of service: 02/22/22 Time of Service: 09:47 DS: Diagnosis Discharge Diagnosis (1) Subcapital fracture of neck of left femur: Status: Resolved Asessment and Plan: Healed - total hip replacement 01/25 (2) Palliative care status: Status: Acute Discharge Plan Disposition Patient Disposition: Group Home Facility(SNF) Condition: Good Discharge Details Reason For Visit: Hip fracture Admit Date/Time: 02/08/22 11:47 Admit Provider: Wilfredo Jones Attending Provider: Wilfredo Jones [facility] Hospital Course: This 66-year-old male patient with past medical history of alcohol abuse, ulcerative colitis, dementia, TBI from fall 08/2021, although minor, significant cognitive residual symptoms, presented to the [facility] emergency department on 01/24/2022, with the chief complaint of left hip pain after having a mechanical fall, witnessed by family, landing on his left hip.?He was found to have a left displaced femoral neck fracture. He had recently moved in with his sister Zaynab, who is DPOA, over the summer after having had an exploratory laparotomy in [place] for a small bowel obstruction. He had extensive intra-abdominal adhesions with frozen abdomen, ileus. Resulting from that surgery, he had a chronic abdominal wound with exposed mesh, healing by secondary intention, no infection. He was admitted to the medical floor and orthopedics and surgery were consulted. ?He was taken to the OR for repair of his left hip. It was decided he would benefit from a total hip replacement.? He underwent surgery and his post- operative course was complicated with delirium and behavioral disturbance in addition to cdiff colitis.? He was treated with oral vancomycin, his stool was tested recently and he is negative for cdiff. ?His abdominal wound was healing, had granulated tissue and the mesh was not visible.? The wound was debrided by surgery.? It then was approximately 5 cm long and 2 cm wide and 1.3 cm deep with beefy red granulation tissue, the surrounding tissue was intact.? He has had no signs or symptoms of infection.? Prior to admission, he had declining ambulatory function.? He required assistance for most ADLs although he was able to ambulate without assistance.? Patient?s generally not oriented to place, time, persons, events. His sister decided he was too much for her to care for at home and wanted him placed in a senior care. ?He was seen by Palliative Care while in the hospital and they will follow him out-patient. While hospitalized there was occasion that patient would refuse his medications, with encouragement he did eventually take it, mostly with pudding or the like. He did display some agitation during his hospitalization.? It was difficult to determine which predisposing factor was causing the agitation secondary to his dementia, he was unable to report if he was in pain or anxious.? He was given pain medication and continued to be agitated.? Palliative care recommended he be started on Mirtazapine.? This was very effective and he has not been agitated, and is quite pleasantly confused. Patient was seen and treated by PT. ?Overall, patient appears to be increasingly consistent with functional mobility improvements as he is getting more familiar with this new environment and caregivers.? He continues to require verbal cueing.? Much improved pain tolerance.?His gait continues to be unstable, however, now safe to be walked by nursing staff in the hallway with hand-held assist.? He is being discharged today stable. He is Covid test is negative. His sister is transporting him to the [facility].? Home Meds and New Rx's Prescriptions: New melatonin 3 mg Tablet 3 mg PO HS Qty: 0 0RF potassium chloride 20 mEq Tablet,Er Particles/Crystals 20 meq PO DAILY Qty: 0 0RF lorazepam 0.5 mg Tablet 0.5 mg PO TID PRN PRNQty: 0 0RF ascorbic acid (vitamin C) [Vitamin C] 500 mg Tablet 500 mg PO BID Qty: 0 0RF ferrous sulfate 325 mg (65 mg iron) Tablet 325 mg PO BID Qty: 0 0RF mirtazapine 15 mg Tablet 7.5 mg PO HS Qty: 0 0RF ibuprofen 600 mg Tablet 600 mg PO QID PRN PRNQty: 0 0RF oxycodone 5 mg Tablet 5 mg PO Q6H PRN PRNQty: 0 0RF cholestyramine-aspartame [Prevalite] 4 gram Powder In Packet 1 ea PO DAILY@1400 Qty: 0 0RF One Daily Multi-Vit w-Mineral 4.5 mg iron Tablet 1 tab PO DAILY Qty: 0 0RF Phlexy-Vits 15 mg- 700 mcg Powder In Packet 1 oz PO TID Qty: 0 0RF L. Acidophilus,Casei,Rhamnosus [Bio-K Plus] 1 cap PO DAILY Qty: 0 0RF Continued mecobalamin (vitamin B12) 1,000 mcg tablet,disintegrating 1,000 mcg sublingual DAILY Rx Instructions: place tablet under tongue and allow to dissolve for at least30 secs before swallowing pantoprazole 40 mg tablet,delayed release (DR/EC) 40 mg PO DAILY Qty: 90 4RF metoprolol succinate 25 mg tablet extended release 24 hr 12.5 mg PO DAILY Rx Instructions: Take 1 tablet daily Discharge Instructions Instructions: Altered Mental Status (GEN) Stand Alone Forms: Nursing Discharge Form [facility]) Activity:: With one assist Equipment/Supplies:: Walker Diet:: As Tolerated Discharge Orders Discharge Orders: Discharge Order (Routine); Ordered 02/22/22 Ordered By: Martina Franks DS: Summary Time Spent with Patient providing and/or coordinating discharge services: Greater than 30 minutes Status at Discharge Functional status at discharge: uses cane/walker Overall status at discharge: patient is back to baseline Mental Status: mental status grossly normal (at baseline) Speech and Movement: speech and movement normal, No agitated and slowed movement Mood: congruent mood Affect: blunted Exam Psych Mental Status: mental status grossly normal (at baseline) Speech and Movement: speech and movement normal, not agitated and slowed movement Mood: congruent mood Affect: blunted DS: Data Vitals/I&O Vitals and I&O: Vital Signs Temperature 36.7 C 02/22/22 06:47 Temperature Source Tympanic 02/22/22 06:47 Pulse 92 H 02/22/22 06:47 Pulse Rhythm Regular 02/22/22 07:30 Respiratory Rate 16 02/22/22 06:47 Respiratory Effort Non-Labored 02/22/22 07:30 Respiratory Depth Normal 02/22/22 07:30 Respiratory Pattern Normal 02/22/22 07:30 Blood Pressure 119/77 02/22/22 06:47 Pulse Oximetry 96 02/22/22 06:47 Oxygen Delivery Method Room Air 02/22/22 06:47 Oxygen Flow Rate 0 02/22/22 06:47 Pain Level 0 02/21/22 07:55 Comment 02/20/22 11:19 Intake & Output 12/03/0302/21/22 02/22/22 11:59 23:59 11:59 Intake Total 150 / 150 50 / 50 Balance 150 / 150 50 / 50 Intake: Oral 150 / 150 50 / 50 Other: Urine Color Yellow Yellow Urine Appearance Clear Clear Clear Urine Odor None Comment pT voided in toilet. pT voided in the toilet. pt voided in toilet Stool Size Moderate Moderate Small Stool Characteristics Liquid Soft Liquid Brown Green Brown Voiding Methods Toilet Toilet Diaper Incontinent Data Completed and Pending Labs on day of discharge: Labs from last 24 hours 02/21/22 23:50 COVID-19 Source Nasal/Nares SARS-CoV-2 (PCR) Negative PFSH All Active Problems (Updated 02/22/22 @ 09:47 by Martina Franks NP) Fever (Acute) Palliative care status (Acute) C. 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 Followed at and treated at hospital in [place] August-early September 2021-prolonged hospitalization Ulcerative colitis S/p Subtotal colectomy with ileocolonic anastomosis Surgical History History of cataract surgery Hx of exploratory laparotomy (08/08/21) Extensive intra-abdominal adhesions with frozen abdomen, ileus S/P total colectomy (1979) Subtotal colectomy with ileocolonic anastomosis Family History Mother , 71 No problems noted. Father , 81 No problems noted. Sister , 70 No problems noted. Social History Smoking/Tobacco Use Status: Former Tobacco Use tobacco type: cigarettes Quit Date: 03/13/91 Second Hand Exposure: Yes Smoking risk assessment performed?: Yes Alcohol Intake: current Alcohol type: beer Drug use: Never Substance use type: does not use Caregiver/Support person: Yes Household members: other Details: Sister and brother in law Housing: house Communication Needs: None Do you need help understanding health information?: Always Pets and animals: No Sexually active: No Do you think of yourself as: straight/heterosexual Current gender identity: male What is your relationship status?: How often do you talk on the phone with friends or family?: decline to answer How often do you get together with friends or relatives?: decline to answer How often do you attend confucianist or alevism services?: decline to answer Do you belong to any clubs or organized social groups?: decline to answer Panel score (0-1 are the most socially isolated patients): 1 What type of physical activity do you participate in: none Frequency: does not exercise Philly/Sabianism: No preference Special philly needs: No Seatbelt use: always Helmet use: Yes Drive 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
--- NOTE | 2022-02-22 11:52 | PGE_ITS ---
Date of Service Date of service: 02/22/22 Time of Service: 11:53 Assessment and Plan Assessment and plan (1) Subcapital fracture of neck of left femur: Status: Resolved Assessment and plan: is a 67-year-old who is status post left hip replacement for a femoral neck fracture. He is doing well. He is now going to be discharged to a half-way facility. He has had no acute issues with the left hip itself. He is able to ambulate independently. X-rays show appropriate position hip replacement. No sign of complication at this point. He may weight-bear as to lerated. I will see him back another 6 weeks in the office for repeat evaluation. Subjective Subjective Interval history since last seen: has been doing well from his hip replacement. He has been able to mobilize with nursing and independently was in his room. He expresses no acute complaints. He does report some soreness about the left hip with movement but nothing that limits his ability to weight-bear. There is been no reported issues with the wound.. Exam Narrative Exam Narrative: Sitting in the chair. No acute distress. He is able to participate with exam. Evaluation of the left hip shows a well-healed incision. No signs of infection. No significant swelling. No significant pain to palpation. He is able to actively flex and abduct the left hip with no notable limitation although he reports some soreness and he points to location of his mid thigh. No pain with internal and external rotation. Objective Last Vital Signs Temp 36.7 C 02/22/22 06:47 Pulse 92 H 02/22/22 06:47 Resp 16 02/22/22 06:47 BP 119/77 02/22/22 06:47 Pulse Ox 96 02/22/22 06:47 Laboratory Results - last 24 hr 02/21/22 23:50 COVID-19 Source Nasal/Nares SARS-CoV-2 (PCR) Negative Objective Narrative Objective Narrative: X-ray of the left hip and pelvis was performed but shows a total hip arthroplasty in good position. There is no apparent signs of loosening or fracture.
--- NOTE | 2022-02-22 15:38 | CMDISCH_ITS ---
- If Service Date Differs Date of service: 02/22/22 Time of Service: 15:38 LACE Index Scoring Tool - Questions: Length of Stay (in days): 14 or more Acuity (Admit via E.D.?): Yes Comorbidities: Dementia E.D. 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 He will follow up with facility providers and plan of care. His sister Zaynab will transport him via private vehicle. Patient/Family Education Needs: Review of discharge instructions, limitations, follow up plan, activity, discuss As Me Three Services Needed at Discharge: Penitentiary Facility
== END 2022-02-22 11:56 | disposition skilled nursing facility (03) | DRG 372 ==
PROVIDERS: Internal Medicine; Nurse Practitioner Family; Admitting Provider Internal Medicine; PCP Nurse Practitioner Family; Visit Provider Internal Medicine
DX: A04.72 Enterocolitis due to Clostridium difficile, not specified as recurrent (principal); F02.818 Dementia in other diseases classified elsewhere, unspecified severity, with other behavioral disturbance; S72.012D Unspecified intracapsular fracture of left femur, subsequent encounter for closed fracture with routine healing; I48.91 Unspecified atrial fibrillation; E83.42 Hypomagnesemia; G20 Parkinson's disease; W19.XXXD Unspecified fall, subsequent encounter; I10 Essential (primary) hypertension; R73.03 Prediabetes; K21.9 Gastro-esophageal reflux disease without esophagitis; R35.1 Nocturia; R50.9 Fever, unspecified; T81.31XD Disruption of external operation (surgical) wound, not elsewhere classified, subsequent encounter; Z20.822 Contact with and (suspected) exposure to COVID-19
CPT/HCPCS: 36415; 80048; 84145; 87493; 87635; 87637; 97530; 99305; 99316; J1650; 71045; 73502; 74176; 81003; 81015; 83735; 85025; 86140; 99308; J3490

== ENCOUNTER 2022-03-02 01:15 | Outpatient (CLI) | payer MEDICARE, MEDICAID, SELFPAY ==
--- NOTE | 2022-03-02 13:52 | DI.US_ITS ---
APPROVED REPORT EXAM: Comprehensive 2D, Doppler, and color-flow Echocardiogram Patient Location: Out-Patient Eye Glass Frame Polisher: Ana Briceno RDCS (AE) Indications: A Fib with RVR Other Information Study Quality: Fair. Technically limited study due to inability to position patient exam done supine. Conclusion Normal left ventricular wall thickness and chamber size. Estimated ejection fraction is 50 to 55%. There are no segmental wall motion abnormalities Normal right ventricular size and systolic function Both atria are normal in size Aortic valve is sclerotic without stenosis or regurgitation Wall motion Left Ventricle The left ventricle is normal size. Left ventricular systolic function is borderline There is normal l eft ventricular wall thickness. There are no segmental wall motion abnormalities There is no ventricu lar septal defect visualized. LVEF is 50-55%. Right Ventricle The right ventricle is normal size. The right ventricular systolic function is normal. Atria The left atrium size is normal. The right atrium size is normal. The interatrial septum is intact wit h no evidence for an atrial septal defect. Aortic Valve The Aortic valve is sclerotic. There is no aortic valvular stenosis. No aortic regurgitation is prese nt. Mitral Valve The mitral valve is normal in structure. No evidence of mitral valve stenosis. Trace mitral regurgita tion. Tricuspid Valve The tricuspid valve is normal in structure. There is no tricuspid valve stenosis. Trace tricuspid reg urgitation. Pulmonic Valve Pulmonic valve is not well visualized. There is no pulmonic valvular stenosis. There is no pulmonic v alvular regurgitation. Great Vessels The aortic root is normal in size. Ascending aorta is not well visualized. Aortic arch is not well vi sualized. The IVC was not well visualized. Pericardium There is no pericardial effusion. 2D Dimensions IVSD d PLAX 0.93 cm M: 0.6-1.2 LV Vol A2C d MOD 120.2 mL LVPW d PLAX 0.99 cm M: 0.6 - 1.2 LV Vol A4C d MOD 120.8 mL LVID d PLAX 4.24 cm M: 4.2 - 5.8 LA vol/ BSA A2C s A-L 14.1 mL/m2 LVDs 3.15 cm M: 2.5 - 4.0 LA vol/ BSA A4C s A-L 28.7 mL/m2 Ao Root d 2.61 cm M: 3.1 - 3.7 LA Vol/ BSA Biplane s A-L 21.7 mL/m2 RA Area A4C 12.16 cm2 LA Area A4C s MOD 18.42 cm2 RA Vol/ BSA A4C s A-L 13.1 mL/m2 LA Area A2C s MOD 11.93 cm2 LV EF Teichholz 50.6 % LV EF A4C MOD 50.2 % LVEF (Woody's) 49.97 % M: 52 - 72 LV EF A2C MOD 50.1 % LV Volume 96.52 mL M: 62 - 150 LV EF Biplane MOD 50.0 % LV Volume Index 50.01 mL/m2 M: 34 - 74 SV 63.56 mL LV Vol Biplane MOD 127.2 mL SV Index 32.91 mL/m2 FS 25.45 % LV Diastology MV E' medial 0.103 (>0.07 m/s) E/A Ratio 0.7 LV E/e MED 5.45 (<14) MV E Vmax 0.56 (0.4-1.3 m/s) MV E' lateral 0.098 (>0.1 m/s) MV A Vmax 0.75 (0.4-1.3 m/s) LV E/e LAT 5.75 (<14) MV E/A Ratio 0.73 MV E/E' medial 5.50 MV E/E' lateral 5.77 Aortic Valve LVOT Area 2.94 cm2 AoV Area Vmax 1.98 cm2 LVOT Vmax 0.99 m/s AoV Area/ BSA (Vmax) 1.03 cm2/m2 LVOT Mean Lorenzo. 0.59 m/s DARRIN Mean Lorenzo. 1.63 cm2 LVOT Peak Grad 4.0 mmHg DARRIN Mean Lorenzo. Index 0.84 cm2/m2 LVOT Mean Grad 1.7 mmHg LVOT VTI 0.164 m LVOT Diam s 1.90 cm AoV Vmax 1.47 m/s Velocity Ratio 0.67 AoV Mean Lorenzo. 1.07 m/s AoV Peak Grad 8.7 mmHg LVOT SV 48.10 mL AoV Mean Grad 5.0 mmHg AoV VTI 0.258 m AoV Area VTI 1.87 cm2 AoV Area/ BSA (VTI) 0.97 cm/m2 Mitral Valve MV DT 352 (160-240 msec) MV PHT 102 msec MV Area PHT 2.15 cm2 MV VTI 0.266 m MV Area VTI 1.81 (4.0-6.0 cm2) Pulmonary Valve PV Vmax 1.00 (0.5-1.5 m/s) RVOT Peak Gr. 1.44 mmHg PV Peak Grad 4.0 mmHg RVOT Mean Gr. 0.85 mmHg PV Mean Grad 2.5 mmHg RVOT VTI 0.116 m PV VTI 0.193 m RVOT Vmax 0.60 m/s Tricuspid Valve TR Peak Grad 10.5 mmHg TR Vmax 1.62 m/s
== END 2022-03-02 01:35 ==
LOC: DI 01:15
PROVIDERS: PCP Nurse Practitioner Family; Visit Provider Nurse Practitioner Family
DX: I48.91 Unspecified atrial fibrillation (principal)
CPT/HCPCS: 93306

== ENCOUNTER 2022-03-03 18:37 | Outpatient (REF) | payer MEDICARE, MEDICAID, SELFPAY ==
[2022-03-03 19:46] LABS: C Diff PCR Negative (Negative)
== END 2022-03-03 18:38 | disposition home or self-care (01) ==
LOC: LBN 18:37
PROVIDERS: PCP Nurse Practitioner Family; Visit Provider Nurse Practitioner Gerontology
DX: R19.7 Diarrhea, unspecified (principal); Z13.9 Encounter for screening, unspecified
CPT/HCPCS: 87493

== ENCOUNTER 2022-03-08 18:31 | Outpatient (REF) | payer MEDICARE, MEDICAID, SELFPAY ==
[2022-03-08 19:26] LABS: Iron 12 ug/dL (65-175); Total Iron Binding Capacity 227 ug/dL (250-450); Transferrin Sat 5 % (20-55)
[2022-03-08 19:42] LABS: Vitamin D 25 Total 23.5 ng/mL (30-100)
[2022-03-08 19:50] LABS: ALT 24 U/L (16-63); AST 20 U/L (15-37); Alkaline Phosphatase 104 U/L (46-116); Anion Gap 11.8 mmol/L (3-11); BUN 21 mg/dL (7-18); Bilirubin, Total 0.3 mg/dL (0.2-1.0); CO2 24.2 mmol/L (21.0-32.0); CREATININE 1.1 mg/dL (0.70-1.30); Chloride 105 mmol/L (98-107); Estimated GFR 72.67 (mL/min/1.73m2); Ferritin 197 ng/mL (26-388); Glucose 139 mg/dL (74-106); Magnesium 1.8 mg/dL (1.8-2.4); Sodium 141 mmol/L (136-145); Total Protein 6.9 g/dL (6.4-8.2); Vitamin B12 896 pg/mL (193-986)
[2022-03-08 19:53] LABS: Folate > 20.0 ng/mL (8.6-20.0)
[2022-03-08 20:11] LABS: C-Reactive Protein 8.24 mg/dL (0.0-0.3); NT-proBNP 56 pg/mL (<300); Uric Acid 5.9 mg/dL (3.5-7.2)
== END 2022-03-08 18:32 | disposition home or self-care (01) ==
LOC: LBN 18:31
PROVIDERS: PCP Nurse Practitioner Family; Visit Provider Nurse Practitioner Gerontology
DX: R68.89 Other general symptoms and signs (principal)
CPT/HCPCS: 80053; 82306; 82607; 82728; 82746; 83036; 83540; 83550; 83735; 83880; 84443; 84550; 85025; 86140

== ENCOUNTER 2022-03-10 17:44 | Outpatient (REF) | payer MEDICARE, MEDICAID, SELFPAY ==
[2022-03-10 18:29] LABS: Abs Immature Grans 0.04 10^3/uL (0.0-0.06); Absolute Basophil Count 0.01 10^3/uL (0.0-0.2); Absolute Eosinophil Count 0.12 10^3/uL (0.0-0.7); Absolute Lymphocyte Count 1.48 10^3/uL (1.2-3.4); Absolute Monocyte Count 0.89 10^3/uL (0.1-0.8); Absolute Neutrophil Count 4.48 10^3/uL (1.2-6.7); Basophils % 0.1; Eosinophils % 1.7; HGB 11.2 g/dL (13.5-17.5); Immature Grans % 0.6; Lymphocytes % 21.1; MCH 25.7 pg (27.0-33.0); MCHC 31.1 % (32.0-36.0); MCV 83 fL (80-95); MPV 9.8 fL (8.0-11.0); Monocytes % 12.7; Neutrophils % 63.8; Platelet Count 511 10^3/uL (130-400); RBC 4.36 10^6/uL (4.36-5.78); RDW 17.1 % (11.8-14.1); RDW-SD 51.9 fL; WBC 7.02 10^3/uL (4.4-10.8)
[2022-03-10 18:51] LABS: Hemoglobin A1C 5.4 % (<5.7)
== END 2022-03-10 17:45 | disposition home or self-care (01) ==
LOC: LBN 17:44
PROVIDERS: PCP Nurse Practitioner Family; Visit Provider Nurse Practitioner Gerontology
DX: R63.5 Abnormal weight gain (principal); R19.7 Diarrhea, unspecified; R53.83 Other fatigue; Z00.00 Encounter for general adult medical examination without abnormal findings; R68.89 Other general symptoms and signs
CPT/HCPCS: 87329; 83036; 83630; 85025; 87177

== ENCOUNTER 2022-03-20 10:28 | Emergency (ER) | payer MEDICARE, MEDICAID, SELFPAY ==
[2022-03-20] VITALS (7 sets, daily range): BP systolic 106–121; BP diastolic 71–78; PULSE 81–85; RESP 17–18; TEMP 36.8; O2SAT 98–99
--- NOTE | 2022-03-20 11:00 | DI.CT_ITS ---
Exam(s) CT HEAD CERVICAL SPINE WO EXAM: CT HEAD CERVICAL SPINE WO CLINICAL HISTORY: fall. TECHNIQUE: Imaging Protocol: Axial computed tomography images with coronal and sagittal reformatted images were created and reviewed COMPARISON: CT CT HEAD CERVICAL SPINE WO from 09/23/2021 FINDINGS: Head CT Ventricles and Extra axial spaces: Normal in size and morphology for the patient's age. Hemorrhage: None. Cerebral parenchyma: Mild atrophy. Midline shift: None. Brainstem/Cerebellum: Normal. Calvarium: Normal. Visualized Paranasal sinuses/Mastoids: Clear. Cervical Spine CT BONES: Vertebral body heights are maintained. Alignment is normal. There is no evidence of acute frac ture. Degenerative disc changes and facet degenerative changes are seen . SOFT TISSUES: No paraspinal hematoma. The airway appears intact. No pneumothorax is seen at the lung apices. IMPRESSION: Head CT: No acute abnormality. C-spine CT: Degenerative changes, no acute abnormality. RADIATION DOSE DELIVERED: 1,473.98mGy.cm Total DLP DATA REPOSITORY: All CT scans at this facility are submitted to the National Radiology Data Registry (NRDR) Dose Index Registry (DIR) with the [employer] (ACR). RADIATION OPTIMIZATION: All CT scans at this facility use at least one of these dose optimization te chniques: automated exposure control; mA and/or kV adjustment per patient size (includes targeted exa ms where dose is matched to clinical indication); or iterative reconstruction.
--- NOTE | 2022-03-20 11:00 | DI.RAD_ITS ---
Exam(s) XR HIP LT COMPLETE AP PELVIS EXAM: XR HIP LT COMPLETE AP PELVIS INDICATION: fall, recent replacement. COMPARISON: CR XR HIP LT COMPLETE AP PELVIS from 01/28/2022 TECHNIQUE: 2D digital imaging was performed. Three views. FINDINGS: A left hip prosthesis is again noted. The alignment is unchanged. There is no evidence of fracture. The right hip is unremarkable. Suture material is noted in the pelvis. IMPRESSION: No acute abnormality. DATA REPOSITORY: RADIATION DOSE DELIVERED:
--- NOTE | 2022-03-20 11:04 | W.ED.GENAD ---
Discharge Plan Disposition Patient Disposition: Residential Facility(SNF) Condition: Stable Discharge Details Clinical Impression: Fall, Acute hip pain Primary Care Provider: [facility] ED Provider: Juliana Loja [place] Meds and New Rx's Prescriptions: Continued mecobalamin (vitamin B12) 1,000 mcg tablet,disintegrating 1,000 mcg sublingual DAILY Rx Instructions: place tablet under tongue and allow to dissolve for at least30 secs before swallowing. not taking 03/20/22 pantoprazole 40 mg tablet,delayed release (DR/EC) 40 mg PO DAILY Qty: 90 4RF lorazepam 0.5 mg tablet 1 mg PO TID PRN PRN metoprolol succinate 25 mg tablet extended release 24 hr 12.5 mg PO DAILY Rx Instructions: Take 1 tablet daily melatonin 3 mg Tablet 3 mg PO HS Qty: 0 0RF potassium chloride 20 mEq Tablet,Er Particles/Crystals 20 meq PO DAILY Qty: 0 0RF ascorbic acid (vitamin C) [Vitamin C] 500 mg Tablet 500 mg PO BID Qty: 0 0RF ferrous sulfate 325 mg (65 mg iron) Tablet 325 mg PO BID Qty: 0 0RF mirtazapine 15 mg Tablet 7.5 mg PO HS Qty: 0 0RF ibuprofen 600 mg Tablet 600 mg PO QID PRN PRNQty: 0 0RF oxycodone 5 mg Tablet 5 mg PO Q6H PRN PRNQty: 0 0RF Rx Instructions: not taking 03/20/22 cholestyramine-aspartame [Prevalite] 4 gram Powder In Packet 1 ea PO DAILY@1400 Qty: 0 0RF One Daily Multi-Vit w-Mineral 4.5 mg iron Tablet 1 tab PO DAILY Qty: 0 0RF Rx Instructions: not taking 03/20/22 Phlexy-Vits 15 mg- 700 mcg Powder In Packet 1 oz PO TID Qty: 0 0RF L. Acidophilus,Casei,Rhamnosus [Bio-K Plus] 1 cap PO DAILY Qty: 0 0RF Discharge Instructions Instructions: Leg Pain (ED) Additional Instructions: Imaging is reassuring here today. No evidence of fracture, dislocation or bleed. Please encourage rest, ice, elevation. May continue with Tylenol as needed for discomfort. If you develop increased pain, fever/chills, or other new/worsening symptom please seek care urgently once again. Please follow-up with primary care in the next 1 to 2 weeks for reevaluation. Referrals: [facility] NP [Primary Care Provider] - Discharge Data Discharge Date/Time-TO BE ENTERED AT DEPARTURE: 03/20/22 13:20 Medical Decision Making Patient is a pleasant 67-year-old gentleman with past medical history pertinent for dementia, Parkinson's, hypertension, urinary incontinence, brought in via EMS ambulance after fall. Fall was reported to be witnessed at the [facility] and they deny him striking his head. However, patient does endorse headache. Primary was concern for injury to left hip which patient had replaced a few months ago after hip fracture. Review of symptoms is quite limited secondary to patient's baseline dementia. On exam, patient appears to be resting comfortably. He is hemodynamically stable. He has no pain with palpation about the skull or cervical spine, no step-off or deformity noted. No ortiz sign or evidence of basilar skull fracture. He has no pain to palpation about the chest wall, no crepitus. Abdominal exam reveals it to be nontender. There is a healing midline incision that appears to be healing through secondary intention no evidence of infection at this time. Pelvis feels to be stable. He does have a depends on and has been incontinent. While the initial report was for significant hip pain with any type of movement, I am able to internally and externally rotate the hip both in extension and in flexion with no significant discomfort for the patient. Incision appears to healed well with no erythema, warmth or drainage. No pain elicited with palpation. He is 2+ distal pulses. No pain elicited with palpation elsewhere about the lower extremities. Plan to obtain XR of the left hip, CT head for possible bleed. FINDINGS: Brain: Normal. No hemorrhage. Unremarkable white matter. No mass effect. Cerebral ventricles: No ventriculomegaly. Paranasal sinuses: Visualized sinuses are unremarkable. No fluid levels. Mastoid air cells: Visualized mastoid air cells are well aerated. Bones/joints: Unremarkable. No acute fracture. Soft tissues: Unremarkable. IMPRESSION: No acute intracranial abnormality. FINDINGS: Bones/joints: No acute fracture. Normal alignment. No significant disc protrusion. No severe spinal canal stenosis.? Multilevel mild facet arthropathy with foraminal stenosis most significant at C3 on the left and C5 bilaterally. Lungs: Lung apices are normal. Soft tissues: Unremarkable. IMPRESSION: No acute findings. FINDINGS: Bones/joints: Total left hip arthroplasty unchanged from prior study. No evidence for acute bony injury. Soft tissues: Unremarkable. Intraperitoneal space:? Surgical clips in the pelvis similar to prior study. IMPRESSION: No acute findings. If clinical symptoms persist recommend followup film in 7-10 days. Discussed with patient and staff at home care facility. Plan to transfer back to their facility for continued care. Encouraged close f/u with PCP. Return precautions discussed. As patient has difficulty with ambualtion at baseline and signficant confusion, transported back via EMS. HPI General Date/Time Provider Initiated Documentation: 03/20/22 11:04. Limitations to Documentation: altered mental status. Information obtained by: patient, RN/MD, EMS, RN notes reviewed and old records reviewed. History of Present Illness 67 year old M presents to the emergency department with the chief complaint of left hip pain, headache after witnessed fall, described as severe and similar to prior episodes, and is localized to the head, left and lower extremity. Patient reports no radiation. Patient started experiencing this minute(s) and it has been constant. Immobilization improves symptom(s), Movement worsens symptoms . Patient notes no other symptoms.. Patient did receive the following treatments prior to arrival, none Related Data Home Medications Medication Instructions Recorded Confirmed pantoprazole 40 mg tablet,delayed 40 mg PO DAILY #90 tabs 10/05/21 03/20/22 release mecobalamin (vitamin B12) 1,000 1,000 mcg sublingual DAILY 12/21/21 03/20/22 mcg disintegrating tablet,sublingual metoprolol succinate 25 mg 12.5 mg PO DAILY 01/24/22 03/20/22 tablet,extended release 24 hr L. Acidophilus,Casei,Rhamnosus 1 cap PO DAILY ##0 02/22/22 03/20/22 [Bio-K PLUS] ascorbic acid (vitamin C) 500 mg 500 mg PO BID #0 tabs 02/22/22 03/20/22 tablet (Vitamin C) cholestyramine-aspartame 4 gram 1 ea PO DAILY@1400 #0 ea 02/22/22 03/20/22 oral powder for susp in a packet (Prevalite) ferrous sulfate 325 mg (65 mg 325 mg PO BID #0 tabs 02/22/22 03/20/22 iron) tablet ibuprofen 600 mg tablet 600 mg PO QID PRN PRN #0 tabs 02/22/22 03/20/22 melatonin 3 mg tablet 3 mg PO HS #0 tabs 02/22/22 03/20/22 mirtazapine 15 mg tablet 7.5 mg PO HS #0 tabs 02/22/22 03/20/22 multivit with mins-ferrous sulf 15 1 oz PO TID #0 ea 02/22/22 03/20/22 mg-folic 700 mcg oral powder packet (Phlexy-Vits) multivitamin with minerals-ferrous 1 tab PO DAILY #0 tabs 02/22/22 03/20/22 sulfate 4.5 mg iron tablet (One Daily Multivitamins with Minerals) oxycodone 5 mg tablet 5 mg PO Q6H PRN PRN #0 tabs 02/22/22 03/20/22 potassium chloride 20 mEq 20 meq PO DAILY #0 tabs 02/22/22 03/20/22 tablet,extended release(part/cryst) lorazepam 0.5 mg tablet 1 mg PO TID PRN PRN 03/20/22 03/20/22 Previous Rx's Medication Instructions Recorded pantoprazole 40 mg tablet,delayed 40 mg PO DAILY #90 tabs 10/05/21 release L. Acidophilus,Casei,Rhamnosus 1 cap PO DAILY ##0 02/22/22 [Bio-K PLUS] ascorbic acid (vitamin C) 500 mg 500 mg PO BID #0 tabs 02/22/22 tablet (Vitamin C) cholestyramine-aspartame 4 gram 1 ea PO DAILY@1400 #0 ea 02/22/22 oral powder for susp in a packet (Prevalite) ferrous sulfate 325 mg (65 mg 325 mg PO BID #0 tabs 02/22/22 iron) tablet ibuprofen 600 mg tablet 600 mg PO QID PRN PRN #0 tabs 02/22/22 melatonin 3 mg tablet 3 mg PO HS #0 tabs 02/22/22 mirtazapine 15 mg tablet 7.5 mg PO HS #0 tabs 02/22/22 multivit with mins-ferrous sulf 15 1 oz PO TID #0 ea 02/22/22 mg-folic 700 mcg oral powder packet (Phlexy-Vits) multivitamin with minerals-ferrous 1 tab PO DAILY #0 tabs 02/22/22 sulfate 4.5 mg iron tablet (One Daily Multivitamins with Minerals) oxycodone 5 mg tablet 5 mg PO Q6H PRN PRN #0 tabs 02/22/22 potassium chloride 20 mEq 20 meq PO DAILY #0 tabs 02/22/22 tablet,extended release(part/cryst) Allergies Allergy/AdvReac Type Severity Reaction Status Date / Time No Known Allergies Allergy Verified 03/20/22 11:26 General Stated Complaint: Orthopedic DELL: 3 Review of Systems Narrative: Patient confused at baseline, very limited answers, unclear if these are accurate PFSH All Active Problems (Updated 03/20/22 @ 12:37 by JOSE Baker) Fall (Acute) Acute hip pain (Acute) Contracture of right shoulder (Acute) Rotator cuff tear, right (Acute) 40 mg Depo-Medrol injection: 12/21/2021 Abdominal wound dehiscence (Chronic ~09/2021) Ex-laparotomy July 2021 Dementia (Chronic) Parkinsonism (Chronic) Essential hypertension (Chronic) Urinary incontinence (Chronic) Prediabetes (Chronic) Nocturia (Chronic) GERD (gastroesophageal reflux disease) (Chronic) Calculus of left kidney (Chronic) Medical History Alcohol abuse 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 Followed at and treated at hospital in [place] August-early September 2021-prolonged hospitalization Ulcerative colitis S/p Subtotal colectomy with ileocolonic anastomosis Surgical History History of cataract surgery Hx of exploratory laparotomy (08/08/21) Extensive intra-abdominal adhesions with frozen abdomen, ileus S/P total colectomy (1979) Subtotal colectomy with ileocolonic anastomosis Family History Mother , 71 No problems noted. Father , 81 No problems noted. Sister , 70 No problems noted. Social History Smoking/Tobacco Use Status: Former Tobacco Use tobacco type: cigarettes Quit Date: 03/13/91 Second Hand Exposure: Yes Smoking risk assessment performed?: Yes Alcohol Intake: current Alcohol type: beer Drug use: Never Substance use type: does not use Caregiver/Support person: Yes Household members: other Details: Sister and brother in law Housing: house Communication Needs: None Do you need help understanding health information?: Always Pets and animals: No Sexually active: No Do you think of yourself as: straight/heterosexual Current gender identity: male What is your relationship status?: How often do you talk on the phone with friends or family?: decline to answer How often do you get together with friends or relatives?: decline to answer How often do you attend judaism or rastafari services?: decline to answer Do you belong to any clubs or organized social groups?: decline to answer Panel score (0-1 are the most socially isolated patients): 1 What type of physical activity do you participate in: none Frequency: does not exercise [place]/Oriental Orthodox: No preference Special philly needs: No Seatbelt use: always Helmet use: Yes Drive intox or ride w/intox belly dump driver: No Do you feel safe at home: Yes Do you feel safe in your relationship?: Yes Exam Const General: cooperative, comfortable and no acute distress Nutritional Appearance: average body habitus and well nourished Orientation: alert and awake (confused, minimal speech at baseline, reported baseline) [facility] Head: normal to inspection, no palpable skull fracture, normocephalic and atraumatic Ears: TM's normal bilaterally Eyes General: appearance normal, both eyes and all related structures Neck Neck: normal visual inspection, trachea midline and supple Chest Chest: normal inspection of the chest, normal palpation of entire chest wall, no crepitus and no localized rib tenderness Resp Effort & Inspection: normal respiratory effort, able to speak in complete sentences and no respiratory distress Auscultation: clear to auscultation bilaterally Cardio Rate: regular rate Rhythm: regular rhythm Heart Sounds: S1 normal and S2 normal GI Inspection: normal to inspection, no abdominal wall ecchymosis and non-distended Palpation: soft and nontender Back/Spine/Pelvis Cervical Spine: cervical ROM normal Thoracic/Lumbar Spine: thoracic and lumbar spine normal to inspection and No thoracic spinal tenderness Pelvis: no pain with anterior-posterior compression and no pain with lateral compression Skin General skin exam: no rashes or lesions noted Lesions: no lesions Rashes: no rashes Trauma: no lacerations or abrasions Wounds: no wounds Neuro General: patient alert, patient awake and moves all extremities Motor: muscle tone normal throughout Sensory Exam: no sensory deficits noted (no saddle paresthesias) Extrem General: normal to inspection, capillary refill normal, no pedal edema and no calf tenderness Left lower extremity: normal to inspection, normal capillary refill, no joint enlargement and hip/thigh (tender laterally over greater trochanter) Course Vital Signs Vital signs: Vital Signs Temperature 36.8 C 03/20/22 10:28 Pulse 85 03/20/22 10:28 Respiratory Rate 17 03/20/22 10:28 Blood Pressure 121/76 03/20/22 10:28 Pulse Oximetry 98 03/20/22 10:28 Temperature 36.8 C 03/20/22 10:28 Temperature Source Axillary 03/20/22 10:28 Pulse 85 03/20/22 10:28 Respiratory Rate 17 03/20/22 10:28 Respiratory Effort Non-Labored 03/20/22 10:49 Blood Pressure 121/76 03/20/22 10:28 Blood Pressure Position Sitting 03/20/22 10:28 Pulse Oximetry 98 03/20/22 10:28 Oxygen Delivery Method Room Air 03/20/22 10:28 Oxygen Flow Rate 0 03/20/22 10:28
--- NOTE | 2022-03-20 12:12 | DI.VRAD_ITS ---
PROCEDURE INFORMATION: Exam: CT Head Without Contrast Exam date and time: 03/20/2022 11:50 AM Age: 67 years old Clinical indication: Other: Fall TECHNIQUE: Imaging protocol: Computed tomography of the head without contrast. Radiation optimization: All CT scans at this facility use at least one of these dose optimization techniques: automated exposure control; mA and/or kV adjustment per patient size (includes targeted exams where dose is matched to clinical indication); or iterative reconstruction. COMPARISON: CT HEAD CERVICAL SPINE WO 09/23/2021 10:51 AM FINDINGS: Brain: Normal. No hemorrhage. Unremarkable white matter. No mass effect. Cerebral ventricles: No ventriculomegaly. Paranasal sinuses: Visualized sinuses are unremarkable. No fluid levels. Mastoid air cells: Visualized mastoid air cells are well aerated. Bones/joints: Unremarkable. No acute fracture. Soft tissues: Unremarkable. IMPRESSION: No acute intracranial abnormality. PROCEDURE INFORMATION: Exam: CT Cervical Spine Without Contrast Exam date and time: 03/20/2022 11:50 AM Age: 67 years old Clinical indication: Other: Fall TECHNIQUE: Imaging protocol: Computed tomography of the cervical spine without contrast. Radiation optimization: All CT scans at this facility use at least one of these dose optimization techniques: automated exposure control; mA and/or kV adjustment per patient size (includes targeted exams where dose is matched to clinical indication); or iterative reconstruction. COMPARISON: CT HEAD CERVICAL SPINE WO 09/23/2021 10:51 AM FINDINGS: Bones/joints: No acute fracture. Normal alignment. No significant disc protrusion. No severe spinal canal stenosis. Multilevel mild facet arthropathy with foraminal stenosis most significant at C3 on the left and C5 bilaterally. Lungs: Lung apices are normal. Soft tissues: Unremarkable. IMPRESSION: No acute findings. Dictated and Authenticated by: Jacy Thornton MD. Ordering:DELFINA Andrews MD
--- NOTE | 2022-03-20 12:16 | DI.VRAD_ITS ---
PROCEDURE INFORMATION: Exam: XR Left Hip Exam date and time: 03/20/2022 12:00 PM Age: 67 years old Clinical indication: Injury or trauma; Fall; Blunt trauma (contusions or hematomas); Left; Hip; Injury date: 03/20/22 TECHNIQUE: Imaging protocol: Radiologic exam of the Left hip. Views: 2 or 3 views hip with pelvis when performed. COMPARISON: CR XR HIP LT AP LAT ONLY 22/02/2022 11:33 FINDINGS: Bones/joints: Total left hip arthroplasty unchanged from prior study. No evidence for acute bony injury. Soft tissues: Unremarkable. Intraperitoneal space: Surgical clips in the pelvis similar to prior study. IMPRESSION: No acute findings. If clinical symptoms persist recommend followup film in 7-10 days. Dictated and Authenticated by: Hodan Francis MD. Ordering:DELFINA Andrews MD
== END 2022-03-20 13:20 | disposition skilled nursing facility (03) ==
PROVIDERS: Emergency Provider Physician Assistant; PCP Nurse Practitioner Family
DX: M25.552 Pain in left hip (principal); G89.11 Acute pain due to trauma; W19.XXXA Unspecified fall, initial encounter; G20 Parkinson's disease; I10 Essential (primary) hypertension; R51.9 Headache, unspecified; F03.90 Unspecified dementia, unspecified severity, without behavioral disturbance, psychotic disturbance, mood disturbance, and anxiety; Y99.8 Other external cause status
CPT/HCPCS: 99284; 70450; 72125; 73502